=== PATIENT | female | born 1955 | race Caucasian/White ===

== ENCOUNTER 2018-01-09 12:44 | Day surgery (SDC) | payer BC ==
[2018-01-09] MEDS ORDERED: ALPRAZolam 0.5 MG TAB PO STA (13:19)
[2018-01-09 13:24] VITALS: TEMP 97.8
[2018-01-09 14:13] VITALS: BP 136/76; PULSE 91; RESP 14
--- NOTE | 2018-01-09 14:32 | US ---
ULTRASOUND GUIDED FNA THYROID BIOPSY: CLINICAL HISTORY: Large right thyroid cyst FINDINGS: The procedure was explained to the patient. The risks, complications, benefits and alternatives were discussed and any questions were answered. Informed consent was obtained. Patient was placed supin e on the ultrasound table and prepped and draped in the usual sterile fashion. Utilizing a 25 gauge needle, five passes were made into the requested large right thyroid cyst. Patient was stable throughout the procedure. Pathology is pending. All elements of maximal barrier technique were utilized. IMPRESSION: 1. Successful ultrasound guided FNA thyroid biopsy.
== END 2018-01-09 14:19 | disposition home or self-care (01) ==
LOC: RADPROMAIN 12:44
PROVIDERS: ATTEND Otolaryngology
DX: E04.1 Nontoxic single thyroid nodule (principal)
CPT/HCPCS: 10022; 76942; 88173; 88305

== ENCOUNTER → 2018-06-19 | Outpatient (CLI) | payer BC ==
--- NOTE | 2018-06-19 08:34 | US ---
EXAMINATION TYPE: US thyroid st tissue head/neck DATE OF EXAM: 06/19/2018 COMPARISON: US 2018 CLINICAL HISTORY: E04.1 thyroid nodule. Right thyroid cyst, history of FNA GLAND SIZE: Right Lobe: 6.7 x 4.1 x 5.1 cm Overall Parenchyma: heterogenous Left Lobe: 4.5 x 1.7 x 1.4 cm Overall Parenchyma: heterogeneous Isthmus Thickness: 0.2 cm NODULES RIGHT: # of nodules measured on right: 1 1. 5.4 X 1.9 x 4.6 cm irregular bilobed cystic nodule at the mid pole with well-defined margins. Th is nodule is wider than tall and shows no intranodular vascularity. Prior size: 4.4 x 1.3 x 4.8 cm LEFT: # of nodules measured on left: 0 ISTHMUS: # of nodules measured in the isthmus: 0 Bilateral neck scanned, no evidence of lymphadenopathy. Enlarged right lobe with cyst described above. IMPRESSION: Redemonstration of an enlarged right thyroid lobe with a previously biopsied cystic lesion, slightly enlarged in the interim. No new left nodules or thyroid isthmic nodules.
== END | disposition home or self-care (01) ==
LOC: RADUSWWP 06:59
PROVIDERS: ATTEND Otolaryngology
DX: E04.9 Nontoxic goiter, unspecified (principal)
CPT/HCPCS: 76536

== ENCOUNTER → 2019-04-03 | Outpatient (CLI) | payer BC ==
--- NOTE | 2019-04-03 15:20 | US ---
EXAMINATION TYPE: US thyroid st tissue head/neck DATE OF EXAM: 04/03/2019 COMPARISON: US 2018 CLINICAL HISTORY: E04.1 Thyroid nodule Rt. Follow up thyroid nodule, history of FNA GLAND SIZE: Right Lobe: 6.6 x 3.7 x 5.3 cm Overall Parenchyma: heterogenous Left Lobe: 4.7 x 1.7 x 1.3 cm Overall Parenchyma: heterogeneous Isthmus Thickness: 0.3 cm NODULES RIGHT: # of nodules measured on right: 1 1. 5.9 X 3.0 x 4.5 cm hypoechoic mixed nodule with 5.8 x 2.7 x 5.0cm cystic area seen at the mid po le with poorly defined margins. This nodule is wider than tall and shows intranodular vascularity. Prior size: 5.4 x 1.9 x 4.6 cm LEFT: # of nodules measured on left: 0 ISTHMUS: # of nodules measured in the isthmus: 0 Bilateral neck scanned, no evidence of lymphadenopathy. IMPRESSION: Thyroidomegaly with a nonspecific thyroid nodularity.
== END ==
LOC: RADUSWWP 14:44
PROVIDERS: ATTEND Otolaryngology
DX: E01.0 Iodine-deficiency related diffuse (endemic) goiter (principal); Z88.2 Allergy status to sulfonamides; Z88.1 Allergy status to other antibiotic agents
CPT/HCPCS: 76536

== ENCOUNTER 2020-01-05 18:57 | Inpatient (IN) | payer BC ==
[2020-01-05] MEDS ORDERED: NITROGLYCERIN SL TABS 0.4 MG TAB SUBLINGUAL PRN (19:15)
[2020-01-05] MEDS ORDERED: MORPHINE SULFATE 4 MG/ML SYRINGE IV PRN (19:15)
--- NOTE | 2020-01-05 19:15 | ED ---
SOB HPI - General Chief Complaint: Shortness of Breath Stated Complaint: Pulmonary Embolism Time Seen by Provider: 01/05/20 19:00 Source: patient, EMS, RN notes reviewed, old records reviewed Mode of arrival: EMS Limitations: no limitations - History of Present Illness MD Complaint: shortness of breath, cough -: days(s) Severity: mild Severity scale (1-10): 3 Quality: sharp, crushing Consistency: constant Improves With: oxygen, rest, bronchodilators Worsens With: nothing Known History Of: other (history of PE provoked w Surgery) Context: recent URI, recent illness Associated Symptoms: chest pain, pain with inspiration Treatments Prior to Arrival: none - Related Data Home Medications Medication Instructions Recorded Confirmed Docusate [Colace] 100 mg PO DAILY 01/03/18 01/09/18 Vitamin B Complex 1 each PO DAILY 01/03/18 01/09/18 buPROPion [Wellbutrin] 300 mg PO DAILY 01/03/18 01/09/18 Allergies Allergy/AdvReac Type Severity Reaction Status Date / Time Latex, Natural Rubber Allergy Rash/Hives Verified 01/05/20 19:05 Sulfa (Sulfonamide Allergy Dyspnea Verified 01/05/20 19:05 Antibiotics) banana AdvReac Rash/Hives Verified 01/05/20 19:05 ciprofloxacin [From Cipro] AdvReac Rash/Hives Verified 01/05/20 19:06 [place] And Derivatives AdvReac Rash/Hives Verified 01/05/20 19:05 Review of Systems ROS Statement: Those systems with pertinent positive or pertinent negative responses have been documented in the HPI. ROS Other: All systems not noted in ROS Statement are negative. Past Medical History Past Medical History: Thyroid Disorder Additional Past Medical History / Comment(s): hernias, diverticulitis, right lung collapse, pulmonary embolism History of Any Multi-Drug Resistant Organisms: None Reported Past Surgical History: Cholecystectomy, Hernia Repair Additional Past Surgical History / Comment(s): multiple colon surgeries and hernia repairs, bladder suspension, chest tube placed, previous thyroid biopsy, colonoscopies Past Anesthesia/Blood Transfusion Reactions: No Reported Reaction Past Psychological History: No Psychological Hx Reported Smoking Status: Former smoker Past Alcohol Use History: None Reported Past Drug Use History: None Reported - Past Family History Sister(s) Family Medical History: Thyroid Disorder Additional Family Medical History / Comment(s): partial thyroidectomy Daughter(s) Family Medical History: Thyroid Disorder Additional Family Medical History / Comment(s): partial thyroidectomy General Exam Limitations: no limitations General appearance: alert, in no apparent distress Head exam: Present: atraumatic, normocephalic, normal inspection Eye exam: Present: normal appearance, PERRL, EOMI. Absent: scleral icterus, conjunctival injection, periorbital swelling ENT exam: Present: normal exam, mucous membranes moist Neck exam: Present: normal inspection. Absent: tenderness, meningismus, lymphadenopathy Respiratory exam: Present: normal lung sounds bilaterally. Absent: respiratory distress, wheezes, rales, rhonchi, stridor Cardiovascular Exam: Present: normal rhythm, tachycardia, normal heart sounds. Absent: systolic murmur, diastolic murmur, rubs, gallop, clicks GI/Abdominal exam: Present: soft, normal bowel sounds. Absent: distended, tenderness, guarding, rebound, rigid Extremities exam: Present: normal inspection, full ROM, normal capillary refill. Absent: tenderness, pedal edema, joint swelling, calf tenderness Back exam: Present: normal inspection Neurological exam: Present: alert, oriented X3, CN II-XII intact Psychiatric exam: Present: normal affect, normal mood Skin exam: Present: warm, dry, intact, normal color. Absent: rash Course Vital Signs 01/05/20 01/05/20 01/05/20 19:02 19:06 19:07 Temperature 97.9 F Pulse Rate 105 H 105 H Respiratory 18 20 18 Rate Blood Pressure 105/83 105/83 O2 Sat by Pulse 95 96 Oximetry - Reevaluation(s) Reevaluation #1: 01/05/20 19:13 Medical records reviewed Reevaluation #2: 01/05/20 19:13 Transfer paperwork is also reviewed - Consultations Consultation #1: spoke w [facility] who agree for admission Medical Decision Making - Medical Decision Making 64 female DF for evaluation patient presents today for evaluation regards to shortness of breath patient is accepted transfer mother facility with positive PE. Patient states currently comfortable no pain no shortness of breath. Lenora ent will be admitted for continued evaluation and treatment, will get echo and Vascular surgery to evaluate pt - Radiology Data Radiology results: report reviewed (CT angio chest showing BL PEs) Disposition Clinical Impression: Bilateral pulmonary embolism Disposition: ADMITTED IP TO THIS HOSP Condition: Serious Is patient prescribed a controlled substance at d/c from ED?: No Referrals: Naomi Eaton NPC [Primary Care Provider] - 1-2 days
[2020-01-05] MEDS ORDERED: HEPARIN SODIUM,PORCINE 5,000 UNIT/ML 1 ML VIAL IV PRN (19:18)
[2020-01-05] MEDS: HEPARIN SOD,PORK IN 0.45% NACL 25,000 UNIT in 0.45% NACL 1 250ML.BAG IV SCH (19:26)
[2020-01-05] MEDS: SODIUM CHLORIDE 0.9% 1,000 ML IV SCH (19:28)
[2020-01-06 05:55] LABS: INR 1.2 (<1.2); Prothrombin Time 11.8 sec (9.0-12.0)
[2020-01-06] MEDS: SODIUM CHLORIDE 0.9% 1,000 ML IV SCH ×2 (06:16→11:38)
[2020-01-06 07:12] LABS: Cholesterol 173 mg/dL (<200); HDL Cholesterol 49 mg/dL (40-60); LDL Cholesterol,Calculated 91 mg/dL (0-99); Triglycerides 167 mg/dL (<150)
[2020-01-06 07:20] LABS: Basophils # (A) 0.1 k/uL (0-0.2); Basophils % (A) 1 %; Eosinophils # (A) 0.1 k/uL (0-0.7); Eosinophils % (A) 1 %; HCT 43.4 % (34.0-46.0); Lymphocytes # (A) 2.3 k/uL (1.0-4.8); Lymphocytes % (A) 31 %; MCH 29.1 pg (25.0-35.0); MCHC 32.3 g/dL (31.0-37.0); MCV 90.2 fL (80.0-100.0); Mean Platelet Volume 8.4; Monocytes # (A) 0.4 k/uL (0-1.0); Monocytes % (A) 5 %; Neutrophils # (A) 4.5 k/uL (1.3-7.7); Neutrophils % (A) 61 %; Platelet Count 206 k/uL (150-450); RBC 4.81 m/uL (3.80-5.40); RDW 13.2 % (11.5-15.5); WBC 7.4 k/uL (3.8-10.6)
[2020-01-06] MEDS ORDERED: ASPIRIN 325 MG TAB PO SCH (09:00)
--- NOTE | 2020-01-06 09:04 | CONS ---
CONSULTATION CHIEF COMPLAINT: Shortness of breath. Colten is a 64-year-old lady with no significant past medical history who presented to hospital with shortness of breath. It started on Saturday mild to moderate intensity at rest and progressively got worse. She went to hospital at [facility] in [place] where she had a CT scan of the chest that revealed bilateral pulmonary emboli and she has subsequently been transferred and admitted to us here at [place]. She did not have any evidence of right ventricular strain. At the time of my evaluation this morning patient appears comfortable at rest and is not in respiratory distress and she is hemodynamically stable. Her heart rate is around 100 beats per minute. Blood pressure is 105/70. She is saturating at 96% on 2 L. The patient has prior history of DVT following cholecystectomy and also has history of pulmonary embolism following hernia surgery. The patient had unprovoked and large pulmonary embolism and she will have to be on lifetime oral anticoagulation. PAST MEDICAL HISTORY: Negative for hypertension, diabetes, dyslipidemia. There is no history of cancer. There is no recent history of prolonged travel or surgery. CURRENT MEDICATIONS: Current medications include Wellbutrin, Colace, and Benadryl. ALLERGIES: She is allergic to LATEX, SULFA and CIPRO. FAMILY HISTORY: Negative for premature coronary artery disease. SOCIAL HISTORY: Negative for current smoking, EtOH abuse, or drug abuse. REVIEW OF SYSTEMS: HEENT is unremarkable. CARDIAC: As described above. RESPIRATORY: Negative. GI: Negative. GENITOURINARY: Negative. ALLERGY/IMMUNOLOGY: Negative. SKIN: Negative. MUSCULOSKELETAL: Negative. ENDOCRINE: Negative. HEMATOLOGICAL: Negative. DERM: Negative. CONSTITUTIONAL: Negative. ONCOLOGICAL: Negative. ELECTRONIC SCALE TESTER: Negative. Rest of the system review is not relevant. PHYSICAL EXAMINATION: On exam, patient is comfortable at rest. Vital signs are stable. There is no jugular venous distention. Carotid upstroke is normal. There is no bruit. Chest exam reveals good air entry bilaterally. Heart exam reveals first and second heart sounds. No gallop. Abdomen is soft, nontender. Exam of extremities did not reveal any edema. Peripheral pulses are felt. ELECTRONIC SCALE TESTER exam did not reveal focal neurological deficits. LABS: Labs show a hemoglobin of 14, platelet count is 206. Troponin is mildly elevated. EKG shows sinus tachycardia with T-wave inversions in the precordial leads. CT scan of the chest was positive for bilateral pulmonary emboli. ASSESSMENT: Acute bilateral pulmonary embolism in a patient without any clear-cut precipitating factors. PLAN: Patient will be treated with IV heparin. I will convert her to Eliquis or Xarelto tomorrow. She is going to be on oral anticoagulation for the rest of her life. I will obtain venous duplex study of her lower extremities and also an echocardiogram. I anticipate discharging her home over the next 48 hours. Thank you for allowing us to participate in the care of this pleasant lady. MMJOSIASL / IJN: [id number] /
[2020-01-06] MEDS: HEPARIN SOD,PORK IN 0.45% NACL 25,000 UNIT in 0.45% NACL 1 250ML.BAG IV SCH ×2 (09:24→21:17)
--- NOTE | 2020-01-06 09:57 | US ---
EXAMINATION TYPE: US venous doppler duplex LE BI DATE OF EXAM: 01/06/2020 9:42 AM COMPARISON: Outside CT dated 01/05/2020 CLINICAL HISTORY: PE. Swollen right leg, new PE's SIDE PERFORMED: Bilateral TECHNIQUE: The lower extremity deep venous system is examined utilizing real time linear array sonog mohini with graded compression, doppler sonography and color-flow sonography. VESSELS IMAGED: External Iliac Vein (EIV) Common Femoral Vein Deep Femoral Vein Greater Saphenous Vein * Femoral Vein Popliteal Vein Small Saphenous Vein * Proximal Calf Veins (* superficial vessels) Right Leg: Appears positive for DVT at the proximal calf veins extending up through popiteal vein, d ilated vein with internal echoes, no blood flow and non compressible Left Leg: Appears negative for DVT IMPRESSION: 1. Positive for deep venous thrombosis of the right proximal calf veins extending through the poplite al vein. This patient has known bilateral pulmonary emboli on the exam of 01/05/2020. 2. No sonographic evidence of deep venous thrombosis within the left lower extremity. A Yellow level critical message alert has been initiated for Alexx Chappell via the [employer] System on 01/06/2020 9:54 AM. This message alert has been sent to Alexx Misti via the preferences provided by the clinician for the receipt of Radiology Critical Findings. Message ID [id number].
[2020-01-06] MEDS: FOLIC ACID-VIT B COMPLEX-VIT C 1 CAP PO SCH (10:15)
[2020-01-06] MEDS: buPROPion XL 300 MG TAB.ER.24H PO SCH (10:15)
--- NOTE | 2020-01-06 12:28 | P.HPIM ---
History of Present Illness This is a pleasant 64 years old female with past medical history of COPD, pulmonary embolism, Raynaud's disease, hepatitis B, irritable bowel syndrome. Patient has history of left DVT 12 years ago after she had gallbladder surgery, in 2016 her hernia repair surgery was complicated by pulmonary embolism at that time she was treated with the Eliquis for 6 months. This time patient about 6 ago she had right ankle pain and swelling with difficulty walking for 2-3, which is subsided but pain in her right foot persist , and over the last 2-3 days patient was complaining of from progressive dyspnea with no coughing or chest pain. She was sent to [facility] when she was found to have pulmonary embolism and refer to this hospital She does not use oxygen at home She's exit smoker, currently she denies smoking, alcohol or illicit drugs Vital signs stable, she was tachycardic. CBC is unremarkable, troponin is elevated at 0.1 and 0.09 . Doppler is positive for right DVT. EKG shows sinus tachycardia at 106 with some T wave inversion, no ST changes. QTC 491. on admission patient was started on heparin drip Review of Systems CONSTITUTIONAL: No fever, no malaise, no fatigue. HEENT: No recent visual problems or hearing problems. Denied any sore throat. CARDIOVASCULAR: No orthopnea, PND, no palpitations, no syncope. PULMONARY: no cough, no hemoptysis. GASTROINTESTINAL: No diarrhea, no nausea, no vomiting, no abdominal pain. Normoactive bowel sounds. NEUROLOGICAL: No headaches, no weakness, no numbness. HEMATOLOGICAL: Denies any bleeding or petechiae. GENITOURINARY: Denies any burning micturition, frequency, or urgency. MUSCULOSKELETAL/RHEUMATOLOGICAL: Denies any joint pain, swelling, or any muscle pain. ENDOCRINE: Denies any polyuria or polydipsia. Past Medical History Past Medical History: COPD, Liver Disease, Pulmonary Embolus (PE), Thyroid Disorder Additional Past Medical History / Comment(s): emphysema, hernias, diverticulitis, right lung collapse, pulmonary embolism, raynauds disease, arthritis, hepatitis B, IBS History of Any Multi-Drug Resistant Organisms: None Reported Past Surgical History: Cholecystectomy, Hernia Repair Additional Past Surgical History / Comment(s): bowel resection, four hernia rep airs, bladder suspension, chest tube placed, previous thyroid biopsy, colonoscopies Past Anesthesia/Blood Transfusion Reactions: Previous Problems w/ Anesthesia Additional Past Anesthesia/Blood Transfusion Reaction / Comment(s): pt. states she has a hard time waking up from surgery Past Psychological History: Depression Additional Psychological History / Comment(s): pt. has a history of depression that she takes Wellbutrin for Smoking Status: Former smoker Past Alcohol Use History: None Reported Additional Past Alcohol Use History / Comment(s): pt. states she quit smoking 10 years ago Past Drug Use History: None Reported - Past Family History Sister(s) Family Medical History: Thyroid Disorder Additional Family Medical History / Comment(s): partial thyroidectomy, pt. has an extensive family history of psychiatric disorders, her sister is schizophrenic Daughter(s) Family Medical History: Chest Pain / Angina, Thyroid Disorder Additional Family Medical History / Comment(s): partial thyroidectomy, history of v-tach and ablations Mother Family Medical History: Cancer Additional Family Medical History / Comment(s): liver cancer, pts mom from a bowel perforation and association sepsis, schizophrenia Father Family Medical History: Unable to Obtain Brother(s) Additional Family Medical History / Comment(s): psychiatric issues Medications and Allergies Home Medications Medication Instructions Recorded Confirmed Type Docusate [Colace] 100 mg PO DAILY 01/03/18 01/05/20 History Vitamin B Complex 1 tab PO DAILY 01/03/18 01/05/20 History buPROPion XL [Wellbutrin Xl] 300 mg PO DAILY 01/05/20 01/05/20 History diphenhydrAMINE HCL [Benadryl] 25 mg PO HS PRN 01/05/20 01/05/20 History Allergies Allergy/AdvReac Type Severity Reaction Status Date / Time Latex, Natural Rubber Allergy Rash/Hives Verified 01/05/20 20:41 Sulfa (Sulfonamide Allergy Dyspnea Verified 01/05/20 20:41 Antibiotics) banana AdvReac Rash/Hives Verified 01/05/20 20:41 ciprofloxacin [From Cipro] AdvReac Rash/Hives Verified 01/05/20 20:41 [place] And Derivatives AdvReac Rash/Hives Verified 01/05/20 20:41 Physical Exam Vitals: Vital Signs Temp Pulse Pulse Resp BP BP Pulse Ox 01/06/20 11:06 100 19 01/06/20 08:00 96.8 F L 100 19 105/70 96 01/06/20 04:00 97.8 F 99 16 128/82 94 L 01/06/20 00:00 94 19 01/05/20 23:25 97.5 F L 94 19 110/80 94 L 01/05/20 22:47 97.9 F 105 H 20 122/86 93 L 01/05/20 19:38 105 H 18 112/79 96 01/05/20 19:07 105 H 18 105/83 96 01/05/20 19:06 20 01/05/20 19:02 97.9 F 105 H 18 105/83 95 Intake and Output 01/05/20 01/06/20 01/06/20 22:59 06:59 14:59 Intake Total 162.979 87.021 Output Total 430 Balance -267.021 87.021 Intake: Intake, IV Titration 162.979 87.021 Amount Heparin Sod,Pork in 0.45% 162.979 87.021 NaCl 25,000 unit In 0.45 % NaCl 1 250ml.bag @ 18 UNITS/KG/HR 20.33 mls/hr IV .[id number] PENDING SALE TO [facility] Rx#: [id number] Output: Urine 430 Other: Voiding Method Bedside Commode # Voids 1 # Bowel Movements 1 Weight 112.945 kg 114.5 kg GENERAL: The patient is alert and oriented x3, not in any acute distress. Well developed, well nourished. HEENT: Pupils are round and equally reacting to light. EOMI. No scleral icterus. No conjunctival pallor. Normocephalic, atraumatic. No pharyngeal erythema. No thyromegaly. CARDIOVASCULAR: S1 and S2 present. No murmurs, rubs, or gallops. PULMONARY: Chest is clear to auscultation, no wheezing or crackles. ABDOMEN: Soft, nontender, nondistended, normoactive bowel sounds. No palpable organomegaly. MUSCULOSKELETAL: No joint swelling or deformity. -EXTREMITIES: No cyanosis, clubbing, or pedal edema. Right leg and foot are slightly swollen and mild blue in color NEUROLOGICAL: Gross neurological examination did not reveal any focal deficits. SKIN: No rashes. No petechiae Results CBC & Chem 7: 01/06/20 05:58 Labs: Abnormal Lab Results - Last 24 Hours (Table) 01/06/20 01/06/20 01/06/20 Range/Units 02:00 02:01 05:51 INR 1.2 H (<1.2) APTT 168.1 H* (22.0-30.0) sec Troponin I 0.112 H* (0.000-0.034) ng/mL Triglycerides (<150) mg/dL 01/06/20 01/06/20 01/06/20 Range/Units 05:51 10:40 10:40 INR (<1.2) APTT 69.6 H (22.0-30.0) sec Troponin I 0.096 H* (0.000-0.034) ng/mL Triglycerides 167 H (<150) mg/dL Thrombosis Risk Factor Assmnt - Choose All That Apply Any of the Below Risk Factors Present?: Yes Each Factor Represents 1 point: Abnormal pulmonary function (COPD), Obesity (BMI >25) Other Risk Factors: Yes Each Risk Factor Represents 2 Points: Age 61-74 years Each Risk Factor Represents 3 Points: History of DVT/PE Other congenital or acquired thrombophilia - If yes, enter type in comment: No Thrombosis Risk Factor Assessment Total Risk Factor Score: 7 Thrombosis Risk Factor Assessment Level: High Risk Assessment and Plan Assessment: Bilateral pulmonary embolism, acute Elevated troponin Acute Right leg DVT COPD, not acute exacerbation History of Raynaud's disease Hepatitis B Irritable bowel syndrome Plan: This is a pleasant 64 years old female who presents with recurrent pulmonary embolism. Cardiology evaluation is appreciated and recommended to continue with IV heparin and switched to oral anticoagulant Labs and medication were reviewed.. Continue same treatment. Continue with symptomatic treatment. Resume home medication. Monitor lytes and vitals. DVT and GI prophylaxis. Further recommendations of the clinical course of the patient DVT prophylaxis: Subcutaneous heparin GI Prophylaxis: Pepcid PT/OT: Pending Prognosis is guarded
--- NOTE | 2020-01-06 12:35 | ECHOF ---
Referral Reason:PE MEASUREMENTS -------- HEIGHT: 170.2 cm WEIGHT: 114.3 kg BP: RVIDd: 4.3 cm (< 3.3) IVSd: 1.1 cm (0.6 - 1.1) LVIDd: 3.4 cm (3.9 - 5.3) LVPWd: 1.3 cm (0.6 - 1.1) IVSs: 1.7 cm LVIDs: 2.3 cm LVPWs: 1.4 cm LAESV Index (A-L): 14.40 ml/m Ao Diam: 2.9 cm (2.0 - 3.7) AV Cusp: 2.1 cm (1.5 - 2.6) LA Diam: 3.0 cm (2.7 - 3.8) MV EXCURSION: 17.354 mm (> 18.000) MV EF SLOPE: 63 mm/s (70 - 150) EPSS: 0.4 cm MV E Simone: 0.56 m/s MV DecT: 142 ms MV A Simone: 0.76 m/s MV E/A Ratio: 0.74 RAP: 5.00 mmHg RVSP: 38.37 mmHg FINDINGS -------- Sinus rhythm. This was a technically difficult study with suboptimal views. The left ventricular size is normal. There is mild concentric left ventricular hypertrophy. Overa ll left ventricular systolic function is normal with, an EF between 55 - 60 %. The right ventricle is severely enlarged. The left atrial size is normal. Normal LA size by volume 22+/-6 ml/m2. RA appears enlarged. The aortic valve is trileaflet and appears structurally normal. The mitral valve is normal. The mitral valve leaflets are mildly thickened. There is trace mitral regurgitation. The tricuspid valve appears structurally normal. Mild tricuspid regurgitation present. There is m ild pulmonary hypertension. The right ventricular systolic pressure, as measured by Doppler, is 38. 37mmHg. There is no pulmonic regurgitation present. The aortic root size is normal. Normal inferior vena cava with normal inspiratory collapse consistent with estimated right atrial pre ssure of 5 mmHg. There is no pericardial effusion. CONCLUSIONS -------- 1. Sinus rhythm. 2. This was a technically difficult study with suboptimal views. 3. The left ventricular size is normal. 4. There is mild concentric left ventricular hypertrophy. 5. Overall left ventricular systolic function is normal with, an EF between 55 - 60 %. 6. The right ventricle is severely enlarged. 7. The left atrial size is normal. 8. Normal LA size by volume 22+/-6 ml/m2. 9. RA appears enlarged. 10. The aortic valve is trileaflet and appears structurally normal. 11. The mitral valve is normal. 12. The mitral valve leaflets are mildly thickened. 13. There is trace mitral regurgitation. 14. The tricuspid valve appears structurally normal. 15. Mild tricuspid regurgitation present. 16. There is mild pulmonary hypertension. 17. The right ventricular systolic pressure, as measured by Doppler, is 38.37mmHg. 18. There is no pulmonic regurgitation present. 19. The aortic root size is normal. 20. Normal inferior vena cava with normal inspiratory collapse consistent with estimated right atrial pressure of 5 mmHg. 21. There is no pericardial effusion. PLASTIC MOLDER: Naya Arrington RDCS
[2020-01-06] MEDS ORDERED: CALCIUM CARBONATE 500 MG CHEWABLE PO PRN (17:03)
[2020-01-06] MEDS: PANTOPRAZOLE 40 MG TABLET PO SCH (21:17)
[2020-01-07] MEDS: SODIUM CHLORIDE 0.9% 1,000 ML IV SCH (04:33)
[2020-01-07] MEDS: PANTOPRAZOLE 40 MG TABLET PO SCH ×2 (07:10→17:05)
[2020-01-07] MEDS: FOLIC ACID-VIT B COMPLEX-VIT C 1 CAP PO SCH (09:44)
[2020-01-07] MEDS: buPROPion XL 300 MG TAB.ER.24H PO SCH (09:44)
[2020-01-07] MEDS: APIXABAN 5 MG TAB PO SCH ×2 (10:02→20:01)
[2020-01-07] MEDS: HEPARIN SOD,PORK IN 0.45% NACL 25,000 UNIT in 0.45% NACL 1 250ML.BAG IV SCH (11:01)
[2020-01-07 11:13] LABS: Basophils # (A) 0.1 k/uL (0-0.2); Basophils % (A) 1 %; Eosinophils # (A) 0.3 k/uL (0-0.7); Eosinophils % (A) 5 %; HCT 47.3 % (34.0-46.0); HGB 15.2 gm/dL (11.4-16.0); Hypochromasia Slight; Lymphocytes % (A) 29 %; MCH 29.4 pg (25.0-35.0); MCHC 32.2 g/dL (31.0-37.0); MCV 91.1 fL (80.0-100.0); Mean Platelet Volume 8.2; Monocytes # (A) 0.3 k/uL (0-1.0); Monocytes % (A) 5 %; Neutrophils % (A) 59 %; Platelet Count 242 k/uL (150-450); RBC 5.19 m/uL (3.80-5.40); WBC 6.8 k/uL (3.8-10.6)
--- NOTE | 2020-01-07 11:16 | P.PN ---
Subjective Progress Note Date: 01/07/20 This is a 64-year-old female with no significant past medical history presented to the hospital with symptoms of shortness of breath, she went to [facility] and [place] where she had a CT of the chest performed which revealed bilateral pulmonary embolism and subsequently the patient was tr ansferred here for further treatment. Patient had a venous duplex study done which was positive for DVT in the proximal calf veins extending up through the popliteal vein. Patient is currently on high-intensity heparin. Blood pressure today 94/60 with a heart rate in the 90s, 96% on 2 L of oxygen. Echocardiogram with Doppler study was performed which revealed an ejection fraction of 55-60%, RVSP 38.37. Objective - Vital Signs Vital signs: Vital Signs Temp 97.9 F 01/07/20 08:00 Pulse 102 H 01/07/20 08:00 Resp 20 01/07/20 08:00 BP 93/66 01/07/20 08:00 Pulse Ox 96 01/07/20 08:00 Intake & Output 01/06/20 01/07/20 01/07/20 18:59 06:59 18:59 Intake Total 557.899 3071.292 120 Balance 278.491 8394.292 120 Weight 114.4 kg Intake: Intake, IV Titration 87.021 1002.292 Amount Heparin Sod,Pork in 0.45% 87.021 102.292 NaCl 25,000 unit In 0.45 % NaCl 1 250ml.bag @ 18 UNITS/KG/HR 20.33 mls/hr IV .[id number] [facility] Rx#: [id number] Sodium Chloride 0.9% 1, 900 000 ml @ 100 mls/hr IV . Q10H [facility] Rx#:[id number] Oral 240 480 120 Other: Voiding Method Bedside Commode Bedside Commode Toilet Bedside Commode # Voids 4 # Bowel Movements 1 - Exam PHYSICAL EXAMINATION: GENERAL: 64-year-old female in no acute distress at the time of my examination HEENT: Head is atraumatic, normocephalic. Pupils equal, round. Sclera anicteric. Conjunctiva are clear. Mucous membranes of the mouth are moist. Neck is supple. There is no elevated jugular venous pressure. No carotid bruit is heard. HEART EXAMINATION: Heart S1, S2 normal. No murmur or gallop heard. CHEST EXAMINATION: Lungs are clear to auscultation and precussion. No chest wall tenderness is noted on palpation or with deep breathing. ABDOMEN: Soft, nontender. Bowel sounds are heard. No organomegaly noted. EXTREMITIES: 2+ peripheral pulses with no evidence of peripheral edema and no calf tenderness noted. NEUROLOGIC patient is awake, alert and oriented 3 . . - Labs CBC & Chem 7: 01/06/20 05:58 Labs: Abnormal Lab Results - Last 24 Hours (Table) 01/06/20 01/06/20 01/06/20 Range/Units 02:01 10:40 10:40 APTT 168.1 H* 69.6 H (22.0-30.0) sec Troponin I 0.096 H* (0.000-0.034) ng/mL 01/06/20 01/07/20 Range/Units 17:40 00:29 APTT 89.7 H 92.8 H (22.0-30.0) sec Troponin I (0.000-0.034) ng/mL Assessment and Plan Plan: Assessment and plan #1 acute bilateral pulmonary embolism, on high-dose intensity heparin #2 left sided DVT at the proximal calf veins extending up through the popliteal vein Plan We will discontinue the heparin today and initiate oral anticoagulation for PE. Plan for possible discharge home in the next 24 hours. DNP note has been reviewed, I agree with a documented findings and plan of care. Patient was seen and examined.
[2020-01-07 11:53] LABS: Prothrombin Time 10.4 sec (9.0-12.0)
[2020-01-07 12:05] LABS: Albumin 4.5 g/dL (3.5-5.0); Calcium 9.4 mg/dL (8.4-10.2); Magnesium 1.9 mg/dL (1.6-2.3); Potassium 4.5 mmol/L (3.5-5.1); Total Bilirubin 0.7 mg/dL (0.2-1.3); Total Protein 7.8 g/dL (6.3-8.2)
--- NOTE | 2020-01-07 12:23 | P.PN ---
Subjective This is a pleasant 64 years old female with past medical history of COPD, pulmonary embolism, Raynaud's disease, hepatitis B, irritable bowel syndrome. Patient has history of left DVT 12 years ago after she had gallbladder surgery, in 2016 her hernia repair surgery was complicated by pulmonary embolism at that time she was treated with the Eliquis for 6 months. This time patient about 6 days ago she had right ankle pain and swelling with difficulty walking for 2-3, which is subsided but pain in her right foot persist , and over the last 2-3 days patient was complaining of from progressive dyspnea with no coughing or chest pain. She was sent to [facility] when she was found to have pulmonary embolism and refer to this hospital She does not use oxygen at home . On admission she had elevated troponin is elevated at 0.1 and 0.09 . Patient has been evaluated by credit risk management director who check echocardiogram showing no straining on the heart from her pulmonary embolism, ejection fraction 55-60%. Right ventricle is severely dilated but pressure is 38.37. Patient was treated with heparin drip and switched later on Eliquis with co-pay O $45 to which patient agrees. Patient's symptoms of chest pain and leg pain improved, her breathing is quiet, no coughing. No other complaints. Patient feels she can go home today. Patient will need to be on Eliquis 10 mg twice daily for 7 days, followed by 5 mg twice daily thereafter for the rest of her life, patient understands these instructions and agrees to them and she sent him back to me Objective - Vital Signs Vital signs: Vital Signs Temp 97.9 F 01/07/20 08:00 Pulse 90 01/07/20 12:00 Resp 18 01/07/20 12:00 BP 122/80 01/07/20 12:00 Pulse Ox 92 L 01/07/20 12:00 Intake & Output 01/06/20 01/07/20 01/07/20 18:59 06:59 18:59 Intake Total 353.466 4199.292 120 Balance 275.590 8631.292 120 Weight 114.4 kg Intake: Intake, IV Titration 87.021 1002.292 Amount Heparin Sod,Pork in 0.45% 87.021 102.292 NaCl 25,000 unit In 0.45 % NaCl 1 250ml.bag @ 18 UNITS/KG/HR 20.33 mls/hr IV .[id number] [facility] Rx#: [id number] Sodium Chloride 0.9% 1, 900 000 ml @ 100 mls/hr IV . Q10H [facility] Rx#:[id number] Oral 240 480 120 Other: Voiding Method Bedside Commode Bedside Commode Toilet Bedside Commode # Voids 4 # Bowel Movements 1 - Exam GENERAL: The patient is alert and oriented x3, not in any acute distress. Well developed, well nourished. HEENT: Pupils are round and equally reacting to light. EOMI. No scleral icterus. No conjunctival pallor. Normocephalic, atraumatic. No pharyngeal erythema. No thyromegaly. CARDIOVASCULAR: S1 and S2 present. No murmurs, rubs, or gallops. PULMONARY: Chest is clear to auscultation, no wheezing or crackles. ABDOMEN: Soft, nontender, nondistended, normoactive bowel sounds. No palpable organomegaly. MUSCULOSKELETAL: No joint swelling or deformity. EXTREMITIES: No cyanosis, clubbing, or pedal edema. NEUROLOGICAL: Gross neurological examination did not reveal any focal deficits. SKIN: No rashes. no petechiae. - Labs CBC & Chem 7: 01/07/20 10:49 01/07/20 10:49 Labs: Abnormal Lab Results - Last 24 Hours (Table) 01/06/20 01/06/20 01/07/20 Range/Units 02:01 17:40 00:29 Hct (34.0-46.0) % APTT 168.1 H* 89.7 H 92.8 H (22.0-30.0) sec Chloride (98-107) mmol/L Carbon Dioxide (22-30) mmol/L 01/07/20 01/07/20 Range/Units 10:49 10:49 Hct 47.3 H (34.0-46.0) % APTT (22.0-30.0) sec Chloride 109 H (98-107) mmol/L Carbon Dioxide 20 L (22-30) mmol/L Assessment and Plan Assessment: Bilateral pulmonary embolism, acute Elevated troponin Acute Right leg DVT COPD, not acute exacerbation History of Raynaud's disease Hepatitis B Irritable bowel syndrome Plan: This is a pleasant 64 years old female who presents with recurrent pulmonary embolism. Cardiology evaluation is appreciated and recommended to continue with anticoagulant. Discontinue heparin drip. Patient will need to be on Eliquis 10 mg twice daily for 7 days, followed by 5 mg twice daily thereafter Labs and medication were reviewed.. Continue same treatment. Continue with symptomatic treatment. Resume home medication. Monitor lytes and vitals. DVT and GI prophylaxis. Further recommendations of the clinical course of the patient DVT prophylaxis: Eliquis GI Prophylaxis: Pepcid PT/OT: Pending Prognosis is guarded
[2020-01-07 19:50] VITALS: RESP 18
[2020-01-08] MEDS: PANTOPRAZOLE 40 MG TABLET PO SCH (06:11)
[2020-01-08 07:23] LABS: Basophils # (A) 0.1 k/uL (0-0.2); Basophils % (A) 1 %; Eosinophils # (A) 0.4 k/uL (0-0.7); Eosinophils % (A) 7 %; HCT 41.4 % (34.0-46.0); HGB 13.4 gm/dL (11.4-16.0); Lymphocytes # (A) 1.7 k/uL (1.0-4.8); Lymphocytes % (A) 28 %; MCH 28.8 pg (25.0-35.0); MCHC 32.4 g/dL (31.0-37.0); Mean Platelet Volume 8.4; Monocytes # (A) 0.4 k/uL (0-1.0); Monocytes % (A) 7 %; Neutrophils # (A) 3.2 k/uL (1.3-7.7); Neutrophils % (A) 54 %; Platelet Count 208 k/uL (150-450); RBC 4.65 m/uL (3.80-5.40); RDW 13.2 % (11.5-15.5); WBC 5.9 k/uL (3.8-10.6)
[2020-01-08 07:33] LABS: INR 1.1 (<1.2); Prothrombin Time 10.8 sec (9.0-12.0)
[2020-01-08 07:35] LABS: Albumin 3.7 g/dL (3.5-5.0); Magnesium 1.8 mg/dL (1.6-2.3); Potassium 4.1 mmol/L (3.5-5.1); Total Bilirubin 0.7 mg/dL (0.2-1.3); Total Protein 6.8 g/dL (6.3-8.2)
[2020-01-08] MEDS: FOLIC ACID-VIT B COMPLEX-VIT C 1 CAP PO SCH (08:11)
[2020-01-08] MEDS: buPROPion XL 300 MG TAB.ER.24H PO SCH (08:11)
[2020-01-08] MEDS: APIXABAN 5 MG TAB PO SCH (08:11)
[2020-01-08 12:04] VITALS: BP 112/68; PULSE 93; TEMP 98.2
--- NOTE | 2020-01-08 13:05 | P.PN ---
Subjective Progress Note Date: 01/08/20 This is a 64-year-old female with no significant past medical history presented to the hospital with symptoms of shortness of breath, she went to [facility] and [place] where she had a CT of the chest performed which revealed bilateral pulmonary embolism and subsequently the patient was tr ansferred here for further treatment. Patient had a venous duplex study done which was positive for DVT in the proximal calf veins extending up through the popliteal vein. Patient is currently on high-intensity heparin. Blood pressure today 94/60 with a heart rate in the 90s, 96% on 2 L of oxygen. Echocardiogram with Doppler study was performed which revealed an ejection fraction of 55-60%, RVSP 38.37. 01/08/2020 Patient seen and examined this morning, overall doing well. Hemodynamically stable. Her breathing is almost back to her normal according to her. She is anticipating discharge home today. Objective - Vital Signs Vital signs: Vital Signs Temp 98.2 F 01/08/20 12:00 Pulse 93 01/08/20 12:00 Resp 18 01/08/20 12:00 BP 112/68 01/08/20 12:00 Pulse Ox 94 L 01/08/20 08:00 Intake & Output 01/07/20 01/08/20 01/08/20 18:59 06:59 18:59 Intake Total 480 Balance 480 Weight 114.9 kg Intake: Oral 480 Other: Voiding Method Toilet Toilet Bedside Commode Bedside Commode # Voids 1 - Exam PHYSICAL EXAMINATION: GENERAL: 64-year-old female in no acute distress at the time of my examination HEENT: Head is atraumatic, normocephalic. Pupils equal, round. Sclera anicteric. Conjunctiva are clear. Mucous membranes of the mouth are moist. Neck is supple. There is no elevated jugular venous pressure. No carotid bruit is heard. HEART EXAMINATION: Heart S1, S2 normal. No murmur or gallop heard. CHEST EXAMINATION: Lungs are clear to auscultation and precussion. No chest wall tenderness is noted on palpation or with deep breathing. ABDOMEN: Soft, nontender. Bowel sounds are heard. No organomegaly noted. EXTREMITIES: 2+ peripheral pulses with no evidence of peripheral edema and no calf tenderness noted. NEUROLOGIC patient is awake, alert and oriented 3 . . - Labs CBC & Chem 7: 01/08/20 06:26 01/08/20 06:26 Labs: Abnormal Lab Results - Last 24 Hours (Table) 01/08/20 Range/Units 06:26 Chloride 108 H (98-107) mmol/L Carbon Dioxide 20 L (22-30) mmol/L Glucose 103 H (74-99) mg/dL Assessment and Plan Plan: Assessment and plan #1 acute bilateral pulmonary embolism, on high-dose intensity heparin #2 left sided DVT at the proximal calf veins extending up through the popliteal vein Plan Cardiology's perspective, patient may be able to be discharged home today. We'll make a follow-up appointment in the office post discharge. DNP note has been reviewed, I agree with a documented findings and plan of care. Patient was seen and examined.
== END 2020-01-08 15:15 | disposition home or self-care (01) | DRG 176 ==
LOC: EC 18:57 → 3SCARD 19:18
PROVIDERS: ADMIT Hospitalist; ATTEND Hospitalist
DX: I26.99 Other pulmonary embolism without acute cor pulmonale (principal); I82.4Z1 Acute embolism and thrombosis of unspecified deep veins of right distal lower extremity; I82.431 Acute embolism and thrombosis of right popliteal vein; F32.9 Major depressive disorder, single episode, unspecified; I73.00 Raynaud's syndrome without gangrene; J43.9 Emphysema, unspecified; K58.9 Irritable bowel syndrome, unspecified; M79.671 Pain in right foot; K57.90 Diverticulosis of intestine, part unspecified, without perforation or abscess without bleeding; M19.90 Unspecified osteoarthritis, unspecified site; R79.89 Other specified abnormal findings of blood chemistry; Z79.899 Other long term (current) drug therapy; Z88.1 Allergy status to other antibiotic agents; Z91.040 Latex allergy status; Z88.2 Allergy status to sulfonamides; Z91.018 Allergy to other foods; Z87.891 Personal history of nicotine dependence; Z86.718 Personal history of other venous thrombosis and embolism; Z86.711 Personal history of pulmonary embolism; Z90.49 Acquired absence of other specified parts of digestive tract; Z80.0 Family history of malignant neoplasm of digestive organs; Z81.8 Family history of other mental and behavioral disorders; Z83.49 Family history of other endocrine, nutritional and metabolic diseases
CPT/HCPCS: 80053; 80061; 83735; 84484; 85025; 85610; 85730; 93005; 93306; 93970; 96365; 96366; 99285

== ENCOUNTER → 2020-04-27 | Outpatient (CLI) | payer BC ==
--- NOTE | 2020-04-27 09:26 | US ---
EXAMINATION TYPE: US thyroid st tissue head/neck DATE OF EXAM: 04/27/2020 COMPARISON: US 04/03/2019 CLINICAL HISTORY: E04.1 Thyroid Nodule. GLAND SIZE: Right Lobe: 7.7 x 3.9 x 5.7 cm Overall Parenchyma: heterogenous Left Lobe: 4.6 x 1.4 x 1.2 cm Overall Parenchyma: heterogeneous Isthmus Thickness: 0.4 cm NODULES RIGHT: # of nodules measured on right: 1 1. 5.7 X 2.3 x 4.2 cm hypoechoic cystic nodule at the mid pole with well-defined margins; . This n odule is wider than tall and shows no intranodular vascularity. Prior size: 5.9 x 3.0 x 4.5 cm LEFT: # of nodules measured on left: 0 ISTHMUS: # of nodules measured in the isthmus: 0 Bilateral neck scanned, no evidence of lymphadenopathy. IMPRESSION: Stable complex right thyroid nodule which was sampled in 2018. Correlate clinically. No n ew greater than 1 cm solid or cystic nodules noted.
== END | disposition home or self-care (01) ==
LOC: RADUSWWP 08:16
PROVIDERS: ATTEND Otolaryngology
DX: E04.1 Nontoxic single thyroid nodule (principal)
CPT/HCPCS: 76536

== ENCOUNTER 2020-12-20 23:17 | Inpatient (IN) | payer BC ==
--- NOTE | 2020-12-20 23:34 | ED ---
Recheck HPI - General Chief Complaint: Abdominal Pain Stated Complaint: Abd Pain Time Seen by Provider: 12/20/20 23:28 Source: patient, RN notes reviewed, old records reviewed Mode of arrival: ambulatory Limitations: no limitations - History of Present Illness Initial Comments: This is a 64-year-old female who is accepted as a transfer. Patient accepted as a transfer with known incarcerated hernia history of multiple hernias and multiple abdominal surgeries. Patient currently has no complaints pain is controlled. History obtained from patient's chart MD Complaint: wound re-check (surgical issue) -: hour(s) Returns Today for: persistent/worsening pain related to initial visit Symptoms Since Prior Visit: worsening pain Context: other (patient has incarcerated hernia, accepted in transfer) Associated Symptoms: none Treatments Prior to Arrival: Given Pain Meds on - Related Data Home Medications Medication Instructions Recorded Confirmed Docusate [Colace] 100 mg PO DAILY 01/03/18 12/21/20 buPROPion XL [Wellbutrin XL] 300 mg PO DAILY 01/05/20 12/21/20 Apixaban [Eliquis] 5 mg PO BID@0900,2100 12/21/20 12/21/20 Cholecalciferol [Vitamin D3 (25 50 mcg PO DAILY 12/21/20 12/21/20 Mcg = 1000 Iu)] Multivit-Min/Iron/Folic/Lutein 1 tab PO DAILY 12/21/20 12/21/20 [Centrum Silver Women Tablet] Phenylephrine HCl [Sudafed PE] 10 mg PO DAILY PRN 12/21/20 12/21/20 Allergies Allergy/AdvReac Type Severity Reaction Status Date / Time Latex, Natural Rubber Allergy Rash/Hives Verified 12/21/20 09:02 Sulfa (Sulfonamide Allergy Dyspnea Verified 12/21/20 09:02 Antibiotics) banana AdvReac Rash/Hives Verified 12/21/20 09:02 ciprofloxacin [From Cipro] AdvReac Rash/Hives Verified 12/21/20 09:02 [place] And Derivatives AdvReac Rash/Hives Verified 12/21/20 09:02 Review of Systems ROS Statement: Those systems with pertinent positive or pertinent negative responses have been documented in the HPI. ROS Other: All systems not noted in ROS Statement are negative. Past Medical History Past Medical History: COPD, Liver Disease, Pulmonary Embolus (PE), Thyroid Disorder Additional Past Medical History / Comment(s): emphysema, hernias, divertic ulitis, right lung collapse, pulmonary embolism, raynauds disease, arthritis, hepatitis B, IBS, umbilical hernia. History of Any Multi-Drug Resistant Organisms: None Reported Past Surgical History: Cholecystectomy, Hernia Repair Additional Past Surgical History / Comment(s): bowel resection, four hernia repairs, bladder suspension, chest tube placed, previous thyroid biopsy, colonoscopies Past Anesthesia/Blood Transfusion Reactions: Previous Problems w/ Anesthesia Additional Past Anesthesia/Blood Transfusion Reaction / Comment(s): pt. states she has a hard time waking up from surgery Past Psychological History: Depression Smoking Status: Never smoker Past Alcohol Use History: Occasional Past Drug Use History: Marijuana - Past Family History Sister(s) Family Medical History: Thyroid Disorder Additional Family Medical History / Comment(s): partial thyroidectomy, pt. has an extensive family history of psychiatric disorders, her sister is schizophrenic Daughter(s) Family Medical History: Chest Pain / Angina, Thyroid Disorder Additional Family Medical History / Comment(s): partial thyroidectomy, history of v-tach and ablations Mother Family Medical History: Cancer Additional Family Medical History / Comment(s): liver cancer, pts mom from a bowel perforation and association sepsis, schizophrenia Father Family Medical History: Unable to Obtain Brother(s) Additional Family Medical History / Comment(s): psychiatric issues General Exam Limitations: no limitations General appearance: alert, in no apparent distress Head exam: Present: atraumatic, normocephalic, normal inspection Eye exam: Present: normal appearance, PERRL, EOMI. Absent: scleral icterus, conjunctival injection, periorbital swelling ENT exam: Present: normal exam, mucous membranes moist Neck exam: Present: normal inspection. Absent: tenderness, meningismus, lymphadenopathy Respiratory exam: Present: normal lung sounds bilaterally. Absent: respiratory distress, wheezes, rales, rhonchi, stridor Cardiovascular Exam: Present: regular rate, normal rhythm, normal heart sounds. Absent: systolic murmur, diastolic murmur, rubs, gallop, clicks GI/Abdominal exam: Present: soft, normal bowel sounds. Absent: distended, tenderness, guarding, rebound, rigid Extremities exam: Present: normal inspection, full ROM, normal capillary refill. Absent: tenderness, pedal edema, joint swelling, calf tenderness Back exam: Present: normal inspection Neurological exam: Present: alert, oriented X3, CN II-XII intact Psychiatric exam: Present: normal affect, normal mood Skin exam: Present: warm, dry, intact, normal color. Absent: rash Course Vital Signs 12/20/20 12/21/20 12/21/20 23:23 01:32 02:00 Temperature 97.8 F 98.5 F 98.5 F Pulse Rate 91 Pulse Rate [ 90 90 Right Radial] Respiratory 20 18 18 Rate Blood Pressure 153/95 Blood Pressure 158/99 158/99 [Left Arm] O2 Sat by Pulse 96 95 95 Oximetry - Reevaluation(s) Reevaluation #1: Medical record is reviewed Transfer paperwork is thoroughly reviewed Patient symptoms are resolved, patient has no significant complaints Patient informed of results and questions answered Spoke with patient's transferring physician and accepted transfer - Consultations Consultation #1: Spoke with Dr. Brannon who agrees to admit the patient Medical Decision Making - Medical Decision Making 65 female to the ER for evaluation. Patient will be admitted for surgical evaluation and treatment for incarcerated hernia Disposition Clinical Impression: Abdominal pain, Incarcerated hernia Disposition: ADMITTED IP TO THIS HOSP Condition: Good Is patient prescribed a controlled substance at d/c from ED?: No
[2020-12-21] MEDS ORDERED: MORPHINE SULFATE 4 MG/ML SYRINGE IV PRN (01:01)
[2020-12-21] MEDS ORDERED: NALOXONE 0.4 MG/ML 1 ML VIAL IV PRN ×2 (01:01→13:36)
[2020-12-21] MEDS: ONDANSETRON 4 MG/2 ML VIAL IVP PRN ×2 (05:57→11:41)
[2020-12-21] MEDS: PANTOPRAZOLE 40 MG/10 ML VIAL IV SCH (08:58)
--- NOTE | 2020-12-21 10:56 | P.GSHP ---
History of Present Illness H&P Date: 12/21/20 CHIEF COMPLAINT: Abdominal pain HISTORY OF PRESENT ILLNESS: This is a 65-year-old female with a known history of 4 previous abdominal hernias requiring surgical repair. Her last surgery was in 2016 at [place]. Patient presented to [facility] with complaints of abdominal pain along her incision that started yesterday. She was transferred to [facility] for surgical evaluation. Patient has been having nausea and vomiting. She denies any fever chills or sweats. She had a computed tomography scan of the abdomen and pelvis completed at [facility] that showed an incarcerated umbilical hernia with mild dilated small bowel up to 3 cm representing a partial mechanical small bowel obstruction. Overall size of incarcerated hernia 5 cm. Patient has been admitted to the hospital for incarcerated hernia. Patient's other past medical history includes pulmonary embolism and DVT on Eliquis for anticoagulation. Also history of COPD, liver disease, hypothyroidism, diverticulitis, cholecystectomy and bowel resection that was done during one of her hernia surgery appears. PAST MEDICAL HISTORY: See list. PAST SURGICAL HISTORY: See list. MEDICATIONS: See list. ALLERGIES: See list. SOCIAL HISTORY: No illicit drug use. REVIEW OF SYSTEMS: CONSTITUTIONAL: Denies fever or chills. HEENT: Denies blurred vision, vision changes, or eye pain. Denies hemoptysis CARDIOVASCULAR: Denies chest pain or pressure. RESPIRATORY: No shortness of breath. GASTROINTESTINAL: See HPI for pertinent findings HEMATOLOGIC: Denies bleeding disorders. GENITOURINARY: Denies any blood in urine or increased urinary frequency. SKIN: Denies pruitis. Denies rash. PHYSICAL EXAM: VITAL SIGNS: Reviewed GENERAL: Well-developed in no acute distress. HEENT: No sclera icterus. Extraocular movements grossly intact. Moist buccal mucosa. Head is atraumatic, normocephalic. No nasal drainage. ABDOMEN: Soft. Obese. Patient has a healed mid abdominal scar. Hernia is palpable along the top of the incision. NEUROLOGIC: Alert and oriented. Cranial nerves II through XII grossly intact. LABORATORY DATA: WBC 9.95 IMAGING: computed tomography scan of the abdomen and pelvis completed at [facility] that showed an incarcerated umbilical hernia with mild dilated small bowel up to 3 cm representing a partial mechanical small bowel obstruction. Overall size of incarcerated hernia 5 cm. ASSESSMENT: 1. Incarcerated incisional hernia 2. History of 4 abdominal hernia repairs 3. History of PE and DVT diagnosed 1 year ago on Eliquis for anticoagulation. Last dose of Eliquis was yesterday morning PLAN: -Patient is scheduled for repair of incarcerated incisional hernia with Dr. Brannon today -Keep patient nothing by mouth -Hold Eliquis -Continue pain medication as needed -GI prophylaxis Protonix Physician Animal Care Worker note has been reviewed by physician. Signing provider agrees with the documented findings, assessment, and plan of care. Past Medical History Past Medical History: COPD, Liver Disease, Pulmonary Embolus (PE), Thyroid Disorder Additional Past Medical History / Comment(s): emphysema, hernias, diverticulitis, right lung collapse, pulmonary embolism, raynauds disease, arthritis, hepatitis B, IBS, umbilical hernia. History of Any Multi-Drug Resistant Organisms: None Reported Past Surgical History: Cholecystectomy, Hernia Repair Additional Past Surgical History / Comment(s): bowel resection, four hernia repairs, bladder suspension, chest tube placed, previous thyroid biopsy, colonoscopies Past Anesthesia/Blood Transfusion Reactions: Previous Problems w/ Anesthesia Additional Past Anesthesia/Blood Transfusion Reaction / Comment(s): pt. states she has a hard time waking up from surgery & can become combative. Past Psychological History: Depression Additional Psychological History / Comment(s): pt. has a history of depression that she takes Wellbutrin for Smoking Status: Former smoker Past Alcohol Use History: Occasional Additional Past Alcohol Use History / Comment(s): pt. states she quit smoking 10 years ago Past Drug Use History: Marijuana - Past Family History Sister(s) Family Medical History: Thyroid Disorder Additional Family Medical History / Comment(s): partial thyroidectomy, pt. has an extensive family history of psychiatric disorders, her sister is schizophrenic Daughter(s) Family Medical History: Chest Pain / Angina, Thyroid Disorder Additional Family Medical History / Comment(s): partial thyroidectomy, history of v-tach and ablations Mother Family Medical History: Cancer Additional Family Medical History / Comment(s): liver cancer, pts mom from a bowel perforation and association sepsis, schizophrenia Father Family Medical History: Unable to Obtain Brother(s) Additional Family Medical History / Comment(s): psychiatric issues Medications and Allergies Home Medications Medication Instructions Recorded Confirmed Type Docusate [Colace] 100 mg PO DAILY 01/03/18 12/21/20 History buPROPion XL [Wellbutrin XL] 300 mg PO DAILY 01/05/20 12/21/20 History Apixaban [Eliquis] 5 mg PO BID@0900,2100 12/21/20 12/21/20 History Cholecalciferol [Vitamin D3 (25 50 mcg PO DAILY 12/21/20 12/21/20 History Mcg = 1000 Iu)] Multivit-Min/Iron/Folic/Lutein 1 tab PO DAILY 12/21/20 12/21/20 History [Centrum Silver Women Tablet] Phenylephrine HCl [Sudafed PE] 10 mg PO DAILY PRN 12/21/20 12/21/20 History Allergies Allergy/AdvReac Type Severity Reaction Status Date / Time Latex, Natural Rubber Allergy Rash/Hives Verified 12/21/20 09:02 Sulfa (Sulfonamide Allergy Dyspnea Verified 12/21/20 09:02 Antibiotics) banana AdvReac Rash/Hives Verified 12/21/20 09:02 ciprofloxacin [From Cipro] AdvReac Rash/Hives Verified 12/21/20 09:02 [place] And Derivatives AdvReac Rash/Hives Verified 12/21/20 09:02 Surgical - Exam Vital Signs Temp Pulse Resp BP Pulse Ox 97.8 F 91 20 153/95 96 12/20/20 23:23 12/20/20 23:23 12/20/20 23:23 12/20/20 23:23 12/20/20 23:23
[2020-12-21] MEDS ORDERED: IV FLUID CONTINUATION 1,000 ML IV ONE (11:38)
[2020-12-21] MEDS ORDERED: LIDOCAINE 1% INJ 10MG/ML (20 ML MDV) ONE (12:07)
[2020-12-21] MEDS ORDERED: GLYCOPYRROLATE 0.2 MG/ML 2 ML VIAL ONE (12:07)
[2020-12-21] MEDS ORDERED: diphenhydrAMINE 50 MG/ML 1 ML VIAL ONE (12:07)
[2020-12-21] MEDS ORDERED: HYDROmorphone (PF) 1 MG/ML ONE (12:07)
[2020-12-21] MEDS ORDERED: fentaNYL (PF) 50 MCG/ML 2 ML AMP ONE (12:07)
[2020-12-21] MEDS ORDERED: DEXAMETHASONE SOD PHOSPHATE 4 MG/ML 1 ML VIAL ONE (12:07)
[2020-12-21] MEDS ORDERED: SUCCINYLCHOLINE CHLORIDE 100 MG/5 ML SYR IV ONE (12:07)
[2020-12-21] MEDS ORDERED: MIDAZOLAM 2 MG/2 ML VIAL ONE (12:07)
[2020-12-21] MEDS ORDERED: PROPOFOL 10 MG/ML 20 ML VIAL IV ONE (12:07)
[2020-12-21] MEDS ORDERED: ROCURONIUM 10 MG/ML (10 ML VIAL) IV ONE (12:07)
[2020-12-21] MEDS ORDERED: NEOSTIGMINE 1 MG/ML 10 ML VIAL ONE (12:07)
[2020-12-21] MEDS ORDERED: SODIUM CHLORIDE 0.9% 50 ML with ceFAZolin 2,000 MG IV ONE ×2 (12:20)
[2020-12-21] MEDS ORDERED: LACTATED RINGERS 1,000 ML IV ONE (13:01)
[2020-12-21] MEDS ORDERED: ACETAMINOPHEN TAB 325 MG TAB PO PRN (13:36)
[2020-12-21] MEDS ORDERED: ONDANSETRON 4 MG/2 ML VIAL IVP PRN (13:36)
[2020-12-21] MEDS ORDERED: HYDROmorphone 0.5 MG/0.5 ML SYRINGE IVP PRN (13:36)
[2020-12-21] MEDS ORDERED: HYDROmorphone 0.5 MG/0.5 ML SYRINGE IVP ONE (14:06)
[2020-12-21] MEDS: LACTATED RINGERS 1,000 ML IV SCH ×2 (15:05→18:12)
[2020-12-21] MEDS ORDERED: ENALAPRILAT 1.25 MG/ML 1 ML VIAL IVP STA (15:39)
--- NOTE | 2020-12-21 15:42 | P.OP ---
Date of Procedure: 12/21/20 Preoperative Diagnosis: Incarcerated incisional hernia Postoperative Diagnosis: Incarcerated incisional hernia Procedure(s) Performed: Open repair of incarcerated incisional hernia Lysis of extensive of adhesions Partial Omentectomy Anesthesia: KATRIN Surgeon: Teo Brannon Pathology: other (Omentum/hernia sac) Condition: stable Disposition: PACU Description of Procedure: The patient's placed on the operative table in supine position. She received general anesthesia. Her abdomen was prepped and draped usual sterile fashion. The skin was incised in midline. Using left cautery and sharp dissection the subcutaneous tissues were divided with cautery. The hernia sac was opened. There were extensive adhesions within the hernia sac. He's were lysed with sharp dissection. Approximately 25 minutes operative time used to lyse adhesions. The hernia sac was then divided and sent to pathology along with the port omentum. The fascia was then closed with [id number] 0 Ethibond suture. #1 Suture was then used to close the fascia as well. A piece of Prolene mesh placed over top apparent secured to secure strap tacker. A MARY drain was placed, mesh and brought through separate stab incision. Gloria's fascia close [place]. Skin was closed francia. Patient top she will was sent to recovery room in stable condition.
[2020-12-21] MEDS: DOCUSATE 100 MG CAP PO SCH (21:16)
--- NOTE | 2020-12-21 23:14 | P.CONS ---
History of Present Illness - Reason for Consult Consult date: 12/21/20 Medical management - Chief Complaint Incarcerated umbilical hernia repair - History of Present Illness Patient is a 65-year-old female with a known history of COPD, hypothyroidism, history of pulmonary embolism currently on Eliquis, Raynaud's disease, osteoarthritis, hepatitis B, history of bowel resection and four hernia repairs and other multiple medical problems including depression. History of smoking and marijuana use was admitted to the hospital for repair of incarcerated incisional hernia. Patient initially presented to [facility] with complaints of abdominal pain along her incision started since yesterday. Patient was transferred to [facility] for surgical evaluation. Otherwise patient denied any nausea vomiting or diarrhea. No hematemesis or melena. No fever no chills. CT of the abdomen pelvis done at [facility] showed incarcerated umbilical hernia with mild dilated small bowel up to 3 cm representing a partial mechanical small bowel obstruction. Patient had surgery today. Postoperatively patient was hypotensive with blood pressure went up to 186/80 9 mmHg. Currently patient is still drowsy and lethargic. Denied any complaints of chest pain or shortness breath. No headache or dizziness or lightheadedness. No cough or sputum production. Patient has been afebrile.No history of hypertension. Patient is not on any antihypertensive m edications. Review of Systems Constitutional: Patient denies any fever or chills . No generalized weakness or weight loss. Abdomen: Patient denied nausea vomiting and diarrhea and abdominal pain. Cardiovascular: Patient denies any chest pain or short of breath no palpitations. Respiratory: patient denied any cough or sputum production. No shortness of breath Complete review of systems could not be obtained from the patient at this time. Past Medical History Past Medical History: COPD, Liver Disease, Pulmonary Embolus (PE), Thyroid Disorder Additional Past Medical History / Comment(s): emphysema, hernias, diverticulitis, right lung collapse, pulmonary embolism, raynauds disease, arthritis, hepatitis B, IBS, umbilical hernia. History of Any Multi-Drug Resistant Organisms: None Reported Past Surgical History: Cholecystectomy, Hernia Repair Additional Past Surgical History / Comment(s): bowel resection, four hernia repairs, bladder suspension, chest tube placed, previous thyroid biopsy, colonoscopies Past Anesthesia/Blood Transfusion Reactions: Previous Problems w/ Anesthesia Additional Past Anesthesia/Blood Transfusion Reaction / Comm: pt. states she has a hard time waking up from surgery & can become combative. Past Psychological History: Depression Additional Psychological History / Comment(s): pt. has a history of depression that she takes Wellbutrin for Smoking Status: Former smoker Past Alcohol Use History: Occasional Additional Past Alcohol Use History / Comment(s): pt. states she quit smoking 10 years ago Past Drug Use History: Marijuana - Past Family History Sister(s) Family Medical History: Thyroid Disorder Additional Family Medical History / Comment(s): partial thyroidectomy, pt. has an extensive family history of psychiatric disorders, her sister is schizophrenic Daughter(s) Family Medical History: Chest Pain / Angina, Thyroid Disorder Additional Family Medical History / Comment(s): partial thyroidectomy, history of v-tach and ablations Mother Family Medical History: Cancer Additional Family Medical History / Comment(s): liver cancer, pts mom from a bowel perforation and association sepsis, schizophrenia Father Family Medical History: Unable to Obtain Brother(s) Additional Family Medical History / Comment(s): psychiatric issues Medications and Allergies Home Medications Medication Instructions Recorded Confirmed Type Docusate [Colace] 100 mg PO DAILY 01/03/18 12/21/20 History buPROPion XL [Wellbutrin XL] 300 mg PO DAILY 01/05/20 12/21/20 History Apixaban [Eliquis] 5 mg PO BID@0900,2100 12/21/20 12/21/20 History Cholecalciferol [Vitamin D3 (25 50 mcg PO DAILY 12/21/20 12/21/20 History Mcg = 1000 Iu)] Multivit-Min/Iron/Folic/Lutein 1 tab PO DAILY 12/21/20 12/21/20 History [Centrum Silver Women Tablet] Phenylephrine HCl [Sudafed PE] 10 mg PO DAILY PRN 12/21/20 12/21/20 History Allergies Allergy/AdvReac Type Severity Reaction Status Date / Time Latex, Natural Rubber Allergy Rash/Hives Verified 12/21/20 09:02 Sulfa (Sulfonamide Allergy Dyspnea Verified 12/21/20 09:02 Antibiotics) banana AdvReac Rash/Hives Verified 12/21/20 09:02 ciprofloxacin [From Cipro] AdvReac Rash/Hives Verified 12/21/20 09:02 Wainwright And Derivatives AdvReac Rash/Hives Verified 12/21/20 09:02 Physical Exam Vitals: Vital Signs Temp Pulse Pulse Pulse Pulse Resp BP 12/21/20 14:15 93 16 12/21/20 14:00 98 14 12/21/20 13:49 73 16 12/21/20 13:34 97 F L 82 16 12/21/20 11:32 98.1 F 94 16 12/21/20 07:14 98.0 F 90 18 12/21/20 03:23 90 18 12/21/20 02:00 98.5 F 90 18 12/21/20 01:32 98.5 F 90 18 12/20/20 23:23 97.8 F 91 20 153/95 BP BP Pulse Ox 12/21/20 14:15 156/82 96 12/21/20 14:00 144/85 92 L 12/21/20 13:49 111/68 99 12/21/20 13:34 94/60 96 12/21/20 11:32 152/88 96 12/21/20 07:14 152/81 91 L 12/21/20 03:23 12/21/20 02:00 158/99 95 12/21/20 01:32 158/99 95 12/20/20 23:23 96 Intake and Output 12/20/20 12/21/20 12/21/20 22:59 06:59 14:59 Intake Total 1350 Output Total 25 Balance 1325 Intake: IV 1350 Output: Estimated Blood Loss 25 Other: Voiding Method Toilet Toilet # Voids 2 Weight 113.398 kg PHYSICAL EXAMINATION: Patient is lying in the bed comfortably, no acute distress, awake alert and oriented.. HEENT: Normocephalic. Neck is supple. Pupils reactive. Nostrils clear. Oral cavity is moist. Ears reveal no drainage. Neck reveals no JVD, carotid bruits, or thyromegaly. CHEST EXAMINATION: Trachea is central. Symmetrical expansion. Bibasilar decreased air entry. No wheezing.. CARDIAC: Normal S1, S2 with no gallops. No murmurs ABDOMEN: Soft.Mild tenderness of the right abdominal surgical site. Bowel sounds diminishedl. No organomegaly. No abdominal bruits. Extremities: reveal no edema. No clubbing or cyanosis Neurologically awake, alert, oriented x3 with well-coordinated movements. No focal deficits noted Skin: No rash or skin lesions. Psychiatric: Coperative. Nonsuicidal Musculoskeletal: No joint swelling or deformity. Normal range of motion. Assessment and Plan Assessment: Incarcerated umbilical hernia status post surgical repair postoperative day 0 Elevated blood pressure. No prior history of hypertension. 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 COPD/emphysema not on any exacerbation. Hypothyroidism History of diverticulitis Raynaud's disease, Hepatitis B infection Depression Prior history of smoking and marijuana use DVT prophylaxis currently on Lovenox. Patient will be continued Eliquis once cleared by surgery. Plan: Patient was given a dose of IV Lasix and will be started on Norvasc 5 mg daily. Hydralazine 10 mg IV every 6 hourly as needed for systolic blood pressure greater than 160 mmHg and follow-up closely. Continue with home medications. Encourage incentive spirometry and ambulation. GI and DVT prophylaxis. Further recommendations based on the clinical course. We will continue to follow with you. Thank you for the consult. Time with Patient: Greater than 30
[2020-12-22] MEDS: LACTATED RINGERS 1,000 ML IV SCH ×2 (02:40→13:27)
[2020-12-22] MEDS: HYDROcodone/APAP 5-325MG 1 EACH TAB PO PRN ×2 (03:35→19:27)
[2020-12-22 06:21] LABS: Basophils % (A) 0 %; Eosinophils % (A) 0 %; HCT 41.7 % (34.0-46.0); HGB 13.7 gm/dL (11.4-16.0); Lymphocytes # (A) 1.3 k/uL (1.0-4.8); Lymphocytes % (A) 12 %; MCH 30.3 pg (25.0-35.0); MCHC 32.9 g/dL (31.0-37.0); MCV 92.1 fL (80.0-100.0); Mean Platelet Volume 7.7; Monocytes # (A) 0.7 k/uL (0-1.0); Monocytes % (A) 7 %; Neutrophils # (A) 8.8 k/uL (1.3-7.7); Neutrophils % (A) 80 %; Platelet Count 226 k/uL (150-450); RBC 4.53 m/uL (3.80-5.40); WBC 10.9 k/uL (3.8-10.6)
[2020-12-22] MEDS: DOCUSATE 100 MG CAP PO SCH ×2 (08:04→19:27)
[2020-12-22] MEDS: amLODIPine 5 MG TAB PO SCH (08:04)
[2020-12-22] MEDS: PANTOPRAZOLE 40 MG/10 ML VIAL IV SCH (08:04)
[2020-12-22] MEDS: buPROPion XL 300 MG TAB.ER.24H PO SCH (08:04)
[2020-12-22 09:44] LABS: African American GFR (CKD) 78.9 (60.0-200.0); Albumin 4.1 g/dL (3.80-4.90); Albumin/Globulin Ratio 1.78 (1.60-3.17); Anion Gap 10.5 mmol/L (4.00-12.00); BUN/Creat Ratio 16.67 Ratio (12.00-20.00); Calcium 9.2 mg/dL (8.7-10.3); Carbon Dioxide 24.5 mmol/L (21.6-31.8); Globulin 2.3 g/dL (1.6-3.3); Magnesium 1.7 mg/dL (1.5-2.4); Phosphorus 3.8 mg/dL (2.4-5.1); Potassium 4.4 mmol/L (3.5-5.5); Total Bilirubin 0.6 mg/dL (0.2-1.2); Total Protein 6.4 g/dL (6.2-8.2)
[2020-12-22] MEDS: ENOXAPARIN 40 MG/0.4 ML SYRINGE SQ SCH (10:39)
--- NOTE | 2020-12-22 14:40 | P.PN ---
Subjective Progress Note Date: 12/22/20 - Reason for Consult Consult date: 12/21/20 Medical management - Chief Complaint Incarcerated umbilical hernia repair - History of Present Illness Patient is a 65-year-old female with a known history of COPD, hypothyroidism, history of pulmonary embolism currently on Eliquis, Raynaud's disease, osteoarthritis, hepatitis B, history of bowel resection and four hernia repairs and other multiple medical problems including depression. History of smoking and marijuana use was admitted to the hospital for repair of incarcerated incisional hernia. Patient initially presented to [facility] with complaints of abdominal pain along her incision started since yesterday. Patient was transferred to [facility] for surgical evaluation. Otherwise patient denied any nausea vomiting or diarrhea. No hematemesis or melena. No fever no chills. CT of the abdomen pelvis done at [facility] showed incarcerated umbilical hernia with mild dilated small bowel up to 3 cm representing a partial mechanical small bowel obstruction. Patient had surgery today. Postoperatively patient was hypotensive with blood pressure went up to 186/80 9 mmHg. Currently patient is still drowsy and lethargic. Denied any complaints of chest pain or shortness breath. No headache or dizziness or lightheadedness. No cough or sputum production. Patient has been afebrile.No history of hypertension. Patient is not on any antihypertensive medications. 12/22/2020 She was seen and evaluated and follow-up currently sitting up in the chair with no acute overnight issues. Patient's lower abdominal incision status post incarcerated hernia site appears dry and intact. Hypoactive bowel sounds noted on exam. Patient denies any gas and has not had a bowel movement. Patient was maintained on IV fluids which will be discontinued as she is tolerating diet and drinking with no reports of nausea or vomiting noted. Home medications have been resumed and amlodipine has been started. Will continue to monitor vital signs closely. Sodium today is 139 with a potassium of 4.4 current creatinine is 0.9. Incentive spirometer ordered and instructed the patient to continue at least 10 times every hour while awake and continue to increase activity as tolerated. Review of systems: Constitutional: No reports of fatigue, fever, or chills Cardiovascular: No reports of chest pain or palpitations Respiratory: No reports of shortness of breath or cough GI: No reports of nausea, vomiting, or diarrhea : No reports of dysuria or retention Neurovascular: No reports of weakness or numbness All medications have been reviewed Objective - Vital Signs Vital signs: Vital Signs Temp 97.8 F 12/22/20 04:35 Pulse 99 12/22/20 04:35 Resp 18 12/22/20 04:35 BP 138/75 12/22/20 04:35 Pulse Ox 93 L 12/22/20 04:35 Intake & Output 12/21/20 12/22/20 12/22/20 18:59 06:59 18:59 Intake Total 2310 1100 Output Total 85 Balance 2225 1100 Intake: IV 1550 Intake, IV Titration 700 900 Amount Lactated Ringers 1,000 ml 700 @ 0 mls/hr IV .[facility] Rx#:[id number] Lactated Ringers 1,000 ml 900 @ 125 mls/hr IV .Q8H MARCELO Rx#:[id number] Oral 60 200 Output: Drainage 60 Left Upper Abdomen 60 Estimated Blood Loss 25 Other: Voiding Method Toilet # Voids 1 2 # Bowel Movements 0 - Exam Patient is sitting up in the chair comfortably, no acute distress, awake alert and oriented.. HEENT: Normocephalic. Neck is supple. Pupils reactive. Nostrils clear. Oral cavity is moist. Ears reveal no drainage. Neck reveals no JVD, carotid bruits, or thyromegaly. CHEST EXAMINATION: Trachea is central. Symmetrical expansion. Bibasilar decreased air entry. No wheezing or rhonchi noted.. CARDIAC: Normal S1, S2 with no gallops. No murmurs ABDOMEN: Soft. Obese. nontender. Hypoactive bowel sounds noted. No organomegaly. No abdominal bruits. Extremities: reveal no edema. No clubbing or cyanosis Neurologically awake, alert, oriented x3 with well-coordinated movements. No focal deficits noted Skin: No rash or skin lesions. Psychiatric: Cooperative. Non-suicidal Musculoskeletal: No joint swelling or deformity. Normal range of motion. - Labs CBC & Chem 7: 12/22/20 05:49 12/22/20 05:49 Labs: Abnormal Lab Results - Last 24 Hours (Table) 12/22/20 Range/Units 05:49 WBC 10.9 H (3.8-10.6) k/uL Neutrophils # 8.8 H (1.3-7.7) k/uL Assessment and Plan Assessment: Incarcerated umbilical hernia status post surgical repair postoperative day 1 Elevated blood pressure. No prior history of hypertension. 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 COPD/emphysema not on any exacerbation. Hypothyroidism History of diverticulitis Raynaud's disease, Hepatitis B infection Depression Prior history of smoking and marijuana use DVT prophylaxis currently on Lovenox. Patient will be continued Eliquis once cleared by surgery. Plan: Continue with Norvasc 5 mg daily. IV fluids have been discontinued. Patient is maintained on clear liquids and tolerating. Incentive spirometer ordered and instructed to use 10 times every hour while awake and continue to increase activity as tolerated. Patient has been up in the chair multiple times throughout the day. Will continue to follow along closely with surgery. Further recommendations to follow based on the clinical course of the patient. Thank you for this consultation.
--- NOTE | 2020-12-22 14:48 | P.PN ---
Subjective Progress Note Date: 12/22/20 CHIEF COMPLAINT: Abdominal pain HISTORY OF PRESENT ILLNESS: Patient is status post open repair of incarcerated incisional hernia, lysis of extensive adhesions, partial omentectomy for incarcerated incisional hernia. She reports that her pain is controlled. She denies any nausea or vomiting. She denies any gas or bowel movement. She is currently on a clear liquid diet. Afebrile. WBC is 10.9 PHYSICAL EXAM: VITAL SIGNS: Reviewed. GENERAL: Well-developed in no acute distress. HEENT: No sclera icterus. Extraocular movements grossly intact. Moist buccal mucosa. Head is atraumatic, normocephalic. ABDOMEN: Soft. Nondistended. Dressing at incision site clean dry and intact. MARY drain with sanguinous fluid NEUROLOGIC: Alert and oriented. Cranial nerves II through XII grossly intact. ASSESSMENT: 1. Incarcerated incisional hernia status post open repair of incarcerated incisional hernia, lysis of extensive adhesions, partial omentectomy . Postop day #1 2. History of 4 abdominal hernia repairs 3. History of PE and DVT diagnosed 1 year ago on Eliquis for anticoagulation. PLAN: -Continue clear liquid diet -Encouraged patient to increase activity -Encouraged patient to use incentive spirometer -Continue pain control -Continue Lovenox for DVT prophylaxis Physician Cafeteria Manager note has been reviewed by physician. Signing provider agrees with the documented findings, assessment, and plan of care. Objective - Vital Signs Vital signs: Vital Signs Temp 98.3 F 12/22/20 13:00 Pulse 105 H 12/22/20 13:00 Resp 16 12/22/20 13:00 BP 111/74 12/22/20 13:00 Pulse Ox 94 L 12/22/20 13:00 Intake & Output 12/21/20 12/22/20 12/22/20 18:59 06:59 18:59 Intake Total 2310 1100 Output Total 85 60 Balance 2225 1100 -60 Intake: IV 1550 Intake, IV Titration 700 900 Amount Lactated Ringers 1,000 ml 700 @ 0 mls/hr IV .[facility] Rx#:[id number] Lactated Ringers 1,000 ml 900 @ 125 mls/hr IV .Q8H [facility] Rx#:[id number] Oral 60 200 Output: Drainage 60 60 Left Upper Abdomen 60 60 Estimated Blood Loss 25 Other: Voiding Method Toilet Toilet # Voids 1 2 # Bowel Movements 0 - Labs CBC & Chem 7: 12/22/20 05:49 12/22/20 05:49 Labs: Abnormal Lab Results - Last 24 Hours (Table) 12/22/20 Range/Units 05:49 WBC 10.9 H (3.8-10.6) k/uL Neutrophils # 8.8 H (1.3-7.7) k/uL
[2020-12-23] MEDS: amLODIPine 5 MG TAB PO SCH (07:49)
[2020-12-23] MEDS: DOCUSATE 100 MG CAP PO SCH (07:49)
[2020-12-23] MEDS: ENOXAPARIN 40 MG/0.4 ML SYRINGE SQ SCH (07:50)
[2020-12-23] MEDS: PANTOPRAZOLE 40 MG/10 ML VIAL IV SCH (07:50)
[2020-12-23] MEDS: buPROPion XL 300 MG TAB.ER.24H PO SCH (07:50)
[2020-12-23 08:55] LABS: Basophils % (A) 0 %; Eosinophils # (A) 0.1 k/uL (0-0.7); Eosinophils % (A) 2 %; HCT 42.7 % (34.0-46.0); Lymphocytes # (A) 1.5 k/uL (1.0-4.8); Lymphocytes % (A) 18 %; MCH 30.6 pg (25.0-35.0); MCHC 32.9 g/dL (31.0-37.0); MCV 93.2 fL (80.0-100.0); Mean Platelet Volume 7.6; Monocytes # (A) 0.6 k/uL (0-1.0); Monocytes % (A) 7 %; Neutrophils # (A) 6.3 k/uL (1.3-7.7); Neutrophils % (A) 72 %; Platelet Count 212 k/uL (150-450); RBC 4.58 m/uL (3.80-5.40); RDW 12.9 % (11.5-15.5); WBC 8.7 k/uL (3.8-10.6)
[2020-12-23 11:30] VITALS: BP 135/80; PULSE 94; RESP 17; TEMP 98.4
--- NOTE | 2020-12-23 13:01 | P.DS ---
Providers Date of admission: 12/21/20 01:01 Expected date of discharge: 12/23/20 Attending physician: Teo Brannon Consults: 12/21/20 13:41 Consult Physician Routine Consulting Provider: Graham Claudio Consult Reason/Comments: Medical management Do you want consulting provider notified?: Yes Primary care physician: [facility] Course: Discharge diagnosis 1. Incarcerated incisional hernia status post open repair of incarcerated incisional hernia, lysis of extensive adhesions, partial omentectomy 2. History of 4 abdominal hernia repairs 3. History of PE and DVT diagnosed 1 year ago on Eliquis for anticoagulation. Hospital course This is a 65-year-old female with a known history of 4 previous abdominal hernias requiring surgical repair. Her last surgery was in 2016 at [place]. Patient presented to [facility] with complaints of abdominal pain along her incision. She was transferred to [facility] for surgical evaluation. Patient has been having nausea and vomiting. She denies any fever chills or sweats. She had a computed tomography scan of the abdomen and pelvis completed at [facility] that showed an incarcerated umbilical hernia with mild dilated small bowel up to 3 cm representing a partial mechanical small bowel obstruction. Overall size of incarcerated hernia 5 cm. patient is status post open repair of incarcerated incisional hernia, lysis of extensive adhesions and partial omentectomy. Patient tolerated surgery well. Her pain is controlled. She is tolerating diet. She's afebrile. She is ambulating. She is having bowel movements and passing gas. She is stable for discharge. Please refer to chart for any further details. Physician Automation And Controls Instructor note has been reviewed by physician. Signing provider agrees with the documented findings, assessment, and plan of care. Patient Condition at Discharge: Stable Plan - Discharge Summary New Discharge Prescriptions: New HYDROcodone/APAP 5-325MG [[place] 5-325] 1 tab PO Q6HR PRN 3 Days #12 tab PRN Reason: Pain Continue Docusate [Colace] 100 mg PO DAILY buPROPion XL [Wellbutrin XL] 300 mg PO DAILY Apixaban [Eliquis] 5 mg PO BID@0900,2100 Multivit-Min/Iron/Folic/Lutein [Centrum Silver Women Tablet] 1 tab PO DAILY Cholecalciferol [Vitamin D3 (25 Mcg = 1000 Iu)] 50 mcg PO DAILY Phenylephrine HCl [Sudafed PE] 10 mg PO DAILY PRN PRN Reason: Allergy Symptoms Discharge Medication List Docusate [Colace] 100 mg PO DAILY 01/03/18 [History] buPROPion XL [Wellbutrin XL] 300 mg PO DAILY 01/05/20 [History] Apixaban [Eliquis] 5 mg PO BID@0900,2100 12/21/20 [History] Cholecalciferol [Vitamin D3 (25 Mcg = 1000 Iu)] 50 mcg PO DAILY 12/21/20 [History] Multivit-Min/Iron/Folic/Lutein [Centrum Silver Women Tablet] 1 tab PO DAILY 12/21/20 [History] Phenylephrine HCl [Sudafed PE] 10 mg PO DAILY PRN 12/21/20 [History] HYDROcodone/APAP 5-325MG [[place] 5-325] 1 tab PO Q6HR PRN 3 Days #12 tab 12/23/20 [Rx] Follow up Appointment(s)/Referral(s): Jhon Alvarez MD [Primary Care Provider] - 1-2 days Teo Brannon MD [STAFF PHYSICIAN] - 1 Week Activity/Diet/Wound Care/Special Instructions: No driving while taking [place] No lifting over 10 pounds You may shower. No soaking or tub baths for 2 weeks Very light activity until you are reevaluated at your follow up appointment with your surgeon Keep a log of MARY drain output and bring with you to your follow-up appointment Milk/strip drains 2-3 times a day Discharge Disposition: HOME SELF-CARE
--- NOTE | 2020-12-23 14:19 | P.PN ---
Subjective Progress Note Date: 12/23/20 - Reason for Consult Consult date: 12/21/20 Medical management - Chief Complaint Incarcerated umbilical hernia repair - History of Present Illness Patient is a 65-year-old female with a known history of COPD, hypothyroidism, history of pulmonary embolism currently on Eliquis, Raynaud's disease, osteoarthritis, hepatitis B, history of bowel resection and four hernia repairs and other multiple medical problems including depression. History of smoking and marijuana use was admitted to the hospital for repair of incarcerated incisional hernia. Patient initially presented to [facility] with complaints of abdominal pain along her incision started since yesterday. Patient was transferred to [facility], [place] for surgical evaluation. Otherwise patient denied any nausea vomiting or diarrhea. No hematemesis or melena. No fever no chills. CT of the abdomen pelvis done at [facility] showed incarcerated umbilical hernia with mild dilated small bowel up to 3 cm representing a partial mechanical small bowel obstruction. Patient had surgery today. Postoperatively patient was hypotensive with blood pressure went up to 186/80 9 mmHg. Currently patient is still drowsy and lethargic. Denied any complaints of chest pain or shortness breath. No headache or dizziness or lightheadedness. No cough or sputum production. Patient has been afebrile.No history of hypertension. Patient is not on any antihypertensive medications. 12/22/2020 She was seen and evaluated and follow-up currently sitting up in the chair with no acute overnight issues. Patient's lower abdominal incision status post incarcerated hernia site appears dry and intact. Hypoactive bowel sounds noted on exam. Patient denies any gas and has not had a bowel movement. Patient was maintained on IV fluids which will be discontinued as she is tolerating diet and drinking with no reports of nausea or vomiting noted. Home medications have been resumed and amlodipine has been started. Will continue to monitor vital signs closely. Sodium today is 139 with a potassium of 4.4 current creatinine is 0.9. Incentive spirometer ordered and instructed the patient to continue at least 10 times every hour while awake and continue to increase activity as tolerated. 12/23/2020 Patient is seen and evaluated in follow-up and feels much better. Patient states she had a bowel movement this morning and is passing gas. Patient's blood pressure has normalized and discussed with her in detail about obtaining a cuff and monitoring blood pressure and keeping a diary for primary care follow- up. Was on low-dose amlodipine during hospitalization although will discontinue upon discharge as blood pressure is 115/74 and patient does not have a history of hypertension. Patient currently denies any chest pain, shortness of breath, or palpitations. Patient states her abdominal discomfort has improved and has been up and walking and sitting up in the chair. Patient is tolerating diet with no reports of nausea or vomiting noted. Review of systems: Constitutional: No reports of fatigue, fever, or chills Cardiovascular: No reports of chest pain or palpitations Respiratory: No reports of shortness of breath or cough GI: No reports of nausea, vomiting, or diarrhea : No reports of dysuria or retention Neurovascular: No reports of weakness or numbness All medications have been reviewed Objective - Vital Signs Vital signs: Vital Signs Temp 98.4 F 12/23/20 11:29 Pulse 94 12/23/20 11:29 Resp 17 12/23/20 11:29 BP 135/80 12/23/20 11:29 Pulse Ox 93 L 12/23/20 11:29 Intake & Output 12/22/20 12/23/20 12/23/20 18:59 06:59 18:59 Intake Total 600 Output Total 60 90 90 Balance -60 510 -90 Intake: Oral 600 Output: Drainage 60 90 90 Left Upper Abdomen 60 90 90 Other: Voiding Method Toilet Toilet Toilet # Voids 5 3 - Exam Patient is sitting up in the chair comfortably, no acute distress, awake alert and oriented.. HEENT: Normocephalic. Neck is supple. Pupils reactive. Nostrils clear. Oral cavity is moist. Ears reveal no drainage. Neck reveals no JVD, carotid bruits, or thyromegaly. CHEST EXAMINATION: Trachea is central. Symmetrical expansion. Bibasilar decreased air entry. No wheezing or rhonchi noted.. CARDIAC: Normal S1, S2 with no gallops. No murmurs ABDOMEN: Soft. Obese. nontender. Positive bowel sounds noted. No organomegaly. No abdominal bruits. Extremities: reveal no edema. No clubbing or cyanosis Neurologically awake, alert, oriented x3 with well-coordinated movements. No focal deficits noted Skin: No rash or skin lesions. Psychiatric: Cooperative. Non-suicidal Musculoskeletal: No joint swelling or deformity. Normal range of motion. - Labs CBC & Chem 7: 12/23/20 08:14 12/22/20 05:49 Assessment and Plan Assessment: Incarcerated umbilical hernia status post surgical repair postoperative day 1 Elevated blood pressure. No prior history of hypertension. 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 COPD/emphysema not on any exacerbation. Hypothyroidism History of diverticulitis Raynaud's disease, Hepatitis B infection Depression Prior history of smoking and marijuana use DVT prophylaxis currently on Lovenox. Patient will be continued Eliquis once cleared by surgery. Plan: Home medications have been resumed. Diet is being tolerated and advanced. Patient states she had a bowel movement this morning and is passing gas. Incentive spirometer ordered and instructed to use 10 times every hour while awake and continue to increase activity as tolerated. Patient also instructed to continue using incentive spirometer while at home along with coughing and deep breathing. Patient was on low-dose amlodipine although blood pressure has normalized and has no history of hypertension and will discontinue amlodipine. Discussed with patient at length about obtaining a blood pressure cuff and monitoring blood pressure daily and keeping a diary for primary care follow-up. She verbalized understanding. Patient has been up in the chair multiple times throughout the day. Will continue to follow along closely with surgery. Further recommendations to follow based on the clinical course of the patient. She states she is being discharged today. Thank you for this consultation.
== END 2020-12-23 15:40 | disposition home or self-care (01) | DRG 336 ==
LOC: EC 23:17 → 5NMEDONC 12-21 01:01
PROVIDERS: ADMIT Surgery; ATTEND Surgery
PROC: 0DNW0ZZ Release Peritoneum, Open Approach (ICD-10-PCS; principal; 2020-12-21 08:30)
PROC: 0DBU0ZZ Excision of Omentum, Open Approach (ICD-10-PCS; principal; 2020-12-21 08:30)
PROC: 0WUF0JZ Supplement Abdominal Wall with Synthetic Substitute, Open Approach (ICD-10-PCS; principal; 2020-12-21 08:30)
DX: K43.0 Incisional hernia with obstruction, without gangrene (principal); K56.690 Other partial intestinal obstruction; B19.10 Unspecified viral hepatitis B without hepatic coma; K56.50 Intestinal adhesions [bands], unspecified as to partial versus complete obstruction; K42.0 Umbilical hernia with obstruction, without gangrene; M19.90 Unspecified osteoarthritis, unspecified site; J43.9 Emphysema, unspecified; I73.00 Raynaud's syndrome without gangrene; F32.9 Major depressive disorder, single episode, unspecified; E03.9 Hypothyroidism, unspecified; Z80.0 Family history of malignant neoplasm of digestive organs; Z81.8 Family history of other mental and behavioral disorders; R03.0 Elevated blood-pressure reading, without diagnosis of hypertension; Z86.711 Personal history of pulmonary embolism; Z86.718 Personal history of other venous thrombosis and embolism; Z87.891 Personal history of nicotine dependence; Z79.01 Long term (current) use of anticoagulants; Z79.899 Other long term (current) drug therapy; Z88.2 Allergy status to sulfonamides; Z88.1 Allergy status to other antibiotic agents; Z91.040 Latex allergy status
CPT/HCPCS: 80053; 83735; 84100; 85025; 88302; 99285

== ENCOUNTER 2021-01-17 16:28 | Emergency (ER) | payer BC ==
--- NOTE | 2021-01-17 17:01 | ED ---
General Adult HPI - General Chief complaint: Back Pain/Injury Stated complaint: back pain Time Seen by Provider: 01/17/21 16:38 Source: patient, RN notes reviewed Mode of arrival: ambulatory Limitations: no limitations - History of Present Illness Initial comments: 65-year-old female presents emergency Department chief complaint of right shoulder, back pain. Patient states that she's been having some on-and-off symptoms. Patient states she's had 3 episodes today. Patient states it's very intense pain and she does admit that pain has resolved at this time. Patient states that her daughter has cardiac issues and this worries her. Patient states that she does have a history of tachycardia in which she's been diagnosed with. Patient esDoes stateshe recently had incarcerated hernia surgery by Dr. Brannon. Patient does have a history ofDVT with pulmonary embolism. Patient states she is on Eliquis though had to stop before her surgery. Patient denies any fevers or chills she states that her surgery incisions are healing well. Patient states when the pain is there there is nothing makes it feel better or worse she states that it's deep under her shoulder blade. - Related Data Home Medications Medication Instructions Recorded Confirmed Docusate [Colace] 100 mg PO DAILY 01/03/18 12/21/20 buPROPion XL [Wellbutrin XL] 300 mg PO DAILY 01/05/20 12/21/20 Apixaban [Eliquis] 5 mg PO BID@0900,2100 12/21/20 12/21/20 Cholecalciferol [Vitamin D3 (25 50 mcg PO DAILY 12/21/20 12/21/20 Mcg = 1000 Iu)] Multivit-Min/Iron/Folic/Lutein 1 tab PO DAILY 12/21/20 12/21/20 [Centrum Silver Women Tablet] Phenylephrine HCl [Sudafed PE] 10 mg PO DAILY PRN 12/21/20 12/21/20 Previous Rx's Medication Instructions Recorded HYDROcodone/APAP 5-325MG [[place] 1 tab PO Q6HR PRN 3 Days #12 tab 12/23/20 5-325] methocarbamoL [Robaxin] 500 mg PO TID PRN #15 tab 01/17/21 Allergies Allergy/AdvReac Type Severity Reaction Status Date / Time Latex, Natural Rubber Allergy Rash/Hives Verified 01/17/21 16:45 Sulfa (Sulfonamide Allergy Dyspnea Verified 01/17/21 16:45 Antibiotics) banana AdvReac Rash/Hives Verified 01/17/21 16:45 ciprofloxacin [From Cipro] AdvReac Rash/Hives Verified 01/17/21 16:45 [place] And Derivatives AdvReac Rash/Hives Verified 01/17/21 16:45 Review of Systems ROS Statement: Those systems with pertinent positive or pertinent negative responses have been documented in the HPI. ROS Other: All systems not noted in ROS Statement are negative. Past Medical History Past Medical History: COPD, Liver Disease, Pulmonary Embolus (PE), Thyroid Disorder Additional Past Medical History / Comment(s): emphysema, hernias, diverticulitis, right lung collapse, pulmonary embolism, raynauds disease, arthritis, hepatitis B, IBS, umbilical hernia. History of Any Multi-Drug Resistant Organisms: None Reported Past Surgical History: Cholecystectomy, Hernia Repair Additional Past Surgical History / Comment(s): bowel resection, four hernia repairs, bladder suspension, chest tube placed, previous thyroid biopsy, colonoscopies Past Anesthesia/Blood Transfusion Reactions: Previous Problems w/ Anesthesia Additional Past Anesthesia/Blood Transfusion Reaction / Comment(s): pt. states she has a hard time waking up from surgery Past Psychological History: Depression Smoking Status: Never smoker Past Alcohol Use History: Occasional Past Drug Use History: None Reported - Past Family History Sister(s) Family Medical History: Thyroid Disorder Additional Family Medical History / Comment(s): partial thyroidectomy, pt. has an extensive family history of psychiatric disorders, her sister is schizophrenic Daughter(s) Family Medical History: Chest Pain / Angina, Thyroid Disorder Additional Family Medical History / Comment(s): partial thyroidectomy, history of v-tach and ablations Mother Family Medical History: Cancer Additional Family Medical History / Comment(s): liver cancer, pts mom from a bowel perforation and association sepsis, schizophrenia Father Family Medical History: Unable to Obtain Brother(s) Additional Family Medical History / Comment(s): psychiatric issues General Exam Limitations: no limitations General appearance: alert, in no apparent distress Head exam: Present: atraumatic, normocephalic, normal inspection Eye exam: Present: normal appearance, PERRL, EOMI. Absent: scleral icterus, conjunctival injection, periorbital swelling ENT exam: Present: normal oropharynx, mucous membranes moist Neck exam: Present: normal inspection, full ROM. Absent: tenderness, meningismus, lymphadenopathy Respiratory exam: Present: normal lung sounds bilaterally, decreased breath s ounds. Absent: respiratory distress, wheezes, rales, rhonchi, stridor Cardiovascular Exam: Present: regular rate, normal rhythm, normal heart sounds. Absent: systolic murmur, diastolic murmur, rubs, gallop, clicks GI/Abdominal exam: Present: soft, tenderness (Over her lower abdomen and over surgical site), normal bowel sounds. Absent: distended, guarding, rebound, rigid Extremities exam: Present: normal inspection, full ROM, normal capillary refill. Absent: tenderness, pedal edema, joint swelling, calf tenderness Back exam: Present: full ROM. Absent: tenderness, muscle spasm, paraspinal t enderness, vertebral tenderness Neurological exam: Present: alert, oriented X3, CN II-XII intact, reflexes normal. Absent: motor sensory deficit Course Vital Signs 01/17/21 16:38 Temperature 99.1 F Pulse Rate 89 Respiratory 16 Rate Blood Pressure 146/91 O2 Sat by Pulse 97 Oximetry EKG Findings - EKG Comments: EKG Findings:: EKG performed at 17:46 sinus tachycardia rate of 122 MA interval 124 QRS 72 QTC is QTC 3-98/424 Medical Decision Making - Medical Decision Making Patient's workup does not reveal any significant family at this time. Patient's pain has not returned. Patient's pain may related to muscle skeletal pain as it is underneath her shoulder blade and has started since she had surgery. Negative for PE or acute changes in the chest. - Lab Data Result diagrams: 01/17/21 17:53 01/17/21 17:53 Lab Results 01/17/21 01/17/21 01/17/21 Range/Units 17:53 17:53 17:53 WBC 14.3 H (3.8-10.6) k/uL RBC 4.27 (3.80-5.40) m/uL Hgb 12.2 (11.4-16.0) gm/dL Hct 38.0 (34.0-46.0) % MCV 89.1 (80.0-100.0) fL MCH 28.7 (25.0-35.0) pg MCHC 32.2 (31.0-37.0) g/dL RDW 12.8 (11.5-15.5) % Plt Count 485 H D (150-450) k/uL MPV 7.9 Neutrophils % 80 % Lymphocytes % 12 % Monocytes % 5 % Eosinophils % 2 % Basophils % 0 % Neutrophils # 11.5 H (1.3-7.7) k/uL Lymphocytes # 1.7 (1.0-4.8) k/uL Monocytes # 0.7 (0-1.0) k/uL Eosinophils # 0.3 (0-0.7) k/uL Basophils # 0.0 (0-0.2) k/uL PT 10.9 (9.0-12.0) sec INR 1.0 (<1.2) APTT 22.1 (22.0-30.0) sec D-Dimer 3.39 H (<0.60) mg/L FEU Sodium 130 L (137-145) mmol/L Potassium 4.7 (3.5-5.1) mmol/L Chloride 97 L (98-107) mmol/L Carbon Dioxide 23 (22-30) mmol/L Anion Gap 10 mmol/L BUN 10 (7-17) mg/dL Creatinine 0.61 (0.52-1.04) mg/dL Est GFR (CKD-EPI)AfAm >90 (>60 ml/min/1.73 sqM) Est GFR (CKD-EPI)NonAf >90 (>60 ml/min/1.73 sqM) Glucose 111 H (74-99) mg/dL Calcium 8.8 (8.4-10.2) mg/dL Magnesium 2.0 (1.6-2.3) mg/dL Total Bilirubin 0.8 (0.2-1.3) mg/dL AST 51 H (14-36) U/L ALT 44 H (4-34) U/L Alkaline Phosphatase 170 H (38-126) U/L Creatine Kinase 38 (30-135) U/L Troponin I (0.000-0.034) ng/mL NT-Pro-B Natriuret Pep pg/mL Total Protein 7.1 (6.3-8.2) g/dL Albumin 3.2 L (3.5-5.0) g/dL Lipase 70 (23-300) U/L 01/17/21 01/17/21 Range/Units 17:53 17:53 WBC (3.8-10.6) k/uL RBC (3.80-5.40) m/uL Hgb (11.4-16.0) gm/dL Hct (34.0-46.0) % MCV (80.0-100.0) fL MCH (25.0-35.0) pg MCHC (31.0-37.0) g/dL RDW (11.5-15.5) % Plt Count (150-450) k/uL MPV Neutrophils % % Lymphocytes % % Monocytes % % Eosinophils % % Basophils % % Neutrophils # (1.3-7.7) k/uL Lymphocytes # (1.0-4.8) k/uL Monocytes # (0-1.0) k/uL Eosinophils # (0-0.7) k/uL Basophils # (0-0.2) k/uL PT (9.0-12.0) sec INR (<1.2) APTT (22.0-30.0) sec D-Dimer (<0.60) mg/L FEU Sodium (137-145) mmol/L Potassium (3.5-5.1) mmol/L Chloride (98-107) mmol/L Carbon Dioxide (22-30) mmol/L Anion Gap mmol/L BUN (7-17) mg/dL Creatinine (0.52-1.04) mg/dL Est GFR (CKD-EPI)AfAm (>60 ml/min/1.73 sqM) Est GFR (CKD-EPI)NonAf (>60 ml/min/1.73 sqM) Glucose (74-99) mg/dL Calcium (8.4-10.2) mg/dL Magnesium (1.6-2.3) mg/dL Total Bilirubin (0.2-1.3) mg/dL AST (14-36) U/L ALT (4-34) U/L Alkaline Phosphatase (38-126) U/L Creatine Kinase (30-135) U/L Troponin I <0.012 (0.000-0.034) ng/mL NT-Pro-B Natriuret Pep 109 pg/mL Total Protein (6.3-8.2) g/dL Albumin (3.5-5.0) g/dL Lipase (23-300) U/L Disposition Clinical Impression: Pain of right scapula Disposition: HOME SELF-CARE Condition: Stable Instructions (If sedation given, give patient instructions): Back Pain (ED) Additional Instructions: Please return to the Emergency Department if symptoms worsen or any other concerns. Prescriptions: methocarbamoL [Robaxin] 500 mg PO TID PRN #15 tab PRN Reason: muscle spasms Is patient prescribed a controlled substance at d/c from ED?: No Referrals: Jhon Alvarez MD [Primary Care Provider] - 1-2 days Time of Disposition: 19:04
[2021-01-17 18:16] LABS: Basophils % (A) 0 %; Eosinophils # (A) 0.3 k/uL (0-0.7); Eosinophils % (A) 2 %; HGB 12.2 gm/dL (11.4-16.0); Lymphocytes # (A) 1.7 k/uL (1.0-4.8); Lymphocytes % (A) 12 %; MCH 28.7 pg (25.0-35.0); MCHC 32.2 g/dL (31.0-37.0); MCV 89.1 fL (80.0-100.0); Mean Platelet Volume 7.9; Monocytes # (A) 0.7 k/uL (0-1.0); Monocytes % (A) 5 %; Neutrophils # (A) 11.5 k/uL (1.3-7.7); Neutrophils % (A) 80 %; RBC 4.27 m/uL (3.80-5.40); RDW 12.8 % (11.5-15.5); WBC 14.3 k/uL (3.8-10.6)
--- NOTE | 2021-01-17 18:23 | CT ---
EXAMINATION TYPE: CT chest angio for PE DATE OF EXAM: 01/17/2021 COMPARISON: HISTORY: Right sided chest pain with shorntess of breath. Post OP hernia repair [address] DLP: 512.1 mGycm Automated exposure control for dose reduction was used. CONTRAST: Performed with IV Contrast, patient injected with 100 mL of Isovue 370. There are 3-D post processed images. There is irregular 4.2 cm low-density mass involving right thyroid lobe. Unchanged compared to older CT scan of 07/16/2017 and therefore benign.. Trachea is deviated slightly to the left side. There is no mediastinal adenopathy. There are no hilar masses. Heart size is normal. There is no kelsi cardial effusion. There is normal contrast opacification of the pulmonary arteries. There are no fill ing defects. Thoracic aorta is intact. There is no aneurysm or dissection. There is no pleural effusi on. Upper abdominal soft tissues are intact. Thoracic vertebra have normal alignment. Sternum is intact. There is no paraspinal mass. I see no bon y destructive process. There is no compression fracture. There is minimal pleural thickening at the right lung apex. There is no evidence of a pulmonary mass. Lungs are clear of infiltrate. IMPRESSION: Negative exam. No evidence of pulmonary embolism. No adverse change compared to old exam.
[2021-01-17 18:29] LABS: ALT 44 U/L (4-34); AST 51 U/L (14-36); African American GFR (CKD) >90 (>60 ml/min/1.73 sqM); Albumin 3.2 g/dL (3.5-5.0); Alkaline Phosphatase 170 U/L (38-126); Anion Gap 10 mmol/L; Blood Urea Nitrogen 10 mg/dL (7-17); Calcium 8.8 mg/dL (8.4-10.2); Carbon Dioxide 23 mmol/L (22-30); Chloride 97 mmol/L (98-107); Creatine Kinase 38 U/L (30-135); Glucose 111 mg/dL (74-99); Lipase 70 U/L (23-300); Non-African American GFR(CKD) >90 (>60 ml/min/1.73 sqM); Potassium 4.7 mmol/L (3.5-5.1); Sodium 130 mmol/L (137-145); Total Bilirubin 0.8 mg/dL (0.2-1.3); Total Protein 7.1 g/dL (6.3-8.2)
[2021-01-17 18:31] LABS: Platelet Count 485 k/uL (150-450)
[2021-01-17 18:39] LABS: Partial Thromboplastin Time 22.1 sec (22.0-30.0); Prothrombin Time 10.9 sec (9.0-12.0)
[2021-01-17 18:54] LABS: D-Dimer 3.39 mg/L FEU (<0.60)
[2021-01-17 19:58] VITALS: BP 148/87; PULSE 86; RESP 18; TEMP 98.9
== END 2021-01-17 19:40 | disposition home or self-care (01) ==
LOC: EC 16:28
DX: M25.511 Pain in right shoulder (principal); M54.9 Dorsalgia, unspecified; F32.9 Major depressive disorder, single episode, unspecified; Z90.49 Acquired absence of other specified parts of digestive tract; Z79.899 Other long term (current) drug therapy; Z79.01 Long term (current) use of anticoagulants; Z86.718 Personal history of other venous thrombosis and embolism; Z86.711 Personal history of pulmonary embolism; Z88.1 Allergy status to other antibiotic agents; Z88.2 Allergy status to sulfonamides; Z91.018 Allergy to other foods; Z91.040 Latex allergy status
CPT/HCPCS: 36415; 93005; 85379; 83880; 80053; 82550; 83690; 83735; 84484; 85025; 85610; 85730; 71275; 99284; Q9967

== ENCOUNTER 2021-01-25 14:08 | Observation (INO) | payer BC ==
[~2021-01-25 14:08] MED LIST: ACETAMINOPHEN TAB 500 MG TAB PO PRN; HEPARIN SODIUM,PORCINE 5,000 UNIT/ML 1 ML VIAL SQ PRN; Pre Op ABX Message 1 EACH MISC MISCELLANE ONE
--- NOTE | 2021-01-25 15:56 | P.GSHP ---
History of Present Illness H&P Date: 01/25/21 Chief Complaint: Wound infection This is a 66-year-old female who underwent open repair of incisional hernia with mesh several weeks ago. Patient developed drainage at her midline scar. She is found have a staph infection. Patient presents today for debridement of abdomin al wall wound with possible removal of infected mesh. Past Medical History Past Medical History: COPD, Liver Disease, Pulmonary Embolus (PE), Thyroid Disorder Additional Past Medical History / Comment(s): emphysema, hernias, diverticulitis, right lung collapse, pulmonary embolism, raynauds disease, arthritis, hepatitis B, IBS, umbilical hernia. History of Any Multi-Drug Resistant Organisms: None Reported Past Surgical History: Cholecystectomy, Hernia Repair Additional Past Surgical History / Comment(s): bowel resection, four hernia repairs, bladder suspension, chest tube placed, previous thyroid biopsy, colonoscopies Past Anesthesia/Blood Transfusion Reactions: Previous Problems w/ Anesthesia Additional Past Anesthesia/Blood Transfusion Reaction / Comment(s): pt. states she has a hard time waking up from surgery Past Psychological History: Depression Smoking Status: Never smoker Past Alcohol Use History: Occasional Past Drug Use History: None Reported - Past Family History Sister(s) Family Medical History: Thyroid Disorder Additional Family Medical History / Comment(s): partial thyroidectomy, pt. has an extensive family history of psychiatric disorders, her sister is schizophrenic Daughter(s) Family Medical History: Chest Pain / Angina, Thyroid Disorder Additional Family Medical History / Comment(s): partial thyroidectomy, history of v-tach and ablations Mother Family Medical History: Cancer Additional Family Medical History / Comment(s): liver cancer, pts mom from a bowel perforation and association sepsis, schizophrenia Father Family Medical History: Unable to Obtain Brother(s) Additional Family Medical History / Comment(s): psychiatric issues Medications and Allergies Home Medications Medication Instructions Recorded Confirmed Type Docusate [Colace] 100 mg PO DAILY 01/03/18 01/25/21 History buPROPion XL [Wellbutrin XL] 300 mg PO DAILY 01/05/20 01/25/21 History Apixaban [Eliquis] 5 mg PO BID@0900,2100 12/21/20 01/25/21 History Cholecalciferol [Vitamin D3 (25 50 mcg PO DAILY 12/21/20 01/25/21 History Mcg = 1000 Iu)] Multivit-Min/Iron/Folic/Lutein 1 tab PO DAILY 12/21/20 01/25/21 History [Centrum Silver Women Tablet] Phenylephrine HCl [Sudafed PE] 10 mg PO DAILY PRN 12/21/20 01/25/21 History HYDROcodone/APAP 5-325MG [[place] 1 tab PO Q6HR PRN 3 Days #12 tab 12/23/20 01/25/21 Rx 5-325] methocarbamoL [Robaxin] 500 mg PO TID PRN #15 tab 01/17/21 01/25/21 Rx Allergies Allergy/AdvReac Type Severity Reaction Status Date / Time Latex, Natural Rubber Allergy Rash/Hives Verified 01/17/21 16:45 Sulfa (Sulfonamide Allergy Dyspnea Verified 01/17/21 16:45 Antibiotics) banana AdvReac Rash/Hives Verified 01/17/21 16:45 ciprofloxacin [From Cipro] AdvReac Rash/Hives Verified 01/17/21 16:45 [place] And Derivatives AdvReac Rash/Hives Verified 01/17/21 16:45 Surgical - Exam Vital Signs Temp Pulse Resp BP Pulse Ox 97.7 F 122 H 20 136/88 97 01/25/21 15:20 01/25/21 15:20 01/25/21 15:20 01/25/21 15:20 01/25/21 15:20 - General well developed, well nourished, no distress - Eyes PERRL - ENT normal pinna - Neck no masses - Respiratory normal expansion - Cardiovascular Rhythm: regular - Abdomen There is significant swelling abdominal wall. The previously evidence of infected seroma. There is drainage through the midline scar. Abdomen: soft Assessment and Plan Assessment: Possible mesh infection with infected thrown. Patient undergo incision and dr maldonado and removal of infected mesh
[2021-01-25] MEDS ORDERED: SCOPOLAMINE 1.5MG/72HR PATCH TRANSDERM ONE (16:00)
[2021-01-25] MEDS ORDERED: IV FLUID CONTINUATION 1,000 ML IV ONE (16:00)
[2021-01-25] MEDS ORDERED: ONDANSETRON 4 MG/2 ML VIAL ONE (16:14)
[2021-01-25 16:16] LABS: Basophils # (A) 0.1 k/uL (0-0.2); Basophils % (A) 1 %; Eosinophils # (A) 0.5 k/uL (0-0.7); Eosinophils % (A) 5 %; HCT 36.7 % (34.0-46.0); HGB 12.2 gm/dL (11.4-16.0); Lymphocytes # (A) 1.7 k/uL (1.0-4.8); Lymphocytes % (A) 18 %; MCH 29.1 pg (25.0-35.0); MCHC 33.3 g/dL (31.0-37.0); MCV 87.2 fL (80.0-100.0); Mean Platelet Volume 7.2; Monocytes # (A) 0.4 k/uL (0-1.0); Monocytes % (A) 4 %; Neutrophils # (A) 6.5 k/uL (1.3-7.7); Neutrophils % (A) 71 %; Platelet Count 530 k/uL (150-450); RBC 4.22 m/uL (3.80-5.40); RDW 13.5 % (11.5-15.5); WBC 9.2 k/uL (3.8-10.6)
[2021-01-25 16:30] LABS: ALT 30 U/L (4-34); AST 45 U/L (14-36); African American GFR (CKD) >90 (>60 ml/min/1.73 sqM); Albumin 3.5 g/dL (3.5-5.0); Alkaline Phosphatase 137 U/L (38-126); Anion Gap 10 mmol/L; Blood Urea Nitrogen 14 mg/dL (7-17); Calcium 9.1 mg/dL (8.4-10.2); Carbon Dioxide 24 mmol/L (22-30); Chloride 102 mmol/L (98-107); Glucose 96 mg/dL (74-99); Non-African American GFR(CKD) >90 (>60 ml/min/1.73 sqM); Potassium 4.5 mmol/L (3.5-5.1); Sodium 136 mmol/L (137-145); Total Bilirubin 0.7 mg/dL (0.2-1.3); Total Protein 7.3 g/dL (6.3-8.2)
[2021-01-25] MEDS ORDERED: GLYCOPYRROLATE 0.2 MG/ML 2 ML VIAL ONE (17:16)
[2021-01-25] MEDS ORDERED: LIDOCAINE 1% INJ 10MG/ML (20 ML MDV) ONE (17:16)
[2021-01-25] MEDS ORDERED: ceFAZolin 1,000 MG VIAL ONE (17:16)
[2021-01-25] MEDS ORDERED: SUCCINYLCHOLINE CHLORIDE 100 MG/5 ML SYR IV ONE (17:16)
[2021-01-25] MEDS ORDERED: NEOSTIGMINE 1 MG/ML 10 ML VIAL ONE (17:16)
[2021-01-25] MEDS ORDERED: PROPOFOL 10 MG/ML 20 ML VIAL IV ONE (17:16)
[2021-01-25] MEDS ORDERED: ROCURONIUM 10 MG/ML (5 ML VIAL) IV ONE (17:16)
[2021-01-25] MEDS ORDERED: diphenhydrAMINE 50 MG/ML 1 ML VIAL ONE (17:16)
[2021-01-25] MEDS ORDERED: fentaNYL (PF) 50 MCG/ML 2 ML AMP ONE (17:16)
[2021-01-25] MEDS ORDERED: SODIUM CHLORIDE 0.9% 50 ML with ceFAZolin 2,000 MG IV ONE ×2 (17:39)
[2021-01-25] MEDS ORDERED: oxyCODONE-APAP 5-325MG 1 EACH TAB PO PRN (17:54)
[2021-01-25] MEDS ORDERED: NALOXONE 0.4 MG/ML 1 ML VIAL IV PRN (17:54)
[2021-01-25] MEDS ORDERED: LACTATED RINGERS 1,000 ML IV ONE ×3 (17:54→18:40)
[2021-01-25] MEDS ORDERED: HYDROcodone/APAP 5-325MG 1 EACH TAB PO PRN (17:54)
[2021-01-25] MEDS ORDERED: HYDROmorphone 0.5 MG/0.5 ML SYRINGE IVP PRN (17:54)
[2021-01-25] MEDS ORDERED: ONDANSETRON 4 MG/2 ML VIAL IVP PRN (17:54)
--- NOTE | 2021-01-25 17:54 | P.OP ---
Date of Procedure: 01/25/21 Preoperative Diagnosis: Infected mesh Postoperative Diagnosis: Infected mesh, infected abdominal wall seroma Procedure(s) Performed: Incision and drainage of abdominal abscess Removal of infected mesh Anesthesia: KATRIN Surgeon: Teo Brannon Estimated Blood Loss (ml): 25 Pathology: other (Culture, mesh) Condition: stable Disposition: PACU Description of Procedure: The patient's placed on the operating table in the supine position. She received general anesthesia. Her abdomen was prepped and draped usual fashion. The abdomen was incised through her previous scar. There was a seroma cavity entered. This was cultured. There is approximately 5 mL of infected seroma flu id. The mesh was examined. The free-floating. The mesh was then removed with gentle traction. The wound was inspected for hemostasis. The Bovie was used for hemostasis. hemostasis. The wound was then packed with dry Kerlix. Patient top she will was sent to recovery in stable condition.
[2021-01-25] MEDS ORDERED: VANCOMYCIN IV PER PHARMACY 1 EACH MISC MISCELLANE PRN (21:25)
[2021-01-25] MEDS: buPROPion XL 300 MG TAB.ER.24H PO SCH (21:56)
[2021-01-25] MEDS ORDERED: VANCOMYCIN 1,750 MG in SODIUM CHLORIDE 0.9% 500 ML 500 ML IVPB ONE (22:00)
[2021-01-26] MEDS ORDERED: VANCOMYCIN 1,750 MG in SODIUM CHLORIDE 0.9% 500 ML 500 ML IVPB SCH (08:00)
[2021-01-26] MEDS: ENOXAPARIN 40 MG/0.4 ML SYRINGE SQ SCH (09:52)
[2021-01-26] MEDS: DOCUSATE 100 MG CAP PO SCH (09:52)
[2021-01-26] MEDS: buPROPion XL 300 MG TAB.ER.24H PO SCH (09:52)
[2021-01-26] MEDS: CHOLECALCIFEROL 25 MCG (1000 IU) TABLET PO SCH (09:52)
--- NOTE | 2021-01-26 11:40 | P.PN ---
Subjective Progress Note Date: 01/26/21 CHIEF COMPLAINT: Infected mesh, infected abdominal wall seroma HISTORY OF PRESENT ILLNESS: Patient is postop day #1 status post incision and drainage of abdominal abscess and removal of infected mesh. Patient has had a lot of drainage from her abdominal wound. The drainage is bloody and brownish in color. She does complain of some minimal abdominal pain. She is afebrile. She is followed by infectious disease and is on vancomycin. Labs pending PHYSICAL EXAM: VITAL SIGNS: Reviewed. GENERAL: Well-developed in no acute distress. HEENT: No sclera icterus. Extraocular movements grossly intact. Moist buccal mucosa. Head is atraumatic, normocephalic. ABDOMEN: Soft. Nondistended. Abdominal wound dressing is saturated with blood and some of it is also brownish in color. Skin around the wound has no erythema NEUROLOGIC: Alert and oriented. Cranial nerves II through XII grossly intact. ASSESSMENT: 1. Infected mesh with infected abdominal wall seroma status post incision and drainage of abdominal abscess and removal of infected mesh PLAN: -Continue regular diet -Continue antibiotics per ID recommendations -Follow up on culture results -Continue local wound care with wet-to-dry dressing Physician Storage Battery Charger note has been reviewed by physician. Signing provider agrees with the documented findings, assessment, and plan of care. Objective - Vital Signs Vital signs: Vital Signs Temp 99.2 F 01/26/21 07:30 Pulse 99 01/26/21 07:30 Resp 16 01/26/21 07:30 BP 106/67 01/26/21 07:30 Pulse Ox 95 01/26/21 07:30 Intake & Output 01/25/21 01/26/21 01/26/21 18:59 06:59 18:59 Intake Total 1450 250 Balance 1450 250 Weight 107.95 kg 107.95 kg Intake: IV 1450 Oral 250 Other: # Voids 3 - Labs CBC & Chem 7: 01/25/21 16:08 01/25/21 16:08 Labs: Abnormal Lab Results - Last 24 Hours (Table) 01/25/21 01/25/21 Range/Units 16:08 16:08 Plt Count 530 H (150-450) k/uL Sodium 136 L (137-145) mmol/L AST 45 H (14-36) U/L Alkaline Phosphatase 137 H (38-126) U/L Microbiology - Last 24 Hours (Table) 01/25/21 17:50 Gram Stain - Preliminary Abdomen Wound Culture - Preliminary 01/25/21 17:50 Anaerobic Culture - Preliminary Abdomen
--- NOTE | 2021-01-26 12:24 | P.CONS ---
History of Present Illness - Reason for Consult Medical management of multiple medical problems including recent DVT - History of Present Illness This is a pleasant 66-year-old female came in for infected mesh in the anterior abdomen patient is status post incision and drainage of abdominal wall abscess the mesh was removed surgical wound was left open. She denied any abdominal pain at this time denied any fever chills nausea vomiting. Review of Systems REVIEW OF SYSTEMS: CONSTITUTIONAL: No fever, no malaise, no fatigue. HEENT: No recent visual problems or hearing problems. Denied any sore throat. CARDIOVASCULAR: No chest pain, orthopnea, PND, no palpitations, no syncope. PULMONARY: No shortness of breath, no cough, no hemoptysis. GASTROINTESTINAL: No diarrhea, no nausea, no vomiting, no abdominal pain. NEUROLOGICAL: No headaches, no weakness, no numbness. HEMATOLOGICAL: Denies any bleeding or petechiae. GENITOURINARY: Denies any burning micturition, frequency, or urgency. MUSCULOSKELETAL/RHEUMATOLOGICAL: Denies any joint pain, swelling, or any muscle pain. ENDOCRINE: Denies any polyuria or polydipsia. The rest of the 14-point review of systems is negative. Past Medical History Past Medical History: COPD, Liver Disease, Pulmonary Embolus (PE), Thyroid Disorder Additional Past Medical History / Comment(s): emphysema, hernias, diverticulitis, right lung collapse, pulmonary embolism, raynauds disease, arthritis, hepatitis B, IBS, umbilical hernia. History of Any Multi-Drug Resistant Organisms: None Reported Past Surgical History: Cholecystectomy, Hernia Repair Additional Past Surgical History / Comment(s): bowel resection, four hernia repairs, bladder suspension, chest tube placed, previous thyroid biopsy, colonoscopies Past Anesthesia/Blood Transfusion Reactions: Previous Problems w/ Anesthesia, Postoperative Nausea & Vomiting (PONV) Additional Past Anesthesia/Blood Transfusion Reaction / Comm: pt. states she has a hard time waking up from surgery Past Psychological History: Depression Additional Psychological History / Comment(s): pt. has a history of depression that she takes Wellbutrin for Smoking Status: Never smoker Past Alcohol Use History: Occasional Additional Past Alcohol Use History / Comment(s): pt. states she quit smoking 10 years ago Past Drug Use History: Marijuana Additional Drug Use History / Comment(s): once in a while - Past Family History Sister(s) Family Medical History: Thyroid Disorder Additional Family Medical History / Comment(s): partial thyroidectomy, pt. has an extensive family history of psychiatric disorders, her sister is schizophrenic Daughter(s) Family Medical History: Chest Pain / Angina, Thyroid Disorder Additional Family Medical History / Comment(s): partial thyroidectomy, history of v-tach and ablations Mother Family Medical History: Cancer Additional Family Medical History / Comment(s): liver cancer, pts mom from a bowel perforation and association sepsis, schizophrenia Father Family Medical History: Unable to Obtain Brother(s) Additional Family Medical History / Comment(s): psychiatric issues, schitzophrenic runs in family Medications and Allergies Home Medications Medication Instructions Recorded Confirmed Type Docusate [Colace] 100 mg PO DAILY 01/03/18 01/25/21 History buPROPion XL [Wellbutrin XL] 300 mg PO DAILY 01/05/20 01/25/21 History Apixaban [Eliquis] 5 mg PO BID@0900,2100 12/21/20 01/25/21 History Cholecalciferol [Vitamin D3 (25 50 mcg PO DAILY 12/21/20 01/25/21 History Mcg = 1000 Iu)] Multivit-Min/Iron/Folic/Lutein 1 tab PO DAILY 12/21/20 01/25/21 History [Centrum Silver Women Tablet] Phenylephrine HCl [Sudafed PE] 10 mg PO DAILY PRN 12/21/20 01/25/21 History HYDROcodone/APAP 5-325MG [[place] 1 tab PO Q6HR PRN 3 Days #12 tab 12/23/20 01/25/21 Rx 5-325] methocarbamoL [Robaxin] 500 mg PO TID PRN #15 tab 01/17/21 01/25/21 Rx Allergies Allergy/AdvReac Type Severity Reaction Status Date / Time Latex, Natural Rubber Allergy Rash/Hives Verified 01/17/21 16:45 Sulfa (Sulfonamide Allergy Dyspnea Verified 01/17/21 16:45 Antibiotics) banana AdvReac Rash/Hives Verified 01/17/21 16:45 ciprofloxacin [From Cipro] AdvReac Rash/Hives Verified 01/17/21 16:45 [place] And Derivatives AdvReac Rash/Hives Verified 01/17/21 16:45 Physical Exam Vitals: Vital Signs Temp Pulse Pulse Pulse Resp BP Pulse Ox 01/26/21 07:30 99.2 F 99 16 106/67 95 01/26/21 02:45 97.9 F 99 17 100/63 94 L 01/25/21 21:50 101 H 106/74 96 01/25/21 21:35 99 112/78 94 L 01/25/21 21:20 99 108/75 87 L 01/25/21 21:05 101 H 119/81 92 L 01/25/21 20:50 101 H 108/67 94 L 01/25/21 20:35 93 126/77 93 L 01/25/21 20:20 94 113/79 95 01/25/21 20:05 88 129/81 96 01/25/21 19:50 98.4 F 85 121/77 95 01/25/21 18:45 93 18 124/71 92 L 01/25/21 18:30 96 18 129/77 94 L 01/25/21 18:15 94 16 128/71 98 01/25/21 18:03 97.1 F L 108 H 16 138/68 94 L 01/25/21 15:20 97.7 F 122 H 20 136/88 97 Intake and Output 01/25/21 01/26/21 01/26/21 22:59 06:59 14:59 Intake Total 1700 Balance 1700 Intake: IV 1450 Oral 250 Other: # Voids 2 3 Weight 107.95 kg PHYSICAL EXAMINATION: GENERAL: The patient is alert and oriented x3, not in any acute distress. Well developed, well nourished. HEENT: Pupils are round and equally reacting to light. EOMI. No scleral icterus. No conjunctival pallor. Normocephalic, atraumatic. No pharyngeal erythema. No thyromegaly. CARDIOVASCULAR: S1 and S2 present. No murmurs, rubs, or gallops. PULMONARY: Chest is clear to auscultation, no wheezing or crackles. ABDOMEN: Abdominal wound is open covered with Post-surgical packing MUSCULOSKELETAL: No joint swelling or deformity. EXTREMITIES: No cyanosis, clubbing, or pedal edema. NEUROLOGICAL: Gross neurological examination did not reveal any focal deficits. SKIN: No rashes. Results CBC & Chem 7: 01/25/21 16:08 01/25/21 16:08 Labs: Abnormal Lab Results - Last 24 Hours (Table) 01/25/21 01/25/21 Range/Units 16:08 16:08 Plt Count 530 H (150-450) k/uL Sodium 136 L (137-145) mmol/L AST 45 H (14-36) U/L Alkaline Phosphatase 137 H (38-126) U/L Microbiology - Last 24 Hours (Table) 01/25/21 17:50 Gram Stain - Preliminary Abdomen Wound Culture - Preliminary 01/25/21 17:50 Anaerobic Culture - Preliminary Abdomen Assessment and Plan Plan: -Status post incision and radiates postoperative day one infected mesh and then anterior abdomen which was removed. Patient is on vancomycin at this time which will be continued. Patient is clinically doing well without any pain -History of recent DVT patient was on Eliquis which is being held at this time patient is on Lovenox for DVT prophylaxis -Previous hernia repairs -History of diverticulitis -History of venostasis disease -Depression For above-mentioned chronic medical problems patient will be resumed on appropriate home medications.
--- NOTE | 2021-01-26 12:26 | P.CONS ---
History of Present Illness - Reason for Consult Consult date: 01/26/21 - History of Present Illness HISTORY OF PRESENT ILLNESS This is a 6-year-old female with significant past history of incarcerated incisional hernia status post open repair and lysis of adhesions, partial omentectomy on December [address] Brannon. Patient states she has had follow- up in the office and there was concern at that time that the wound did not look well. She states that culture was obtained from aspiration of the wound site which has been reviewed and is positive for MSSA. Yesterday, she changed her close and noticed that she had bright red drainage in her lower abdominal clothing. Patient denies having any fever or chills. She is had mild abdominal pain 2-3/10 that is a slicing type pain that only lasts for a few seconds at a time. She denies having any nausea, vomiting, diarrhea. No chest pain, cough or shortness of breath. Presented to [facility] emergency center was found to be afebrile, heart rate 108, blood pressure 138/68, pulse ox 94% on room air. WBC normal at 9.2, hemoglobin 12.2, platelet count 530. Electrolytes and renal function normal except for sodium of 136. AST 45, alkaline phosphatase 137. Abdominal wound and anaerobic culture in progress. REVIEW OF SYSTEMS Constitutional: No fever, no chills, no night sweats. No weight change. No weakness, fatigue or lethargy. EENT: No headache. No nasal drainage or congestion. No epistaxis. No sore throat. Lungs: No shortness of breath, cough, no sputum production. No wheezing. Cardiovascular: No chest pain, no lower extremity edema. No lightheadedness or dizziness. No syncopal episodes. Abdominal: No abdominal pain. No nausea, vomiting. No diarrhea. No constipation. No loss of appetite. Genitourinary: No dysuria, increased frequency, urgency. No urinary retention. Musculoskeletal: No myalgias. No muscle weakness. Integumentary: No wounds, no lesions. No rash or pruritus. Neurologic: No aphasia. No facial droop. No change in mentation. Endocrine: No abnormal blood sugars. PHYSICAL EXAMINATION Gen: This is an obese 66-year-old female patient. She is resting in bed and appears to be comfortable. No acute distress noted. VS: Afebrile, heart rate 99, blood pressure 106/67, pulse ox 95% on room air. HEENT: Head is atraumatic, normocephalic. Pupils equal, round. Sclerae is anicteric. NECK: Supple. No JVD. LUNGS: Clear to auscultation. No wheezes or rhonchi. No intercostal retractions. HEART: Regular rate and rhythm. ABDOMEN: Soft. Nondistended. Large open abdominal wound with gauze packing. No erythema surrounding wound. No tenderness. EXTREMITIES: No pedal edema. No calf tenderness. NEUROLOGICAL: Patient is awake, alert and oriented x3. ASSESSMENT Infected mesh and abdominal wall seroma status post I&D and removal of infected mesh Wound culture obtained in the office positive for MSSA PLAN Discontinue vancomycin Start patient on Kefzol 2 g IV piggyback every 8 hours Continue supportive care Further medications as patient progresses Thank you kindly for this consultation. The above dictated assessment and findings were discussed with Dr. Wray. The impression and plan of care have been directed as dictated. Ludivina Blakely nurse practitioner acting as scribe for Dr. Wray. Past Medical History Past Medical History: COPD, Liver Disease, Pulmonary Embolus (PE), Thyroid Disorder Additional Past Medical History / Comment(s): emphysema, hernias, diverticulitis, right lung collapse, pulmonary embolism, raynauds disease, arthritis, hepatitis B, IBS, umbilical hernia. History of Any Multi-Drug Resistant Organisms: None Reported Past Surgical History: Cholecystectomy, Hernia Repair Additional Past Surgical History / Comment(s): bowel resection, four hernia repairs, bladder suspension, chest tube placed, previous thyroid biopsy, colonoscopies Past Anesthesia/Blood Transfusion Reactions: Previous Problems w/ Anesthesia, Postoperative Nausea & Vomiting (PONV) Additional Past Anesthesia/Blood Transfusion Reaction / Comm: pt. states she has a hard time waking up from surgery Past Psychological History: Depression Additional Psychological History / Comment(s): pt. has a history of depression that she takes Wellbutrin for Smoking Status: Never smoker Past Alcohol Use History: Occasional Additional Past Alcohol Use History / Comment(s): pt. states she quit smoking 10 years ago Past Drug Use History: Marijuana Additional Drug Use History / Comment(s): once in a while - Past Family History Sister(s) Family Medical History: Thyroid Disorder Additional Family Medical History / Comment(s): partial thyroidectomy, pt. has an extensive family history of psychiatric disorders, her sister is schizophrenic Daughter(s) Family Medical History: Chest Pain / Angina, Thyroid Disorder Additional Family Medical History / Comment(s): partial thyroidectomy, history of v-tach and ablations Mother Family Medical History: Cancer Additional Family Medical History / Comment(s): liver cancer, pts mom from a bowel perforation and association sepsis, schizophrenia Father Family Medical History: Unable to Obtain Brother(s) Additional Family Medical History / Comment(s): psychiatric issues, schitzophrenic runs in family Medications and Allergies Home Medications Medication Instructions Recorded Confirmed Type Docusate [Colace] 100 mg PO DAILY 01/03/18 01/25/21 History buPROPion XL [Wellbutrin XL] 300 mg PO DAILY 01/05/20 01/25/21 History Apixaban [Eliquis] 5 mg PO BID@0900,2100 12/21/20 01/25/21 History Cholecalciferol [Vitamin D3 (25 50 mcg PO DAILY 12/21/20 01/25/21 History Mcg = 1000 Iu)] Multivit-Min/Iron/Folic/Lutein 1 tab PO DAILY 12/21/20 01/25/21 History [Centrum Silver Women Tablet] Phenylephrine HCl [Sudafed PE] 10 mg PO DAILY PRN 12/21/20 01/25/21 History HYDROcodone/APAP 5-325MG [[place] 1 tab PO Q6HR PRN 3 Days #12 tab 12/23/20 01/25/21 Rx 5-325] methocarbamoL [Robaxin] 500 mg PO TID PRN #15 tab 01/17/21 01/25/21 Rx Allergies Allergy/AdvReac Type Severity Reaction Status Date / Time Latex, Natural Rubber Allergy Rash/Hives Verified 01/17/21 16:45 Sulfa (Sulfonamide Allergy Dyspnea Verified 01/17/21 16:45 Antibiotics) banana AdvReac Rash/Hives Verified 01/17/21 16:45 ciprofloxacin [From Cipro] AdvReac Rash/Hives Verified 01/17/21 16:45 [place] And Derivatives AdvReac Rash/Hives Verified 01/17/21 16:45 Physical Exam Vitals: Vital Signs Temp Pulse Pulse Pulse Resp BP Pulse Ox 01/26/21 07:30 99.2 F 99 16 106/67 95 01/26/21 02:45 97.9 F 99 17 100/63 94 L 01/25/21 21:50 101 H 106/74 96 01/25/21 21:35 99 112/78 94 L 01/25/21 21:20 99 108/75 87 L 01/25/21 21:05 101 H 119/81 92 L 01/25/21 20:50 101 H 108/67 94 L 01/25/21 20:35 93 126/77 93 L 01/25/21 20:20 94 113/79 95 01/25/21 20:05 88 129/81 96 01/25/21 19:50 98.4 F 85 121/77 95 01/25/21 18:45 93 18 124/71 92 L 01/25/21 18:30 96 18 129/77 94 L 01/25/21 18:15 94 16 128/71 98 01/25/21 18:03 97.1 F L 108 H 16 138/68 94 L 01/25/21 15:20 97.7 F 122 H 20 136/88 97 Intake and Output 01/25/21 01/26/21 01/26/21 22:59 06:59 14:59 Intake Total 1700 Balance 1700 Intake: IV 1450 Oral 250 Other: # Voids 2 3 Weight 107.95 kg Results CBC & Chem 7: 01/25/21 16:08 01/25/21 16:08 Labs: Abnormal Lab Results - Last 24 Hours (Table) 01/25/21 01/25/21 Range/Units 16:08 16:08 Plt Count 530 H (150-450) k/uL Sodium 136 L (137-145) mmol/L AST 45 H (14-36) U/L Alkaline Phosphatase 137 H (38-126) U/L Microbiology - Last 24 Hours (Table) 01/25/21 17:50 Gram Stain - Preliminary Abdomen Wound Culture - Preliminary 01/25/21 17:50 Anaerobic Culture - Preliminary Abdomen
[2021-01-27] MEDS: buPROPion XL 300 MG TAB.ER.24H PO SCH (08:41)
[2021-01-27] MEDS: DOCUSATE 100 MG CAP PO SCH (08:41)
[2021-01-27] MEDS: CHOLECALCIFEROL 25 MCG (1000 IU) TABLET PO SCH (08:41)
[2021-01-27] MEDS: ENOXAPARIN 40 MG/0.4 ML SYRINGE SQ SCH (08:41)
[2021-01-27 09:41] LABS: African American GFR (CKD) 90.3 (60.0-200.0); Non-African American GFR(CKD) 77.9 (60.0-200.0)
--- NOTE | 2021-01-27 13:07 | P.PN ---
Subjective Progress Note Date: 01/27/21 HISTORY OF PRESENT ILLNESS This is a 6-year-old female with significant past history of incarcerated incis ional hernia status post open repair and lysis of adhesions, partial omentectomy on December [address] Brannon. Patient states she has had follow-up in the office and there was concern at that time that the wound did not look well. She states that culture was obtained from aspiration of the wound site which has been reviewed and is positive for MSSA. Yesterday, she changed her close and noticed that she had bright red drainage in her lower abdominal clothing. Patient denies having any fever or chills. She is had mild abdominal pain 2- 3/10 that is a slicing type pain that only lasts for a few seconds at a time. She denies having any nausea, vomiting, diarrhea. No chest pain, cough or shortness of breath. Presented to [facility] emergency center was found to be afebrile, heart rate 108, blood pressure 138/68, pulse ox 94% on room air. WBC normal at 9.2, hemoglobin 12.2, platelet count 530. Electrolytes and renal function normal except for sodium of 136. AST 45, alkaline phosphatase 137. Abdominal wound and anaerobic culture in progress. 01/27: Patient is seen today in follow-up. Wound VAC will be necessary in order to obtain healing of this abdominal wound. or nurse manager is making arrangements. is seen in follow-up today. Patient denies any nausea, vomiting, diarrhea. No significant pain with abdominal wound. She denies any chest pain, shortness of breath or cough. PHYSICAL EXAMINATION Gen: This is an obese 66-year-old female patient. She is resting in bed and appears to be comfortable. No acute distress noted. VS: Afebrile, heart rate 99, blood pressure 106/67, pulse ox 95% on room air. HEENT: Head is atraumatic, normocephalic. Pupils equal, round. Sclerae is anicteric. NECK: Supple. No JVD. LUNGS: Clear to auscultation. No wheezes or rhonchi. No intercostal retractions. HEART: Regular rate and rhythm. ABDOMEN: Soft. Nondistended. Large open abdominal wound dressing in place. No tenderness. EXTREMITIES: No pedal edema. No calf tenderness. NEUROLOGICAL: Patient is awake, alert and oriented x3. ASSESSMENT Infected mesh and abdominal wall seroma status post I&D and removal of infected mesh Wound culture obtained in the office positive for MSSA PLAN Continue Kefzol 2 g IV piggyback every 8 hours Keflex 500 mg oral every 6 hours for 10 days recommended at discharge, prescription sent to her pharmacy. Patient is cleared for discharge from infectious disease with plan for follow-up in the outpatient setting. The above dictated assessment and findings were discussed with Dr. Wray. The impression and plan of care have been directed as dictated. Ludivina Blakely nurse practitioner acting as scribe for Dr. Wray. Objective - Vital Signs Vital signs: Vital Signs Temp 98.8 F 01/27/21 07:52 Pulse 88 01/27/21 07:52 Resp 18 01/27/21 07:52 BP 131/81 01/27/21 07:52 Pulse Ox 95 01/27/21 07:52 Intake & Output 01/26/21 01/27/21 01/27/21 18:59 06:59 18:59 Intake Total 240 200 Balance 240 200 Intake: Oral 240 200 Other: Voiding Method Toilet Toilet # Voids 4 3 - Labs CBC & Chem 7: 01/25/21 16:08 01/27/21 05:32 Labs: Microbiology - Last 24 Hours (Table) 01/25/21 22:00 Blood Culture - Preliminary Blood No Growth after 24 hours 01/25/21 17:50 Gram Stain - Preliminary Abdomen Wound Culture - Preliminary
--- NOTE | 2021-01-27 13:43 | P.DS ---
Providers Date of admission: 01/26/21 13:50 Expected date of discharge: 01/27/21 Attending physician: Teo Brannon Consults: 01/25/21 17:54 Consult Physician Routine Consulting Provider: Scotty Wray Consult Reason/Comments: Infected mesh Do you want consulting provider notified?: Yes Consult Physician Routine Consulting Provider: Mavis Andres Consult Reason/Comments: Medical management Do you want consulting provider notified?: Yes Primary care physician: Naomi Eaton Hospital Course: Discharge diagnosis 1. Infected mesh with infected abdominal wall seroma status post incision and drainage of abdominal abscess and removal of infected mesh 2. Wound culture obtained in office positive for MSSA Hospital course This is a 66-year-old female who underwent open repair of incisional hernia with mesh several weeks ago. Patient developed drainage at her midline scar. She is found have a staph infection. Patient is status post incision and drainage of abdominal abscess and removal of infected mesh. Patient tolerated procedure well. She's been seen by infectious disease and medicine service. She was treated with IV antibiotics. Infectious diseases recommending Keflex for 10 days at time of discharge. Also, wound VAC is being arranged for patient with home care. Patient has minimal pain and is not requiring any pain medication. She is tolerating diet. She is having bowel movements. She is ambulating without difficulty. She is afebrile. She is stable for discharge. Please refer to chart for any further details. Physician Ironer note has been reviewed by physician. Signing provider agrees with the documented findings, assessment, and plan of care. Patient Condition at Discharge: Stable Plan - Discharge Summary Discharge Rx Participant: Yes New Discharge Prescriptions: New Cephalexin [Keflex] 500 mg PO Q6HR 10 Days #20 cap Continue Docusate [Colace] 100 mg PO DAILY buPROPion XL [Wellbutrin XL] 300 mg PO DAILY Apixaban [Eliquis] 5 mg PO BID@0900,2100 Multivit-Min/Iron/Folic/Lutein [Centrum Silver Women Tablet] 1 tab PO DAILY Cholecalciferol [Vitamin D3 (25 Mcg = 1000 Iu)] 50 mcg PO DAILY Phenylephrine HCl [Sudafed PE] 10 mg PO DAILY PRN PRN Reason: Allergy Symptoms HYDROcodone/APAP 5-325MG [[place] 5-325] 1 tab PO Q6HR PRN 3 Days #12 tab PRN Reason: Pain methocarbamoL [Robaxin] 500 mg PO TID PRN #15 tab PRN Reason: muscle spasms Discharge Medication List Docusate [Colace] 100 mg PO DAILY 01/03/18 [History] buPROPion XL [Wellbutrin XL] 300 mg PO DAILY 01/05/20 [History] Apixaban [Eliquis] 5 mg PO BID@0900,2100 12/21/20 [History] Cholecalciferol [Vitamin D3 (25 Mcg = 1000 Iu)] 50 mcg PO DAILY 12/21/20 [History] Multivit-Min/Iron/Folic/Lutein [Centrum Silver Women Tablet] 1 tab PO DAILY 12/21/20 [History] Phenylephrine HCl [Sudafed PE] 10 mg PO DAILY PRN 12/21/20 [History] HYDROcodone/APAP 5-325MG [[place] 5-325] 1 tab PO Q6HR PRN 3 Days #12 tab 12/23/20 [Rx] methocarbamoL [Robaxin] 500 mg PO TID PRN #15 tab 01/17/21 [Rx] Cephalexin [Keflex] 500 mg PO Q6HR 10 Days #20 cap 01/27/21 [Rx] Follow up Appointment(s)/Referral(s): [facility], [NON-STAFF] - Scotty Wray MD [STAFF PHYSICIAN] - 1 Week Teo Brannon MD [STAFF PHYSICIAN] - 01/31/21 4:00 pm Activity/Diet/Wound Care/Special Instructions: Wound Vac through [facility]: [phone] (pending approval) Do not discharge patient until wound VAC is arranged No lifting over 10 pounds You may shower. No soaking or tub baths for 2 weeks Very light activity until you are reevaluated at your follow up appointment with your surgeon Discharge Disposition: HOME WITH HOME HEALTH SERVICES
[2021-01-27 14:05] VITALS: BP 117/77; PULSE 101; RESP 17; TEMP 98.3
--- NOTE | 2021-01-27 16:11 | P.PN ---
Subjective Progress Note Date: 01/27/21 - Reason for Consult Medical management of multiple medical problems including recent DVT - History of Present Illness This is a pleasant 66-year-old female came in for infected mesh in the anterior abdomen patient is status post incision and drainage of abdominal wall abscess the mesh was removed surgical wound was left open. She denied any abdominal pain at this time denied any fever chills nausea vomiting. 01/27/2021 She is seen and evaluated and follow-up with no acute overnight issues. She has been up and walking and denies any abdominal discomfort, shortness of breath, or chest pains. Patient dressing was recently changed and is currently dry and intact. She is following with surgery and will continue to follow in the outpatient setting as discussed and scheduled. Review of systems: Constitutional: No reports of fatigue, fever, or chills Cardiovascular: No reports of chest pain or palpitations Respiratory: No reports of shortness of breath or cough GI: No reports of nausea, vomiting, or diarrhea : No reports of dysuria or retention Neurovascular: No reports of weakness or numbness All medications have been reviewed Objective - Vital Signs Vital signs: Vital Signs Temp 98.3 F 01/27/21 14:03 Pulse 101 H 01/27/21 14:03 Resp 17 01/27/21 14:03 BP 117/77 01/27/21 14:03 Pulse Ox 96 01/27/21 14:03 Intake & Output 01/26/21 01/27/21 01/27/21 18:59 06:59 18:59 Intake Total 240 200 Balance 240 200 Intake: Oral 240 200 Other: Voiding Method Toilet Toilet # Voids 4 3 - Exam GENERAL: The patient is alert and oriented x3, not in any acute distress. Well developed, well nourished. HEENT: Pupils are round and equally reacting to light. EOMI. No scleral icterus. No conjunctival pallor. Normocephalic, atraumatic. No pharyngeal erythema. No thyromegaly. CARDIOVASCULAR: S1 and S2 present. No murmurs, rubs, or gallops. PULMONARY: Chest is clear to auscultation, no wheezing or crackles. ABDOMEN: Abdominal wound is currently dressed and dressing was changed this morning and is dry and intact MUSCULOSKELETAL: No joint swelling or deformity. EXTREMITIES: No cyanosis, clubbing, or pedal edema. NEUROLOGICAL: Gross neurological examination did not reveal any focal deficits. SKIN: No rashes. - Labs CBC & Chem 7: 01/25/21 16:08 01/27/21 05:32 Labs: Microbiology - Last 24 Hours (Table) 01/25/21 22:00 Blood Culture - Preliminary Blood No Growth after 24 hours Assessment and Plan Assessment: -Status post incision and drainage postoperative day 2 infected mesh and then anterior abdomen which was removed. Patient is on vancomycin at this time which will be continued. Patient to continue with oral antibiotics upon discharge. Patient is clinically doing well without any pain -History of recent DVT patient was on Eliquis which is being held at this time patient is on Lovenox for DVT prophylaxis, resume anticoagulant upon discharge -Previous hernia repairs -History of diverticulitis -History of venostasis disease -Depression For above-mentioned chronic medical problems patient will be resumed on appropriate home medications. Will continue to follow along with surgery during hospitalization. Patient is tolerating diet with no reports of abdominal pain, nausea or vomiting noted. Patient is up and walking and stating she is hoping to go home today. Dressing is currently dry and intact is dressing was changed today. Patient will continue with home care in the outpatient setting. Patient will have wound VAC upon discharge.
== END 2021-01-27 15:50 | disposition home health service (06) ==
LOC: OR 14:08 → 4SSUR 17:56 → OR 01-26 13:50 → 4SSUR 01-26 13:50
PROVIDERS: ADMIT Surgery; ATTEND Surgery
DX: T85.79XA Infection and inflammatory reaction due to other internal prosthetic devices, implants and grafts, initial encounter (principal); A49.01 Methicillin susceptible Staphylococcus aureus infection, unspecified site; L02.211 Cutaneous abscess of abdominal wall; J43.9 Emphysema, unspecified; F32.9 Major depressive disorder, single episode, unspecified; I73.00 Raynaud's syndrome without gangrene; K58.9 Irritable bowel syndrome, unspecified; E89.0 Postprocedural hypothyroidism; Z90.49 Acquired absence of other specified parts of digestive tract; Z86.711 Personal history of pulmonary embolism; Z87.19 Personal history of other diseases of the digestive system; Z86.19 Personal history of other infectious and parasitic diseases; Z87.891 Personal history of nicotine dependence; Z86.718 Personal history of other venous thrombosis and embolism; Z79.899 Other long term (current) drug therapy; Z79.01 Long term (current) use of anticoagulants; Z79.891 Long term (current) use of opiate analgesic; Z88.1 Allergy status to other antibiotic agents; Z91.040 Latex allergy status; Z88.2 Allergy status to sulfonamides; Z91.018 Allergy to other foods; Y83.2 Surgical operation with anastomosis, bypass or graft as the cause of abnormal reaction of the patient, or of later complication, without mention of misadventure at the time of the procedure; Z81.8 Family history of other mental and behavioral disorders; Z80.0 Family history of malignant neoplasm of digestive organs; Z82.49 Family history of ischemic heart disease and other diseases of the circulatory system; Z83.49 Family history of other endocrine, nutritional and metabolic diseases; J30.2 Other seasonal allergic rhinitis; E66.9 Obesity, unspecified; Z68.37 Body mass index [BMI] 37.0-37.9, adult
CPT/HCPCS: 80053; 82565; 85025; 87040; 87070; 87075; 87077; 87186; 87205; 88300

== ENCOUNTER → 2021-11-06 | Outpatient (CLI) | payer BC ==
--- NOTE | 2021-11-06 10:56 | US ---
EXAMINATION TYPE: US thyroid st tissue head/neck DATE OF EXAM: 11/06/2021 COMPARISON: NONE CLINICAL HISTORY: E04.1 thyroid nodule. GLAND SIZE: Right Lobe: 8.1 x 4.3 x 5.4 cm Overall Parenchyma: heterogenous Left Lobe: 4.2 x 1.5 x 1.3 cm Overall Parenchyma: heterogeneous Isthmus Thickness: 0.2 cm NODULES RIGHT: # of nodules measured on right: 1 1. 6.1 X 2.0 x 5.0 cm, mid , cystic or almost completely cystic, anechoic nodule, which is wider t nayak tall, with lobulated or irregular margins, without echogenic foci. Prior size: 5.7 X 2.3 x 4.2cm LEFT: # of nodules measured on left: 0 ISTHMUS: # of nodules measured in the isthmus: 0 Bilateral neck scanned, no evidence of lymphadenopathy. IMPRESSION: Enlargement right thyroid lobe. Thyroid glandular heterogeneity. Slightly larger right thyroid lobe c ystic nodule.
== END | disposition home or self-care (01) ==
LOC: RADUSWWP 10:13
PROVIDERS: ATTEND Otolaryngology
DX: E04.1 Nontoxic single thyroid nodule (principal)
CPT/HCPCS: 76536

== ENCOUNTER 2021-11-24 14:04 | Emergency (ER) | payer BC ==
[2021-11-24 14:37] VITALS: TEMP 98.7
--- NOTE | 2021-11-24 15:24 | ED ---
Abdominal Pain HPI - General Chief Complaint: Abdominal Pain Stated Complaint: Abd Pain Time Seen by Provider: 11/24/21 14:42 Source: patient, family, RN notes reviewed Mode of arrival: ambulatory Limitations: no limitations - History of Present Illness Initial Comments: 66-year-old female presents emergency Department with chief complaint of abdominal pain. She's been having increasing abdominal pain over the last 7-10 days. Patient states she has primary left lower quadrant does radiate into her upper abdomen. She's had multiple surgeries including most recent hernia repair in which it Occasions with wound VAC. Patient denies recent fever but has had some chills. Mild nausea no subcu change in bowel habits no dysuria no hematuria. - Related Data Home Medications Medication Instructions Recorded Confirmed Docusate [Colace] 100 mg PO DAILY 01/03/18 11/24/21 buPROPion XL [Wellbutrin XL] 300 mg PO DAILY 01/05/20 11/24/21 Apixaban [Eliquis] 5 mg PO BID@0900,2100 12/21/20 11/24/21 Cholecalciferol [Vitamin D3 (25 50 mcg PO DAILY 12/21/20 11/24/21 Mcg = 1000 Iu)] Previous Rx's Medication Instructions Recorded Cephalexin [Keflex] 500 mg PO Q8HR #15 cap 11/24/21 Allergies Allergy/AdvReac Type Severity Reaction Status Date / Time Latex, Natural Rubber Allergy Rash/Hives Verified 11/24/21 14:38 Sulfa (Sulfonamide Allergy Dyspnea Verified 11/24/21 14:38 Antibiotics) banana AdvReac Rash/Hives Verified 11/24/21 14:38 ciprofloxacin [From Cipro] AdvReac Rash/Hives Verified 11/24/21 14:38 Croswell And Derivatives AdvReac Rash/Hives Verified 11/24/21 14:38 Review of Systems ROS Statement: Those systems with pertinent positive or pertinent negative responses have been documented in the HPI. ROS Other: All systems not noted in ROS Statement are negative. Past Medical History Past Medical History: COPD, Liver Disease, Pulmonary Embolus (PE), Thyroid Disorder Additional Past Medical History / Comment(s): emphysema, hernias, diverticulitis, right lung collapse, pulmonary embolism, raynauds disease, arthritis, hepatitis B, IBS, umbilical hernia. History of Any Multi-Drug Resistant Organisms: None Reported Past Surgical History: Cholecystectomy, Hernia Repair Additional Past Surgical History / Comment(s): bowel resection, four hernia repairs, bladder suspension, chest tube placed, previous thyroid biopsy, colonoscopies Past Anesthesia/Blood Transfusion Reactions: Previous Problems w/ Anesthesia, Postoperative Nausea & Vomiting (PONV) Additional Past Anesthesia/Blood Transfusion Reaction / Comment(s): pt. states she has a hard time waking up from surgery Past Psychological History: Depression Smoking Status: Never smoker Past Alcohol Use History: Occasional Past Drug Use History: Marijuana - Past Family History Sister(s) Family Medical History: Thyroid Disorder Additional Family Medical History / Comment(s): partial thyroidectomy, pt. has an extensive family history of psychiatric disorders, her sister is schizophrenic Daughter(s) Family Medical History: Chest Pain / Angina, Thyroid Disorder Additional Family Medical History / Comment(s): partial thyroidectomy, history of v-tach and ablations Mother Family Medical History: Cancer Additional Family Medical History / Comment(s): liver cancer, pts mom from a bowel perforation and association sepsis, schizophrenia Father Family Medical History: Unable to Obtain Brother(s) Additional Family Medical History / Comment(s): psychiatric issues, schitzophrenic runs in family General Exam Limitations: no limitations General appearance: alert, in no apparent distress Head exam: Present: atraumatic, normocephalic, normal inspection Eye exam: Present: normal appearance, PERRL, EOMI. Absent: scleral icterus, conjunctival injection, periorbital swelling ENT exam: Present: normal exam, mucous membranes moist Neck exam: Present: normal inspection, full ROM. Absent: tenderness, meningismus, lymphadenopathy Respiratory exam: Present: normal lung sounds bilaterally. Absent: respiratory distress, wheezes, rales, rhonchi, stridor Cardiovascular Exam: Present: regular rate, normal rhythm, normal heart sounds. Absent: systolic murmur, diastolic murmur, rubs, gallop, clicks GI/Abdominal exam: Present: soft, tenderness, normal bowel sounds. Absent: distended, guarding, rebound, rigid Back exam: Absent: CVA tenderness (R), CVA tenderness (L) Neurological exam: Present: alert Skin exam: Present: warm, dry, intact, normal color. Absent: rash Course Vital Signs 11/24/21 14:33 Temperature 98.7 F Pulse Rate 87 Respiratory 19 Rate Blood Pressure 189/120 O2 Sat by Pulse 98 Oximetry Medical Decision Making - Medical Decision Making HEENT CT shows some scar tissue formation versus hematoma less likely hematoma as she noted, no change in hemoglobin and patient has no ecchymosis. Patient discharged on oral it's brakes for UTI return parameters were discussed. - Lab Data Result diagrams: 11/24/21 14:58 11/24/21 14:58 Lab Results 11/24/21 11/24/21 11/24/21 Range/Units 14:58 14:58 14:58 WBC 6.7 (3.8-10.6) k/uL RBC 4.76 (3.80-5.40) m/uL Hgb 14.5 (11.4-16.0) gm/dL Hct 43.4 (34.0-46.0) % MCV 91.2 (80.0-100.0) fL MCH 30.5 (25.0-35.0) pg MCHC 33.5 (31.0-37.0) g/dL RDW 12.3 (11.5-15.5) % Plt Count 273 (150-450) k/uL MPV 7.8 Neutrophils % 54 % Lymphocytes % 37 % Monocytes % 5 % Eosinophils % 2 % Basophils % 1 % Neutrophils # 3.7 (1.3-7.7) k/uL Lymphocytes # 2.5 (1.0-4.8) k/uL Monocytes # 0.3 (0-1.0) k/uL Eosinophils # 0.1 (0-0.7) k/uL Basophils # 0.0 (0-0.2) k/uL Sodium 137 (137-145) mmol/L Potassium 4.4 (3.5-5.1) mmol/L Chloride 106 (98-107) mmol/L Carbon Dioxide 20 L (22-30) mmol/L Anion Gap 11 mmol/L BUN 13 (7-17) mg/dL Creatinine 0.79 (0.52-1.04) mg/dL Est GFR (CKD-EPI)AfAm >90 (>60 ml/min/1.73 sqM) Est GFR (CKD-EPI)NonAf 80 (>60 ml/min/1.73 sqM) Glucose 97 (74-99) mg/dL Plasma Lactic Acid Craig (0.7-2.0) mmol/L Calcium 9.5 (8.4-10.2) mg/dL Total Bilirubin 0.5 (0.2-1.3) mg/dL AST 27 (14-36) U/L ALT 20 (4-34) U/L Alkaline Phosphatase 76 (38-126) U/L Total Protein 7.6 (6.3-8.2) g/dL Albumin 4.2 (3.5-5.0) g/dL Amylase 66 (30-110) U/L Lipase 142 (23-300) U/L Urine Color Yellow Urine Appearance Cloudy H (Clear) Urine pH 7.0 (5.0-8.0) Ur Specific Rumsey 1.015 (1.001-1.035) Urine Protein Negative (Negative) Urine Glucose (UA) Negative (Negative) Urine Ketones Negative (Negative) Urine Blood Negative (Negative) Urine Nitrite Positive H (Negative) Urine Bilirubin Negative (Negative) Urine Urobilinogen <2.0 (<2.0) mg/dL Ur Leukocyte Esterase Small H (Negative) Urine RBC 1 (0-5) /hpf Urine WBC 20 H (0-5) /hpf Ur Squamous Epith Cells 1 (0-4) /hpf Urine Bacteria Many H (None) /hpf Urine Mucus Rare H (None) /hpf 11/24/21 Range/Units 14:58 WBC (3.8-10.6) k/uL RBC (3.80-5.40) m/uL Hgb (11.4-16.0) gm/dL Hct (34.0-46.0) % MCV (80.0-100.0) fL MCH (25.0-35.0) pg MCHC (31.0-37.0) g/dL RDW (11.5-15.5) % Plt Count (150-450) k/uL MPV Neutrophils % % Lymphocytes % % Monocytes % % Eosinophils % % Basophils % % Neutrophils # (1.3-7.7) k/uL Lymphocytes # (1.0-4.8) k/uL Monocytes # (0-1.0) k/uL Eosinophils # (0-0.7) k/uL Basophils # (0-0.2) k/uL Sodium (137-145) mmol/L Potassium (3.5-5.1) mmol/L Chloride (98-107) mmol/L Carbon Dioxide (22-30) mmol/L Anion Gap mmol/L BUN (7-17) mg/dL Creatinine (0.52-1.04) mg/dL Est GFR (CKD-EPI)AfAm (>60 ml/min/1.73 sqM) Est GFR (CKD-EPI)NonAf (>60 ml/min/1.73 sqM) Glucose (74-99) mg/dL Plasma Lactic Acid Craig 1.2 (0.7-2.0) mmol/L Calcium (8.4-10.2) mg/dL Total Bilirubin (0.2-1.3) mg/dL AST (14-36) U/L ALT (4-34) U/L Alkaline Phosphatase (38-126) U/L Total Protein (6.3-8.2) g/dL Albumin (3.5-5.0) g/dL Amylase (30-110) U/L Lipase (23-300) U/L Urine Color Urine Appearance (Clear) Urine pH (5.0-8.0) Ur Specific Rumsey (1.001-1.035) Urine Protein (Negative) Urine Glucose (UA) (Negative) Urine Ketones (Negative) Urine Blood (Negative) Urine Nitrite (Negative) Urine Bilirubin (Negative) Urine Urobilinogen (<2.0) mg/dL Ur Leukocyte Esterase (Negative) Urine RBC (0-5) /hpf Urine WBC (0-5) /hpf Ur Squamous Epith Cells (0-4) /hpf Urine Bacteria (None) /hpf Urine Mucus (None) /hpf Disposition Clinical Impression: Abdominal pain, UTI (urinary tract infection) Disposition: HOME SELF-CARE Condition: Stable Instructions (If sedation given, give patient instructions): Abdominal Pain (ED) Additional Instructions: Please return to the Emergency Department if symptoms worsen or any other conc erns. Prescriptions: Cephalexin [Keflex] 500 mg PO Q8HR #15 cap Is patient prescribed a controlled substance at d/c from ED?: No Referrals: Nonstaff,Physician [Primary Care Provider] - 1-2 days Time of Disposition: 16:34
[2021-11-24] MEDS: SODIUM CHLORIDE 0.9% 1,000 ML IV STA (15:31)
[2021-11-24 15:34] LABS: Appearance,Urine Cloudy (Clear); Bacteria,Urine Many /hpf; Bilirubin,Urine Negative (Negative); Blood,Urine Negative (Negative); Color,Urine Yellow; Glucose,Urine (UA) Negative (Negative); Ketones,Urine Negative (Negative); Leukocyte Esterase,Urine Small (Negative); Mucus,Urine Rare /hpf; Nitrite,Urine Positive (Negative); Protein,Urine Negative (Negative); RBC,Urine 1 /hpf (0-5); Specific Gravity,Urine 1.015 (1.001-1.035); Squamous Epithelial Cell,Urine 1 /hpf (0-4); Urobilinogen,Urine <2.0 mg/dL (<2.0); WBC,Urine 20 /hpf (0-5)
[2021-11-24 15:41] LABS: Basophils % (A) 1 %; Eosinophils # (A) 0.1 k/uL (0-0.7); Eosinophils % (A) 2 %; HCT 43.4 % (34.0-46.0); HGB 14.5 gm/dL (11.4-16.0); Lymphocytes # (A) 2.5 k/uL (1.0-4.8); Lymphocytes % (A) 37 %; MCH 30.5 pg (25.0-35.0); MCHC 33.5 g/dL (31.0-37.0); MCV 91.2 fL (80.0-100.0); Mean Platelet Volume 7.8; Monocytes # (A) 0.3 k/uL (0-1.0); Monocytes % (A) 5 %; Neutrophils # (A) 3.7 k/uL (1.3-7.7); Neutrophils % (A) 54 %; Platelet Count 273 k/uL (150-450); RBC 4.76 m/uL (3.80-5.40); RDW 12.3 % (11.5-15.5); WBC 6.7 k/uL (3.8-10.6)
[2021-11-24 15:54] LABS: ALT 20 U/L (4-34); AST 27 U/L (14-36); African American GFR (CKD) >90 (>60 ml/min/1.73 sqM); Albumin 4.2 g/dL (3.5-5.0); Alkaline Phosphatase 76 U/L (38-126); Amylase 66 U/L (30-110); Anion Gap 11 mmol/L; Blood Urea Nitrogen 13 mg/dL (7-17); Calcium 9.5 mg/dL (8.4-10.2); Carbon Dioxide 20 mmol/L (22-30); Chloride 106 mmol/L (98-107); Glucose 97 mg/dL (74-99); Lipase 142 U/L (23-300); Non-African American GFR(CKD) 80 (>60 ml/min/1.73 sqM); Potassium 4.4 mmol/L (3.5-5.1); Sodium 137 mmol/L (137-145); Total Bilirubin 0.5 mg/dL (0.2-1.3); Total Protein 7.6 g/dL (6.3-8.2)
--- NOTE | 2021-11-24 16:10 | CT ---
EXAMINATION TYPE: CT abdomen pelvis w con DATE OF EXAM: 11/24/2021 COMPARISON: None HISTORY: abdominal pain and cramping CT DLP: 1952.8 mGycm Automated exposure control for dose reduction was used. CONTRAST: Performed with IV Contrast, patient injected with 100 mL of Isovue 300. Images obtained from the diaphragm to the floor the pelvis with IV contrast. Lung bases are clear. There is no pleural effusion. Heart size is normal. There is no pericardial eff usion. Liver spleen stomach pancreas appear intact. Bile ducts are not dilated. There are clips from cholecy stectomy. There is no adrenal mass. Kidneys show satisfactory contrast opacification. There is no hyd ronephrosis. There is no evidence of a renal mass. Delayed images show normal renal excretion. There is no retroperitoneal adenopathy. There is fat stranding and increased density in the subcutaneous fa t over the anterior abdomen consistent with postsurgical changes. Bladder distends smoothly. There is no inguinal hernia. There is no free fluid in the pelvis. There is previous surgery at the sigmoid colon. There are sigmoid diverticula. There is no sign of di verticulitis. There is previous surgery at the distal ileum. Appendix appears normal. Lumbar vertebra have normal alignment. Posterior elements are intact. There is no compression fractur e. There is multilevel disc space narrowing and spur formation. There is intact bony pelvis. Hip join ts are intact. There is no mesenteric edema. There is no ascites or free air. There is no evidence of a bowel obstru ction. IMPRESSION: There is anterior abdominal wall hernia surgery compared to old exam. There is postsurgical changes w ith thickening of the anterior abdominal wall up to 1.7 cm. This could be scar tissue or hematoma. No evidence of recurrent hernia. There is mild colonic diverticulosis without diverticulitis.
[2021-11-24] MEDS: cefTRIAXone IN SWFI 1,000 MG/10 ML SYRINGE IVP STA (16:52)
[2021-11-24] MEDS: CEPHALEXIN 500MG STARTER PACK 4 CAP BTL PO STA (17:01)
[2021-11-24] MEDS: AMOXIC-POT CLAV 875MG STARTER PACK 2 TAB BTL PO STA (17:01)
[2021-11-24 17:07] VITALS: BP 160/96; PULSE 83; RESP 18
== END 2021-11-24 17:05 | disposition home or self-care (01) ==
LOC: EC 14:04
DX: N39.0 Urinary tract infection, site not specified (principal); J43.9 Emphysema, unspecified; F32.A Depression, unspecified; F12.90 Cannabis use, unspecified, uncomplicated; Z79.01 Long term (current) use of anticoagulants; Z79.899 Other long term (current) drug therapy
CPT/HCPCS: 36415; 80053; 82150; 83605; 83690; 85025; 81001; 87086; 74177; 99284; 96374; 96361; J0696; Q9967

== ENCOUNTER 2023-11-08 14:24 | Emergency (ER) | payer MEDICARE ==
[2023-11-08 15:27] VITALS: RESP 18
--- NOTE | 2023-11-08 15:59 | XR ---
EXAMINATION TYPE: XR chest 2V DATE OF EXAM: 11/08/2023 COMPARISON: None HISTORY: 68-year-old female complaining of chest pain TECHNIQUE: PA and lateral views FINDINGS: Heart normal size. Aorta and pulmonary vasculature within normal limits. Hyperinflation with mild int erstitial prominence. No consolidation or pleural effusion. Moderate degenerative disc disease mid th oracic spine. IMPRESSION: COPD. No acute process seen.
--- NOTE | 2023-11-08 16:11 | ED ---
URI HPI - General Source: patient, family, RN notes reviewed Mode of arrival: ambulatory Limitations: no limitations <Mili Bernard - Last Filed: 11/08/23 16:12> <Osvaldo Chicas - Last Filed: 11/08/23 21:17> - General Chief Complaint: Upper Respiratory Infection Stated Complaint: under right breast pain sob Time Seen by Provider: 11/08/23 14:46 - History of Present Illness Initial Comments: Patient is 68 showed female presented ER chief complaint of URI. Patient states her symptoms started yesterday. Patient endorses congestion, cough, mild shortness of breath, chills. Patient states that she recently had a chest tube about a year ago due to a pneumothorax. Patient states she's been having right- sided rib pain which started this morning and is a constant pain. Patient denies any fevers. (Mili Bernard) - Related Data Home Medications Medication Instructions Recorded Confirmed Docusate [Colace] 100 mg PO DAILY 01/03/18 11/24/21 buPROPion XL [Wellbutrin XL] 300 mg PO DAILY 01/05/20 11/24/21 Apixaban [Eliquis] 5 mg PO BID@0900,2100 12/21/20 11/24/21 Cholecalciferol [Vitamin D3 (25 50 mcg PO DAILY 12/21/20 11/24/21 Mcg = 1000 Iu)] Previous Rx's Medication Instructions Recorded Cephalexin [Keflex] 500 mg PO Q8HR #15 cap 11/24/21 Nirmatrelvir/Ritonavir [Paxlovid See Rx Instructions .ROUTE 11/08/23 2X150 mg-100 mg (Eua)] .COMPLEX #30 tab Allergies Allergy/AdvReac Type Severity Reaction Status Date / Time Latex, Natural Rubber Allergy Rash/Hives Verified 11/24/21 14:38 Sulfa (Sulfonamide Allergy Dyspnea Verified 11/24/21 14:38 Antibiotics) banana AdvReac Rash/Hives Verified 11/24/21 14:38 ciprofloxacin [From Cipro] AdvReac Rash/Hives Verified 11/24/21 14:38 [place] And Derivatives AdvReac Rash/Hives Verified 11/24/21 14:38 Review of Systems ROS Other: All systems not noted in ROS Statement are negative. <Mili Bernard - Last Filed: 11/08/23 16:12> ROS Other: All systems not noted in ROS Statement are negative. <Osvaldo Chicas - Last Filed: 11/08/23 21:17> ROS Statement: Those systems with pertinent positive or pertinent negative responses have been documented in the HPI. Past Medical History Past Medical History: COPD, Liver Disease, Pulmonary Embolus (PE), Thyroid Disorder Additional Past Medical History / Comment(s): emphysema, hernias, diverticulitis, right lung collapse, pulmonary embolism, raynauds disease, arthritis, hepatitis B, IBS, umbilical hernia. History of Any Multi-Drug Resistant Organisms: None Reported Past Surgical History: Cholecystectomy, Hernia Repair Additional Past Surgical History / Comment(s): bowel resection, four hernia repairs, bladder suspension, chest tube placed, previous thyroid biopsy, colonoscopies Past Anesthesia/Blood Transfusion Reactions: Previous Problems w/ Anesthesia, Postoperative Nausea & Vomiting (PONV) Additional Past Anesthesia/Blood Transfusion Reaction / Comment(s): pt. states she has a hard time waking up from surgery Past Psychological History: Depression Smoking Status: Never smoker Past Alcohol Use History: Occasional Past Drug Use History: Marijuana - Past Family History Sister(s) Family Medical History: Thyroid Disorder Additional Family Medical History / Comment(s): partial thyroidectomy, pt. has an extensive family history of psychiatric disorders, her sister is schizophrenic Daughter(s) Family Medical History: Chest Pain / Angina, Thyroid Disorder Additional Family Medical History / Comment(s): partial thyroidectomy, history of v-tach and ablations Mother Family Medical History: Cancer Additional Family Medical History / Comment(s): liver cancer, pts mom from a bowel perforation and association sepsis, schizophrenia Father Family Medical History: Unable to Obtain Brother(s) Additional Family Medical History / Comment(s): psychiatric issues, schitzophrenic runs in family <Mili Bernard - Last Filed: 11/08/23 16:12> General Exam Limitations: no limitations General appearance: alert, in no apparent distress ENT exam: Present: normal exam, mucous membranes moist Neck exam: Present: normal inspection. Absent: tenderness, meningismus, lymphadenopathy Respiratory exam: Present: normal lung sounds bilaterally. Absent: respiratory distress, wheezes, rales, rhonchi, stridor Cardiovascular Exam: Present: regular rate, normal rhythm, normal heart sounds. Absent: systolic murmur, diastolic murmur, rubs, gallop, clicks Neurological exam: Present: alert, oriented X3, CN II-XII intact Psychiatric exam: Present: normal affect, normal mood Skin exam: Present: warm, dry, intact, normal color. Absent: rash <Mili Bernard - Last Filed: 11/08/23 16:12> Course Vital Signs 11/08/23 11/08/23 11/08/23 14:34 15:01 16:15 Temperature 98.3 F 98.1 F Pulse Rate 119 H 101 H Respiratory 20 18 18 Rate Blood Pressure 194/104 168/76 O2 Sat by Pulse 92 L 96 Oximetry Medical Decision Making - Radiology Data Radiology results: report reviewed, image reviewed <JoaquinMili ray - Last Filed: 11/08/23 16:12> - Medical Decision Making Was pt. sent in by a medical professional or institution (, PA, BUCKSHOT SWAGE OPERATOR, urgent care, hospital, or fdc...) When possible be specific @ -No Did you speak to anyone other than the patient for history (EMS, parent, family, police, friend...)? What history was obtained from this source @ -No Did you review nursing and triage notes (agree or disagree)? Why? @ -I reviewed and agree with nursing and triage notes Were old charts reviewed (outside hosp., previous admission, EMS record, old EKG, old radiological studies, urgent care reports/EKG's, fdc records)? Report findings @ -No old charts were reviewed Differential Diagnosis (chest pain, altered mental status, abdominal pain women, abdominal pain men, vaginal bleeding, weakness, fever, dyspnea, syncope, headache, dizziness, GI bleed, back pain, seizure, CVA, palpatations, mental health, musculoskeletal)? @ -COVID-19, RSV, influenza, viral sinusitis EKG interpreted by me (3pts min.). @ -None X-rays interpreted by me (1pt min.). @ -Chest x-ray shows no acute cardiopulmonary processes. CT interpreted by me (1pt min.). @ -None done U/S interpreted by me (1pt. min.). @ -None done What testing was considered but not performed or refused? (CT, X-rays, U/S, labs)? Why? @ -None What meds were considered but not given or refused? Why? @ -None Did you discuss the management of the patient with other professionals (professionals i.e. , PA, BUCKSHOT SWAGE OPERATOR, lab, RT, psych nurse, social scientist, production assistant, teacher, staff air tactical officer, foster care case manager)? Give summary @ -No Was smoking cessation discussed for >3mins.? @ -No Was critical care preformed (if so, how long)? @ -No Were there social determinants of health that impacted care today? How? (Homelessness, low income, unemployed, alcoholism, drug addiction, transportation, low edu. Level, literacy, decrease access to med. care, longterm, rehab)? @ -No Was there de-escalation of care discussed even if they declined (Discuss DNR or withdrawal of care, Hospice)? DNR status @ -No What co-morbidities impacted this encounter? (DM, HTN, Smoking, COPD, CAD, Cancer, CVA, ARF, Chemo, Hep., AIDS, mental health diagnosis, sleep apnea, morbid obesity)? @ -None Was patient admitted / discharged? Hospital course, mention meds given and route, prescriptions, significant lab abnormalities, going to OR and other pertinent info. @ -Discharged Patient is a 68-year-old female presented ER with chief complaint of congestion and cough. On examination patient was afebrile. Lungs were clear to auscultation bilaterally. Viral swabs obtained in the ER were positive for COVID-19. Chest x-ray showed no acute cardiopulmonry processes. Patient will be discharged with a prescription for Paxlovid. I discussed with patient [id number] Tylenol or Motrin and to maintain good hydration. Patient be discharged in stable condition with follow-up to PCP. Return parameters were discussed. Patient expressed understanding and agreement with care plan. Undiagnosed new problem with uncertain prognosis? @ -No Drug Therapy requiring intensive monitoring for toxicity (Heparin, Nitro, Insulin, Cardizem)? @ -No Were any procedures done? @ -No Diagnosis/symptom? @ -COVID-19 Acute, or Chronic, or Acute on Chronic? @ -Acute Uncomplicated (without systemic symptoms) or Complicated (systemic symptoms)? @ -Uncomplicated Side effects of treatment? @ -No Exacerbation, Progression, or Severe Exacerbation? @ -No Poses a threat to life or bodily function? How? (Chest pain, [place], [place], pneumonia, PE, COPD, DKA, ARF, appy, cholecystitis, CVA, Diverticulitis, Homicidal, Suicidal, threat to staff... and all critical care pts) @ -No (Mili Bernard) - Lab Data Lab Results 11/08/23 Range/Units 14:58 Influenza Type A (PCR) Not Detected (Not Detectd) Influenza Type B (PCR) Not Detected (Not Detectd) RSV (PCR) Not Detected (Not Detectd) SARS-CoV-2 (PCR) Detected A (Not Detectd) Disposition Is patient prescribed a controlled substance at d/c from ED?: No Time of Disposition: 16:11 <Mili Bernard - Last Filed: 11/08/23 16:12> <Osvaldo Chicas - Last Filed: 11/08/23 21:17> Clinical Impression: COVID-19, Viral sinusitis Disposition: HOME SELF-CARE Condition: Stable Additional Instructions: Please return to the Emergency Department if symptoms worsen or any other concerns. Prescriptions: Nirmatrelvir/Ritonavir [Paxlovid 2X150 mg-100 mg (Eua)] See Rx Instructions .ROUTE .COMPLEX #30 tab Referrals: Naomi Eaton, WALTER [Primary Care Provider] - 1-2 days
[2023-11-08 16:35] VITALS: BP 168/76; PULSE 101; TEMP 98.1
== END 2023-11-08 16:32 | disposition home or self-care (01) ==
LOC: EC 14:24
DX: U07.1 COVID-19 (principal); J32.9 Chronic sinusitis, unspecified; J43.9 Emphysema, unspecified; F32.A Depression, unspecified; Z79.899 Other long term (current) drug therapy; Z91.040 Latex allergy status; Z91.018 Allergy to other foods; Z88.2 Allergy status to sulfonamides; Z88.1 Allergy status to other antibiotic agents; Z88.8 Allergy status to other drugs, medicaments and biological substances
CPT/HCPCS: 71046; 87636; 99285

== ENCOUNTER 2023-12-30 13:27 | Observation (INO) | payer MEDICARE ==
--- NOTE | 2023-12-30 14:18 | ED ---
General Adult HPI - General Source: patient, RN notes reviewed Mode of arrival: ambulatory Limitations: no limitations <Suraj Rossi - Last Filed: 12/30/23 14:17> <Herminia Falcon - Last Filed: 12/30/23 21:12> - General Stated complaint: palpitations/back pain Time Seen by Provider: 12/30/23 14:17 - History of Present Illness Initial comments: 68-year-old female presents emergency department complaint of palpitations. Patient states she has been having symptoms but seem to worsen today. She states she was outside picking up some sticks and states that she had increasing pain, palpitation with exertion. Patient states she does have a history of blood clots. Patient states she is on blood thinners. (Suraj Rossi) - Related Data Home Medications Medication Instructions Recorded Confirmed Docusate [Colace] 100 mg PO DAILY 01/03/18 12/30/23 buPROPion XL [Wellbutrin XL] 300 mg PO DAILY 01/05/20 12/30/23 Apixaban [Eliquis] 5 mg PO BID 12/21/20 12/30/23 Cholecalciferol [Vitamin D3 (25 50 mcg PO DAILY 12/21/20 12/30/23 Mcg = 1000 Iu)] Allergies Allergy/AdvReac Type Severity Reaction Status Date / Time Latex, Natural Rubber Allergy Rash/Hives Verified 12/30/23 20:38 Sulfa (Sulfonamide Allergy Dyspnea Verified 12/30/23 20:38 Antibiotics) banana AdvReac Rash/Hives Verified 12/30/23 20:38 ciprofloxacin [From Cipro] AdvReac Rash/Hives Verified 12/30/23 20:38 [place] And Derivatives AdvReac Rash/Hives Verified 12/30/23 20:38 Review of Systems ROS Other: All systems not noted in ROS Statement are negative. <Suraj Rossi - Last Filed: 12/30/23 14:17> ROS Other: All systems not noted in ROS Statement are negative. <Herminia Falcon - Last Filed: 12/30/23 21:12> ROS Statement: Those systems with pertinent positive or pertinent negative responses have been documented in the HPI. Past Medical History Past Medical History: COPD, Liver Disease, Pulmonary Embolus (PE), Thyroid Disorder Additional Past Medical History / Comment(s): emphysema, hernias, diverticulitis, right lung collapse, pulmonary embolism, raynauds disease, arthritis, hepatitis B, IBS, umbilical hernia. History of Any Multi-Drug Resistant Organisms: None Reported Past Surgical History: Cholecystectomy, Hernia Repair Additional Past Surgical History / Comment(s): bowel resection, four hernia repairs, bladder suspension, chest tube placed, previous thyroid biopsy, colon oscopies Past Anesthesia/Blood Transfusion Reactions: Previous Problems w/ Anesthesia, Postoperative Nausea & Vomiting (PONV) Additional Past Anesthesia/Blood Transfusion Reaction / Comment(s): pt. states she has a hard time waking up from surgery Past Psychological History: Depression Smoking Status: Never smoker Past Alcohol Use History: Occasional Past Drug Use History: Marijuana - Past Family History Sister(s) Family Medical History: Thyroid Disorder Additional Family Medical History / Comment(s): partial thyroidectomy, pt. has an extensive family history of psychiatric disorders, her sister is schizophrenic Daughter(s) Family Medical History: Chest Pain / Angina, Thyroid Disorder Additional Family Medical History / Comment(s): partial thyroidectomy, history of v-tach and ablations Mother Family Medical History: Cancer Additional Family Medical History / Comment(s): liver cancer, pts mom from a bowel perforation and association sepsis, schizophrenia Father Family Medical History: Unable to Obtain Brother(s) Additional Family Medical History / Comment(s): psychiatric issues, schitzophrenic runs in family <Suraj Rossi - Last Filed: 12/30/23 14:17> General Exam Limitations: no limitations General appearance: alert, in no apparent distress Head exam: Present: atraumatic, normocephalic, normal inspection Neck exam: Present: normal inspection, full ROM. Absent: tenderness, meningismus, lymphadenopathy Respiratory exam: Present: normal lung sounds bilaterally. Absent: respiratory distress, wheezes, rales, rhonchi, stridor <Suraj Rossi - Last Filed: 12/30/23 14:17> - General Exam Comments Initial Comments: Visual Physical Exam Vital signs reviewed General: Well-appearing, nontoxic, no acute distress. Head: Normocephalic, atraumatic Eyes: PERRLA, EOMI ENT: Airway patent Chest: Nonlabored breathing Skin: No visual rash, normal skin tone Neuro: Alert and oriented 3 Musculoskeletal: No gross abnormalities (Suraj Rossi) Course Vital Signs 12/30/23 12/30/23 14:21 18:39 Temperature 98.3 F Pulse Rate 97 103 H Respiratory 22 18 Rate Blood Pressure 167/107 129/85 O2 Sat by Pulse 98 96 Oximetry Medical Decision Making <EnidSuraj Marion - Last Filed: 12/30/23 14:17> - Lab Data Result diagrams: 12/30/23 14:23 12/30/23 18:43 <EzekielHerminia Kelly - Last Filed: 12/30/23 21:12> - Medical Decision Making I completed the quick note portion of this chart signed Suraj Rossi PA-C (Suraj Rossi) Was pt. sent in by a medical professional or institution (MERNA Ansari, MOBILE HOME PARK MANAGER, urgent ca re, hospital, or penitentiary...) When possible be specific @ -[No] Did you speak to anyone other than the patient for history (EMS, parent, family, police, friend...)? What history was obtained from this source @ -[No] Did you review nursing and triage notes (agree or disagree)? Why? @ -[I reviewed and agree with nursing and triage notes] Were old charts reviewed (outside hosp., previous admission, EMS record, old EKG, old radiological studies, urgent care reports/EKG's, penitentiary records)? Report findings @ -[No old charts were reviewed] Differential Diagnosis (chest pain, altered mental status, abdominal pain women, abdominal pain men, vaginal bleeding, weakness, fever, dyspnea, syncope, headache, dizziness, GI bleed, back pain, seizure, CVA, palpatations, mental health, musculoskeletal)? @ -[not applicable] EKG interpreted by me (3pts min.). @ -Yes and demonstrates sinus rhythm with rate of 92. IA interval 141. QRS 95. QTc of 383. No acute ST segment elevations or depressions X-rays interpreted by me (1pt min.). @ -[None done] CT interpreted by me (1pt min.). @ -[None done] U/S interpreted by me (1pt. min.). @ -[None done] What testing was considered but not performed or refused? (CT, X-rays, U/S, labs)? Why? @ -[None] What meds were considered but not given or refused? Why? @ -[None] Did you discuss the management of the patient with other professionals (professionals i.e. , PA, MOBILE HOME PARK MANAGER, lab, RT, psych nurse, social sciences instructor, finished goods planner, teacher, corporate ethics officer, case managers)? Give summary @ -[No] Was smoking cessation discussed for >3mins.? @ -[No] Was critical care preformed (if so, how long)? @ -[No] Were there social determinants of health that impacted care today? How? (Homelessness, low income, unemployed, alcoholism, drug addiction, transpo rtation, low edu. Level, literacy, decrease access to med. care, retirement, rehab)? @ -[No] Was there de-escalation of care discussed even if they declined (Discuss DNR or withdrawal of care, Hospice)? DNR status @ -[No] What co-morbidities impacted this encounter? (DM, HTN, Smoking, COPD, CAD, Cancer, CVA, ARF, Chemo, Hep., AIDS, mental health diagnosis, sleep apnea, morbid obesity)? @ -[None] Was patient admitted / discharged? Hospital course, mention meds given and route, prescriptions, significant lab abnormalities, going to OR and other pertinent info. @ -[hospital course] Undiagnosed new problem with uncertain prognosis? @ -[No] Drug Therapy requiring intensive monitoring for toxicity (Heparin, Nitro, Insulin, Cardizem)? @ -[No] Were any procedures done? @ -[No] Diagnosis/symptom? @ -[default] Acute, or Chronic, or Acute on Chronic? @ -[default] Uncomplicated (without systemic symptoms) or Complicated (systemic symptoms)? @ -[default] Side effects of treatment? @ -[No] Exacerbation, Progression, or Severe Exacerbation? @ -[No] Poses a threat to life or bodily function? How? (Chest pain, [place], [place], pneumonia, PE, COPD, DKA, ARF, appy, cholecystitis, CVA, Diverticulitis, Homicidal, Suicidal, threat to staff... and all critical care pts) @ -[No] (Herminia Falcon) - Lab Data Lab Results 12/30/23 12/30/23 12/30/23 Range/Units 14:23 14:23 14:23 WBC 6.1 (3.8-10.6) k/uL RBC 4.75 (3.80-5.40) m/uL Hgb 14.8 (11.4-16.0) gm/dL Hct 43.3 (34.0-46.0) % MCV 91.2 (80.0-100.0) fL MCH 31.2 (25.0-35.0) pg MCHC 34.2 (31.0-37.0) g/dL RDW 13.2 (11.5-15.5) % Plt Count 244 (150-450) k/uL MPV 8.3 Neutrophils % 62 % Lymphocytes % 30 % Monocytes % 5 % Eosinophils % 1 % Basophils % 0 % Neutrophils # 3.8 (1.3-7.7) k/uL Lymphocytes # 1.8 (1.0-4.8) k/uL Monocytes # 0.3 (0-1.0) k/uL Eosinophils # 0.1 (0-0.7) k/uL Basophils # 0.0 (0-0.2) k/uL PT 10.4 (10.0-12.5) sec INR 0.9 (<1.2) APTT 24.4 (22.0-30.0) sec Sodium (137-145) mmol/L Potassium (3.5-5.1) mmol/L Chloride (98-107) mmol/L Carbon Dioxide (22-30) mmol/L Anion Gap mmol/L BUN (7-17) mg/dL Creatinine (0.52-1.04) mg/dL Est GFR (CKD-EPI)AfAm (>60 ml/min/1.73 sqM) Est GFR (CKD-EPI)NonAf (>60 ml/min/1.73 sqM) Glucose (74-99) mg/dL Calcium (8.4-10.2) mg/dL Magnesium (1.6-2.3) mg/dL Total Bilirubin (0.2-1.3) mg/dL AST (14-36) U/L ALT (4-34) U/L Alkaline Phosphatase (38-126) U/L Troponin I <0.012 (0.000-0.034) ng/mL Total Protein (6.3-8.2) g/dL Albumin (3.5-5.0) g/dL 01/29/24 Range/Units 18:43 WBC (3.8-10.6) k/uL RBC (3.80-5.40) m/uL Hgb (11.4-16.0) gm/dL Hct (34.0-46.0) % MCV (80.0-100.0) fL MCH (25.0-35.0) pg MCHC (31.0-37.0) g/dL RDW (11.5-15.5) % Plt Count (150-450) k/uL MPV Neutrophils % % Lymphocytes % % Monocytes % % Eosinophils % % Basophils % % Neutrophils # (1.3-7.7) k/uL Lymphocytes # (1.0-4.8) k/uL Monocytes # (0-1.0) k/uL Eosinophils # (0-0.7) k/uL Basophils # (0-0.2) k/uL PT (10.0-12.5) sec INR (<1.2) APTT (22.0-30.0) sec Sodium 140 (137-145) mmol/L Potassium 4.2 (3.5-5.1) mmol/L Chloride 108 H (98-107) mmol/L Carbon Dioxide 23 (22-30) mmol/L Anion Gap 9 mmol/L BUN 11 (7-17) mg/dL Creatinine 0.67 (0.52-1.04) mg/dL Est GFR (CKD-EPI)AfAm >90 (>60 ml/min/1.73 sqM) Est GFR (CKD-EPI)NonAf >90 (>60 ml/min/1.73 sqM) Glucose 111 H (74-99) mg/dL Calcium 9.1 (8.4-10.2) mg/dL Magnesium 2.0 (1.6-2.3) mg/dL Total Bilirubin 0.6 (0.2-1.3) mg/dL AST 29 (14-36) U/L ALT 22 (4-34) U/L Alkaline Phosphatase 61 (38-126) U/L Troponin I (0.000-0.034) ng/mL Total Protein 7.3 (6.3-8.2) g/dL Albumin 4.0 (3.5-5.0) g/dL Disposition <Dedoe,Suraj M - Last Filed: 12/30/23 14:17> Is patient prescribed a controlled substance at d/c from ED?: No Time of Disposition: 20:49 Decision to Admit Reason: Admit from EC Decision Date: 12/30/23 Decision Time: 20:49 <Herminia Falcon - Last Filed: 12/30/23 21:12> Clinical Impression: Right arm numbness, Chest pain Disposition: ADMITTED IP TO THIS HOSP Condition: Stable
--- NOTE | 2023-12-30 14:58 | XR ---
EXAMINATION TYPE: XR chest 2V DATE OF EXAM: 12/30/2023 COMPARISON: 11/08/2023 HISTORY: Shortness of breath TECHNIQUE: Frontal and lateral views of the chest are obtained. FINDINGS: Scattered senescent parenchymal changes noted. Hyperinflation compatible with COPD. No evidence for infiltrate. No evidence for atelectasis. Heart size is stable. Mediastinal structures are stable and grossly unremarkable. No evidence for hilar prominence. Degenerative changes dorsal spine. IMPRESSION: 1. No evidence for acute pulmonary disease.
[2023-12-30 15:47] LABS: Basophils % (A) 0 %; Eosinophils # (A) 0.1 k/uL (0-0.7); Eosinophils % (A) 1 %; HCT 43.3 % (34.0-46.0); HGB 14.8 gm/dL (11.4-16.0); Lymphocytes # (A) 1.8 k/uL (1.0-4.8); Lymphocytes % (A) 30 %; MCH 31.2 pg (25.0-35.0); MCHC 34.2 g/dL (31.0-37.0); MCV 91.2 fL (80.0-100.0); Mean Platelet Volume 8.3; Monocytes # (A) 0.3 k/uL (0-1.0); Monocytes % (A) 5 %; Neutrophils # (A) 3.8 k/uL (1.3-7.7); Neutrophils % (A) 62 %; Platelet Count 244 k/uL (150-450); RBC 4.75 m/uL (3.80-5.40); RDW 13.2 % (11.5-15.5); WBC 6.1 k/uL (3.8-10.6)
[2023-12-30 16:39] LABS: INR 0.9 (<1.2); Partial Thromboplastin Time 24.4 sec (22.0-30.0); Prothrombin Time 10.4 sec (10.0-12.5)
--- NOTE | 2023-12-30 19:06 | CT ---
EXAMINATION TYPE: CT brain wo con DATE OF EXAM: 12/30/2023 COMPARISON: None HISTORY: right facial droop, right arm numbness CT DLP: 1126.[address] of the brain was performed. The ventricles, basal cisterns and sulci overlying the cerebral convexities demonstrate mild enlargem ent. There is no evidence for intracranial hemorrhage or sulcal effacement. There is decreased attenuation about the periventricular white matter and deep white matter of both c erebral hemispheres, compatible with chronic small vessel ischemia. Differential diagnosis does inclu de demyelination. No mass effects are seen.No midline shift. Osseous calvarium is intact. If symptoms persist consider MRI. IMPRESSION: 1. Age related atrophic and chronic small vessel ischemic change without acute intracranial process s een at this time.
[2023-12-30 19:08] LABS: ALT 22 U/L (4-34); AST 29 U/L (14-36); African American GFR (CKD) >90 (>60 ml/min/1.73 sqM); Alkaline Phosphatase 61 U/L (38-126); Anion Gap 9 mmol/L; Blood Urea Nitrogen 11 mg/dL (7-17); Calcium 9.1 mg/dL (8.4-10.2); Carbon Dioxide 23 mmol/L (22-30); Chloride 108 mmol/L (98-107); Glucose 111 mg/dL (74-99); Non-African American GFR(CKD) >90 (>60 ml/min/1.73 sqM); Potassium 4.2 mmol/L (3.5-5.1); Sodium 140 mmol/L (137-145); Total Bilirubin 0.6 mg/dL (0.2-1.3); Total Protein 7.3 g/dL (6.3-8.2)
[2023-12-30] MEDS ORDERED: NALOXONE 0.4 MG/ML 1 ML VIAL IV PRN (20:50)
[2023-12-30] MEDS ORDERED: ASPIRIN 81 MG PO STA (20:53)
[2023-12-30] MEDS: APIXABAN 5 MG TAB PO SCH (21:26)
[2023-12-30 23:04] VITALS: RESP 16
--- NOTE | 2023-12-31 00:11 | CT ---
EXAMINATION TYPE: CT angio chest CT DLP: 586.2 mGycm, Automated exposure control for dose reduction was used. DATE OF EXAM: 12/30/2023 9:02 PM COMPARISON: Multiple prior studies including thyroid ultrasounds and CT chest studies back to 07/16/20 17 CLINICAL INDICATION:Female, 68 years old with history of chest pain, right arm numbness; chest pain, hx of PE TECHNIQUE/CONTRAST: CTA scan of the thorax is performed with IV Contrast, patient injected with 80 mL of Isovue 370, MIP images are created and reviewed these are created on a separate workstation.. FINDINGS: There is adequate contrast bolus and timing. PULMONARY ARTERIES: There is no evidence for a filling defect within the pulmonary vasculature to sug gest acute pulmonary embolism. Pulmonary trunk is normal in size. Trunk measures 2.3 CM. HEART: Normal heart size. Moderate coronary artery calcification and/or stents. No appreciable peric ardial effusion. Prominent pericardial fat noted AORTA: Mild to moderate atherosclerotic calcifications of the aorta and branches. Ascending aorta is 2.8 CM, descending is 2.7 CM. Aorta is within normal limits for size. No dissection flap is seen. LOWER NECK: Right thyroid lobe is again enlarged, containing an irregular predominantly cystic mass l eddi lesion. Centrally this is lower in attenuation/cystic, with peripheral rind of irregular tissue w hich could reflect normal thyroid tissue versus a portion of the mass. In total the greatest dimensio ns are 5.4 x 5.3 cm axially; the total craniocaudal extent is not included but is at least 3.5 cm, pr obably much more. This again causes mass effect with bowing of the trachea towards the left which is similar to prior studies to slightly increased.. MEDIASTINUM: No gross evidence of mediastinal or hilar adenopathy. SOFT TISSUES/LYMPH NODES: Unremarkable chest wall soft tissues. No axillary adenopathy. LUNGS/ PLEURA: Mild biapical pleural parenchymal scarring. No acute consolidation, pleural effusion, or pneumothorax. AIRWAY: Central airways are patent. There is bowing of the trachea towards the left at the level of t he thyroid lesion, as above. MUSCULOSKELETAL: No acute osseous abnormality. [id number]-[id number] disc degeneration changes are present throughout the included thoracolumbar spine. UPPER ABDOMEN: Cholecystectomy clips. Mild thickening of the adrenals without evidence of mass. Small sliding hiatal hernia. Mild calcification of the upper abdominal aorta. IMPRESSION: 1. No evidence of pulmonary embolism. 2. No other acute chest process demonstrated. 3. Large irregular predominantly cystic masslike lesion of the right thyroid lobe partially redemonst rated, appears essentially stable in size compared to prior studies, however is incompletely seen or evaluated by this exam. If not already done, ultrasound FNA biopsy may be considered for tissue diagn osis.
[2023-12-31] MEDS ORDERED: DOBUTamine DRIP for NUC MED 500 MG in DEXTROSE/WATER 1 250ML.BAG IV PRN (08:28)
[2023-12-31] MEDS: APIXABAN 5 MG TAB PO SCH (08:30)
[2023-12-31 08:59] LABS: Basophils # (A) 0.05 X 10*3/uL (0.00-0.10); Eosinophils # (A) 0.06 X 10*3/uL (0.04-0.35); Eosinophils % (A) 1.2 %; HCT 39.7 % (37.2-46.3); HGB 12.9 g/dL (12.0-15.0); Lymphocytes # (A) 1.78 X 10*3/uL (0.90-5.00); Lymphocytes % (A) 34.6 %; MCH 29.5 pg (27.0-32.0); MCHC 32.5 g/dL (32.0-37.0); MCV 90.6 FL (80.0-97.0); Mean Platelet Volume 10.4 FL (9.5-12.2); Monocytes # (A) 0.31 X 10*3/uL (0.20-1.00); NRBC Per 100 WBC 0 X 10*3/uL (0.00-0.01); Neutrophils # (A) 2.94 X 10*3/uL (1.80-7.70); Platelet Count 244 X 10*3/uL (140-440); RBC 4.38 X 10*6/uL (4.10-5.20); RDW 13.2 % (11.5-14.5); WBC 5.15 X 10*3/uL (4.50-10.00)
[2023-12-31] MEDS ORDERED: CHOLECALCIFEROL 25 MCG (1000 IU) TABLET PO SCH (09:00)
[2023-12-31] MEDS ORDERED: DOCUSATE 100 MG CAP PO SCH (09:00)
[2023-12-31] MEDS ORDERED: buPROPion XL 300 MG TAB.ER.24H PO SCH (09:00)
[2023-12-31] MEDS ORDERED: DOBUTamine DRIP for NUC MED 500 MG/250 ML BAG IV ONE (09:00)
[2023-12-31 09:31] LABS: BUN/Creat Ratio 17.71 Ratio (12.00-20.00); Blood Urea Nitrogen 12.4 mg/dL (9.0-27.0); Carbon Dioxide 21.9 mmol/L (21.6-31.8); Chloride 106 mmol/L (96-109); Glucose 105 mg/dL (70-110); Potassium 4.4 mmol/L (3.5-5.5); Sodium 139 mmol/L (135-145)
--- NOTE | 2023-12-31 10:09 | P.CRDCN ---
History of Present Illness History of present illness: HISTORY OF PRESENT ILLNESS: This is a 68-year-old female with a past medical history significant for DVT/pulmonary embolism maintained on Eliquis, depression, and former nicotine dependence. Patient follows in the office with Dr. Chappell. We have been asked to see the patient in consultation for chest pain. Patient examined at the bedside. Patient reports she has been having palpitations over the past few days. She also reports a few days ago she was awoken from her sleep with pain in between her shoulder blades. She reports on Saturday night she had another episode of this discomfort. At the time of examination, she denies chest pain or pressure. She is a former cigarette smoker. She reports marijuana use approximately twice a month. DIAGNOSTICS: - EKG reveals sinus mechanism with no signs of acute ischemia - Chest xray no evidence for acute pulmonary process - Chest CTA: Negative for pulmonary embolism. Moderate coronary artery calcification. - Laboratory data: WBC 5.15. Hemoglobin 12.9. Platelet count 244. Sodium 139. Potassium 4.4. BUN 12.4. Creatinine 0.7. Troponin negative x 3 - Current home cardiac medications include Eliquis 5 mg twice a day - Most recent echocardiogram obtained in January 2020 revealing ejection fraction 55 to 60%, trace MR, mild TR, mild pulmonary hypertension REVIEW OF SYSTEMS: At the time of my exam: CONSTITUTIONAL: Denies fever or chills. HEENT: Denies blurred vision, vision changes, or eye pain. Denies hemoptysis CARDIOVASCULAR: Denies chest pain. Denies orthopnea. Denies PND. Denies palpitations RESPIRATORY: Denies shortness of breath. GASTROINTESTINAL: Denies abdominal pain. Denies nausea or vomiting. HEMATOLOGIC: Denies bleeding disorders. GENITOURINARY: Denies any blood in urine. SKIN: Denies pruitis. Denies rash. PHYSICAL EXAM: VITAL SIGNS: Reviewed. GENERAL: Well-developed in no acute distress. HEENT: Head is normocephalic. Pupils are equal, round. Sclerae anicteric. Mucous membranes of the mouth are moist. Neck supple. No JVD or thyromegaly LUNGS: Respirations even and unlabored. Lungs essentially clear to auscultation bilaterally. HEART: Regular rate and rhythm. S1 and S2 heard. ABDOMEN: Soft. Nondistended. Nontender. EXTREMITIES: Normal range of motion. No clubbing or cyanosis. Peripheral pulses intact. No lower extremity edema NEUROLOGIC: Awake and alert. Oriented x 3. ASSESSMENT: Palpitations Atypical chest pain, troponin negative x 3 Moderate coronary artery calcifications, per CT scan History of DVT/PE, maintained on Eliquis History of depression Former nicotine dependence Occasional marijuana use PLAN: An acute coronary event has been ruled out Obtain 2D echo to assess cardiac structure and function Resume home cardiac medications Patient to undergo dobutamine stress test today If negative, she may be discharged home today from a cardiac standpoint Patient to receive a 14-day event monitor postdischarge from the cardiology office She has to follow-up with Dr. Chappell in 3 weeks Nurse practitioner note has been reviewed by physician. Signing provider agrees with the documented findings, assessment, and plan of care documented by CUSTOMER EXPERIENCE INTERN as a scribe. Past Medical History Past Medical History: COPD, Liver Disease, Pulmonary Embolus (PE), Thyroid Disorder Additional Past Medical History / Comment(s): emphysema, hernias, diverticulitis, right lung collapse, pulmonary embolism, raynauds disease, arthritis, hepatitis B, IBS, umbilical hernia, thyroid cyst History of Any Multi-Drug Resistant Organisms: None Reported Past Surgical History: Cholecystectomy, Hernia Repair Additional Past Surgical History / Comment(s): bowel resection, four hernia repairs, bladder suspension, chest tube placed and removed, previous thyroid biopsy, colonoscopies Past Anesthesia/Blood Transfusion Reactions: Previous Problems w/ Anesthesia, Postoperative Nausea & Vomiting (PONV) Additional Past Anesthesia/Blood Transfusion Reaction / Comment(s): pt. states she has a hard time waking up from surgery Past Psychological History: Depression Additional Psychological History / Comment(s): pt. has a history of depression that she takes Wellbutrin for Smoking Status: Never smoker Past Alcohol Use History: Occasional Additional Past Alcohol Use History / Comment(s): pt. states she quit smoking 10 years ago Past Drug Use History: Marijuana Additional Drug Use History / Comment(s): once in a while - Past Family History Sister(s) Family Medical History: Thyroid Disorder Additional Family Medical History / Comment(s): partial thyroidectomy, pt. has an extensive family history of psychiatric disorders, her sister is schizophrenic Daughter(s) Family Medical History: Chest Pain / Angina, Thyroid Disorder Additional Family Medical History / Comment(s): partial thyroidectomy, history of v-tach and ablations Mother Family Medical History: Cancer Additional Family Medical History / Comment(s): liver cancer, pts mom from a bowel perforation and association sepsis, schizophrenia Father Family Medical History: Unable to Obtain Brother(s) Additional Family Medical History / Comment(s): psychiatric issues, schitzophrenic runs in family Medications and Allergies Home Medications Medication Instructions Recorded Confirmed Type Docusate [Colace] 100 mg PO DAILY 01/03/18 12/30/23 History buPROPion XL [Wellbutrin XL] 300 mg PO DAILY 01/05/20 12/30/23 History Apixaban [Eliquis] 5 mg PO BID 12/21/20 12/30/23 History Cholecalciferol [Vitamin D3 (25 50 mcg PO DAILY 12/21/20 12/30/23 History Mcg = 1000 Iu)] Allergies Allergy/AdvReac Type Severity Reaction Status Date / Time Latex, Natural Rubber Allergy Rash/Hives Verified 12/30/23 20:38 Sulfa (Sulfonamide Allergy Dyspnea Verified 12/30/23 20:38 Antibiotics) banana AdvReac Rash/Hives Verified 12/30/23 20:38 ciprofloxacin [From Cipro] AdvReac Rash/Hives Verified 12/30/23 20:38 [place] And Derivatives AdvReac Rash/Hives Verified 12/30/23 20:38 Physical Exam Vitals: Vital Signs Temp Pulse Pulse Resp BP BP Pulse Ox 12/31/23 09:37 96 12/31/23 07:00 97.5 F L 91 16 132/70 96 12/31/23 02:00 97.7 F 86 16 131/83 95 12/30/23 22:53 97.2 F L 92 16 111/74 97 12/30/23 21:28 91 18 136/97 97 12/30/23 18:39 103 H 18 129/85 96 12/30/23 14:21 98.3 F 97 22 167/107 98 Intake and Output 12/30/23 12/31/23 12/31/23 22:59 06:59 14:59 Other: # Voids 1 # Bowel Movements 0 Weight 111.13 kg Results 12/31/23 05:43 12/31/23 05:43 Cardiac Enzymes 12/30/23 12/30/23 12/30/23 Range/Units 14:23 18:43 21:05 AST 29 (14-36) U/L Troponin I <0.012 <0.012 (0.000-0.034) ng/mL 12/31/23 Range/Units 00:07 AST (14-36) U/L Troponin I <0.012 (0.000-0.034) ng/mL Coagulation 12/30/23 Range/Units 14:23 PT 10.4 (10.0-12.5) sec APTT 24.4 (22.0-30.0) sec CBC 12/30/23 12/31/23 Range/Units 14:23 05:43 WBC 6.1 5.15 (3.8-10.6) k/uL RBC 4.75 4.38 (3.80-5.40) m/uL Hgb 14.8 12.9 (11.4-16.0) gm/dL Hct 43.3 39.7 (34.0-46.0) % Plt Count 244 244 (150-450) k/uL Comprehensive Metabolic Panel 12/30/23 12/31/23 Range/Units 18:43 05:43 Sodium 140 139 (137-145) mmol/L Potassium 4.2 4.4 (3.5-5.1) mmol/L Chloride 108 H 106 (98-107) mmol/L Carbon Dioxide 23 21.9 (22-30) mmol/L BUN 11 12.4 (7-17) mg/dL Creatinine 0.67 0.7 (0.52-1.04) mg/dL Glucose 111 H 105 (74-99) mg/dL Calcium 9.1 9.0 (8.4-10.2) mg/dL AST 29 (14-36) U/L ALT 22 (4-34) U/L Alkaline Phosphatase 61 (38-126) U/L Total Protein 7.3 (6.3-8.2) g/dL Albumin 4.0 (3.5-5.0) g/dL Current Medications Generic Name Dose Route Start Last Admin Trade Name Freq PRN Reason Stop Dose Admin Apixaban 5 mg 12/30/23 21:30 12/31/23 08:30 Apixaban 5 Mg Tab PO 5 mg BID MARCELO Administration Protocol Bupropion HCl 300 mg 12/31/23 09:00 12/31/23 08:11 Bupropion Xl 300 Mg Tab.Er.24h PO 300 mg DAILY MARCELO Administration Cholecalciferol 50 mcg 12/31/23 09:00 12/31/23 08:11 Cholecalciferol 25 Mcg (1000 Iu) Tablet PO 50 mcg DAILY MARCELO Administration Docusate Sodium 100 mg 12/31/23 09:00 12/31/23 08:11 Docusate 100 Mg Cap PO 100 mg DAILY MARCELO Administration Dobutamine HCl/Dextrose 500 mg 250 mls @ 33.339 mls/hr 12/31/23 08:28 / IV Solution IV 12/31/23 12:28 .Q7H30M PRN Per Protocol Protocol 10 MCG/KG/MIN Naloxone HCl 0.2 mg 12/30/23 20:50 Naloxone 0.4 Mg/Ml 1 Ml Vial IV Q2M PRN Opioid Reversal Intake and Output 12/30/23 12/31/23 12/31/23 22:59 06:59 14:59 Other: # Voids 1 # Bowel Movements 0 Weight 111.13 kg 12/31/23 05:43 12/31/23 05:43
--- NOTE | 2023-12-31 13:46 | CA ---
Dobutamine Stress Echocardiogram Report Colten Banda Age: 68 Gender: F : 1955 Exam Date: 12/31/2023 11:31 Exam Location: [facility] Ordering Physician: Antonella Love Referring Physician: Alexx Chappell MD ([id number]) Installment Dealer: Kai Blackburn Technologist: Ht (in): 66 Wt (lb): 245 Procedure CPT: Indication: CP ICD-9 Codes: Rhythm: Patient History: CP, , PALP, FAMILY HX, TOB, COPD, EMPH Cardiac Medications: SEE CHART Medications in past 24 hours: Contrast: Total Dose (mL): Stress Results Protocol: Dobutamine Peak Dose (???g/kg/min): Duration (min:sec): Atropine:(mg) Target HR: 131 Double Product: [id number] Resting HR: 93 Resting BP: 162 / 80 Peak HR: 143 Peak BP: 147 / 72 Max Predicted HR: 154 93 % Max Predicted HR Stress Summary: BP Response: Reason for Termination: END OF DOSAGE Cardiac Symptoms: ECG Analysis Resting EKG: Normal sinus rhythm, heart rate 81 bpm, normal axis Stress EKG: No stress-induced ST or T wave changes that are diagnostic for ischemia Arrhythmia: None Echo Analysis Base Echo Analysis: No obvious resting regional wall motion abnormality. Normal global and segmental systolic function Low Echo Anaylsis: No stress-induced regional wall motion abnormality at low-dose dobutamine infusion. Normal augmentation of global and segmental systolic function Peak Echo Analysis: No stress-induced regional wall motion abnormality at peak dobutamine infusion. Normal augmentation of global and segmental systolic function Recovery Echo: No regional wall motion abnormality during recovery. MEASUREMENTS (Male/Female) Normal Values CONCLUSIONS Nonischemic ECG and echocardiographic response to dobutamine infusion Normal hemodynamic and clinical response to dobutamine infusion Overall normal dobutamine stress Dr Dagoberto Kaplan (Electronically Signed) Final Date: 31 December 2023 13:45
[2023-12-31 14:05] VITALS: BP 117/78; PULSE 103; TEMP 98.1
[2023-12-31] MEDS ORDERED: METOPROLOL TARTRATE 12.5 MG TAB PO STA (18:00)
--- NOTE | 2023-12-31 18:13 | P.HPIM ---
History of Present Illness H&P Date: 12/31/23 Chief Complaint: Heart palpitation This is a pleasant 68-year-old patient, follows with [facility]/Dr. Alvarez. Chronic stable medical conditions include COPD, prior PE on Eliquis, thyroid disorder, Raynaud's disease, arthritis, hepatitis B, IBS, umbilical hernia, previous right-sided chest tube, Wellbutrin. For about 2 weeks patient's been noticing left-sided chest palpitation. She can sometimes feel it into the ears. No shortness of breath no dizziness no lig htheadedness. Not really related to her activity. Yesterday she felt a bit funny on the right side of the face. Had 2 episodes in the back where she felt between the shoulder blades some chest pain. Short-lived. Decided to come into the ER. Review of systems: GEN.: None EYES: None HEENT: None NECK: None RESPIRATORY: None CARDIOVASCULAR: As above GASTROINTESTINAL: None GENITOURINARY: None MUSCULOSKELETAL: [Some joint pains LYMPHATICS: None HEMATOLOGICAL: None PSYCHIATRY: None NEUROLOGICAL: None Social history: Patient smoked a pack a day for close to 35 years. Stopped about 12 years ago. . Alcohol occasionally. Physical examination: VITAL SIGNS: 98.3, 97, 22, 129 x 85, 96% room air GENERAL: BMI 39.5, sitting at the edge of the bed, awake comfortable. EYES: Pupils equal. Conjunctiva mare l. HEENT: External appearance of nose and ears normal, oral cavity grossly normal. NECK: JVD not raised; masses not palpable. HEART: First and second heart sounds are normal; no edema. LUNGS: Respiratory rate normal; clear to auscultation. ABDOMEN: Soft, nontender, liver spleen not palpable, no masses palpable. PSYCH: Alert and oriented x3; mood and affect mare l. MUSCULOSKELETAL:No Clubbing/cyanosis;muscles-grossly intact. Some OA NEUROLOGICAL: Cranial nerves grossly intact; no facial asymmetry, power and sensation grossly intact. LYMPHATICS: No lymph nodes palpable in the axilla and neck INVESTIGATIONS, reviewed in the clinical context: December 31: White count 5.1 hemoglobin 12.9 platelets 244 sodium 139 potassium 4.4 creatinine 0.7 Troponin I less than 0.012 x 3 Chest x-ray film personally reviewed by me-some hyperinflation CT scan of the brain: Chronic changes EKG tracing personally reviewed by me-normal sinus rhythm CT angio chest: Right thyroid lobe is enlarged containing an irregularly predominant cystic masslike lesion. This again causes some mass effect with bowing of the trachea towards the left thyroid mass Assessment plan: -Episodes of palpitation. Rule out underlying cardiac ischemia. Consider arrhythmia. Telemetry. Cardiology consulted. They have ordered a stress echocardiogram. -Right thyroid mass with a predominantly cystic appearance. Causing some mass effect with bowing of the trachea towards the left thyroid mass. Check TSH. Patient to follow-up Dr. Duong outpatient-endocrinology -Obesity BMI 39.5 Weight loss measures -Chronic PE Eliquis -COPD in a prior smoker Albuterol as needed -Depression Wellbutrin XL Care was discussed with the patient and the at the bedside. Past Medical History Past Medical History: COPD, Liver Disease, Pulmonary Embolus (PE), Thyroid Disorder Additional Past Medical History / Comment(s): emphysema, hernias, diverticulitis, right lung collapse, pulmonary embolism, raynauds disease, arthritis, hepatitis B, IBS, umbilical hernia, thyroid cyst History of Any Multi-Drug Resistant Organisms: None Reported Past Surgical History: Cholecystectomy, Hernia Repair Additional Past Surgical History / Comment(s): bowel resection, four hernia repairs, bladder suspension, chest tube placed and removed, previous thyroid biopsy, colonoscopies Past Anesthesia/Blood Transfusion Reactions: Previous Problems w/ Anesthesia, Postoperative Nausea & Vomiting (PONV) Additional Past Anesthesia/Blood Transfusion Reaction / Comment(s): pt. states she has a hard time waking up from surgery Past Psychological History: Depression Additional Psychological History / Comment(s): pt. has a history of depression that she takes Wellbutrin for Smoking Status: Never smoker Past Alcohol Use History: Occasional Additional Past Alcohol Use History / Comment(s): pt. states she quit smoking 10 years ago Past Drug Use History: Marijuana Additional Drug Use History / Comment(s): once in a while - Past Family History Sister(s) Family Medical History: Thyroid Disorder Additional Family Medical History / Comment(s): partial thyroidectomy, pt. has an extensive family history of psychiatric disorders, her sister is schizophrenic Daughter(s) Family Medical History: Chest Pain / Angina, Thyroid Disorder Additional Family Medical History / Comment(s): partial thyroidectomy, history of v-tach and ablations Mother Family Medical History: Cancer Additional Family Medical History / Comment(s): liver cancer, pts mom from a bowel perforation and association sepsis, schizophrenia Father Family Medical History: Unable to Obtain Brother(s) Additional Family Medical History / Comment(s): psychiatric issues, schitzophrenic runs in family Medications and Allergies Home Medications Medication Instructions Recorded Confirmed Type Docusate [Colace] 100 mg PO DAILY 01/03/18 12/30/23 History buPROPion XL [Wellbutrin XL] 300 mg PO DAILY 01/05/20 12/30/23 History Apixaban [Eliquis] 5 mg PO BID 12/21/20 12/30/23 History Cholecalciferol [Vitamin D3 (25 50 mcg PO DAILY 12/21/20 12/30/23 History Mcg = 1000 Iu)] Metoprolol Tartrate [Lopressor] 12.5 mg PO HS #30 tab 12/31/23 Rx Allergies Allergy/AdvReac Type Severity Reaction Status Date / Time Latex, Natural Rubber Allergy Rash/Hives Verified 12/30/23 20:38 Sulfa (Sulfonamide Allergy Dyspnea Verified 12/30/23 20:38 Antibiotics) banana AdvReac Rash/Hives Verified 12/30/23 20:38 ciprofloxacin [From Cipro] AdvReac Rash/Hives Verified 12/30/23 20:38 [place] And Derivatives AdvReac Rash/Hives Verified 12/30/23 20:38 Physical Exam Vitals: Vital Signs Temp Pulse Pulse Resp BP BP Pulse Ox 12/31/23 07:00 97.5 F L 91 16 132/70 96 12/31/23 02:00 97.7 F 86 16 131/83 95 12/30/23 22:53 97.2 F L 92 16 111/74 97 12/30/23 21:28 91 18 136/97 97 12/30/23 18:39 103 H 18 129/85 96 12/30/23 14:21 98.3 F 97 22 167/107 98 Intake and Output 12/30/23 12/31/23 12/31/23 22:59 06:59 14:59 Other: # Voids 1 # Bowel Movements 0 Weight 111.13 kg Results CBC & Chem 7: 12/31/23 05:43 12/31/23 05:43 Labs: Abnormal Lab Results - Last 24 Hours (Table) 12/30/23 Range/Units 18:43 Chloride 108 H (98-107) mmol/L Glucose 111 H (74-99) mg/dL Thrombosis Risk Factor Assmnt - Choose All That Apply Any of the Below Risk Factors Present?: Yes Each Factor Represents 1 point: Obesity (BMI >25) Other Risk Factors: Yes Each Risk Factor Represents 2 Points: Age 61-74 years Other congenital or acquired thrombophilia - If yes, enter type in comment: No Thrombosis Risk Factor Assessment Total Risk Factor Score: 3 Thrombosis Risk Factor Assessment Level: Moderate Risk
--- NOTE | 2023-12-31 20:01 | P.DS ---
Providers Date of admission: 12/30/23 20:53 Expected date of discharge: 12/31/23 Attending physician: Julio Cesar Huddleston Primary care physician: J[facility] Course: Chief Complaint: Heart palpitation This is a pleasant 68-year-old patient, follows with GUEST LAUNDRY ATTENDANT Cindy Fong/Dr. Alvarez. Chronic stable medical conditions include COPD, prior PE on Eliquis, thyroid disorder, Raynaud's disease, arthritis, hepatitis B, IBS, umbilical hernia, previous right-sided chest tube, Wellbutrin. For about 2 weeks patient's been noticing left-sided chest palpitation. She can sometimes feel it into the ears. No shortness of breath no dizziness no lightheadedness. Not really related to her activity. Yesterday she felt a bit funny on the right side of the face. Had 2 episodes in the back where she felt between the shoulder blades some chest pain. Short-lived. Decided to come into the ER. Patient underwent a dobutamine stress echocardiogram. Was cleared by cardiology. Patient telemetry did show some PVCs. Lopressor 12.5 mg nightly being ordered. Patient be picking up event monitor from [facility] Associates. CT scan of the chest also showed a right sided thyroid mass. Patient to follow- up with endocrinology Dr. Duong. Patient's TSH came back normal. Patient has been informed about following up with endocrinology Social history: Patient smoked a pack a day for close to 35 years. Stopped about 12 years ago. . Alcohol occasionally. Physical examination: VITAL SIGNS: 98.3, 97, 22, 129 x 85, 96% room air GENERAL: BMI 39.5, sitting at the edge of the bed, awake comfortable. EYES: Pupils equal. Conjunctiva mare l. HEENT: External appearance of nose and ears normal, oral cavity grossly normal. NECK: JVD not raised; masses not palpable. HEART: First and second heart sounds are normal; no edema. LUNGS: Respiratory rate normal; clear to auscultation. ABDOMEN: Soft, nontender, liver spleen not palpable, no masses palpable. PSYCH: Alert and oriented x3; mood and affect mare l. MUSCULOSKELETAL:No Clubbing/cyanosis;muscles-grossly intact. Some OA NEUROLOGICAL: Cranial nerves grossly intact; no facial asymmetry, power and sensation grossly intact. LYMPHATICS: No lymph nodes palpable in the axilla and neck INVESTIGATIONS, reviewed in the clinical context: Dobutamine stress echocardiogram: Normal December 31: White count 5.1 hemoglobin 12.9 platelets 244 sodium 139 potassium 4.4 creatinine 0.7 Troponin I less than 0.012 x 3 Chest x-ray film personally reviewed by me-some hyperinflation CT scan of the brain: Chronic changes EKG tracing personally reviewed by me-normal sinus rhythm CT angio chest: Right thyroid lobe is enlarged containing an irregularly predominant cystic masslike lesion. This again causes some mass effect with bowing of the trachea towards the left thyroid mass Assessment plan: -Episodes of palpitation. Rule out underlying cardiac ischemia. Consider arrhythmia. Dobutamine stress echocardiogram negative. Follow-up outpatient with cardiology. -PVCs Lopressor 12.5 mg p.o. nightly -Right thyroid mass with a predominantly cystic appearance. Causing some mass effect with bowing of the trachea towards the left thyroid mass. Normal TSH. Patient to follow-up Dr. Duong outpatient-endocrinology. Patient has been informed -Obesity BMI 39.5 Weight loss measures -Chronic PE Eliquis -COPD in a prior smoker Albuterol as needed -Depression Wellbutrin XL Disposition: Home Past Medical History Past Medical History: COPD, Liver Disease, Pulmonary Embolus (PE), Thyroid Disorder Additional Past Medical History / Comment(s): emphysema, hernias, diverticulitis, right lung collapse, pulmonary embolism, raynauds disease, arthritis, hepatitis B, IBS, umbilical hernia, thyroid cyst History of Any Multi-Drug Resistant Organisms: None Reported Past Surgical History: Cholecystectomy, Hernia Repair Additional Past Surgical History / Comment(s): bowel resection, four hernia repairs, bladder suspension, chest tube placed and removed, previous thyroid biopsy, colonoscopies Past Anesthesia/Blood Transfusion Reactions: Previous Problems w/ Anesthesia, Postoperative Nausea & Vomiting (PONV) Additional Past Anesthesia/Blood Transfusion Reaction / Comment(s): pt. states she has a hard time waking up from surgery Past Psychological History: Depression Additional Psychological History / Comment(s): pt. has a history of depression that she takes Wellbutrin for Smoking Status: Never smoker Past Alcohol Use History: Occasional Additional Past Alcohol Use History / Comment(s): pt. states she quit smoking 10 years ago Past Drug Use History: Marijuana Additional Drug Use History / Comment(s): once in a while Plan - Discharge Summary Discharge Rx Participant: No New Discharge Prescriptions: New Metoprolol Tartrate [Lopressor] 12.5 mg PO HS #30 tab Continue Docusate [Colace] 100 mg PO DAILY buPROPion XL [Wellbutrin XL] 300 mg PO DAILY Apixaban [Eliquis] 5 mg PO BID Cholecalciferol [Vitamin D3 (25 Mcg = 1000 Iu)] 50 mcg PO DAILY Discharge Medication List Docusate [Colace] 100 mg PO DAILY 01/03/18 [History] buPROPion XL [Wellbutrin XL] 300 mg PO DAILY 01/05/20 [History] Apixaban [Eliquis] 5 mg PO BID 12/21/20 [History] Cholecalciferol [Vitamin D3 (25 Mcg = 1000 Iu)] 50 mcg PO DAILY 12/21/20 [History] Metoprolol Tartrate [Lopressor] 12.5 mg PO HS #30 tab 12/31/23 [Rx] Follow up Appointment(s)/Referral(s): Chuck Duong MD [REFERRING] - 1 Week (Thyroid mass) Jhon Alvarez MD [Primary Care Provider] - 1-2 days Alexx Chappell MD [STAFF PHYSICIAN] - 01/24/24 2:45 pm (Appointment the [place] Office) Patient Instructions/Handouts: Chest Pain (DC) Activity/Diet/Wound Care/Special Instructions: PATIENT TO RADIO INTERFERENCE INVESTIGATOR 14 DAY EVENT MONITOR FROM CARDIOLOGY OFFICE on 01/01/2024 am. Antonella Love NP phoned office to let them know. FOLLOW UP DIRECTED, SOONER IF WORSENING SYMPTOMS, PROBLEMS OR CONCERNS. Discharge Disposition: HOME SELF-CARE
--- NOTE | 2024-01-01 10:53 | CA ---
Transthoracic Echo Report Name: Colten Banda Age: 68 Gender: F : 1955 Exam Date: 12/31/2023 12:18 Exam Location: [place] [facility] Ht (in): 66 Wt (lb): 245 Ordering Physician: Antonella Love Attending/Referring Phys: Alexx Chappell MD ([id number]) Cell Tuber Machine Amelia Boyle [facility] Procedure CPT: Indications: LV function, CP Cardiac Hx: Technical Quality: Technically difficult study Contrast 1: Definity Total Dose (mL): 2 Contrast 2: Total Dose (mL): MEASUREMENTS (Male / Female) Normal Values 2D ECHO LV Diastolic Diameter PLAX 4.8 cm 4.2 - 5.9 / 3.9 - 5.3 cm LV Systolic Diameter PLAX 3.4 cm IVS Diastolic Thickness 0.7 cm 0.6 - 1.0 / 0.6 - 0.9 cm LVPW Diastolic Thickness 0.7 cm 0.6 - 1.0 / 0.6 - 0.9 cm LV Relative Wall Thickness 0.3 LVOT Diameter 2.0 cm Ascending Aorta Diameter 2.8 cm M-MODE Aortic Root Diameter MM 3.2 cm LA Systolic Diameter MM 3.7 cm LA Ao Ratio MM 1.2 AV Cusp Separation MM 2.2 cm DOPPLER AV Peak Velocity 138.7 cm/s AV Peak Gradient 7.7 mmHg AV Mean Velocity 98.0 cm/s AV Mean Gradient 4.3 mmHg AV Velocity Time Integral 31.7 cm LVOT Peak Velocity 119.3 cm/s LVOT Peak Gradient 5.7 mmHg LVOT Velocity Time Integral 24.9 cm LVOT Stroke Volume 79.7 cm??? LVOT Stroke Volume Index 36.6 ml/m??? LVOT Cardiac Index 3151.3 cm???/min???m??? AV Area Cont Eq vti 2.5 cm??? AV Area Cont Eq pk 2.8 cm??? Mitral E Point Velocity 58.4 cm/s Mitral A Point Velocity 84.5 cm/s Mitral E to A Ratio 0.7 MV Deceleration Time 226.9 ms LV E' Lateral Velocity 10.2 cm/s Mitral E to LV E' Lateral Ratio 5.7 LV E' Septal Velocity 7.5 cm/s Mitral E to LV E' Septal Ratio 7.8 TR Peak Velocity 230.2 cm/s TR Peak Gradient 21.2 mmHg Right Atrial Pressure 8.0 mmHg Pulmonary Artery Systolic Pressu 29.2 mmHg Right Ventricular Systolic Press 29.2 mmHg FINDINGS Left Ventricle Left ventricular wall thickness normal. Left ventricular cavity size normal. Low normal left ventricular systolic function with no obvious regional wall motion abnormalities. Left ventricular ejection fraction is estimated at 50- 55%. Right Ventricle Right ventricle at upper limits of normal. Right Atrium Mild right atrial dilatation. Left Atrium Moderate left atrial dilatation. Mitral Valve Structurally normal mitral valve. Mild mitral regurgitation. Aortic Valve Trileaflet aortic valve. No aortic regurgitation. Tricuspid Valve Structurally normal tricuspid valve. Trace tricuspid regurgitation. Pulmonic Valve Pulmonic valve not well visualized. Pericardium Minimal pericardial effusion (normal variant). Aorta Normal size aortic root and proximal ascending aorta. CONCLUSIONS Left ventricular ejection fraction is estimated at 50-55%. No obvious regional wall motion abnormalities. Moderate left atrial dilatation. Mild right atrial dilatation. Mild mitral regurgitation. Previewed by: Dr Dagoberto Kaplan (Electronically Signed) Final Date: 01 January 2024 10:53
== END 2023-12-31 18:55 | disposition home or self-care (01) ==
LOC: EC 13:27 → 6NMEDSUR 20:53
PROVIDERS: ADMIT Hospitalist; ATTEND Hospitalist
DX: R00.2 Palpitations (principal); M54.50 Low back pain, unspecified; J44.9 Chronic obstructive pulmonary disease, unspecified; E07.9 Disorder of thyroid, unspecified; E66.9 Obesity, unspecified; Z68.39 Body mass index [BMI] 39.0-39.9, adult; Z87.891 Personal history of nicotine dependence; Z79.899 Other long term (current) drug therapy; Z86.711 Personal history of pulmonary embolism; Z79.01 Long term (current) use of anticoagulants; Z88.2 Allergy status to sulfonamides; Z88.1 Allergy status to other antibiotic agents
CPT/HCPCS: 99285; 36415; 94760; 93005; 93351; 80053; 80048; 84443; 83735; 84484 ×2; 85025 ×2; 85610; 85730; 71046; 70450; 71275; G0378 ×2; C8929; J1250; Q9957; Q9967; 93306

== ENCOUNTER → 2024-01-08 | Outpatient (CLI) | payer MEDICARE ==
--- NOTE | 2024-01-08 10:02 | US ---
EXAMINATION TYPE: US thyroid st tissue head/neck DATE OF EXAM: 01/08/2024 COMPARISON: NONE CLINICAL INDICATION: Female, 68 years old with history of E04.1 NONTOXIC SINGLE THYROID NODULE; thyro id nodule GLAND SIZE: Right Lobe: 7.5 x 4.1 x 6.5 cm Overall Parenchyma: homogeneous Left Lobe: 5.1 x 1.9 x 1.2 cm Overall Parenchyma: homogeneous Isthmus Thickness: .4 cm NODULES RIGHT: # of nodules measured on right: 1 1. 6.3 X 3.5 x 5.5 cm, mid mid, Prior size: 5.7 x 3.4 x 5.5 cm TIRADS Score: 0 TIRADS Category 1: Composition: Cystic or almost completely cystic (0 points). Recommendation: No FNA LEFT: # of nodules measured on left: 0 ISTHMUS: # of nodules measured in the isthmus: 0 Bilateral neck scanned, no evidence of lymphadenopathy. IMPRESSION: Stable right thyroid gland cystic nodule.
== END | disposition home or self-care (01) ==
LOC: RADUSWWP 09:17
PROVIDERS: ATTEND Otolaryngology
DX: E04.1 Nontoxic single thyroid nodule (principal)
CPT/HCPCS: 76536

== ENCOUNTER 2024-05-12 20:02 | Inpatient (IN) | payer MEDICARE ==
--- NOTE | 2024-05-12 20:39 | ED ---
Abdominal Pain HPI - General Source: patient, RN notes reviewed Mode of arrival: ambulatory Limitations: no limitations <Ronald Fuller - Last Filed: 05/12/24 20:39> <Ashu Combs - Last Filed: 05/12/24 23:44> - General Chief Complaint: Abdominal Pain Stated Complaint: Abd Pain Time Seen by Provider: 05/12/24 20:33 - History of Present Illness Initial Comments: Quicknote 69-year-old female presenting with complaints of abdominal pain. Patient reports for the past 3 to 4 days has had pain across her entire abdomen. Pain does not radiate. Denies changes in bowel or bladder habits. (Ronald Fuller) Dictation was produced using [employer] dictation software. please excuse any grammatical, word or spelling errors. Chief Complaint: 69-year-old female with multiple abdominal surgeries presents to the ER for nausea vomiting abdominal pain History of Present Illness: Patient 69-year-old female states that for the last 4 days she has been having nausea vomiting abdominal pain. She states that her emesis is bilious in nature. No diarrhea. Denies any fever, chills or night sweats. Patient has extensive history of abdominal surgeries to treat hernias and hernia complications. Her surgeon is local to our hospital. States that she has some cramping to her lower abdomen. The ROS documented in this emergency department record has been reviewed and confirmed by me. Those systems with pertinent positive or negative responses have been documented in the HPI. All other systems are other negative and/or noncontributory. (Ashu Combs) - Related Data Home Medications Medication Instructions Recorded Confirmed Docusate [Colace] 100 mg PO DAILY 01/03/18 12/30/23 buPROPion XL [Wellbutrin XL] 300 mg PO DAILY 01/05/20 12/30/23 Apixaban [Eliquis] 5 mg PO BID 12/21/20 12/30/23 Cholecalciferol [Vitamin D3 (25 50 mcg PO DAILY 12/21/20 12/30/23 Mcg = 1000 Iu)] Previous Rx's Medication Instructions Recorded Metoprolol Tartrate [Lopressor] 12.5 mg PO HS #30 tab 12/31/23 Allergies Allergy/AdvReac Type Severity Reaction Status Date / Time Latex, Natural Rubber Allergy Rash/Hives Verified 05/12/24 20:36 Sulfa (Sulfonamide Allergy Dyspnea Verified 05/12/24 20:36 Antibiotics) banana AdvReac Rash/Hives Verified 05/12/24 20:36 ciprofloxacin [From Cipro] AdvReac Rash/Hives Verified 05/12/24 20:36 [place] And Derivatives AdvReac Rash/Hives Verified 05/12/24 20:36 Review of Systems ROS Other: All systems not noted in ROS Statement are negative. <Ronald Fuller - Last Filed: 05/12/24 20:39> ROS Other: All systems not noted in ROS Statement are negative. <Ashu Combs - Last Filed: 05/12/24 23:44> ROS Statement: Those systems with pertinent positive or pertinent negative responses have been documented in the HPI. Past Medical History Past Medical History: COPD, Liver Disease, Pulmonary Embolus (PE), Thyroid Disorder Additional Past Medical History / Comment(s): emphysema, hernias, diverticulitis, right lung collapse, pulmonary embolism, raynauds disease, arthritis, hepatitis B, IBS, umbilical hernia, thyroid cyst History of Any Multi-Drug Resistant Organisms: None Reported Past Surgical History: Cholecystectomy, Hernia Repair Additional Past Surgical History / Comment(s): bowel resection, four hernia repairs, bladder suspension, chest tube placed and removed, previous thyroid biopsy, colonoscopies Past Anesthesia/Blood Transfusion Reactions: Previous Problems w/ Anesthesia, Postoperative Nausea & Vomiting (PONV) Additional Past Anesthesia/Blood Transfusion Reaction / Comment(s): pt. states she has a hard time waking up from surgery Past Psychological History: Depression Smoking Status: Never smoker Past Alcohol Use History: Occasional Past Drug Use History: Marijuana - Past Family History Sister(s) Family Medical History: Thyroid Disorder Additional Family Medical History / Comment(s): partial thyroidectomy, pt. has an extensive family history of psychiatric disorders, her sister is schizop hrenic Daughter(s) Family Medical History: Chest Pain / Angina, Thyroid Disorder Additional Family Medical History / Comment(s): partial thyroidectomy, history of v-tach and ablations Mother Family Medical History: Cancer Additional Family Medical History / Comment(s): liver cancer, pts mom from a bowel perforation and association sepsis, schizophrenia Father Family Medical History: Unable to Obtain Brother(s) Additional Family Medical History / Comment(s): psychiatric issues, schitzophrenic runs in family <Ronald Fuller - Last Filed: 05/12/24 20:39> General Exam Limitations: no limitations <Ronald Fuller - Last Filed: 05/12/24 20:39> - General Exam Comments Initial Comments: Visual Physical Exam Vital signs reviewed General: Well-appearing, nontoxic, no acute distress. Head: Normocephalic, atraumatic Eyes: PERRLA, EOMI ENT: Airway patent Chest: Nonlabored breathing Skin: No visual rash, normal skin tone Neuro: Alert and oriented 3 Musculoskeletal: No gross abnormalities (Ronald Fuller) Course Vital Signs 05/12/24 05/12/24 20:33 22:50 Temperature 98.4 F Pulse Rate 75 85 Respiratory 18 18 Rate Blood Pressure 160/91 150/87 O2 Sat by Pulse 95 98 Oximetry Medical Decision Making <Ronald Fuller - Last Filed: 05/12/24 20:39> - Lab Data Result diagrams: 05/12/24 20:57 05/12/24 20:57 <Ashu Combs - Last Filed: 05/12/24 23:44> - Medical Decision Making Quicknote portion performed. Signed Ronald Fuller PA-C (Ronald Fuller) Was pt. sent in by a medical professional or institution (MERNA Ansari, COMPUTER FORENSIC EXAMINER, urgent care, hospital, or fpc...) When possible be specific @ -No Did you speak to anyone other than the patient for history (EMS, parent, family, police, friend...)? What history was obtained from this source @ -No Did you review nursing and triage notes (agree or disagree)? Why? @ -I reviewed and agree with nursing and triage notes Were old charts reviewed (outside hosp., previous admission, EMS record, old EKG, old radiological studies, urgent care reports/EKG's, fpc records)? Report findings @ -No old charts were reviewed Differential Diagnosis (chest pain, altered mental status, abdominal pain women, abdominal pain men, vaginal bleeding, musculoskeletal, weakness, fever, dyspnea, syncope, headache, dizziness, GI bleed, back pain, seizure, CVA, palpatations, mental health)? @ -Differential Abdominal Pain Women: Appendicitis, Cholecystitis, diverticulosis, ischemic bowel, pancreatitis, hepatitis, UTI, gastroenteritis, AAA, incarcerated hernia, bowel obstruction, constipation, inflammatory bowel, hepatitis, peptic ulcer disease, splenic infarction, perforated viscus, vulvitis, ovarian torsion, PID, kidney stone, placenta abruption, this is not meant to be an all-inclusive list EKG interpreted by me (3pts min.). @ -None done X-rays interpreted by me (1pt min.). @ -None done CT interpreted by me (1pt min.). @ -CT shows bowel obstruction U/S interpreted by me (1pt. min.). @ -None done What testing was considered but not performed or refused? (CT, X-rays, U/S, labs)? Why? @ -None What meds were considered but not given or refused? Why? @ -None Did you discuss the management of the patient with other professionals (professionals i.e. , PA, COMPUTER FORENSIC EXAMINER, lab, RT, psych nurse, social service technician, microbiology laboratory manager, teacher, medical information officer, case making machine operator)? Give summary @ -Case discussed with general surgeon for admission Was smoking cessation discussed for >3mins.? @ -No Was critical care preformed (if so, how long)? @ -No Were there social determinants of health that impacted care today? How? (Homelessness, low income, unemployed, alcoholism, drug addiction, transport ation, low edu. Level, literacy, decrease access to med. care, halfway, rehab)? @ -No Was there de-escalation of care discussed even if they declined (Discuss DNR or withdrawal of care, Hospice)? DNR status @ -No What co-morbidities impacted this encounter? (DM, HTN, Smoking, COPD, CAD, Cancer, CVA, ARF, Chemo, Hep., AIDS, mental health diagnosis, sleep apnea, morbid obesity)? @ -None Was patient admitted / discharged? Hospital course, mention meds given and route, prescriptions, significant lab abnormalities, going to OR and other pertinent info. @ -69-year-old female with extensive history of abdominal surgery presents to the ER for abdominal pain, bilious vomiting. Vital signs are stable. Patient no acute distress at the bedside she is complaining of some persistent nausea and abdominal pain despite symptomatic treatment. Laboratory evaluation unremarkable. Imaging studies show bowel obstruction. Patient be admitted for further care. Undiagnosed new problem with uncertain prognosis? @ -No Drug Therapy requiring intensive monitoring for toxicity (Heparin, Nitro, Insulin, Cardizem)? @ -No Were any procedures done? @ -No Diagnosis/symptom? Acute, or Chronic, or Acute on Chronic? Uncomplicated (without systemic symptoms) or Complicated (systemic symptoms)? @ -Bowel obstruction Side effects of treatment? @ -No Exacerbation, Progression, or Severe Exacerbation? @ -No Poses a threat to life or bodily function? How? (Chest pain, USA, CT, pneumonia, PE, COPD, DKA, ARF, appy, cholecystitis, CVA, Diverticulitis, Homicidal, Suicidal, threat to staff... and all critical care pts) @ -yes (Ashu Combs) - Lab Data Lab Results 05/12/24 05/12/24 05/12/24 Range/Units 20:36 20:57 20:57 WBC 10.2 (3.8-10.6) k/uL RBC 4.84 (3.80-5.40) m/uL Hgb 15.0 (11.4-16.0) gm/dL Hct 43.4 (34.0-46.0) % MCV 89.6 (80.0-100.0) fL MCH 31.0 (25.0-35.0) pg MCHC 34.6 (31.0-37.0) g/dL RDW 13.6 (11.5-15.5) % Plt Count 241 (150-450) k/uL MPV 8.2 Neutrophils % 73 % Lymphocytes % 19 % Monocytes % 4 % Eosinophils % 2 % Basophils % 0 % Neutrophils # 7.5 (1.3-7.7) k/uL Lymphocytes # 1.9 (1.0-4.8) k/uL Monocytes # 0.4 (0-1.0) k/uL Eosinophils # 0.2 (0-0.7) k/uL Basophils # 0.0 (0-0.2) k/uL Sodium 138 (137-145) mmol/L Potassium 4.2 (3.5-5.1) mmol/L Chloride 106 (98-107) mmol/L Carbon Dioxide 27 (22-30) mmol/L Anion Gap 5 mmol/L BUN 13 (7-17) mg/dL Creatinine 0.79 (0.52-1.04) mg/dL Est GFR (CKD-EPI)AfAm >90 (>60 ml/min/1.73 sqM) Est GFR (CKD-EPI)NonAf 78 (>60 ml/min/1.73 sqM) Glucose 114 H (74-99) mg/dL Calcium 9.6 (8.4-10.2) mg/dL Total Bilirubin 0.7 (0.2-1.3) mg/dL AST 27 (14-36) U/L ALT 20 (4-34) U/L Alkaline Phosphatase 84 (38-126) U/L Total Protein 7.9 (6.3-8.2) g/dL Albumin 4.5 (3.5-5.0) g/dL Amylase 62 (30-110) U/L Lipase 143 (23-300) U/L Urine Color Yellow Urine Appearance Cloudy H (Clear) Urine pH 7.0 (5.0-8.0) Ur Specific [place] 1.023 (1.001-1.035) Urine Protein Trace H (Negative) Urine Glucose (UA) Negative (Negative) Urine Ketones Negative (Negative) Urine Blood Negative (Negative) Urine Nitrite Negative (Negative) Urine Bilirubin Negative (Negative) Urine Urobilinogen <2.0 (<2.0) mg/dL Ur Leukocyte Esterase Negative (Negative) Urine RBC 2 (0-5) /hpf Urine WBC 3 (0-5) /hpf Ur Squamous Epith Cells 5 H (0-4) /hpf Urine Bacteria Rare H (None) /hpf Urine Mucus Many H (None) /hpf Disposition <Ronald Fuller - Last Filed: 05/12/24 20:39> Decision Time: 23:11 <Ashu Combs - Last Filed: 05/12/24 23:44> Clinical Impression: Bowel obstruction Disposition: ADMITTED IP TO THIS HOSP Condition: Fair Referrals: Jhon Alvarez MD [Primary Care Provider] - 1-2 days
[2024-05-12 21:04] LABS: Appearance,Urine Cloudy (Clear); Bacteria,Urine Rare /hpf; Bilirubin,Urine Negative (Negative); Blood,Urine Negative (Negative); Color,Urine Yellow; Glucose,Urine (UA) Negative (Negative); Ketones,Urine Negative (Negative); Leukocyte Esterase,Urine Negative (Negative); Mucus,Urine Many /hpf; Nitrite,Urine Negative (Negative); Protein,Urine Trace (Negative); RBC,Urine 2 /hpf (0-5); Specific Gravity,Urine 1.023 (1.001-1.035); Squamous Epithelial Cell,Urine 5 /hpf (0-4); Urobilinogen,Urine <2.0 mg/dL (<2.0); WBC,Urine 3 /hpf (0-5)
[2024-05-12 21:06] LABS: Basophils % (A) 0 %; Eosinophils # (A) 0.2 k/uL (0-0.7); Eosinophils % (A) 2 %; HCT 43.4 % (34.0-46.0); Lymphocytes # (A) 1.9 k/uL (1.0-4.8); Lymphocytes % (A) 19 %; MCHC 34.6 g/dL (31.0-37.0); MCV 89.6 fL (80.0-100.0); Mean Platelet Volume 8.2; Monocytes # (A) 0.4 k/uL (0-1.0); Monocytes % (A) 4 %; Neutrophils # (A) 7.5 k/uL (1.3-7.7); Neutrophils % (A) 73 %; Platelet Count 241 k/uL (150-450); RBC 4.84 m/uL (3.80-5.40); RDW 13.6 % (11.5-15.5); WBC 10.2 k/uL (3.8-10.6)
[2024-05-12 21:16] LABS: Potassium 4.2 mmol/L (3.5-5.1)
[2024-05-12 21:17] LABS: ALT 20 U/L (4-34); AST 27 U/L (14-36); African American GFR (CKD) >90 (>60 ml/min/1.73 sqM); Albumin 4.5 g/dL (3.5-5.0); Alkaline Phosphatase 84 U/L (38-126); Amylase 62 U/L (30-110); Anion Gap 5 mmol/L; Blood Urea Nitrogen 13 mg/dL (7-17); Calcium 9.6 mg/dL (8.4-10.2); Carbon Dioxide 27 mmol/L (22-30); Chloride 106 mmol/L (98-107); Glucose 114 mg/dL (74-99); Lipase 143 U/L (23-300); Non-African American GFR(CKD) 78 (>60 ml/min/1.73 sqM); Sodium 138 mmol/L (137-145); Total Bilirubin 0.7 mg/dL (0.2-1.3); Total Protein 7.9 g/dL (6.3-8.2)
--- NOTE | 2024-05-12 22:39 | CT ---
EXAMINATION TYPE: CT abdomen pelvis w con DATE OF EXAM: 05/12/2024 HISTORY: abdominal pain, n/v x [address] DLP: 2307.3mGycm Automated Exposure Control for Dose Reduction was Utilized. CONTRAST: CT scan of the abdomen and pelvis is performed with IV Contrast, patient injected with 100 cc mL of I sovue 300. COMPARISON: CT abdomen and pelvis November 24, 2021 FINDINGS: LUNG BASES: No significant abnormality is appreciated. LIVER/GB: Cholecystectomy clips are redemonstrated. Liver is diffusely low dense suggesting fatty inf iltrative hepatocellular disease PANCREAS: No significant abnormality is seen. SPLEEN: No significant abnormality is seen. ADRENALS: No significant abnormality is seen. KIDNEYS: No definitive foci of air in the bladder are present. BOWEL: Recurrent ventral wall hernia containing wide neck in the upper pelvis containing mesenteric f at and small bowel loops. Slightly prominent fluid and fecal filled small bowel loops are seen. Fecal filled bowel loop in the hernia measures up to 3.0 cm in diameter axial image 64. Fluid-filled small bowel loop measures up to 3.3 cm coronal image 60. Nondistended colon overlying the periphery. Diver ticula in the left and sigmoid colon. No CT evidence for acute diverticulitis. Surgical sutures sigmo id colon in the pelvis-the 76 are redemonstrated. UTERUS/ADNEXA: Uterus is redemonstrated surgically absent. LYMPH NODES: No greater than 1cm abdominal or pelvic lymph nodes are appreciated. OSSEOUS STRUCTURES: Moderate multilevel disc space narrowing and spurring in the lumbar spine.. OTHER: [id number] calcified plaque of the aorta extends into branch vessels. IMPRESSION: Overall nonspecific bowel gas pattern. A partial mid small bowel obstruction is suspected with small bowel loops slightly dilated up to 3.3 cm. No free or mesenteric air.
[2024-05-12] MEDS: ONDANSETRON 4 MG/2 ML VIAL IVP STA (23:13)
[2024-05-12] MEDS: SODIUM CHLORIDE 0.9% 1,000 ML IV STA (23:17)
[2024-05-12] MEDS ORDERED: NALOXONE 0.4 MG/ML 1 ML VIAL IV PRN (23:42)
[2024-05-13] MEDS: SODIUM CHLORIDE 0.9% 1,000 ML IV SCH (00:05)
--- NOTE | 2024-05-13 11:41 | P.GSHP ---
History of Present Illness H&P Date: 05/13/24 CHIEF COMPLAINT: Abdominal pain with nausea and vomiting HISTORY OF PRESENT ILLNESS: This is a 69-year-old female who presented to the hospital with complaints of abdominal pain and nausea and vomiting x 4 days. Patient reports the pain is across the bellybutton and mid abdomen. She reports the pains are sharp and severe lasting a minute and then resolve. Patient reports having hard small stool yesterday and flatus. And then since then she has had no further bowel movements or flatus. She is burping and nauseous but no further vomiting. Patient reports history of 5 abdominal surgeries. She has had multiple hernia repairs. And one of the abdominal hernias she had developed an abdominal abscess and had an incision and drainage and removal of infected mesh in January 2021. Patient also history with cholecystectomy and bladder suspension. Patient is on Eliquis for history of PE. Last dose was yesterday. Patient had CAT scan completed of the abdomen showing a partial mid small bowel obstruction. Patient is currently NPO. She has been admitted to the surgical service. PAST MEDICAL HISTORY: COPD, Liver Disease, Pulmonary Embolus (PE), Thyroid Disorder, emphysema, hernias, diverticulitis, right lung collapse, pulmonary embolism, raynauds disease, arthritis, hepatitis B, IBS, umbilical hernia, thyroid cyst, PAST SURGICAL HISTORY: Cholecystectomy and hernia repair, four hernia repairs, bladder suspension, chest tube placed and removed, previous thyroid biopsy, colonoscopies MEDICATIONS: See below ALLERGIES: See below SOCIAL HISTORY: No illicit drug use. REVIEW OF SYSTEMS: CONSTITUTIONAL: Denies fever or chills. HEENT: Denies blurred vision, vision changes, or eye pain. Denies hemoptysis CARDIOVASCULAR: Denies chest pain or pressure. RESPIRATORY: No shortness of breath. GASTROINTESTINAL: See HPI for pertinent findings HEMATOLOGIC: Denies bleeding disorders. GENITOURINARY: Denies any blood in urine or increased urinary frequency. SKIN: Denies pruitis. Denies rash. PHYSICAL EXAM: VITAL SIGNS: Reviewed GENERAL: Well-developed in no acute distress. HEENT: No sclera icterus. Extraocular movements grossly intact. Moist buccal mucosa. Head is atraumatic, normocephalic. No nasal drainage. ABDOMEN: Soft. Nondistended. Mild tenderness right mid and left mid abdomen NEUROLOGIC: Alert and oriented. Cranial nerves II through XII grossly intact. LABORATORY DATA: WBC 10.2 Hgb 15 platelets 241 Sodium is 138 potassium is 4.2 creatinine 0.79 LFTs and lipase within normal range IMAGING: CT scan abdomen pelvis overall nonspecific bowel gas pattern. A partial mid small bowel obstruction is suspected with small bowel loops slightly dilated up to 3.3 cm. No free or mesenteric air ASSESSMENT: 1. Possible ileus 2. Recurrent wide neck ventral wall hernia containing mesenteric fat and small bowel loops noted on CT 2. Prior history of abdominal surgeries 3. History of PE on Eliquis at home PLAN: -Keep patient n.p.o. -Continue IV fluids -Continue antiemetics -Continue pain management -Consult medicine service for medical management -Continue to hold Eliquis -Encourage patient to ambulate -Continue to observe Physician Stone Engraver note has been reviewed by physician. Signing provider agrees with the documented findings, assessment, and plan of care. Past Medical History Past Medical History: COPD, Liver Disease, Pulmonary Embolus (PE), Thyroid Disorder Additional Past Medical History / Comment(s): emphysema, hernias, diverticulitis, right lung collapse, pulmonary embolism, raynauds disease, arthritis, hepatitis B, IBS, umbilical hernia, thyroid cyst History of Any Multi-Drug Resistant Organisms: None Reported Past Surgical History: Cholecystectomy, Hernia Repair Additional Past Surgical History / Comment(s): bowel resection, four hernia repairs, bladder suspension, chest tube placed and removed, previous thyroid biopsy, colonoscopies Past Anesthesia/Blood Transfusion Reactions: Previous Problems w/ Anesthesia, Postoperative Nausea & Vomiting (PONV) Additional Past Anesthesia/Blood Transfusion Reaction / Comment(s): pt. states she has a hard time waking up from surgery Past Psychological History: Depression Smoking Status: Never smoker Past Alcohol Use History: Occasional Past Drug Use History: Marijuana - Past Family History Sister(s) Family Medical History: Thyroid Disorder Additional Family Medical History / Comment(s): partial thyroidectomy, pt. has an extensive family history of psychiatric disorders, her sister is schizophren ic Daughter(s) Family Medical History: Chest Pain / Angina, Thyroid Disorder Additional Family Medical History / Comment(s): partial thyroidectomy, history of v-tach and ablations Mother Family Medical History: Cancer Additional Family Medical History / Comment(s): liver cancer, pts mom from a bowel perforation and association sepsis, schizophrenia Father Family Medical History: Unable to Obtain Brother(s) Additional Family Medical History / Comment(s): psychiatric issues, schitzophrenic runs in family Medications and Allergies Home Medications Medication Instructions Recorded Confirmed Type Docusate [Colace] 100 mg PO DAILY 01/03/18 05/13/24 History buPROPion XL [Wellbutrin XL] 300 mg PO DAILY 01/05/20 05/13/24 History Apixaban [Eliquis] 5 mg PO BID 12/21/20 05/13/24 History Cholecalciferol [Vitamin D3 (25 25 mcg PO DAILY 12/21/20 05/13/24 History Mcg = 1000 Iu)] Calcium Carbonate [Calcium] 600 mg PO DAILY 05/13/24 05/13/24 History Metoprolol Tartrate [Lopressor] 25 mg PO BID 05/13/24 05/13/24 History Multivitamins, Thera [Multivitamin 1 tab PO DAILY 05/13/24 05/13/24 History (formulary)] Allergies Allergy/AdvReac Type Severity Reaction Status Date / Time Latex, Natural Rubber Allergy Rash/Hives Verified 05/13/24 08:22 Sulfa (Sulfonamide Allergy Dyspnea Verified 05/13/24 08:22 Antibiotics) banana AdvReac Rash/Hives Verified 05/13/24 08:22 ciprofloxacin [From Cipro] AdvReac Rash/Hives Verified 05/13/24 08:22 [place]man And Derivatives AdvReac Rash/Hives Verified 05/13/24 08:22 Surgical - Exam Vital Signs Temp Pulse Resp BP Pulse Ox 98.4 F 75 18 160/91 95 05/12/24 20:33 05/12/24 20:33 05/12/24 20:33 05/12/24 20:33 05/12/24 20:33 Results - Labs 05/12/24 20:57 05/12/24 20:57 Abnormal Lab Results - Last 24 Hours (Table) 05/12/24 05/12/24 Range/Units 20:36 20:57 Glucose 114 H (74-99) mg/dL Urine Appearance Cloudy H (Clear) Urine Protein Trace H (Negative) Ur Squamous Epith Cells 5 H (0-4) /hpf Urine Bacteria Rare H (None) /hpf Urine Mucus Many H (None) /hpf Diabetes panel 05/12/24 Range/Units 20:57 Sodium 138 (137-145) mmol/L Potassium 4.2 (3.5-5.1) mmol/L Chloride 106 (98-107) mmol/L Carbon Dioxide 27 (22-30) mmol/L BUN 13 (7-17) mg/dL Creatinine 0.79 (0.52-1.04) mg/dL Glucose 114 H (74-99) mg/dL Calcium 9.6 (8.4-10.2) mg/dL AST 27 (14-36) U/L ALT 20 (4-34) U/L Alkaline Phosphatase 84 (38-126) U/L Total Protein 7.9 (6.3-8.2) g/dL Albumin 4.5 (3.5-5.0) g/dL Calcium panel 05/12/24 Range/Units 20:57 Calcium 9.6 (8.4-10.2) mg/dL Albumin 4.5 (3.5-5.0) g/dL Pituitary panel 05/12/24 Range/Units 20:57 Sodium 138 (137-145) mmol/L Potassium 4.2 (3.5-5.1) mmol/L Chloride 106 (98-107) mmol/L Carbon Dioxide 27 (22-30) mmol/L BUN 13 (7-17) mg/dL Creatinine 0.79 (0.52-1.04) mg/dL Glucose 114 H (74-99) mg/dL Calcium 9.6 (8.4-10.2) mg/dL Adrenal panel 05/12/24 Range/Units 20:57 Sodium 138 (137-145) mmol/L Potassium 4.2 (3.5-5.1) mmol/L Chloride 106 (98-107) mmol/L Carbon Dioxide 27 (22-30) mmol/L BUN 13 (7-17) mg/dL Creatinine 0.79 (0.52-1.04) mg/dL Glucose 114 H (74-99) mg/dL Calcium 9.6 (8.4-10.2) mg/dL Total Bilirubin 0.7 (0.2-1.3) mg/dL AST 27 (14-36) U/L ALT 20 (4-34) U/L Alkaline Phosphatase 84 (38-126) U/L Total Protein 7.9 (6.3-8.2) g/dL Albumin 4.5 (3.5-5.0) g/dL
[2024-05-13] MEDS: MORPHINE SULFATE 4 MG/ML SYRINGE IV PRN (12:57)
[2024-05-13] MEDS: ONDANSETRON 4 MG/2 ML VIAL IVP PRN (13:12)
[2024-05-13] MEDS ORDERED: TRIMETHOBENZAMIDE 100 MG/ML 2 ML VIAL IM PRN (17:21)
[2024-05-13] MEDS: PROCHLORPERAZINE INJ 10 MG/2 ML VIAL IVP PRN (18:37)
--- NOTE | 2024-05-13 20:34 | P.CONS ---
History of Present Illness - Reason for Consult Consult date: 05/13/24 Medical management Requesting physician: Teo Brannon - Chief Complaint Abdominal pain - History of Present Illness This is a pleasant 68-year-old patient, follows with DOOR TRIMMER Cindy Fong/Dr. Alvarez. Chronic stable medical conditions include COPD, prior PE on Eliquis, thyroid disorder, Raynaud's disease, arthritis, hepatitis B, IBS, umbilical hernia, previous right-sided chest tube, Wellbutrin. Patient 4 days ago started having mid abdominal increasing cramping. Nausea. Did vomited yesterday evening. No fever no chills. Had a very small BM like a rabbit terd, 2 days ago. Patient is accompanied by in the ER. Review of systems: GEN.: Tired EYES: None HEENT: None NECK: None RESPIRATORY: None CARDIOVASCULAR: As above GASTROINTESTINAL: As above GENITOURINARY: None MUSCULOSKELETAL: [Some joint pains LYMPHATICS: None HEMATOLOGICAL: None PSYCHIATRY: None NEUROLOGICAL: None Social history: Patient smoked a pack a day for close to 35 years. Stopped about 12 years ago. . Alcohol occasionally. Physical examination: VITAL SIGNS: 98.2, 58, 18, 140 x 69, 94% room air GENERAL: Reclining in bed slightly uncomfortable EYES: Pupils equal. Conjunctiva mare l. HEENT: External appearance of nose and ears normal, oral cavity grossly normal. NECK: JVD not raised; masses not palpable. HEART: First and second heart sounds are normal; no edema. LUNGS: Respiratory rate normal; clear to auscultation. ABDOMEN: Soft, mild mid abdominal tenderness, no guarding rigidity r, liver spleen not palpable, no masses palpable. PSYCH: Alert and oriented x3; mood and affect mare l. MUSCULOSKELETAL:No Clubbing/cyanosis;muscles-grossly intact. Some OA NEUROLOGICAL: Cranial nerves grossly intact; no facial asymmetry, power and sensation grossly intact. LYMPHATICS: No lymph nodes palpable in the axilla and neck INVESTIGATIONS, reviewed in the clinical context: May 12: White count 10.2 hemoglobin 15 platelets 241 sodium 138 potassium 4.2 creatinine 0.[address] abdomen pelvis: Nonspecific bowel gas pattern. Partial mid small bowel obstruction with suspected with small bowel loops slightly dilated 3.3 cm. EKG tracing personally reviewed by me-normal sinus rhythm January 2024 Dobutamine stress echocardiogram: Normal CT scan of the brain: Chronic changes CT angio chest: Right thyroid lobe is enlarged containing an irregularly predominant cystic masslike lesion. This again causes some mass effect with bowing of the trachea towards the left thyroid mass Assessment plan: -Acute small bowel obstruction. Patient had been having nausea for 4 days. Very small BM 2 days ago. Vomiting started last night. -History of PVCs Lopressor 25 twice daily -Right thyroid mass with a predominantly cystic appearance. Causing some mass effect with bowing of the trachea towards the left thyroid mass. Patient did follow-up with Dr. Ariel Charles from ENT. Normal TSH. -Raynaud's disease -IBS -Primary osteoarthritis Tylenol as needed -Chronic PE Eliquis-switch to subcu Lovenox for now -COPD in a prior smoker Albuterol as needed -Depression Wellbutrin XL Discussed with Dr Brannon. Will put the patient on subcu Lovenox 100 every 12. Delayed decision made for surgery otherwise. Discussed with patient . Thank Dr Brannon Past Medical History Past Medical History: COPD, Liver Disease, Pulmonary Embolus (PE), Thyroid Disorder Additional Past Medical History / Comment(s): emphysema, hernias, diverticulitis, right lung collapse, pulmonary embolism, raynauds disease, arthritis, hepatitis B, IBS, umbilical hernia, thyroid cyst History of Any Multi-Drug Resistant Organisms: None Reported Past Surgical History: Cholecystectomy, Hernia Repair Additional Past Surgical History / Comment(s): bowel resection, four hernia repairs, bladder suspension, chest tube placed and removed, previous thyroid biopsy, colonoscopies Past Anesthesia/Blood Transfusion Reactions: Previous Problems w/ Anesthesia, Postoperative Nausea & Vomiting (PONV) Additional Past Anesthesia/Blood Transfusion Reaction / Comm: pt. states she has a hard time waking up from surgery Past Psychological History: Depression Smoking Status: Never smoker Past Alcohol Use History: Occasional Past Drug Use History: Marijuana - Past Family History Sister(s) Family Medical History: Thyroid Disorder Additional Family Medical History / Comment(s): partial thyroidectomy, pt. has an extensive family history of psychiatric disorders, her sister is schizophrenic Daughter(s) Family Medical History: Chest Pain / Angina, Thyroid Disorder Additional Family Medical History / Comment(s): partial thyroidectomy, history of v-tach and ablations Mother Family Medical History: Cancer Additional Family Medical History / Comment(s): liver cancer, pts mom from a bowel perforation and association sepsis, schizophrenia Father Family Medical History: Unable to Obtain Brother(s) Additional Family Medical History / Comment(s): psychiatric issues, schitzophrenic runs in family Medications and Allergies Home Medications Medication Instructions Recorded Confirmed Type Docusate [Colace] 100 mg PO DAILY 01/03/18 05/13/24 History buPROPion XL [Wellbutrin XL] 300 mg PO DAILY 01/05/20 05/13/24 History Apixaban [Eliquis] 5 mg PO BID 12/21/20 05/13/24 History Cholecalciferol [Vitamin D3 (25 25 mcg PO DAILY 12/21/20 05/13/24 History Mcg = 1000 Iu)] Calcium Carbonate [Calcium] 600 mg PO DAILY 05/13/24 05/13/24 History Metoprolol Tartrate [Lopressor] 25 mg PO BID 05/13/24 05/13/24 History Multivitamins, Thera [Multivitamin 1 tab PO DAILY 05/13/24 05/13/24 History (formulary)] Allergies Allergy/AdvReac Type Severity Reaction Status Date / Time Latex, Natural Rubber Allergy Rash/Hives Verified 05/13/24 08:22 Sulfa (Sulfonamide Allergy Dyspnea Verified 05/13/24 08:22 Antibiotics) banana AdvReac Rash/Hives Verified 05/13/24 08:22 ciprofloxacin [From Cipro] AdvReac Rash/Hives Verified 05/13/24 08:22 Porter And Derivatives AdvReac Rash/Hives Verified 05/13/24 08:22 Physical Exam Vitals: Vital Signs Temp Pulse Resp BP Pulse Ox 05/13/24 18:24 98.4 F 83 15 124/68 92 L 05/13/24 16:34 98.2 F 58 L 18 206/86 91 L 05/13/24 16:19 81 20 140/69 85 L 05/13/24 11:54 98.3 F 78 17 136/66 94 L 05/13/24 08:06 98.3 F 88 20 136/66 94 L 05/13/24 06:15 95 18 146/80 96 05/13/24 03:00 87 16 137/99 95 05/12/24 22:50 85 18 150/87 98 05/12/24 20:33 98.4 F 75 18 160/91 95 Results CBC & Chem 7: 05/12/24 20:57 05/12/24 20:57 Labs: Abnormal Lab Results - Last 24 Hours (Table) 05/12/24 05/12/24 Range/Units 20:36 20:57 Glucose 114 H (74-99) mg/dL Urine Appearance Cloudy H (Clear) Urine Protein Trace H (Negative) Ur Squamous Epith Cells 5 H (0-4) /hpf Urine Bacteria Rare H (None) /hpf Urine Mucus Many H (None) /hpf
[2024-05-13] MEDS: METOPROLOL TARTRATE 25 MG TAB PO SCH (21:41)
[2024-05-13] MEDS: ENOXAPARIN 100 MG/ML SYRINGE SQ SCH (21:42)
[2024-05-14] MEDS: buPROPion XL 300 MG TAB.ER.24H PO SCH (07:40)
--- NOTE | 2024-05-14 12:51 | P.DS ---
Providers Date of admission: 05/12/24 23:42 Expected date of discharge: 05/14/24 Attending physician: Teo Brannon Consults: 05/13/24 09:58 Consult Physician Routine Consulting Provider: Julio Cesar Huddleston Consult Reason/Comments: medical management Do you want consulting provider notified?: Yes Primary care physician: [facility] Course: Discharge diagnosis 1. Partial small bowel obstruction with reduced ventral hernia. resolved. Recommend outpatient repair of ventral hernia. 2. Recurrent wide necked ventral hernia containing mesenteric fat and small bowel loops noted on CT. Hernia reduced. 3. Prior history of abdominal surgeries 4. History of PE on Eliquis at home Hospital course This is a 69-year-old female who presented to the hospital with complaints of abdominal pain and nausea and vomiting x 4 days. Patient had CAT scan completed of the abdomen showing a partial mid small bowel obstruction is suspected. Patient is having bowel movements. Denies any further nausea or vomiting. Abdominal pain has resolved. She is tolerating diet. Afebrile. She has been up and ambulating. She is stable for discharge. Recommend repair of ventral hernia outpatient. Physician Booth Supervisor note has been reviewed by physician. Signing provider agrees with the documented findings, assessment, and plan of care. Patient Condition at Discharge: Stable Plan - Discharge Summary New Discharge Prescriptions: Continue Docusate [Colace] 100 mg PO DAILY buPROPion XL [Wellbutrin XL] 300 mg PO DAILY Apixaban [Eliquis] 5 mg PO BID Cholecalciferol [Vitamin D3 (25 Mcg = 1000 Iu)] 25 mcg PO DAILY Metoprolol Tartrate [Lopressor] 25 mg PO BID Multivitamins, Thera [Multivitamin (formulary)] 1 tab PO DAILY Calcium Carbonate [Calcium] 600 mg PO DAILY Discharge Medication List Docusate [Colace] 100 mg PO DAILY 01/03/18 [History] buPROPion XL [Wellbutrin XL] 300 mg PO DAILY 01/05/20 [History] Apixaban [Eliquis] 5 mg PO BID 12/21/20 [History] Cholecalciferol [Vitamin D3 (25 Mcg = 1000 Iu)] 25 mcg PO DAILY 12/21/20 [History] Calcium Carbonate [Calcium] 600 mg PO DAILY 05/13/24 [History] Metoprolol Tartrate [Lopressor] 25 mg PO BID 05/13/24 [History] Multivitamins, Thera [Multivitamin (formulary)] 1 tab PO DAILY 05/13/24 [History] Follow up Appointment(s)/Referral(s): Jhon Alvarez MD [Primary Care Provider] - 1-2 days Teo Brannon MD [STAFF PHYSICIAN] - 1 Week Activity/Diet/Wound Care/Special Instructions: Continue full liquid diet for today and then advance diet to Regular tomorrow Discharge Disposition: HOME SELF-CARE
--- NOTE | 2024-05-14 19:24 | P.PN ---
Progress Note - Text Progress Note Date: 05/14/24 - Chief Complaint Abdominal pain - History of Present Illness This is a pleasant 68-year-old patient, follows with GENERAL OPHTHALMOLOGIST Cindy Fong/Dr. Alvarez. Chronic stable medical conditions include COPD, prior PE on Eliquis, thyroid disorder, Raynaud's disease, arthritis, hepatitis B, IBS, umbilical hernia, previous right-sided chest tube, Wellbutrin. Patient 4 days ago started having mid abdominal increasing cramping. Nausea. Did vomited yesterday evening. No fever no chills. Had a very small BM like a rabbit terd, 2 days ago. Patient is accompanied by in the ER. May 14: Saw the patient this morning. Up in a chair. She did have a small bowel movement. Abdominal discomfort still present. Told the patient to ambulate. Patient has been advanced to full liquid for lunch. By surgery. No nausea vomiting Active Medications Bupropion HCl (Bupropion Xl 300 Mg Tab.Er.24h) 300 mg PO DAILY [facility] Last Admin: 05/14/24 07:40 Dose: 300 mg Enoxaparin Sodium (Enoxaparin 100 Mg/Ml Syringe) 100 mg SQ Q12HR [facility] Last Admin: 05/14/24 07:40 Dose: 100 mg Sodium Chloride (Saline 0.9%) 1,000 mls @ 130 mls/hr IV .[id number] [facility] Last Admin: 05/14/24 17:45 Dose: 130 mls/hr Metoprolol Tartrate (Metoprolol Tartrate 25 Mg Tab) 25 mg PO BID [facility] Last Admin: 05/14/24 07:40 Dose: 25 mg Morphine Sulfate (Morphine Sulfate 4 Mg/Ml Syringe) 4 mg IV Q4HR PRN PRN Reason: Severe Pain (Scale 7 to 10) Last Admin: 05/13/24 22:52 Dose: 4 mg Naloxone HCl (Naloxone 0.4 Mg/Ml 1 Ml Vial) 0.2 mg IV Q2M PRN PRN Reason: Opioid Reversal Ondansetron HCl (Ondansetron 4 Mg/2 Ml Vial) 4 mg IVP Q8HR PRN PRN Reason: Nausea And Vomiting Last Admin: 05/14/24 06:22 Dose: 4 mg Prochlorperazine Edisylate (Prochlorperazine Inj 10 Mg/2 Ml Vial) 10 mg IVP Q6HR PRN PRN Reason: Nausea And Vomiting Last Admin: 05/13/24 18:37 Dose: 10 mg Trimethobenzamide HCl (Trimethobenzamide 100 Mg/Ml 2 Ml Vial) 200 mg IM Q6HR PRN PRN Reason: Nausea Social history: Patient smoked a pack a day for close to 35 years. Stopped about 12 years ago. . Alcohol occasionally. Physical examination: VITAL SIGNS: 97.6, 71, 16, 130/80, 96% room air GENERAL: Sitting up in a chair EYES: Pupils equal. Conjunctiva mare l. HEENT: External appearance of nose and ears normal, oral cavity grossly normal. NECK: JVD not raised; masses not palpable. HEART: First and second heart sounds are normal; no edema. LUNGS: Respiratory rate normal; clear to auscultation. ABDOMEN: Soft, mild mid abdominal tenderness, no guarding rigidity r, liver spleen not palpable, no masses palpable. No distention PSYCH: Alert and oriented x3; mood and affect mare l. MUSCULOSKELETAL:No Clubbing/cyanosis;muscles-grossly intact. Some OA INVESTIGATIONS, reviewed in the clinical context: May 12: White count 10.2 hemoglobin 15 platelets 241 sodium 138 potassium 4.2 creatinine 0.[address] abdomen pelvis: Nonspecific bowel gas pattern. Partial mid small bowel obstruction with suspected with small bowel loops slightly dilated 3.3 cm. EKG tracing personally reviewed by me-normal sinus rhythm January 2024 Dobutamine stress echocardiogram: Normal CT scan of the brain: Chronic changes CT angio chest: Right thyroid lobe is enlarged containing an irregularly predominant cystic masslike lesion. This again causes some mass effect with bowing of the trachea towards the left thyroid mass Assessment plan: -Acute small bowel obstruction.: Slow improvement Had very small bowel movement. Increase activity. Advance to full liquid per surgery -History of PVCs Lopressor 25 twice daily -Right thyroid mass with a predominantly cystic appearance. Causing some mass effect with bowing of the trachea towards the left thyroid mass. Patient did follow-up with Dr. Ariel Charles from ENT. Normal TSH. -Raynaud's disease -IBS -Primary osteoarthritis Tylenol as needed -Chronic PE Eliquis-switch to subcu Lovenox for now -COPD in a prior smoker Albuterol as needed -Depression Wellbutrin XL Increase activity. Advance to full liquid per surgery. Thank Dr Brannon Past Medical History Past Medical History: COPD, Liver Disease, Pulmonary Embolus (PE), Thyroid Disorder Additional Past Medical History / Comment(s): emphysema, hernias, diverticulitis, right lung collapse, pulmonary embolism, raynauds disease, arthritis, hepatitis B, IBS, umbilical hernia, thyroid cyst History of Any Multi-Drug Resistant Organisms: None Reported Past Surgical History: Cholecystectomy, Hernia Repair Additional Past Surgical History / Comment(s): bowel resection, four hernia repairs, bladder suspension, chest tube placed and removed, previous thyroid biopsy, colonoscopies Past Anesthesia/Blood Transfusion Reactions: Previous Problems w/ Anesthesia, Postoperative Nausea & Vomiting (PONV) Additional Past Anesthesia/Blood Transfusion Reaction / Comm: pt. states she has a hard time waking up from surgery Past Psychological History: Depression Smoking Status: Never smoker Past Alcohol Use History: Occasional Past Drug Use History: Marijuana
[2024-05-15 07:38] VITALS: BP 130/80; PULSE 69; RESP 16; TEMP 98.1
--- NOTE | 2024-05-15 15:56 | P.PN ---
Progress Note - Text Progress Note Date: 05/15/24 - Chief Complaint Abdominal pain - History of Present Illness This is a pleasant 68-year-old patient, follows with [facility] Cindy Fong/Dr. Alvarez. Chronic stable medical conditions include COPD, prior PE on Eliquis, thyroid disorder, Raynaud's disease, arthritis, hepatitis B, IBS, umbilical hernia, previous right-sided chest tube, Wellbutrin. Patient 4 days ago started having mid abdominal increasing cramping. Nausea. Did vomited yesterday evening. No fever no chills. Had a very small BM like a rabbit terd, 2 days ago. Patient is accompanied by in the ER. May 14: Saw the patient this morning. Up in a chair. She did have a small bowel movement. Abdominal discomfort still present. Told the patient to ambulate. Patient has been advanced to full liquid for lunch. By surgery. No nausea vomiting May 15: Patient had a few good bowel movements. Abdominal pain has greatly improved. Doing well. Social history: Patient smoked a pack a day for close to 35 years. Stopped about 12 years ago. . Alcohol occasionally. Physical examination: VITAL SIGNS: 98.1, 69, 16, 130/80, 95% room air GENERAL: Sitting up in a chair EYES: Pupils equal. Conjunctiva mare l. HEENT: External appearance of nose and ears normal, oral cavity grossly normal. NECK: JVD not raised; masses not palpable. HEART: First and second heart sounds are normal; no edema. LUNGS: Respiratory rate normal; clear to auscultation. ABDOMEN: Soft, no tenderness, no guarding rigidity r, liver spleen not palpable, no masses palpable. No distention PSYCH: Alert and oriented x3; mood and affect mare l. MUSCULOSKELETAL:No Clubbing/cyanosis;muscles-grossly intact. Some OA INVESTIGATIONS, reviewed in the clinical context: May 12: White count 10.2 hemoglobin 15 platelets 241 sodium 138 potassium 4.2 creatinine 0.[address] abdomen pelvis: Nonspecific bowel gas pattern. Partial mid small bowel obstruction with suspected with small bowel loops slightly dilated 3.3 cm. EKG tracing personally reviewed by me-normal sinus rhythm January 2024 Dobutamine stress echocardiogram: Normal CT scan of the brain: Chronic changes CT angio chest: Right thyroid lobe is enlarged containing an irregularly predominant cystic masslike lesion. This again causes some mass effect with bowing of the trachea towards the left thyroid mass Assessment plan: -Acute small bowel obstruction.: Resolved -History of PVCs Lopressor 25 twice daily -Right thyroid mass with a predominantly cystic appearance. Causing some mass effect with bowing of the trachea towards the left thyroid mass. Patient did follow-up with Dr. Ariel Charles from ENT. Normal TSH. -Raynaud's disease -IBS -Primary osteoarthritis Tylenol as needed -Chronic PE Eliquis-switch to subcu Lovenox for now -COPD in a prior smoker Albuterol as needed -Depression Wellbutrin XL Discussed Thank Dr Brannon Past Medical History Past Medical History: COPD, Liver Disease, Pulmonary Embolus (PE), Thyroid Disorder Additional Past Medical History / Comment(s): emphysema, hernias, diverticulitis, right lung collapse, pulmonary embolism, raynauds disease, arthritis, hepatitis B, IBS, umbilical hernia, thyroid cyst History of Any Multi-Drug Resistant Organisms: None Reported Past Surgical History: Cholecystectomy, Hernia Repair Additional Past Surgical History / Comment(s): bowel resection, four hernia repairs, bladder suspension, chest tube placed and removed, previous thyroid biopsy, colonoscopies Past Anesthesia/Blood Transfusion Reactions: Previous Problems w/ Anesthesia, Postoperative Nausea & Vomiting (PONV) Additional Past Anesthesia/Blood Transfusion Reaction / Comm: pt. states she has a hard time waking up from surgery Past Psychological History: Depression Smoking Status: Never smoker Past Alcohol Use History: Occasional Past Drug Use History: Marijuana
== END 2024-05-15 10:50 | disposition home or self-care (01) | DRG 394 ==
LOC: EC 20:02 → 5NMEDONC 23:42
PROVIDERS: ADMIT Surgery; ATTEND Surgery
DX: K43.0 Incisional hernia with obstruction, without gangrene (principal); I27.82 Chronic pulmonary embolism; J43.9 Emphysema, unspecified; F32.A Depression, unspecified; E07.89 Other specified disorders of thyroid; I49.3 Ventricular premature depolarization; I73.00 Raynaud's syndrome without gangrene; K58.9 Irritable bowel syndrome, unspecified; M19.91 Primary osteoarthritis, unspecified site; Z79.01 Long term (current) use of anticoagulants; Z87.891 Personal history of nicotine dependence; Z79.899 Other long term (current) drug therapy; Z88.2 Allergy status to sulfonamides; Z91.040 Latex allergy status; Z91.018 Allergy to other foods; Z88.1 Allergy status to other antibiotic agents; Z98.890 Other specified postprocedural states; Z83.79 Family history of other diseases of the digestive system
CPT/HCPCS: 36415; 74177; 80053; 81001; 82150; 83690; 85025; 96361; 96374; 96375; 96376; 99285

== ENCOUNTER 2024-06-08 07:34 | Inpatient (IN) | payer MEDICARE ==
[2024-06-08] MEDS ORDERED: HYDROmorphone 0.5 MG/0.5 ML SYRINGE IVP PRN (07:56)
[2024-06-08] MEDS ORDERED: LIDOCAINE 1% (10MG/ML) FOR IV START INTRADERMA PRN (07:56)
[2024-06-08] MEDS ORDERED: SUCCINYLCHOLINE CHLORIDE 200 MG/10 ML VIAL IV ONE ×2 (08:00→11:29)
[2024-06-08] MEDS: IV FLUID CONTINUATION 1,000 ML IV ONE (08:10)
[2024-06-08] MEDS: ACETAMINOPHEN TAB 500 MG TAB PO PRN (08:38)
[2024-06-08] MEDS: LACTATED RINGERS 1,000 ML IV SCH ×2 (08:39→15:13)
[2024-06-08] MEDS: DEXAMETHASONE SOD PHOSPHATE 4 MG/ML 1 ML VIAL IV ONE (08:39)
[2024-06-08] MEDS: ONDANSETRON 4 MG/2 ML VIAL IVP ONE (08:39)
[2024-06-08] MEDS: SCOPOLAMINE 1 MG/72 HR PATCH TRANSDERM STA (09:08)
[2024-06-08] MEDS: MIDAZOLAM 2 MG/2 ML VIAL IVP ONE ×2 (09:28→14:32)
--- NOTE | 2024-06-08 09:43 | P.ANPRN ---
Procedure Note - Anesthesia - Nerve Block Performed Bilateral Erector Spinae Single Time Out Performed: Yes Date of Procedure: 06/08/24 Procedure Start Time: : Procedure Stop Time: :32 Location of Patient: PreOp Indication: Acute Post-Operative Pain, Analgesia, Requested by Surgeon Sedation Type: Sedate with meaningful contact maintained Preparation: Sterile Prep Position: Prone Catheter: None Needle Types: Pajunk Needle Gauge: 21 Ultrasound used to visualize needle placement: Yes Ultrasound used to observe medication spread: Yes Injectate: 0.5% Ropivacaine (see comment for volume) (Ropiv 20ml+decadron 4mg----Each side) Blood Aspirated: No Pain Paresthesia on Injection Noted: No Resistance on Injection: Normal Image Stored and Saved: Yes Events: Uneventful and Well Tolerated
[2024-06-08] MEDS: HEPARIN SODIUM,PORCINE 5,000 UNIT/ML 1 ML VIAL SQ PRN (10:56)
[2024-06-08] MEDS ORDERED: METOPROLOL TARTRATE 5 MG/5 ML VIAL IVP ONE (11:29)
[2024-06-08] MEDS ORDERED: LIDOCAINE 1% INJ 10MG/ML (20 ML MDV) ONE (11:29)
[2024-06-08] MEDS ORDERED: NALOXONE 0.4 MG/ML 1 ML VIAL ONE (11:29)
[2024-06-08] MEDS ORDERED: PROPOFOL 10 MG/ML 20 ML VIAL IV ONE (11:29)
[2024-06-08] MEDS ORDERED: diphenhydrAMINE 50 MG/ML 1 ML VIAL ONE (11:29)
[2024-06-08] MEDS ORDERED: FUROSEMIDE 10 MG/ML 2 ML VIAL ONE (11:29)
[2024-06-08] MEDS ORDERED: HYDROmorphone (PF) 1 MG/ML ONE (11:29)
[2024-06-08] MEDS ORDERED: GLYCOPYRROLATE 0.2 MG/ML 2 ML VIAL ONE (11:29)
[2024-06-08] MEDS ORDERED: SUGAMMADEX SODIUM 200 MG/2 ML SDV IV ONE (11:29)
[2024-06-08] MEDS ORDERED: DEXAMETHASONE SOD PHOSPHATE 4 MG/ML 1 ML VIAL ONE (11:29)
[2024-06-08] MEDS ORDERED: ROCURONIUM 10 MG/ML (5 ML VIAL) IV ONE (11:29)
[2024-06-08] MEDS ORDERED: fentaNYL (PF) 50 MCG/ML 2 ML AMP ONE (11:29)
[2024-06-08] MEDS ORDERED: NEOSTIGMINE 1 MG/ML 10 ML VIAL ONE (11:29)
[2024-06-08] MEDS ORDERED: ROPIVACAINE 5 MG/ML 30 ML VIAL ONE (11:29)
[2024-06-08] MEDS: LIDOCAINE 1%-EPI 1:100,000 20 ML VIAL SQ ONE (11:58)
[2024-06-08] MEDS: LACTATED RINGERS 1,000 ML IV ONE ×2 (12:10→13:51)
[2024-06-08] MEDS ORDERED: ACETAMINOPHEN TAB 325 MG TAB PO PRN (12:47)
[2024-06-08] MEDS ORDERED: NALOXONE 0.4 MG/ML 1 ML VIAL IV PRN (12:47)
[2024-06-08] MEDS ORDERED: HYDROcodone/APAP 5-325MG 1 EACH TAB PO PRN (12:47)
[2024-06-08] MEDS ORDERED: ONDANSETRON 4 MG/2 ML VIAL IVP PRN (12:47)
--- NOTE | 2024-06-08 12:47 | P.OP ---
Date of Procedure: 06/08/24 Preoperative Diagnosis: recurrent incisional hernia Postoperative Diagnosis: recurrent incisional hernia Procedure(s) Performed: open repair of recurrent incisional hernia Anesthesia: KATRIN Surgeon: Teo Brannon Estimated Blood Loss (ml): 25 Pathology: none sent Condition: stable Disposition: PACU Description of Procedure: patient's placed on the operative table in the supine position. She received general endotracheal incision. Her abdomen was prepped and draped usual [facility] hion. Patient had a large scar in lower abdomen. This was incised with a 15 blade. using left cautery the subcutaneous tissue and scar was excised. The subcutaneous tissue were divided away from the fascia external oblique. The hernia sac was seen on the left lower abdomen. Once the fascia was exposed. The hernia sac was invaginated and then using #1 Ethibond sutures in [id number] fashion the fascial defect was closed. This repair was incised by chest was Lemuel fix suture. After the hernia was closed. A piece of Prolene mesh was cut to appropriate size and secured with secure strap tacker. A MARY drain was placed over top of the mesh and brought out through separate stab incision. The wound was retrieved cyst. There is no bleeding seen. Gloria's fascia closewith 0 Vicryl.. Skin was closed francia. The prevena wound system was placed over top of the stapled skin.patient tolerated procedure well. She was sent to recovery room in stable condition.
[2024-06-08] MEDS: IPRATROPIUM 0.5 MG/2.5 ML NEBU INHALATION ONE (13:00)
[2024-06-08] MEDS: METOPROLOL TARTRATE 5 MG/5 ML VIAL IVP ONE (13:07)
[2024-06-08] MEDS: FUROSEMIDE 10 MG/ML 4 ML VIAL IV ONE ×2 (13:14)
--- NOTE | 2024-06-08 13:36 | XR ---
EXAMINATION TYPE: XR chest 1V portable DATE OF EXAM: 06/08/2024 COMPARISON: 12/30/2023 INDICATION: Difficulty breathing TECHNIQUE: Frontal views of the chest are obtained. Lungs are excluded from the [id number]. Patien t is combative. FINDINGS: The heart size is large. The pulmonary vasculature is prominent. Diffuse lung opacities are present bilaterally suspicious for pulmonary edema. Correlate for congesti ve heart failure. IMPRESSION: 1. Clinical correlation recommended for congestive heart failure. Follow-up commended.
[2024-06-08] MEDS: FUROSEMIDE 10 MG/ML 2 ML VIAL IV ONE ×2 (13:39→13:46)
[2024-06-08 14:00] LABS: Allen Test Performed? Yes
[2024-06-08 14:03] LABS: ABG Base Excess -8.8 mmol/L; ABG HCO3 20 mmol/L (21-25); ABG Oxygen Saturation 96.6 % (94-97); ABG PCO2 57 mmHg (35-45); ABG PO2 104 mmHg (83-108); ABG TCO2 22 mmol/L (19-24)
--- NOTE | 2024-06-08 14:10 | XR ---
EXAMINATION TYPE: XR chest 1V portable DATE OF EXAM: 06/08/2024 COMPARISON: 06/08/2024 earlier exam INDICATION: Intubation TECHNIQUE: Single frontal view of the chest is obtained. FINDINGS: The heart size is prominent. The pulmonary vasculature is prominent. Diffuse lung opacities are present bilaterally. Findings can be compatible with pulmonary edema and congestive heart failure. There is placement of an endotracheal tube with the tip 0.6 cm from the vivian. This should be back a pproximately 2 cm. IMPRESSION: 1. Endotracheal tube tip 0.6 cm above the vivian directed towards the right mainstem bronchus. This s hould be back 2 cm. 2. Findings compatible with congestive heart failure.
[2024-06-08 14:13] LABS: ABG PH 7.17 (7.35-7.45)
[2024-06-08 14:47] LABS: Glucose,Whole Blood 244 mg/dL (70-110)
[2024-06-08 14:52] LABS: African American GFR (CKD) >90 (>60 ml/min/1.73 sqM); Anion Gap 8 mmol/L; Blood Urea Nitrogen 15 mg/dL (7-17); Calcium 8.4 mg/dL (8.4-10.2); Carbon Dioxide 20 mmol/L (22-30); Chloride 108 mmol/L (98-107); Glucose 286 mg/dL (74-99); Non-African American GFR(CKD) 80 (>60 ml/min/1.73 sqM); Potassium 4.3 mmol/L (3.5-5.1); Sodium 136 mmol/L (137-145)
[2024-06-08] MEDS: propofoL 100 ML IV ONE (15:03)
[2024-06-08] MEDS: SODIUM CHLORIDE 0.9% 1,000 ML IV ONE (15:12)
[2024-06-08] MEDS ORDERED: DEXTROSE 50% SYRINGE 50 ML IVP PRN ×2 (15:49)
[2024-06-08] MEDS: NOREPINEPHRINE 4 MG in SODIUM CHLORIDE 0.9% 250 ML IV SCH (16:00)
[2024-06-08 16:49] LABS: HCT 39.2 % (34.0-46.0); HGB 12.5 gm/dL (11.4-16.0); MCH 29.9 pg (25.0-35.0); MCHC 31.9 g/dL (31.0-37.0); MCV 93.6 fL (80.0-100.0); Mean Platelet Volume 8.2; Platelet Count 227 k/uL (150-450); RBC 4.19 m/uL (3.80-5.40); RDW 13.3 % (11.5-15.5)
[2024-06-08 17:09] LABS: ABG Base Excess -3.1 mmol/L; ABG HCO3 22 mmol/L (21-25); ABG Oxygen Saturation 96.6 % (94-97); ABG PCO2 40 mmHg (35-45); ABG PH 7.35 (7.35-7.45); ABG PO2 82 mmHg (83-108); ABG TCO2 24 mmol/L (19-24); Allen Test Performed? Yes
[2024-06-08 17:30] LABS: Glucose,Whole Blood 144 mg/dL (70-110)
[2024-06-08] MEDS ORDERED: INSULIN ASPART (NovoLOG) 100 UNIT/ML VIAL SQ SCH (17:30)
[2024-06-08] MEDS: INSULIN ASPART (NovoLOG) 100 UNIT/ML VIAL SQ SCH (17:32)
--- NOTE | 2024-06-08 17:43 | P.CNPUL ---
History of Present Illness Consult date: 06/08/24 Requesting physician: Teo Brannon Reason for consult: other (Postoperative hypoxic respiratory and hypercapnic failure) Chief complaint: Umbilical hernia History of present illness: This is a 69-year-old female with history of multiple medical problems, patient underwent today open repair of recurrent incisional hernia. This was done under general endotracheal anesthesia, postoperatively, patient was sent to recovery room, extubated, however after extubation the patient developed significant shortness of breath, tachycardia, hypotension, and chest x-ray showed evidence of interstitial pulmonary edema. Patient had to be reintubated, admitted to the ICU, and this consult was initiated. In retrospect, I believe the patient may have developed negative pressure pulmonary edema requiring reintubation and mechanical ventilation. Patient did receive a 40 mg of Lasix postintubation, w ith some improvement. Her ABG before transfer to the ICU showed a pO2 of 104 pCO2 57 pH of 7.17 however after stabilizing the patient in the ICU and repeat ABG on 80% FiO2 while mechanically ventilated showed a pO2 of 82 pCO2 40 and pH of 7.35.WBC count 11 hemoglobin 12.5. Troponin came back at 0.231 and BNP level of 539 Review of Systems ROS unobtainable: due to endotracheal tube Past Medical History Past Medical History: Cancer, COPD, Deep Vein Thrombosis (DVT), Hypertension, Liver Disease, Pulmonary Embolus (PE), Thyroid Disorder Additional Past Medical History / Comment(s): emphysema, hernias, diverticulitis, right lung collapse, currently has "cluster" of pulmonary emboli per pt. takes Eliquis to treat, raynauds disease, arthritis, hepatitis B, IBS, umbilical hernia, thyroid cyst, lung collapse, some type of cancer at age 21, doesn't remember type went through cryo treatments History of Any Multi-Drug Resistant Organisms: None Reported Past Surgical History: Bladder Surgery, Bowel Resection, Cholecystectomy, Hernia Repair Additional Past Surgical History / Comment(s): bowel resection, four hernia repairs, bladder suspension, chest tube placed and removed, previous thyroid biopsy, colonoscopies Past Anesthesia/Blood Transfusion Reactions: Previous Problems w/ Anesthesia, Postoperative Nausea & Vomiting (PONV) Additional Past Anesthesia/Blood Transfusion Reaction / Comment(s): pt. states she has a hard time waking up from surgery Smoking Status: Former smoker - Past Family History Sister(s) Family Medical History: Thyroid Disorder Additional Family Medical History / Comment(s): partial thyroidectomy, pt. has an extensive family history of psychiatric disorders, her sister is schizophrenic Daughter(s) Family Medical History: Chest Pain / Angina, Thyroid Disorder Additional Family Medical History / Comment(s): partial thyroidectomy, history of v-tach and ablations Mother Family Medical History: Cancer Additional Family Medical History / Comment(s): liver cancer, pts mom from a bowel perforation and association sepsis, schizophrenia Father Family Medical History: Unable to Obtain Brother(s) Additional Family Medical History / Comment(s): psychiatric issues, schitzophrenic runs in family Medications and Allergies Home Medications Medication Instructions Recorded Confirmed Type buPROPion XL [Wellbutrin XL] 300 mg PO DAILY 01/05/20 06/08/24 History Apixaban [Eliquis] 5 mg PO BID 12/21/20 06/08/24 History Cholecalciferol [Vitamin D3 (25 25 mcg PO DAILY 12/21/20 06/08/24 History Mcg = 1000 Iu)] Calcium Carbonate [Calcium] 600 mg PO DAILY 05/13/24 06/08/24 History Metoprolol Tartrate [Lopressor] 50 mg PO BID 05/13/24 06/08/24 History Multivitamins, Thera [Multivitamin 1 tab PO DAILY 05/13/24 06/08/24 History (formulary)] Psyllium Husk (with Sugar) 0 gm PO DAILY #575 gm 05/15/24 06/08/24 Rx [Metamucil Powder] Allergies Allergy/AdvReac Type Severity Reaction Status Date / Time Latex, Natural Rubber Allergy Rash/Hives Verified 06/08/24 08:16 Sulfa (Sulfonamide Allergy Dyspnea Verified 06/08/24 08:16 Antibiotics) banana AdvReac Rash/Hives Verified 06/08/24 08:16 ciprofloxacin [From Cipro] AdvReac Rash/Hives Verified 06/08/24 08:16 [place] And Derivatives AdvReac Rash/Hives Verified 06/08/24 08:16 Physical Exam Vitals: Vital Signs Temp Pulse Pulse Pulse Resp BP BP 06/08/24 16:50 66 18 06/08/24 16:40 70 18 06/08/24 16:30 63 18 06/08/24 16:20 65 18 06/08/24 16:10 66 19 06/08/24 16:00 97.5 F L 68 18 89/53 06/08/24 15:50 69 18 06/08/24 15:40 71 18 85/58 06/08/24 15:30 67 18 81/45 06/08/24 15:23 06/08/24 15:20 72 18 81/45 06/08/24 15:10 75 18 74/41 06/08/24 15:00 77 18 72/44 06/08/24 14:50 84 18 81/46 06/08/24 14:15 84 14 129/67 06/08/24 14:00 85 14 126/66 06/08/24 13:45 90 13 118/57 06/08/24 13:41 06/08/24 13:39 06/08/24 13:30 102 H 18 102/98 06/08/24 13:28 107 H 16 136/60 06/08/24 13:22 109 H 16 205/93 06/08/24 13:18 189/78 06/08/24 13:16 125 H 18 183/115 06/08/24 12:59 140 H 31 H 189/78 06/08/24 09:50 78 16 149/72 06/08/24 08:20 97.6 F 76 16 144/81 Pulse Ox FiO2 06/08/24 16:50 95 06/08/24 16:40 96 06/08/24 16:30 98 06/08/24 16:20 95 06/08/24 16:10 95 06/08/24 16:00 95 100 06/08/24 15:50 95 06/08/24 15:40 95 06/08/24 15:30 95 06/08/24 15:23 100 06/08/24 15:20 94 L 06/08/24 15:10 95 06/08/24 15:00 94 L 06/08/24 14:50 94 L 100 06/08/24 14:15 95 100 06/08/24 14:00 94 L 100 06/08/24 13:45 95 06/08/24 13:41 100 06/08/24 13:39 100 06/08/24 13:30 98 100 06/08/24 13:28 95 100 06/08/24 13:22 66 L 06/08/24 13:18 06/08/24 13:16 84 L 06/08/24 12:59 85 L 06/08/24 09:50 96 06/08/24 08:20 97 Intake and Output 06/08/24 06/08/24 06/08/24 06:59 14:59 22:59 Intake Total 5132.507 4632.935 Output Total 325 575 Balance 1342.361 723.935 Intake: IV 1650 1270 LR KVO 20 Lactated Ringers 1,000 ml 250 @ 125 mls/hr IV .Q8H MARCELO Rx#:[id number] Sodium Chloride 0.9% 1, 1000 000 ml @ 999 mls/hr IV . Q1H1M ONE Rx#:[id number] Intake, IV Titration 17. 28.935 Amount propofoL 1,000 mg In 17.361 28.935 Empty Bag 1 bag @ 10 MCG/ KG/MIN 7.086 mls/hr IV . Q14H7M MARCELO Rx#:[id number] Output: Urine 300 575 Estimated Blood Loss 25 Other: Weight 118.1 kg ABP, PAP, CO, CI - Last 8 Hours Arterial Blood Pressure 95/69 Arterial Blood Pressure 123/73 Arterial Blood Pressure 107/63 Arterial Blood Pressure 98/58 Arterial Blood Pressure 87/52 Arterial Blood Pressure 88/53 Arterial Blood Pressure 90/54 Arterial Blood Pressure 104/61 Arterial Blood Pressure 95/58 Arterial Blood Pressure 87/54 Arterial Blood Pressure 76/49 Arterial Blood Pressure 74/48 Arterial Blood Pressure 70/42 General: Reveals 69-year-old female obese intubated mechanically ventilated Head: Atraumatic, normocephalic Skin: Skin is warm and dry and no rashes or lesions are noted. Eye: Pupils are pinpoint, extra-ocular movements are intact; there is normal conjunctiva bilaterally. Ears, nose, mouth and throat: There are moist mucous membranes and no oral lesions. Neck: The neck is supple, there is no tenderness or JVD. Cardiovascular: Distant S1-S2, no S3 gallop, no murmur. Respiratory: Very minimal crackles at the bases no rhonchi no wheezes Gastrointestinal: Postsurgical abdomen soft, non-distended, non-tender abdomen and wound VAC is noted. Musculoskeletal: No deformities noted. Neurological: Could not assess, patient is intubated sedated and mechanically ventilated Psychiatric: Could not assess Results - Laboratory Findings CBC and BMP: 06/08/24 16:35 06/08/24 14:09 ABG ABG pH 7.35 (7.35-7.45) 06/08/24 17:07 ABG pCO2 40 mmHg (35-45) 06/08/24 17:07 ABG pO2 82 mmHg (83-108) L 06/08/24 17:07 ABG O2 Saturation 96.6 % (94-97) 06/08/24 17:07 Abnormal lab findings: Abnormal Labs 06/08/24 06/08/24 06/08/24 13:46 14:09 14:46 WBC ABG pH 7.17 L* ABG pCO2 57 H ABG pO2 ABG HCO3 20 L Sodium 136 L Chloride 108 H Carbon Dioxide 20 L Glucose 286 H POC Glucose (mg/dL) 244 H Troponin I 06/08/24 06/08/24 06/08/24 16:35 16:35 17:07 WBC 11.0 H ABG pH ABG pCO2 ABG pO2 82 L ABG HCO3 Sodium Chloride Carbon Dioxide Glucose POC Glucose (mg/dL) Troponin I 0.231 H* - Diagnostic Findings Chest x-ray: image reviewed (Chest x-ray is clearly suggestive of acute congest yeny heart failure/pulmonary edema) Assessment and Plan Assessment: Impression: Acute hypoxic and hypercapnic respiratory failure post incisional hernia repair Strongly suspect negative pressure pulmonary edema, rule out acute non-ST elevation myocardial infarction Moderate coronary artery calcification based on previous CT scan History of DVT and pulmonary embolism, 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 History of depression Recommendation: Continue ventilatory support Diurese patient gently Use norepinephrine for low blood pressure for now if needed Place on Lovenox 80 mg SQ twice daily Cardiology to see on consultation Consider echocardiogram in a.m. Resume home meds including bronchodilators Repeat chest x-ray in a.m. and consider extubation in a.m. Will continue to follow. Time with Patient: Greater than 30
--- NOTE | 2024-06-08 17:51 | P.ANPRN ---
Procedure Note - Anesthesia - Invasive Line Left Arterial Line Time Out Performed: Yes Date of Procedure: 06/08/24 Location of Patient: PreOp Preparation: Sterile Prep, Sterile Dressing Arterial Line Location: Radial Ultrasound Used: No Purpose - Visualization and Identification of Vasculature: No Image Stored and Saved: No Narrative: Invasive line placement per sterile protocol utilized.
[2024-06-08] MEDS: FUROSEMIDE 10 MG/ML 4 ML VIAL IV STA (18:11)
[2024-06-08] MEDS: HYDROmorphone 1 MG/ML 1 ML SYRINGE IVP PRN (20:01)
[2024-06-08] MEDS: METOPROLOL TARTRATE 50 MG TAB PO SCH (20:01)
[2024-06-08] MEDS: ENOXAPARIN 40 MG/0.4 ML SYRINGE SQ SCH (20:01)
[2024-06-08] MEDS ORDERED: ENOXAPARIN 80 MG/0.8 ML SYRINGE SQ SCH (21:00)
[2024-06-08] MEDS: CHLORHEXIDINE GLUCONATE 15 ML CUP MUCOUS MEM SCH (22:01)
--- NOTE | 2024-06-08 22:38 | P.CONS ---
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 Patient is status post open repair of recurrent incisional hernia. Patient had general anesthesia during surgery and was sent to recovery room. After extubation patient started having severe shortness of breath and was also hypotensive and tachycardic. Chest x-ray showed clinical correlation recommended for CHF. Patient was intubated again and was transferred to MICU. Patient was also requiring pressor support. Patient was given a dose of 40 mg IV Lasix postintubation. ABG showed 7.17, pCO2 57 pO2 104 and bicarb is 20 Other laboratory data showed sodium 136 potassium 4.3 chloride 108 bicarb is 20 BUN 15 creatinine 0.77 Blood sugar 286 and calcium 8.4. proBNP 539 and troponin 0.231 Patient is chronically hypotensive as per her at bedside. Review of Systems ROS unobtainable: due to endotracheal tube, due to mental status Past Medical History Past Medical History: Cancer, COPD, Deep Vein Thrombosis (DVT), Hypertension, Liver Disease, Pulmonary Embolus (PE), Thyroid Disorder Additional Past Medical History / Comment(s): emphysema, hernias, diverticulitis, right lung collapse, currently has "cluster" of pulmonary emboli per pt. takes Eliquis to treat, raynauds disease, arthritis, hepatitis B, IBS, umbilical hernia, thyroid cyst, lung collapse, some type of cancer at age 21, doesn't remember type went through cryo treatments History of Any Multi-Drug Resistant Organisms: None Reported Past Surgical History: Bladder Surgery, Bowel Resection, Cholecystectomy, Hernia Repair Additional Past Surgical History / Comment(s): bowel resection, four hernia repairs, bladder suspension, chest tube placed and removed, previous thyroid biopsy, colonoscopies Past Anesthesia/Blood Transfusion Reactions: Previous Problems w/ Anesthesia, Postoperative Nausea & Vomiting (PONV) Additional Past Anesthesia/Blood Transfusion Reaction / Comm: pt. states she has a hard time waking up from surgery Smoking Status: Former smoker - Past Family History Sister(s) Family Medical History: Thyroid Disorder Additional Family Medical History / Comment(s): partial thyroidectomy, pt. has an extensive family history of psychiatric disorders, her sister is schizophrenic Daughter(s) Family Medical History: Chest Pain / Angina, Thyroid Disorder Additional Family Medical History / Comment(s): partial thyroidectomy, history of v-tach and ablations Mother Family Medical History: Cancer Additional Family Medical History / Comment(s): liver cancer, pts mom from a bowel perforation and association sepsis, schizophrenia Father Family Medical History: Unable to Obtain Brother(s) Additional Family Medical History / Comment(s): psychiatric issues, schitzophrenic runs in family Medications and Allergies Home Medications Medication Instructions Recorded Confirmed Type buPROPion XL [Wellbutrin XL] 300 mg PO DAILY 01/05/20 06/08/24 History Apixaban [Eliquis] 5 mg PO BID 12/21/20 06/08/24 History Cholecalciferol [Vitamin D3 (25 25 mcg PO DAILY 12/21/20 06/08/24 History Mcg = 1000 Iu)] Calcium Carbonate [Calcium] 600 mg PO DAILY 05/13/24 06/08/24 History Metoprolol Tartrate [Lopressor] 50 mg PO BID 05/13/24 06/08/24 History Multivitamins, Thera [Multivitamin 1 tab PO DAILY 05/13/24 06/08/24 History (formulary)] Psyllium Husk (with Sugar) 0 gm PO DAILY #575 gm 05/15/24 06/08/24 Rx [Metamucil Powder] Allergies Allergy/AdvReac Type Severity Reaction Status Date / Time Latex, Natural Rubber Allergy Rash/Hives Verified 06/08/24 08:16 Sulfa (Sulfonamide Allergy Dyspnea Verified 06/08/24 08:16 Antibiotics) banana AdvReac Rash/Hives Verified 06/08/24 08:16 ciprofloxacin [From Cipro] AdvReac Rash/Hives Verified 06/08/24 08:16 [place] [employer] Derivatives AdvReac Rash/Hives Verified 06/08/24 08:16 Physical Exam Vitals: Vital Signs Temp Pulse Pulse Pulse Resp BP BP 06/08/24 15:30 67 18 81/45 06/08/24 15:23 06/08/24 15:20 72 18 81/45 06/08/24 15:10 75 18 74/41 07/08/24 15:00 77 18 72/44 06/08/24 14:50 84 18 81/46 06/08/24 14:15 84 14 129/67 06/08/24 14:00 85 14 126/66 06/08/24 13:45 90 13 118/57 06/08/24 13:41 06/08/24 13:39 06/08/24 13:30 102 H 18 102/98 06/08/24 13:28 107 H 16 136/60 06/08/24 13:22 109 H 16 205/93 06/08/24 13:18 189/78 06/08/24 13:16 125 H 18 183/115 06/08/24 12:59 140 H 31 H 189/78 06/08/24 09:50 78 16 149/72 06/08/24 08:20 97.6 F 76 16 144/81 Pulse Ox FiO2 06/08/24 15:30 95 06/08/24 15:23 100 06/08/24 15:20 94 L 06/08/24 15:10 95 06/08/24 15:00 94 L 06/08/24 14:50 94 L 100 06/08/24 14:15 95 100 06/08/24 14:00 94 L 100 06/08/24 13:45 95 06/08/24 13:41 100 06/08/24 13:39 100 06/08/24 13:30 98 100 06/08/24 13:28 95 100 06/08/24 13:22 66 L 06/08/24 13:18 06/08/24 13:16 84 L 06/08/24 12:59 85 L 06/08/24 09:50 96 06/08/24 08:20 97 Intake and Output 06/08/24 06/08/24 06/08/24 06:59 14:59 22:59 Intake Total 1667.361 Output Total 325 Balance 1342.361 Intake: IV 1650 Intake, IV Titration 17.361 Amount propofoL 1,000 mg In 17.361 Empty Bag 1 bag @ 10 MCG/ KG/MIN 7.086 mls/hr IV . Q14H7M [facility] Rx#:[id number] Output: Urine 300 Estimated Blood Loss 25 Other: Weight 118.1 kg ABP, PAP, CO, CI - Last 8 Hours Arterial Blood Pressure 95/58 Arterial Blood Pressure 87/54 Arterial Blood Pressure 76/49 Arterial Blood Pressure 74/48 Arterial Blood Pressure 70/42 PHYSICAL EXAMINATION: Patient is currently on mechanical ventilator. Sedated. HEENT: Normocephalic. Neck is supple. Pupils reactive. Nostrils clear. Oral cavity is moist. Neck reveals no JVD, carotid bruits, or thyromegaly. CHEST EXAMINATION: Trachea is central. Symmetrical expansion. Bibasilar diminished sounds. Lung cruz clear to auscultation and percussion. CARDIAC: Normal S1, S2 with no gallops. No murmurs ABDOMEN: Soft. Bowel sounds normal. No organomegaly. No abdominal bruits. Extremities: reveal no edema. No clubbing or cyanosis Neurologically sedated and intubated.. No gross focal deficits noted Skin: No rash or skin lesions. Psychiatric: Could not be assessed at this time Musculoskeletal: No joint swelling or deformity. Results CBC & Chem 7: 06/08/24 16:35 06/08/24 14:09 Labs: Abnormal Lab Results - Last 24 Hours (Table) 06/08/24 06/08/24 06/08/24 Range/Units 13:46 14:09 14:46 ABG pH 7.17 L* (7.35-7.45) ABG pCO2 57 H (35-45) mmHg ABG HCO3 20 L (21-25) mmol/L Sodium 136 L (137-145) mmol/L Chloride 108 H (98-107) mmol/L Carbon Dioxide 20 L (22-30) mmol/L Glucose 286 H (74-99) mg/dL POC Glucose (mg/dL) 244 H (70-110) mg/dL Assessment and Plan Assessment: Acute hypoxic and hypercapnic respiratory failure due to pulmonary edema. Postextubation. Currently reintubated requiring mechanical ventilator. Suspect flash pulm edema due to negative pressure after extubation Status post incisional hernia repair postoperative day 0 History of DVT/PE currently on Eliquis at home. Changed to Lovenox twice daily Anxiety/depression Prior history of smoking Hepatitis B Hypothyroidism Hyperglycemia Morbid obesity with a BMI of 43.2 DVT prophylaxis. On Lovenox subcu now Plan: Patient is currently intubated and on mechanical soft ventilator. Was given a dose of IV Lasix 40 mg x 1. Continue to monitor respiratory status. Levophed drip as needed. With insulin sliding scale and regimen for better blood sugar control. Continue with pain management and follow-up closely. Discussed with her at bedside in detail. Prognosis guarded. Critical care team is on board. Further recommendations based on the clinical course. Thank you kindly for your consult. Time with Patient: Greater than 30
[2024-06-08 23:13] LABS: Glucose,Whole Blood 138 mg/dL (70-110)
[2024-06-09 04:58] LABS: Basophils % (A) 0 %; Eosinophils % (A) 0 %; HCT 39.9 % (34.0-46.0); Lymphocytes # (A) 1.4 k/uL (1.0-4.8); Lymphocytes % (A) 11 %; MCH 29.7 pg (25.0-35.0); MCHC 32.5 g/dL (31.0-37.0); MCV 91.4 fL (80.0-100.0); Mean Platelet Volume 8.5; Monocytes # (A) 0.6 k/uL (0-1.0); Monocytes % (A) 5 %; Neutrophils # (A) 10.6 k/uL (1.3-7.7); Neutrophils % (A) 84 %; Platelet Count 227 k/uL (150-450); RBC 4.36 m/uL (3.80-5.40); RDW 13.4 % (11.5-15.5); WBC 12.6 k/uL (3.8-10.6)
[2024-06-09 05:10] LABS: African American GFR (CKD) >90 (>60 ml/min/1.73 sqM); Anion Gap 5 mmol/L; Blood Urea Nitrogen 15 mg/dL (7-17); Calcium 8.7 mg/dL (8.4-10.2); Carbon Dioxide 22 mmol/L (22-30); Chloride 108 mmol/L (98-107); Glucose 118 mg/dL (74-99); Non-African American GFR(CKD) >90 (>60 ml/min/1.73 sqM); Potassium 3.6 mmol/L (3.5-5.1); Sodium 135 mmol/L (137-145)
[2024-06-09 05:59] LABS: Glucose,Whole Blood 110 mg/dL (70-110)
[2024-06-09] MEDS ORDERED: Potassium Replacement Protocol 1 EACH MISC MISCELLANE PRN (06:07)
[2024-06-09 06:20] LABS: ABG Base Excess 1.1 mmol/L; ABG HCO3 24 mmol/L (21-25); ABG Oxygen Saturation 96.4 % (94-97); ABG PCO2 33 mmHg (35-45); ABG PH 7.48 (7.35-7.45); ABG PO2 73 mmHg (83-108); ABG TCO2 25 mmol/L (19-24); Allen Test Performed? Yes
[2024-06-09] MEDS: POTASSIUM BICARBONATE/CIT AC 20 MEQ TABLET.EFF NG-TUBE SCH (06:49)
--- NOTE | 2024-06-09 07:56 | XR ---
EXAMINATION TYPE: XR chest 1V portable DATE OF EXAM: 06/09/2024 COMPARISON: 06/08/2024 INDICATION: Pulmonary edema TECHNIQUE: Single frontal view of the chest is obtained. FINDINGS: The heart size is upper limits for normal. The pulmonary vasculature is somewhat prominent. Diffuse increased lung markings are present. This may be more focal in the medial right lower lobe. M inimal left pleural effusion may be present. Endotracheal tube tipr there is 2.6 cm above the vivian. Nasogastric tube tip is within the right abd omen. IMPRESSION: 1. Improving pulmonary edema. Continued follow-up is recommended
[2024-06-09] MEDS: buPROPion XL 300 MG TAB.ER.24H PO SCH (08:20)
[2024-06-09] MEDS: PANTOPRAZOLE 40 MG/10 ML VIAL IVP SCH (08:20)
[2024-06-09] MEDS ORDERED: ENOXAPARIN 40 MG/0.4 ML SYRINGE SQ SCH (09:00)
--- NOTE | 2024-06-09 10:17 | US ---
EXAMINATION TYPE: US venous doppler duplex LE BI DATE OF EXAM: 06/09/2024 9:19 AM COMPARISON: NONE CLINICAL INDICATION: Female, 69 years old with history of Hypoxemia, post op; hypoxia SIDE PERFORMED: Bilateral ICU patient on vent and unable to move legs TECHNIQUE: The lower extremity deep venous system is examined utilizing real time linear array sonog mohini with graded compression, doppler sonography and color-flow sonography. VESSELS IMAGED: Common Femoral Vein Deep Femoral Vein Greater Saphenous Vein * Femoral Vein Popliteal Vein Small Saphenous Vein * Proximal Calf Veins (* superficial vessels) Right Leg: No evidence for DVT in vessels seen. Popliteal vein limited, calf veins not seen Left Leg: No evidence for DVT in vessels seen. Popliteal vein limited, calf veins not seen IMPRESSION: Grayscale, color doppler, spectral doppler imaging performed of the deep veins of the lo wer extremities. There is normal flow, compressibility, vascular waveforms.
[2024-06-09] MEDS: FUROSEMIDE 10 MG/ML 4 ML VIAL IV STA (11:37)
[2024-06-09 12:08] LABS: Glucose,Whole Blood 99 mg/dL (70-110)
--- NOTE | 2024-06-09 12:18 | P.PN ---
Subjective Progress Note Date: 06/09/24 Patient remains on the ventilator. Patient has severe negative pressure pulmonary edema. Her chest x-ray actually looks worsened compared to yesterday. She is not on any pressors. They have adjusted her PEEP pressures to maintain her saturation today. On exam vital signs appear stable. Abdomen is soft incisions clean dry intact Status post repair of incisional hernia with immediate postoperative negative pressure pulmonary edema required intubation. Patient will be managed by the poultry helper. She is stable to start tube feeds. Objective - Vital Signs Vital signs: Vital Signs Temp 98.2 F 06/09/24 08:00 Pulse 58 L 06/09/24 12:00 Resp 18 06/09/24 12:00 BP 96/55 06/09/24 12:00 Pulse Ox 97 06/09/24 12:00 FiO2 50 06/09/24 10:32 Intake & Output 06/08/24 06/09/24 06/09/24 18:59 06:59 18:59 Intake Total 2988.546 468.675 250 Output Total 1215 1880 225 Balance 1773.546 -1411.325 25 Weight 121.5 kg 121 kg 121 kg Intake: IV 2940 200 50 LR KVO 40 200 50 Lactated Ringers 1,000 ml 250 @ 125 mls/hr IV .Q8H [facility] Rx#:[id number] Sodium Chloride 0.9% 1, 1000 000 ml @ 999 mls/hr IV . Q1H1M [facility] Rx#:[id number] Intake, IV Titration 48.546 268.675 200 Amount Norepinephrine 4 mg In 2.25 Sodium Chloride 0.9% 250 ml @ 0.03 MCG/KG/MIN 13. 499 mls/hr IV .[id number] [facility] Rx#:[id number] propofoL 1,000 mg In 46.296 268.675 200 Empty Bag 1 bag @ 10 MCG/ KG/MIN 7.086 mls/hr IV . Q14H7M [facility] Rx#:[id number] Output: Drainage 60 50 Left Lower Abdomen 60 50 Urine 1190 1820 175 Estimated Blood Loss 25 ABP, PAP, CO, CI - Last Documented Arterial Blood Pressure 110/55 - Labs CBC & Chem 7: 06/09/24 04:40 06/09/24 04:40 Labs: Abnormal Lab Results - Last 24 Hours (Table) 07/07/2506/08/24 06/08/24 Range/Units 13:46 14:09 14:46 WBC (3.8-10.6) k/uL Neutrophils # (1.3-7.7) k/uL ABG pH 7.17 L* (7.35-7.45) ABG pCO2 57 H (35-45) mmHg ABG pO2 (83-108) mmHg ABG HCO3 20 L (21-25) mmol/L ABG Total CO2 (19-24) mmol/L Sodium 136 L (137-145) mmol/L Chloride 108 H (98-107) mmol/L Carbon Dioxide 20 L (22-30) mmol/L Glucose 286 H (74-99) mg/dL POC Glucose (mg/dL) 244 H (70-110) mg/dL Troponin I (0.000-0.034) ng/mL 06/08/24 06/08/24 06/08/24 Range/Units 16:35 16:35 17:07 WBC 11.0 H (3.8-10.6) k/uL Neutrophils # (1.3-7.7) k/uL ABG pH (7.35-7.45) ABG pCO2 (35-45) mmHg ABG pO2 82 L (83-108) mmHg ABG HCO3 (21-25) mmol/L ABG Total CO2 (19-24) mmol/L Sodium (137-145) mmol/L Chloride (98-107) mmol/L Carbon Dioxide (22-30) mmol/L Glucose (74-99) mg/dL POC Glucose (mg/dL) (70-110) mg/dL Troponin I 0.231 H* (0.000-0.034) ng/mL 06/08/24 06/08/24 06/08/24 Range/Units 17:28 22:15 23:12 WBC (3.8-10.6) k/uL Neutrophils # (1.3-7.7) k/uL ABG pH (7.35-7.45) ABG pCO2 (35-45) mmHg ABG pO2 (83-108) mmHg ABG HCO3 (21-25) mmol/L ABG Total CO2 (19-24) mmol/L Sodium (137-145) mmol/L Chloride (98-107) mmol/L Carbon Dioxide (22-30) mmol/L Glucose (74-99) mg/dL POC Glucose (mg/dL) 144 H 138 H (70-110) mg/dL Troponin I 0.345 H* (0.000-0.034) ng/mL 06/09/24 06/09/24 06/09/24 Range/Units 04:40 04:40 06:17 WBC 12.6 H (3.8-10.6) k/uL Neutrophils # 10.6 H (1.3-7.7) k/uL ABG pH 7.48 H (7.35-7.45) ABG pCO2 33 L (35-45) mmHg ABG pO2 73 L (83-108) mmHg ABG HCO3 (21-25) mmol/L ABG Total CO2 25 H (19-24) mmol/L Sodium 135 L (137-145) mmol/L Chloride 108 H (98-107) mmol/L Carbon Dioxide (22-30) mmol/L Glucose 118 H (74-99) mg/dL POC Glucose (mg/dL) (70-110) mg/dL Troponin I (0.000-0.034) ng/mL
--- NOTE | 2024-06-09 12:38 | P.PN ---
Subjective Progress Note Date: 06/09/24 Principal diagnosis: Acute hypoxic and hypercapnic respiratory failure secondary to negative pressure pulmonary edema This is a 69-year-old female with history of multiple medical problems, patient underwent today open repair of recurrent incisional hernia. This was done under general endotracheal anesthesia, postoperatively, patient was sent to recovery room, extubated, however after extubation the patient developed significant shortness of breath, tachycardia, hypotension, and chest x-ray showed evidence of interstitial pulmonary edema. Patient had to be reintubated, admitted to the ICU, and this consult was initiated. In retrospect, I believe the patient may have developed negative pressure pulmonary edema requiring reintubation and mechanical ventilation. Patient did receive a 40 mg of Lasix postintubation, with some improvement. Her ABG before transfer to the ICU showed a pO2 of 104 pCO2 57 pH of 7.17 however after stabilizing the patient in the ICU and repeat ABG on 80% FiO2 while mechanically ventilated showed a pO2 of 82 pCO2 40 and pH of 7.35.WBC count 11 hemoglobin 12.5. Troponin came back at 0.231 and BNP level of 539 Patient was read today on 06/09/2024, patient remains intubated and mechanically ventilated, patient was admitted to the ICU yesterday after surgery on repair of incisional hernia. Patient is on mechanical ventilation, assist-control rate of 18 tidal volume 500 FiO2 50% and PEEP of 10 ABG is marginal with a pO2 of 73 pCO2 33 pH of 7.48. Patient remains on propofol, not requiring any norepinephrine for hemodynamic support. She did receive Lasix 40 mg IV push earlier, chest x-ray is showing improvement however her blood gases remain marginal and the chest x-ray continues to show evidence of interstitial edema. Troponin level is elevated at 0.345, follow-up troponin is pending, cardiology consultation is pending, echocardiogram was performed, results of pending. Looking back at the Lovenox dose, has been changed by surgery on the case from 80 mg SQ twice daily to 40 mg twice daily, however considering the patient's risk for DVT and pulmonary embolism is rather high, I am recommending now a CT angiogram of the chest to rule out pulmonary embolism. She will also have a venous Doppler. Patient is clearly not quite ready for extubation at this point considering her ABG is marginal, and nurse taking care of the patient noted that the patient desaturated easily upon cutting down the propofol from 45-40 hence was updated on her condition at bedside, and the patient will remain on present supportive care measures, remains on diuretics, and will arrange for CT angiogram of the chest and venous Dopplers today Objective - Vital Signs Vital signs: Vital Signs Temp 98.2 F 06/09/24 08:00 Pulse 58 L 06/09/24 12:00 Resp 18 06/09/24 12:00 BP 96/55 06/09/24 12:00 Pulse Ox 97 06/09/24 12:00 FiO2 80 06/09/24 12:00 Intake & Output 06/08/24 06/09/24 06/09/24 18:59 06:59 18:59 Intake Total 2988.546 468.675 260 Output Total 1215 1880 285 Balance 1773.546 -1411.325 -25 Weight 121.5 kg 121 kg 121 kg Intake: IV 2940 200 60 LR KVO 40 200 60 Lactated Ringers 1,000 ml 250 @ 125 mls/hr IV .Q8H [facility] Rx#:[id number] Sodium Chloride 0.9% 1, 1000 000 ml @ 999 mls/hr IV . Q1H1M [facility] Rx#:[id number] Intake, IV Titration 48.546 268.675 200 Amount Norepinephrine 4 mg In 2.25 Sodium Chloride 0.9% 250 ml @ 0.03 MCG/KG/MIN 13. 499 mls/hr IV .[id number] [facility] Rx#:[id number] propofoL 1,000 mg In 46.296 268.675 200 Empty Bag 1 bag @ 10 MCG/ KG/MIN 7.086 mls/hr IV . Q14H7M [facility] Rx#:[id number] Output: Drainage 60 50 Left Lower Abdomen 60 50 Urine 1190 1820 235 Estimated Blood Loss 25 ABP, PAP, CO, CI - Last Documented Arterial Blood Pressure 110/55 - Exam General: Reveals 69-year-old female obese intubated mechanically ventilated Head: Atraumatic, normocephalic Skin: Skin is warm and dry and no rashes or lesions are noted. Eye: Pupils are pinpoint, extra-ocular movements are intact; there is normal conjunctiva bilaterally. Ears, nose, mouth and throat: There are moist mucous membranes and no oral lesions. Neck: The neck is supple, there is no tenderness or JVD. Cardiovascular: Distant S1-S2, no S3 gallop, no murmur. Respiratory: Very minimal crackles at the bases no rhonchi no wheezes Gastrointestinal: Postsurgical abdomen soft, non-distended, non-tender abdomen and wound VAC is noted. Musculoskeletal: No deformities noted. Neurological: Could not assess, patient is intubated sedated and mechanically ve ntilated Psychiatric: Could not assess - Labs CBC & Chem 7: 06/09/24 04:40 06/09/24 04:40 Labs: Abnormal Lab Results - Last 24 Hours (Table) 06/08/24 06/08/24 06/08/24 Range/Units 13:46 14:09 14:46 WBC (3.8-10.6) k/uL Neutrophils # (1.3-7.7) k/uL ABG pH 7.17 L* (7.35-7.45) ABG pCO2 57 H (35-45) mmHg ABG pO2 (83-108) mmHg ABG HCO3 20 L (21-25) mmol/L ABG Total CO2 (19-24) mmol/L Sodium 136 L (137-145) mmol/L Chloride 108 H (98-107) mmol/L Carbon Dioxide 20 L (22-30) mmol/L Glucose 286 H (74-99) mg/dL POC Glucose (mg/dL) 244 H (70-110) mg/dL Troponin I (0.000-0.034) ng/mL 06/08/24 06/08/24 06/08/24 Range/Units 16:35 16:35 17:07 WBC 11.0 H (3.8-10.6) k/uL Neutrophils # (1.3-7.7) k/uL ABG pH (7.35-7.45) ABG pCO2 (35-45) mmHg ABG pO2 82 L (83-108) mmHg ABG HCO3 (21-25) mmol/L ABG Total CO2 (19-24) mmol/L Sodium (137-145) mmol/L Chloride (98-107) mmol/L Carbon Dioxide (22-30) mmol/L Glucose (74-99) mg/dL POC Glucose (mg/dL) (70-110) mg/dL Troponin I 0.231 H* (0.000-0.034) ng/mL 06/08/24 06/08/2406/08/24 Range/Units 17:28 22:15 23:12 WBC (3.8-10.6) k/uL Neutrophils # (1.3-7.7) k/uL ABG pH (7.35-7.45) ABG pCO2 (35-45) mmHg ABG pO2 (83-108) mmHg ABG HCO3 (21-25) mmol/L ABG Total CO2 (19-24) mmol/L Sodium (137-145) mmol/L Chloride (98-107) mmol/L Carbon Dioxide (22-30) mmol/L Glucose (74-99) mg/dL POC Glucose (mg/dL) 144 H 138 H (70-110) mg/dL Troponin I 0.345 H* (0.000-0.034) ng/mL 06/09/24 06/09/24 06/09/24 Range/Units 04:40 04:40 06:17 WBC 12.6 H (3.8-10.6) k/uL Neutrophils # 10.6 H (1.3-7.7) k/uL ABG pH 7.48 H (7.35-7.45) ABG pCO2 33 L (35-45) mmHg ABG pO2 73 L (83-108) mmHg ABG HCO3 (21-25) mmol/L ABG Total CO2 25 H (19-24) mmol/L Sodium 135 L (137-145) mmol/L Chloride 108 H (98-107) mmol/L Carbon Dioxide (22-30) mmol/L Glucose 118 H (74-99) mg/dL POC Glucose (mg/dL) (70-110) mg/dL Troponin I (0.000-0.034) ng/mL Assessment and Plan Assessment: Impression: Acute hypoxic and hypercapnic respiratory failure post incisional hernia repair Strongly suspect negative pressure pulmonary edema, rule out acute non-ST elevation myocardial infarction troponin is elevated, cardiology consultation is pending, echocardiogram is pending Moderate coronary artery calcification based on previous CT scan History of DVT and pulmonary embolism, 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 History of depression Recommendation: Continue ventilatory support Patient is clearly not ready to be weaned and extubated at this point, Continue diuretics Ideally speaking her Lovenox dose should be 80 mg SQ twice daily, but that seems to be concerning to surgery on the case and changed to 40 mg twice daily considering this I would recommend CT angiogram of the chest now. Continue bronchodilators Daily x-rays of the chest Daily trial of sedation holidays and assessment for weaning Overall prognosis remains guarded Updated her on her condition at bedside. Patient remains critically ill Critical care time is over 30 Will continue to follow. Time with Patient: Greater than 30
--- NOTE | 2024-06-09 13:34 | CONS ---
CONSULTATION CHIEF COMPLAINT: Elevated troponin. HISTORY OF PRESENT ILLNESS: Colten is a 69-year-old lady, who underwent surgery for recurrent incisional hernia and in the postop recovery phase developed progressively worsening shortness of breath and had to be reintubated. The patient was thought to be in acute pulmonary edema. Her initial troponin came back elevated at 0.2 due to which I was consulted. At the time of my evaluation, she still remains intubated on vent and requiring quite a bit of respiratory support. The patient had an echocardiogram in December 2023 that revealed normal LV systolic function with mild mitral regurgitation. The patient had a dobutamine stress echo at that time that was negative for ischemia. She has history of DVT and pulmonary embolism and has coronary artery disease. MEDICATIONS: At home included, 1. Wellbutrin. 2. Metamucil. 3. Lopressor 50 b.i.d. 4. Eliquis 5 b.i.d. ALLERGIES: Latex, sulfa, Cipro, and citrus derivatives. FAMILY HISTORY: I am unable to obtain from the patient who is intubated on vent. SOCIAL HISTORY: I am unable to obtain from the patient who is intubated on vent. REVIEW OF SYSTEMS: I am unable to obtain from the patient who is intubated on vent. PHYSICAL EXAMINATION: GENERAL: Comfortable at rest. VITAL SIGNS: Stable. CHEST: Reveals diminished air entry at the bases. HEART: Reveals first and second heart sounds. No gallop. No murmur. ABDOMEN: Soft. EXTREMITIES: Did not reveal any edema. Peripheral pulses are felt. LABORATORY DATA: Labs show that the troponin is elevated at 0.2 and 0.3. EKG shows sinus rhythm without significant ST-T wave changes. ASSESSMENT: 1. Vent-requiring respiratory failure. 2. Acute pulmonary edema. 3. Acute non ST-segment elevation myocardial infarction. 4. Status post incisional hernia repair. PLAN: I advised the patient to be started on IV heparin yesterday, but the patient could not be started on heparin because of contraindication from surgeon. We will revisit this issue today. I will continue the beta marciano that the patient is on and continue with IV Lasix. I will also obtain a 2D echo to evaluate her LV function. The patient had a venous duplex study. It is negative for DVT. MMODL / IJN: [id number] /
--- NOTE | 2024-06-09 13:42 | CA ---
Transthoracic Echo Report Name: Colten Banda Age: 69 Gender: F : 1955 Exam Date: 06/09/2024 08:48 Exam Location: [facility] Ht (in): 66 Wt (lb): 260 Ordering Physician: Lisa Randle MD Attending/Referring Phys: Metal Hardener Kandice Cedeño RDCS Procedure CPT: Indications: elevated trop Cardiac Hx: Technical Quality: Fair Contrast 1: Definity Total Dose (mL): 2 Contrast 2: Total Dose (mL): MEASUREMENTS (Male / Female) Normal Values 2D ECHO LV Diastolic Diameter PLAX 5.8 cm 4.2 - 5.9 / 3.9 - 5.3 cm LV Systolic Diameter PLAX 4.4 cm IVS Diastolic Thickness 1.1 cm 0.6 - 1.0 / 0.6 - 0.9 cm LVPW Diastolic Thickness 1.1 cm 0.6 - 1.0 / 0.6 - 0.9 cm LV Relative Wall Thickness 0.4 RV Internal Dim ED PLAX 2.3 cm LA Systolic Diameter LX 4.4 cm 3.0 - 4.0 / 2.7 - 3.8 cm LA Volume 44.7 cm??? 18 - 58 / 22 - 52 cm??? LA Volume Index 18.6 cm???/m??? 16 - 28 cm???/m??? M-MODE Aortic Root Diameter MM 2.7 cm LA Systolic Diameter MM 3.4 cm LA Ao Ratio MM 1.3 AV Cusp Separation MM 1.8 cm DOPPLER MV Area PHT 1.8 cm??? Mitral E Point Velocity 55.5 cm/s Mitral A Point Velocity 78.1 cm/s Mitral E to A Ratio 0.7 MV Deceleration Time 415.9 ms TR Peak Velocity 235.7 cm/s TR Peak Gradient 22.2 mmHg FINDINGS Left Ventricle Left ventricular ejection fraction is estimated at 55-60%. Mildly increased septal wall thickness. Mildly increased posterior wall thickness. Mildly increased left ventricular diastolic diameter. No obvious regional wall motion abnormalities. Right Ventricle Normal right ventricular size and function. Right ventricular systolic pressure within normal limits. Right Atrium Normal right atrial size. Left Atrium Moderately increased left atrial diameter. Mitral Valve Structurally normal mitral valve. Trace mitral regurgitation. Aortic Valve Trileaflet aortic valve. No aortic stenosis. No aortic regurgitation. Tricuspid Valve Structurally normal tricuspid valve. Trace to mild tricuspid regurgitation. Pulmonic Valve Structurally normal pulmonic valve. Trace pulmonic regurgitation. No pulmonic stenosis. Pericardium No pericardial or pleural effusion. Aorta Normal size aortic root and proximal ascending aorta. CONCLUSIONS Left ventricular ejection fraction 55-60% Mildly increased left ventricular wall thickness RVSP 22 Trace mitral regurgitation Trace to mild tricuspid regurgitation Previewed by: Dr. Ash Lindsey DO (Electronically Signed) Final Date: 09 June 2024 13:42
--- NOTE | 2024-06-09 14:16 | CT ---
CTA CHEST EXAMINATION TYPE: CT angio chest DATE OF EXAM: 06/09/2024 INDICATION: Hypoxemia, post op CT DLP: 1071.4 mGycm, Automated exposure control for dose reduction was used. CONTRAST: Patient injected with 100ml mL of Isovue 370. COMPARISON: 12/30/2023 TECHNIQUE: CT of the chest is performed on a spiral scan at 2 mm thick sections. Study is performed with intravenous contrast timed for evaluation for pulmonary embolism. This will limit additional po rtions of the evaluation. 3-D MIP images reconstructed by the technologist are reviewed on the compu ter in the coronal and sagittal planes. FINDINGS: There is a 4.4 x 2.6 cm hypoechoic dense lesion within the right lobe thyroid. This is displacing the trachea towards the left. This was present previously. Consider evaluation with ultrasound and this appears slightly smaller than the comparison. No persistent filling defects are evident to suggest an acute pulmonary embolism. No mediastinal or hilar adenopathy enlarged by CT criteria is evident. The ascending aorta diameter at the level of the main pulmonary artery is 2.9 cm. The main pulmonary artery diameter at the bifurcation is 2.3 cm. Bibasilar consolidations are present with air bronchograms. Correlate for pneumonia. Atelectasis coul d be considered. Underlying masses are not excluded. Limited CT sections were through the upper abdomen. Upper abdomen appears unremarkable. IMPRESSION: 1. No acute pulmonary embolism. 2. Bibasilar consolidations. Correlate for atelectasis or pneumonia. This should be followed to clear ing. 3. Persistent mass right lobe thyroid.
--- NOTE | 2024-06-09 15:05 | P.PN ---
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 Patient is status post open repair of recurrent incisional hernia. Patient had general anesthesia during surgery and was sent to recovery room. After extubation patient started having severe shortness of breath and was also hypotensive and tachycardic. Chest x-ray showed clinical correlation recommended for CHF. Patient was intubated again and was transferred to MICU. Patient was also requiring pressor support. Patient was given a dose of 40 mg IV Lasix postintubation. ABG showed 7.17, pCO2 57 pO2 104 and bicarb is 20 Other laboratory data showed sodium 136 potassium 4.3 chloride 108 bicarb is 20 BUN 15 creatinine 0.77 Blood sugar 286 and calcium 8.4. proBNP 539 and troponin 0.231 Patient is chronically hypotensive as per her at bedside. 06/09/2024 patient is seen and evaluated in follow-up status post recurrent open incisional hernia repair with general surgery continues to be on mechanical ventilation, FiO2 is 50% with a PEEP of 10. Venous Doppler along with CTA of the chest is ordered and pending at this time to assess for blood clots. Chest x-ray was done today showing some overload and was given a dose of IV Lasix. Assessing mentation with sedation holidays although not quite ready for extubation at this point. Patient is afebrile and continues on propofol and is currently off pressor support. Sister at the bedside with questions and concerns that were answered. We will continue to follow along with general surgery during hospitalization. Overall prognosis is guarded at this time. Review of systems: Unable to obtain as patient is currently intubated and sedated PHYSICAL EXAMINATION: Patient is currently on mechanical ventilator with an FiO2 of 50% and PEEP is 10. Currently sedated on propofol. HEENT: Normocephalic. Neck is supple. Pupils reactive. Nostrils clear. Oral cavity is moist. Neck reveals no JVD, carotid bruits, or thyromegaly. CHEST EXAMINATION: Trachea is central. Symmetrical expansion. Bibasilar diminished sounds. Lung cruz clear to auscultation and percussion. CARDIAC: Normal S1, S2 with no gallops. No murmurs ABDOMEN: Soft. Morbidly obese, bowel sounds normal. No organomegaly. No abdominal bruits. Extremities: reveal no edema. No clubbing or cyanosis bilateral upper and lower extremity swelling as well as neck region swelling and facial Neurologically sedated and intubated.. No gross focal deficits noted, unable to completely assess due to sedation Skin: No rash or skin lesions. Psychiatric: Could not be assessed at this time Musculoskeletal: No joint swelling or deformity. Assessment: Acute hypoxic and hypercapnic respiratory failure secondary to pulmonary edema. Postextubation. Currently reintubated requiring mechanical ventilator. FiO2 is 50% with a PEEP of 10 Suspect flash pulm edema due to negative pressure after extubation Status post recurrent open incisional hernia repair postoperative day 1 History of DVT/PE currently on Eliquis at home. Changed to Lovenox twice daily Anxiety/depression history Prior history of smoking Hepatitis B history Hypothyroidism Hyperglycemia Morbid obesity with a BMI of 43.2 DVT prophylaxis. On Lovenox subcu now GI prophylaxis Full code Plan: Patient is currently maintained on mechanical ventilation with an FiO2 of 50% and PEEP is 10. Patient was given another dose of IV Lasix for volume overload Continue to monitor respiratory status. Patient is not ready for extubation at this point with pulmonary clinical education academic coordinator following. Continue telemetry monitoring and patient is off pressor support Continue with insulin sliding scale and regimen for tight glycemic control. Continue with pain management and follow-up closely. Discussed with her sister at bedside in detail. Prognosis guarded. Critical care team is on board. Further recommendations based on the clinical course. Thank you kindly for your consult. We will continue to follow with general surgery during hospitalization. The impression and plan of care has been dictated by Nuria Gutierrez, Nurse Practitioner as directed. Dr. Kym MD I have performed a history and examination and MDM of this patient, discussed the same with the dictator, and agree with the dictator's assessment and plan as written ,documented as a scribe. Based on total visit time, I have performed more than 50% of the visit. She did not Objective - Vital Signs Vital signs: Vital Signs Temp 98.2 F 06/09/24 08:00 Pulse 66 06/09/24 09:00 Resp 18 06/09/24 09:00 BP 112/61 06/09/24 09:00 Pulse Ox 95 06/09/24 09:00 FiO2 50 06/09/24 08:13 Intake & Output 06/08/24 06/09/24 06/09/24 18:59 06:59 18:59 Intake Total 2988.546 468.675 130 Output Total 1215 1880 85 Balance 1773.546 -1411.325 45 Weight 121.5 kg 121 kg Intake: IV 2940 200 10 LR KVO 40 200 10 Lactated Ringers 1,000 ml 250 @ 125 mls/hr IV .Q8H [facility] Rx#:[id number] Sodium Chloride 0.9% 1, 1000 000 ml @ 999 mls/hr IV . Q1H1M [facility] Rx#:[id number] Intake, IV Titration 48.546 268.675 120 Amount Lactated Ringers 1,000 ml 20 @ 20 mls/hr IV .Q24H [facility] Rx#:[id number] Norepinephrine 4 mg In 2.25 Sodium Chloride 0.9% 250 ml @ 0.03 MCG/KG/MIN 13. 499 mls/hr IV .[id number] [facility] Rx#:[id number] propofoL 1,000 mg In 46.296 268.675 100 Empty Bag 1 bag @ 10 MCG/ KG/MIN 7.086 mls/hr IV . Q14H7M [facility] Rx#:[id number] Output: Drainage 60 Left Lower Abdomen 60 Urine 1190 1820 85 Estimated Blood Loss 25 ABP, PAP, CO, CI - Last Documented Arterial Blood Pressure 115/57 - Labs CBC & Chem 7: 06/09/24 04:40 06/09/24 04:40 Labs: Abnormal Lab Results - Last 24 Hours (Table) 06/08/24 06/08/24 06/08/24 Range/Units 13:46 14:09 14:46 WBC (3.8-10.6) k/uL Neutrophils # (1.3-7.7) k/uL ABG pH 7.17 L* (7.35-7.45) ABG pCO2 57 H (35-45) mmHg ABG pO2 (83-108) mmHg ABG HCO3 20 L (21-25) mmol/L ABG Total CO2 (19-24) mmol/L Sodium 136 L (137-145) mmol/L Chloride 108 H (98-107) mmol/L Carbon Dioxide 20 L (22-30) mmol/L Glucose 286 H (74-99) mg/dL POC Glucose (mg/dL) 244 H (70-110) mg/dL Troponin I (0.000-0.034) ng/mL 06/08/24 06/08/24 06/08/24 Range/Units 16:35 16:35 17:07 WBC 11.0 H (3.8-10.6) k/uL Neutrophils # (1.3-7.7) k/uL ABG pH (7.35-7.45) ABG pCO2 (35-45) mmHg ABG pO2 82 L (83-108) mmHg ABG HCO3 (21-25) mmol/L ABG Total CO2 (19-24) mmol/L Sodium (137-145) mmol/L Chloride (98-107) mmol/L Carbon Dioxide (22-30) mmol/L Glucose (74-99) mg/dL POC Glucose (mg/dL) (70-110) mg/dL Troponin I 0.231 H* (0.000-0.034) ng/mL 06/08/24 06/08/24 06/08/24 Range/Units 17:28 22:15 23:12 WBC (3.8-10.6) k/uL Neutrophils # (1.3-7.7) k/uL ABG pH (7.35-7.45) ABG pCO2 (35-45) mmHg ABG pO2 (83-108) mmHg ABG HCO3 (21-25) mmol/L ABG Total CO2 (19-24) mmol/L Sodium (137-145) mmol/L Chloride (98-107) mmol/L Carbon Dioxide (22-30) mmol/L Glucose (74-99) mg/dL POC Glucose (mg/dL) 144 H 138 H (70-110) mg/dL Troponin I 0.345 H* (0.000-0.034) ng/mL 06/09/24 06/09/24 06/09/24 Range/Units 04:40 04:40 06:17 WBC 12.6 H (3.8-10.6) k/uL Neutrophils # 10.6 H (1.3-7.7) k/uL ABG pH 7.48 H (7.35-7.45) ABG pCO2 33 L (35-45) mmHg ABG pO2 73 L (83-108) mmHg ABG HCO3 (21-25) mmol/L ABG Total CO2 25 H (19-24) mmol/L Sodium 135 L (137-145) mmol/L Chloride 108 H (98-107) mmol/L Carbon Dioxide (22-30) mmol/L Glucose 118 H (74-99) mg/dL POC Glucose (mg/dL) (70-110) mg/dL Troponin I (0.000-0.034) ng/mL
[2024-06-09 17:20] LABS: Glucose,Whole Blood 83 mg/dL (70-110)
[2024-06-09 19:58] LABS: Glucose,Whole Blood 117 mg/dL (70-110)
[2024-06-09 23:29] LABS: Glucose,Whole Blood 90 mg/dL (70-110)
[2024-06-09 23:41] LABS: Glucose,Whole Blood 103 mg/dL (70-110)
[2024-06-10 05:22] LABS: African American GFR (CKD) 60 (>60 ml/min/1.73 sqM); Anion Gap 5 mmol/L; Blood Urea Nitrogen 22 mg/dL (7-17); Calcium 8.7 mg/dL (8.4-10.2); Carbon Dioxide 26 mmol/L (22-30); Chloride 105 mmol/L (98-107); Glucose 115 mg/dL (74-99); Non-African American GFR(CKD) 52 (>60 ml/min/1.73 sqM); Potassium 3.5 mmol/L (3.5-5.1); Sodium 136 mmol/L (137-145)
[2024-06-10 05:33] LABS: Basophils % (A) 0 %; Eosinophils % (A) 0 %; HCT 39.5 % (34.0-46.0); Lymphocytes # (A) 2.3 k/uL (1.0-4.8); Lymphocytes % (A) 18 %; MCH 30.2 pg (25.0-35.0); MCHC 32.8 g/dL (31.0-37.0); MCV 92.1 fL (80.0-100.0); Mean Platelet Volume 8.7; Monocytes # (A) 0.9 k/uL (0-1.0); Monocytes % (A) 7 %; Neutrophils % (A) 73 %; Platelet Count 212 k/uL (150-450); RBC 4.29 m/uL (3.80-5.40); RDW 13.7 % (11.5-15.5); WBC 12.3 k/uL (3.8-10.6)
[2024-06-10 05:48] LABS: ABG Base Excess 2.3 mmol/L; ABG HCO3 26 mmol/L (21-25); ABG Oxygen Saturation 97.2 % (94-97); ABG PCO2 37 mmHg (35-45); ABG PH 7.46 (7.35-7.45); ABG PO2 84 mmHg (83-108); ABG TCO2 27 mmol/L (19-24); Allen Test Performed? Yes
[2024-06-10 06:01] LABS: Glucose,Whole Blood 123 mg/dL (70-110)
[2024-06-10] MEDS: POTASSIUM BICARBONATE/CIT AC 20 MEQ TABLET.EFF NG-TUBE SCH (06:49)
--- NOTE | 2024-06-10 07:48 | XR ---
EXAMINATION TYPE: XR chest 1V portable DATE OF EXAM: 06/10/2024 COMPARISON: 06/09/2024 INDICATION: Pulmonary edema TECHNIQUE: Single frontal view of the chest is obtained. FINDINGS: The heart size is mildly prominent. The pulmonary vasculature is mildly prominent. Right lower lobe infiltrate is present. Overall, lung filtrated improved. Endotracheal tube and nasogastric tube present. IMPRESSION: 1. Cardiomegaly with prominent pulmonary vascular markings and slight increased lung markings. Correl ate for congestive heart failure. 2. Pulmonary edema appears to be improving from comparison.
[2024-06-10] MEDS: PIPERACILLIN-TAZOBACTAM 3.375 GM in SODIUM CHLORIDE 0.9% 100 ML IVPB SCH (08:12)
[2024-06-10] MEDS: FUROSEMIDE 10 MG/ML 4 ML VIAL IV SCH (08:13)
--- NOTE | 2024-06-10 11:19 | PN ---
PROGRESS NOTE SUBJECTIVE: Colten is a 69-year-old lady who underwent incisional hernia repair and developed acute pulmonary edema and mild [id number] elevation [place]. She had been treated with intermittent doses of IV Lasix. This morning, she is still intubated on the vent, but awake and is answering questions and hopefully can be extubated later today. An echocardiogram on this admission revealed normal LV systolic function without any evidence of focal wall motion abnormalities. RV systolic pressure is normal and she does not have any significant valvular heart disease. The exact etiology for the sudden onset heart failure is unclear. It is possible she has significant underlying CAD. The patient had a stress test within the last 1 year that did not reveal any ischemia and we will wait until the surgical issue is resolved and then consider cardiac catheterization on her. The patient has a history of pulmonary embolism and was on Eliquis prior to coming in, that was stopped for surgery, and a CT scan of the chest yesterday did not reveal any evidence of pulmonary embolism. OBJECTIVE: GENERAL: Comfortable at rest. VITAL SIGNS: Stable. CHEST: Reveals good air entry bilaterally. HEART: Reveals first and second heart sounds. No gallop, no murmur. ABDOMEN: Soft. EXTREMITIES: Did not reveal any edema. Peripheral pulses are felt. LABORATORY DATA: Labs show that the hemoglobin is 13, platelet count is 212. Potassium is 3.5, creatinine is 1.1. Blood gases reveal a pH of 7.4, pCO2 of 37, pO2 of 84. ASSESSMENT AND PLAN: 1. Vent-requiring respiratory failure in the perioperative setting secondary to acute pulmonary edema. 2. History of pulmonary embolism, on Eliquis at home. We need to resume Eliquis, at least start her on heparin as soon as it is feasible from surgical standpoint, not so much for possible underlying CAD, but more because of the history of pulmonary embolism. Once surgical issue is all resolved, she will need an invasive angiography to rule out significant obstructive CAD. MMODL / IJN: [id number] /
[2024-06-10 11:46] LABS: Glucose,Whole Blood 131 mg/dL (70-110)
[2024-06-10] MEDS: HEPARIN SOD,PORK IN 0.45% NACL 25,000 UNIT in 0.45% NACL 1 250ML.BAG IV SCH (11:56)
--- NOTE | 2024-06-10 12:13 | P.PN ---
Subjective Progress Note Date: 06/10/24 CHIEF COMPLAINT: Recurrent incisional hernia HISTORY OF PRESENT ILLNESS: Patient is postop day #2 status post open repair of recurrent incisional hernia. Patient is in the ICU. They are working on extuba ting patient today. Patient did receive a dose of IV Lasix. There is concern for possible aspiration. Patient followed by cardiology for an acute non-STEMI. Afebrile. WBC 12.3 Hgb 13 platelets 212 sodium 136 potassium 3.5 creatinine 1.11 MARY drain with 50 mL output through the night and 16 output this morning. CTA chest reports no acute PE. bibasilar consolidations. Correlate for atelectasis or pneumonia. persistent mass right lobe thyroid PHYSICAL EXAM: VITAL SIGNS: Reviewed. GENERAL: no acute distress. HEENT: No sclera icterus. Extraocular movements grossly intact. Moist buccal mucosa. Head is atraumatic, normocephalic. ABDOMEN: Soft. Nondistended. Prevena wound VAC clean dry and intact. MARY drain with sanguinous output ASSESSMENT: 1. Recurrent incisional hernia 2. Severe negative pressure pulmonary edema 3. Non-ST elevated [place] 4. History of PE PLAN: -They are working on extubating patient today -Okay to resume anticoagulation from surgical standpoint -Patient can have clear liquid diet if she passes her swallow eval -Continue ICU management -Continue supportive care Physician Case Managers note has been reviewed by physician. Signing provider agrees with the documented findings, assessment, and plan of care. I have personally seen and examined the patient, reviewed the SURGICAL FORCEPS FABRICATOR /PAs history, exam and MDM and agree with the assessment and plan as written. Based on total visit time, I have performed more than 50% of the visit. As above: Patient doing better this afternoon. She was extubated. No shortness of breath. Events described to patient. No pain. MARY drain serosanguineous. Continue pulmonary toilet. Advance diet as tolerated. Objective - Vital Signs Vital signs: Vital Signs Temp 99.4 F 06/10/24 08:00 Pulse 86 06/10/24 11:00 Resp 19 06/10/24 11:00 BP 118/64 06/10/24 11:00 Pulse Ox 97 06/10/24 11:00 FiO2 5 06/10/24 11:47 Intake & Output 06/09/24 06/10/24 06/10/24 18:59 06:59 18:59 Intake Total 541.679 815.836 331.278 Output Total 1195 580 810 Balance -653.321 235.836 -478.722 Weight 121 kg 121.8 kg Intake: IV 120 120 130 LR KVO 120 120 30 Piperacillin-Tazobactam 3 100 .375 gm In Sodium Chloride 0.9% 100 ml @ 25 mls/hr IVPB Q8HR [facility] Rx# :[id number] Intake, IV Titration 361.679 425.836 111.278 Amount propofoL 1,000 mg In 361.679 425.836 111.278 Empty Bag 1 bag @ 10 MCG/ KG/MIN 7.086 mls/hr IV . Q14H7M [facility] Rx#:[id number] Tube Feeding 30 210 60 Other 30 60 30 Output: Drainage 80 55 60 Left Lower Abdomen 80 55 60 Urine 1115 525 750 ABP, PAP, CO, CI - Last Documented Arterial Blood Pressure 84/64 - Labs CBC & Chem 7: 06/10/24 04:15 06/10/24 11:44 Labs: Abnormal Lab Results - Last 24 Hours (Table) 06/09/24 06/09/24 06/10/24 Range/Units 14:45 19:57 04:15 WBC 12.3 H (3.8-10.6) k/uL Neutrophils # 9.0 H (1.3-7.7) k/uL ABG pH (7.35-7.45) ABG HCO3 (21-25) mmol/L ABG Total CO2 (19-24) mmol/L ABG O2 Saturation (94-97) % Sodium (137-145) mmol/L BUN (7-17) mg/dL Creatinine (0.52-1.04) mg/dL Glucose (74-99) mg/dL POC Glucose (mg/dL) 117 H (70-110) mg/dL Troponin I 0.186 H* (0.000-0.034) ng/mL 06/10/24 06/10/24 06/10/24 Range/Units 04:15 05:22 06:00 WBC (3.8-10.6) k/uL Neutrophils # (1.3-7.7) k/uL ABG pH 7.46 H (7.35-7.45) ABG HCO3 26 H (21-25) mmol/L ABG Total CO2 27 H (19-24) mmol/L ABG O2 Saturation 97.2 H (94-97) % Sodium 136 L (137-145) mmol/L BUN 22 H (7-17) mg/dL Creatinine 1.11 H (0.52-1.04) mg/dL Glucose 115 H (74-99) mg/dL POC Glucose (mg/dL) 123 H (70-110) mg/dL Troponin I (0.000-0.034) ng/mL 06/10/24 Range/Units 11:45 WBC (3.8-10.6) k/uL Neutrophils # (1.3-7.7) k/uL ABG pH (7.35-7.45) ABG HCO3 (21-25) mmol/L ABG Total CO2 (19-24) mmol/L ABG O2 Saturation (94-97) % Sodium (137-145) mmol/L BUN (7-17) mg/dL Creatinine (0.52-1.04) mg/dL Glucose (74-99) mg/dL POC Glucose (mg/dL) 131 H (70-110) mg/dL Troponin I (0.000-0.034) ng/mL Microbiology - Last 24 Hours (Table) 06/09/24 04:08 Gram Stain - Preliminary Sputum Sputum Culture - Preliminary
[2024-06-10 12:41] LABS: INR 0.9 (<1.2)
[2024-06-10 12:42] LABS: Prothrombin Time 10.2 sec (10.0-12.5)
[2024-06-10 13:14] LABS: Partial Thromboplastin Time 21.4 sec (22.0-30.0)
--- NOTE | 2024-06-10 14:17 | P.PN ---
Subjective Progress Note Date: 06/10/24 Principal diagnosis: Acute hypoxic and hypercapnic respiratory failure secondary to negative pressure pulmonary edema This is a 69-year-old female with history of multiple medical problems, patient underwent today open repair of recurrent incisional hernia. This was done under general endotracheal anesthesia, postoperatively, patient was sent to recovery room, extubated, however after extubation the patient developed significant shortness of breath, tachycardia, hypotension, and chest x-ray showed evidence of interstitial pulmonary edema. Patient had to be reintubated, admitted to the ICU, and this consult was initiated. In retrospect, I believe the patient may have developed negative pressure pulmonary edema requiring reintubation and mechanical ventilation. Patient did receive a 40 mg of Lasix postintubation, with some improvement. Her ABG before transfer to the ICU showed a pO2 of 104 pCO2 57 pH of 7.17 however after stabilizing the patient in the ICU and repeat ABG on 80% FiO2 while mechanically ventilated showed a pO2 of 82 pCO2 40 and pH of 7.35.WBC count 11 hemoglobin 12.5. Troponin came back at 0.231 and BNP level of 539 Patient was read today on 06/09/2024, patient remains intubated and mechanically ventilated, patient was admitted to the ICU yesterday after surgery on repair of incisional hernia. Patient is on mechanical ventilation, assist-control rate of 18 tidal volume 500 FiO2 50% and PEEP of 10 ABG is marginal with a pO2 of 73 pCO2 33 pH of 7.48. Patient remains on propofol, not requiring any norepinephrine for hemodynamic support. She did receive Lasix 40 mg IV push earlier, chest x-ray is showing improvement however her blood gases remain marginal and the chest x-ray continues to show evidence of interstitial edema. Troponin level is elevated at 0.345, follow-up troponin is pending, cardiology consultation is pending, echocardiogram was performed, results of pending. Looking back at the Lovenox dose, has been changed by surgery on the case from 80 mg SQ twice daily to 40 mg twice daily, however considering the patient's risk for DVT and pulmonary embolism is rather high, I am recommending now a CT angiogram of the chest to rule out pulmonary embolism. She will also have a venous Doppler. Patient is clearly not quite ready for extubation at this point considering her ABG is marginal, and nurse taking care of the patient noted that the patient desaturated easily upon cutting down the propofol from 45-40 hence was updated on her condition at bedside, and the patient will remain on present supportive care measures, remains on diuretics, and will arrange for CT angiogram of the chest and venous Dopplers today Patient was evaluated today on 06/10/2024, remains in the ICU intubated and mechanically ventilated. She is on assist-control rate of 18 tidal volume 500 FiO2 50% and PEEP of 10 ABG showed a pO2 of 84 pCO2 [address] angiogram of the chest yesterday was negative for pulmonary embolism but showed mostly atelectasis and possibly consolidation in the lower lobes. Chest x-ray today is showing definite improvement in her interstitial edema, patient remains on Lasix 40 mg IV push daily, she is also on Zosyn empirically for presumptive pneumonia involving lower lobes, patient is on propofol at 45 mcg/kg/min she is also on vital AF . WBC count today is 12.3 hemoglobin 13.0 PTT is 21.4 INR is 0.9 patient will be transitioned to IV heparin, it seems surgery on the case is agreeable to start the patient on heparin specially with her history of DVT and pulmonary embolism. Objective - Vital Signs Vital signs: Vital Signs Temp 99.3 F 06/10/24 12:00 Pulse 79 06/10/24 12:00 Resp 24 06/10/24 12:00 BP 118/64 06/10/24 12:00 Pulse Ox 94 L 06/10/24 12:00 FiO2 5 06/10/24 11:47 Intake & Output 06/09/24 06/10/24 06/10/24 18:59 06:59 18:59 Intake Total 541.679 815.836 331.278 Output Total 5934 967 3217 Balance -653.321 235.836 -728.722 Weight 121 kg 121.8 kg Intake: IV 120 120 130 LR KVO 120 120 30 Piperacillin-Tazobactam 3 100 .375 gm In Sodium Chloride 0.9% 100 ml @ 25 mls/hr IVPB Q8HR [facility] Rx# :[id number] Intake, IV Titration 361.679 425.836 111.278 Amount propofoL 1,000 mg In 361.679 425.836 111.278 Empty Bag 1 bag @ 10 MCG/ KG/MIN 7.086 mls/hr IV . Q14H7M [facility] Rx#:[id number] Tube Feeding 30 210 60 Other 30 60 30 Output: Drainage 80 55 60 Left Lower Abdomen 80 55 60 Urine 6316 419 7321 ABP, PAP, CO, CI - Last Documented Arterial Blood Pressure 84/64 - Exam General: Reveals 69-year-old female obese intubated mechanically ventilated Head: Atraumatic, normocephalic Skin: Skin is warm and dry and no rashes or lesions are noted. Eye: Pupils are pinpoint, extra-ocular movements are intact; there is normal conjunctiva bilaterally. Ears, nose, mouth and throat: There are moist mucous membranes and no oral lesi ons. Neck: The neck is supple, there is no tenderness or JVD. Cardiovascular: Distant S1-S2, no S3 gallop, no murmur. Respiratory: Fair bilaterally no rhonchi no wheezes Gastrointestinal: Postsurgical abdomen soft, non-distended, non-tender abdomen and wound VAC is noted. MARY drain is noted Musculoskeletal: No deformities noted. Neurological: Off sedation, patient was noted to be appropriate, follows simple instructions. Psychiatric: Could not fully assess. - Labs CBC & Chem 7: 06/10/24 04:15 06/10/24 11:44 Labs: Abnormal Lab Results - Last 24 Hours (Table) 06/09/24 06/09/24 06/10/24 Range/Units 14:45 19:57 04:15 WBC 12.3 H (3.8-10.6) k/uL Neutrophils # 9.0 H (1.3-7.7) k/uL APTT (22.0-30.0) sec ABG pH (7.35-7.45) ABG HCO3 (21-25) mmol/L ABG Total CO2 (19-24) mmol/L ABG O2 Saturation (94-97) % Sodium (137-145) mmol/L BUN (7-17) mg/dL Creatinine (0.52-1.04) mg/dL Glucose (74-99) mg/dL POC Glucose (mg/dL) 117 H (70-110) mg/dL Troponin I 0.186 H* (0.000-0.034) ng/mL 06/10/24 06/10/24 06/10/24 Range/Units 04:15 05:22 06:00 WBC (3.8-10.6) k/uL Neutrophils # (1.3-7.7) k/uL APTT (22.0-30.0) sec ABG pH 7.46 H (7.35-7.45) ABG HCO3 26 H (21-25) mmol/L ABG Total CO2 27 H (19-24) mmol/L ABG O2 Saturation 97.2 H (94-97) % Sodium 136 L (137-145) mmol/L BUN 22 H (7-17) mg/dL Creatinine 1.11 H (0.52-1.04) mg/dL Glucose 115 H (74-99) mg/dL POC Glucose (mg/dL) 123 H (70-110) mg/dL Troponin I (0.000-0.034) ng/mL 06/10/24 06/10/24 Range/Units 11:45 11:49 WBC (3.8-10.6) k/uL Neutrophils # (1.3-7.7) k/uL APTT 21.4 L (22.0-30.0) sec ABG pH (7.35-7.45) ABG HCO3 (21-25) mmol/L ABG Total CO2 (19-24) mmol/L ABG O2 Saturation (94-97) % Sodium (137-145) mmol/L BUN (7-17) mg/dL Creatinine (0.52-1.04) mg/dL Glucose (74-99) mg/dL POC Glucose (mg/dL) 131 H (70-110) mg/dL Troponin I (0.000-0.034) ng/mL Microbiology - Last 24 Hours (Table) 06/09/24 04:08 Gram Stain - Preliminary Sputum Sputum Culture - Preliminary Assessment and Plan Assessment: Impression: Acute hypoxic and hypercapnic respiratory failure post incisional hernia repair Strongly suspect negative pressure pulmonary edema, rule out acute non-ST elevation myocardial infarction troponin is elevated, cardiology consultation is pending, echocardiogram is pending Bibasilar atelectasis, possible consolidation, cannot rule out pneumonia Moderate coronary artery calcification based on previous CT scan History of DVT and pulmonary embolism, 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 History of depression Recommendation: Continue ventilatory support however the patient will be given a trial of weaning possibly today and if tolerated may extubate the patient to BiPAP. After a good trial of pressure support and CPAP Continue diuretics Start patient empirically on antibiotics especially after reviewing the chest x- ray finding showing significant consolidation and atelectasis of the lower lobes IV heparin if agreeable with surgery Continue bronchodilators Overall prognosis remains guarded Patient remains critically ill Critical care time is over 30 Will continue to follow. Time with Patient: Greater than 30
[2024-06-10 17:51] LABS: Glucose,Whole Blood 136 mg/dL (70-110)
[2024-06-10] MEDS: HEPARIN SODIUM 1,000 UN/ML (10ML VL) IV PRN (19:29)
[2024-06-11 05:10] LABS: Partial Thromboplastin Time 69.4 sec (22.0-30.0); Prothrombin Time 10.8 sec (10.0-12.5)
[2024-06-11 05:15] LABS: Anion Gap 6 mmol/L; Blood Urea Nitrogen 20 mg/dL (7-17); Carbon Dioxide 25 mmol/L (22-30); Chloride 106 mmol/L (98-107); Glucose 105 mg/dL (74-99); Potassium 3.6 mmol/L (3.5-5.1); Sodium 137 mmol/L (137-145)
[2024-06-11 05:16] LABS: African American GFR (CKD) >90 (>60 ml/min/1.73 sqM); Calcium 8.2 mg/dL (8.4-10.2); Non-African American GFR(CKD) >90 (>60 ml/min/1.73 sqM)
[2024-06-11 05:31] LABS: Basophils % (A) 0 %; Eosinophils # (A) 0.2 k/uL (0-0.7); Eosinophils % (A) 2 %; HCT 35.7 % (34.0-46.0); HGB 11.1 gm/dL (11.4-16.0); Lymphocytes # (A) 1.9 k/uL (1.0-4.8); Lymphocytes % (A) 19 %; MCH 29.1 pg (25.0-35.0); MCHC 31.2 g/dL (31.0-37.0); MCV 93.2 fL (80.0-100.0); Monocytes # (A) 0.7 k/uL (0-1.0); Monocytes % (A) 7 %; Neutrophils # (A) 7.2 k/uL (1.3-7.7); Neutrophils % (A) 71 %; Platelet Count 170 k/uL (150-450); RBC 3.83 m/uL (3.80-5.40); RDW 14.2 % (11.5-15.5); WBC 10.1 k/uL (3.8-10.6)
--- NOTE | 2024-06-11 05:49 | P.PN ---
Subjective Progress Note Date: 06/10/24 - Reason for Consult Consult date: 06/08/24 Medical management - Chief Complaint Respiratory failure - History of Present Illness Patient is a 69-year-old female with a past medical history of hypertension, history of DVT/PE currently on Eliquis, COPD, hypothyroidism, Raynaud's disease, hepatitis B, IBS, history of bowel resection and prior history of smoking presented to the hospital for elective incisional hernia repair. Patient is status post open repair of recurrent incisional hernia. Patient had general anesthesia during surgery and was sent to recovery room. After extubation patient started having severe shortness of breath and was also hypotensive and tachycardic. Chest x-ray showed clinical correlation recommended for CHF. Patient was intubated again and was transferred to MICU. Patient was also requiring pressor support. Patient was given a dose of 40 mg IV Lasix postintubation. ABG showed 7.17, pCO2 57 pO2 104 and bicarb is 20 Other laboratory data showed sodium 136 potassium 4.3 chloride 108 bicarb is 20 BUN 15 creatinine 0.77 Blood sugar 286 and calcium 8.4. proBNP 539 and troponin 0.231 Patient is chronically hypotensive as per her at bedside. 06/09/2024 patient is seen and evaluated in follow-up status post recurrent open incisional hernia repair with general surgery continues to be on mechanical ventilation, FiO2 is 50% with a PEEP of 10. Venous Doppler along with CTA of the chest is ordered and pending at this time to assess for blood clots. Chest x-ray was done today showing some overload and was given a dose of IV Lasix. Assessing mentation with sedation holidays although not quite ready for extubation at this point. Patient is afebrile and continues on propofol and is currently off pressor support. Sister at the bedside with questions and concerns that were answered. We will continue to follow along with general surgery during hospitalization. Overall prognosis is guarded at this time. 06/10/2024 Patient is seen in follow-up today continues to be in the ICU with multiple consultations following. Patient is status post incisional hernia repair currently just extubated 20 minutes prior to exam. Patient is on nasal cannula at 5 L maintaining oxygen saturations above 90%. Patient is awake, alert and oriented and following commands. Patient is whispering currently reporting her throat is tender. Patient being started on antibiotics empirically and will follow-up with lab work and cultures. Diet to be resumed and started per surger y. Patient is being started on IV heparin with cardiology on consult as patient did have elevated troponins. Awaiting evaluation. Review of systems: Unable to fully obtain as patient was just extubated 20 minutes prior to exam PHYSICAL EXAMINATION: Patient is currently extubated this morning on 5 L, awake, alert and oriented x 3, well-developed, morbidly obese HEENT: Normocephalic. Neck is supple. Pupils reactive. Nostrils clear. Oral cavity is moist. Neck reveals no JVD, carotid bruits, or thyromegaly. CHEST EXAMINATION: Trachea is central. Symmetrical expansion. Bibasilar diminis hed sounds. Lung cruz clear to auscultation and percussion. CARDIAC: Normal S1, S2 with no gallops. No murmurs ABDOMEN: Soft. Morbidly obese, bowel sounds normal. No organomegaly. No abdominal bruits. Extremities: reveal no edema. No clubbing or cyanosis bilateral upper and lower extremity swelling as well as neck region swelling and facial Neurologically awake, alert and oriented, cooperative and following commands, just extubated this morning. No gross focal deficits noted, diffusely weak Skin: No rash or skin lesions. Musculoskeletal: No joint swelling or deformity. Assessment: Acute hypoxic and hypercapnic respiratory failure secondary to pulmonary edema. Postextubation. Currently reintubated requiring mechanical ventilator. FiO2 is 50% with a PEEP of 10, status post extubation on 06/10/2024. Currently on 5 L Suspect flash pulm edema due to negative pressure after extubation Status post recurrent open incisional hernia repair postoperative day 2 History of DVT/PE currently on Eliquis at home. Changed to Lovenox twice daily Anxiety/depression history Prior history of smoking Hepatitis B history Hypothyroidism Hyperglycemia Morbid obesity with a BMI of 43.2 DVT prophylaxis. On IV heparin GI prophylaxis Full code Plan: Patient is currently in the ICU and underwent weaning trials and successful extubation just 20 minutes prior to exam. Patient is currently maintained on 5 L via nasal cannula and weaning FiO2 as tolerated. Recommend incentive spirometer and continued use at least 10 times every hour while awake Continue to monitor respiratory status. Continue with insulin sliding scale and regimen for tight glycemic control. Continue with pain management and follow-up closely. Discussed with her sister at bedside in detail. Prognosis guarded. Critical care team is on board. Further recommendations based on the clinical course. Thank you kindly for your consult. We will continue to follow with general surgery during hospitalization. The impression and plan of care has been dictated by Nuria Gutierrez, Nurse Practitioner as directed. Dr. Kym MD I have performed a history and examination and MDM of this patient, discussed the same with the dictator, and agree with the dictator's assessment and plan as written ,documented as a scribe. Based on total visit time, I have performed more than 50% of the visit. She did not Objective - Vital Signs Vital signs: Vital Signs Temp 99.4 F 06/10/24 08:00 Pulse 81 06/10/24 09:00 Resp 20 06/10/24 09:00 BP 111/63 06/10/24 09:00 Pulse Ox 97 06/10/24 08:00 FiO2 50 06/10/24 08:33 Intake & Output 06/09/24 06/10/24 06/10/24 18:59 06:59 18:59 Intake Total 541.679 815.836 315.661 Output Total 1195 580 150 Balance -653.321 235.836 165.661 Weight 121 kg 121.8 kg Intake: IV 120 120 130 LR KVO 120 120 30 Piperacillin-Tazobactam 3 100 .375 gm In Sodium Chloride 0.9% 100 ml @ 25 mls/hr IVPB Q8HR [facility] Rx# :[id number] Intake, IV Titration 361.679 425.836 95.661 Amount propofoL 1,000 mg In 361.679 425.836 95.661 Empty Bag 1 bag @ 10 MCG/ KG/MIN 7.086 mls/hr IV . Q14H7M [facility] Rx#:[id number] Tube Feeding 30 210 60 Other 30 60 30 Output: Drainage 80 55 Left Lower Abdomen 80 55 Urine 1115 525 150 ABP, PAP, CO, CI - Last Documented Arterial Blood Pressure 84/64 - Labs CBC & Chem 7: 06/11/24 04:12 06/11/24 04:12 Labs: Abnormal Lab Results - Last 24 Hours (Table) 06/09/24 06/09/24 06/10/24 Range/Units 14:45 19:57 04:15 WBC 12.3 H (3.8-10.6) k/uL Neutrophils # 9.0 H (1.3-7.7) k/uL ABG pH (7.35-7.45) ABG HCO3 (21-25) mmol/L ABG Total CO2 (19-24) mmol/L ABG O2 Saturation (94-97) % Sodium (137-145) mmol/L BUN (7-17) mg/dL Creatinine (0.52-1.04) mg/dL Glucose (74-99) mg/dL POC Glucose (mg/dL) 117 H (70-110) mg/dL Troponin I 0.186 H* (0.000-0.034) ng/mL 06/10/24 06/10/24 06/10/24 Range/Units 04:15 05:22 06:00 WBC (3.8-10.6) k/uL Neutrophils # (1.3-7.7) k/uL ABG pH 7.46 H (7.35-7.45) ABG HCO3 26 H (21-25) mmol/L ABG Total CO2 27 H (19-24) mmol/L ABG O2 Saturation 97.2 H (94-97) % Sodium 136 L (137-145) mmol/L BUN 22 H (7-17) mg/dL Creatinine 1.11 H (0.52-1.04) mg/dL Glucose 115 H (74-99) mg/dL POC Glucose (mg/dL) 123 H (70-110) mg/dL Troponin I (0.000-0.034) ng/mL Microbiology - Last 24 Hours (Table) 06/09/24 04:08 Gram Stain - Preliminary Sputum
[2024-06-11] MEDS: POTASSIUM CHLORIDE ER 20 MEQ TAB.ER PO SCH ×2 (06:54→11:32)
[2024-06-11] MEDS: ASPIRIN 81 MG PO SCH (08:29)
[2024-06-11] MEDS ORDERED: ALPRAZolam 0.25 MG TAB PO PRN (11:23)
[2024-06-11] MEDS ORDERED: NITROGLYCERIN SL TABS 0.4 MG TAB SUBLINGUAL PRN (11:23)
[2024-06-11] MEDS ORDERED: ALPRAZolam 0.5 MG TAB PO PRN (11:23)
[2024-06-11 11:40] LABS: Glucose,Whole Blood 136 mg/dL (70-110)
--- NOTE | 2024-06-11 12:47 | P.PN ---
Subjective Progress Note Date: 06/11/24 Principal diagnosis: Acute hypoxic and hypercapnic respiratory failure secondary to negative pressure pulmonary edema This is a 69-year-old female with history of multiple medical problems, patient underwent today open repair of recurrent incisional hernia. This was done under general endotracheal anesthesia, postoperatively, patient was sent to recovery room, extubated, however after extubation the patient developed significant shortness of breath, tachycardia, hypotension, and chest x-ray showed evidence of interstitial pulmonary edema. Patient had to be reintubated, admitted to the ICU, and this consult was initiated. In retrospect, I believe the patient may have developed negative pressure pulmonary edema requiring reintubation and mechanical ventilation. Patient did receive a 40 mg of Lasix postintubation, with some improvement. Her ABG before transfer to the ICU showed a pO2 of 104 pCO2 57 pH of 7.17 however after stabilizing the patient in the ICU and repeat ABG on 80% FiO2 while mechanically ventilated showed a pO2 of 82 pCO2 40 and pH of 7.35.WBC count 11 hemoglobin 12.5. Troponin came back at 0.231 and BNP level of 539 Patient was read today on 06/09/2024, patient remains intubated and mechanically ventilated, patient was admitted to the ICU yesterday after surgery on repair of incisional hernia. Patient is on mechanical ventilation, assist-control rate of 18 tidal volume 500 FiO2 50% and PEEP of 10 ABG is marginal with a pO2 of 73 pCO2 33 pH of 7.48. Patient remains on propofol, not requiring any norepinephrine for hemodynamic support. She did receive Lasix 40 mg IV push earlier, chest x-ray is showing improvement however her blood gases remain marginal and the chest x-ray continues to show evidence of interstitial edema. Troponin level is elevated at 0.345, follow-up troponin is pending, cardiology consultation is pending, echocardiogram was performed, results of pending. Looking back at the Lovenox dose, has been changed by surgery on the case from 80 mg SQ twice daily to 40 mg twice daily, however considering the patient's risk for DVT and pulmonary embolism is rather high, I am recommending now a CT angiogram of the chest to rule out pulmonary embolism. She will also have a venous Doppler. Patient is clearly not quite ready for extubation at this point considering her ABG is marginal, and nurse taking care of the patient noted that the patient desaturated easily upon cutting down the propofol from 45-40 hence was updated on her condition at bedside, and the patient will remain on present supportive care measures, remains on diuretics, and will arrange for CT angiogram of the chest and venous Dopplers today Patient was evaluated today on 06/10/2024, remains in the ICU intubated and mechanically ventilated. She is on assist-control rate of 18 tidal volume 500 FiO2 50% and PEEP of 10 ABG showed a pO2 of 84 pCO2 [address] angiogram of the chest yesterday was negative for pulmonary embolism but showed mostly atelectasis and possibly consolidation in the lower lobes. Chest x-ray today is showing definite improvement in her interstitial edema, patient remains on Lasix 40 mg IV push daily, she is also on Zosyn empirically for presumptive pneumonia involving lower lobes, patient is on propofol at 45 mcg/kg/min she is also on vital AF 20. WBC count today is 12.3 hemoglobin 13.0 PTT is 21.4 INR is 0.9 patient will be transitioned to IV heparin, it seems surgery on the case is agreeable to start the patient on heparin specially with her history of DVT and pulmonary embolism. Evaluated today on 06/11/2024, patient remains in the ICU, extubated yesterday, tolerated the extubation well, she is now on 2 L nasal cannula. Patient is not in any distress, remains on heparin, she is relatively asymptomatic, hence I plan to transfer the patient out of the ICU to a cardiac floor. Cardiology is recommending cardiac catheterization on this patient, and this is scheduled to be done tomorrow. WBC count today is 10.1 hemoglobin 11.1 PTT is 69 basic metabolic profile is normal and renal profile is normal Objective - Vital Signs Vital signs: Vital Signs Temp 99.3 F 06/11/24 08:00 Pulse 80 06/11/24 10:00 Resp 20 06/11/24 10:00 BP 124/68 06/11/24 10:00 Pulse Ox 93 L 06/11/24 09:00 FiO2 5 06/10/24 11:47 Intake & Output 06/10/24 06/11/24 06/11/24 18:59 06:59 18:59 Intake Total 381.278 437.457 140 Output Total 9605 120 3671 Balance -908.722 -62.543 -1190 Weight 117.9 kg Intake: IV 180 220 140 LR KVO 80 120 40 Piperacillin-Tazobactam 3 100 100 100 .375 gm In Sodium Chloride 0.9% 100 ml @ 25 mls/hr IVPB Q8HR [facility] Rx# :[id number] Intake, IV Titration 111.278 217.457 Amount Heparin Sod,Pork in 0.45% 217.457 NaCl 25,000 unit In 0.45 % NaCl 1 250ml.bag @ 8.2 UNITS/KG/HR 9.988 mls/hr IV .Q24H [facility] Rx#: [id number] propofoL 1,000 mg In 111.278 Empty Bag 1 bag @ 10 MCG/ KG/MIN 7.086 mls/hr IV . Q14H7M [facility] Rx#:[id number] Tube Feeding 60 Other 30 Output: Drainage 90 90 110 Left Lower Abdomen 90 90 110 Urine 8105 042 7643 Other: Voiding Method Indwelling Catheter ABP, PAP, CO, CI - Last Documented Arterial Blood Pressure 84/64 - Exam General: Reveals 69-year-old female obese on 2 L nasal cannula, not in distress. Head: Atraumatic, normocephalic Skin: Skin is warm and dry and no rashes or lesions are noted. Eye: Pupils are pinpoint, extra-ocular movements are intact; there is normal conjunctiva bilaterally. Ears, nose, mouth and throat: There are moist mucous membranes and no oral lesions. Neck: The neck is supple, there is no tenderness or JVD. Cardiovascular: Distant S1-S2, no S3 gallop, no murmur. Respiratory: Clear bilaterally no rhonchi no wheezes Gastrointestinal: Postsurgical abdomen soft, non-distended, non-tender abdomen and wound VAC is noted. MARY drain is noted Musculoskeletal: No deformities noted. Neurological: Alert and oriented x 3 no gross focal deficit Psychiatric: Normal mood and affect abnormal mental status examination - Labs CBC & Chem 7: 06/11/24 04:12 06/11/24 10:17 Labs: Abnormal Lab Results - Last 24 Hours (Table) 06/10/24 06/10/24 06/10/24 Range/Units 11:49 17:31 17:49 Hgb (11.4-16.0) gm/dL APTT 21.4 L 37.7 H (22.0-30.0) sec BUN (7-17) mg/dL Glucose (74-99) mg/dL POC Glucose (mg/dL) 136 H (70-110) mg/dL Calcium (8.4-10.2) mg/dL 06/11/24 06/11/24 06/11/24 Range/Units 01:27 04:12 04:12 Hgb 11.1 L (11.4-16.0) gm/dL APTT 67.0 H 69.4 H (22.0-30.0) sec BUN (7-17) mg/dL Glucose (74-99) mg/dL POC Glucose (mg/dL) (70-110) mg/dL Calcium (8.4-10.2) mg/dL 06/11/24 06/11/24 Range/Units 04:12 11:38 Hgb (11.4-16.0) gm/dL APTT (22.0-30.0) sec BUN 20 H (7-17) mg/dL Glucose 105 H (74-99) mg/dL POC Glucose (mg/dL) 136 H (70-110) mg/dL Calcium 8.2 L (8.4-10.2) mg/dL Microbiology - Last 24 Hours (Table) 06/09/24 04:08 Gram Stain - Preliminary Sputum Sputum Culture - Preliminary Trish albicans Assessment and Plan Assessment: Impression: Acute hypoxic and hypercapnic respiratory failure post incisional hernia repair, required intubation mechanical ventilation, patient was extubated on 06/10/2024 for Strongly suspect negative pressure pulmonary edema, rule out acute non-ST elevation myocardial infarction troponin is elevated, cardiology consultation is pending, echocardiogram is pending Bibasilar atelectasis, possible consolidation, cannot rule out pneumonia Moderate coronary artery calcification based on previous CT scan History of DVT and pulmonary embolism, 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 History of depression Recommendation: Titrate oxygen accordingly Continue incentive spirometry Continue empiric antibiotics Continue diuretics Continue IV heparin, and eventually transition to her usual anticoagulation t herapy/Eliquis Patient to have cardiac catheterization in a.m. Continue bronchodilators Ambulate Discontinue any unnecessary catheters or lines Will transfer out of ICU to 3 S./cardiac floor Will continue to follow Time with Patient: Less than 30
--- NOTE | 2024-06-11 15:17 | P.PN ---
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 Patient is status post open repair of recurrent incisional hernia. Patient had general anesthesia during surgery and was sent to recovery room. After extubation patient started having severe shortness of breath and was also hypotensive and tachycardic. Chest x-ray showed clinical correlation recommended for CHF. Patient was intubated again and was transferred to MICU. Patient was also requiring pressor support. Patient was given a dose of 40 mg IV Lasix postintubation. ABG showed 7.17, pCO2 57 pO2 104 and bicarb is 20 Other laboratory data showed sodium 136 potassium 4.3 chloride 108 bicarb is 20 BUN 15 creatinine 0.77 Blood sugar 286 and calcium 8.4. proBNP 539 and troponin 0.231 Patient is chronically hypotensive as per her at bedside. 06/09/2024 patient is seen and evaluated in follow-up status post recurrent open incisional hernia repair with general surgery continues to be on mechanical ventilation, FiO2 is 50% with a PEEP of 10. Venous Doppler along with CTA of the chest is ordered and pending at this time to assess for blood clots. Chest x-ray was done today showing some overload and was given a dose of IV Lasix. Assessing mentation with sedation holidays although not quite ready for extubation at this point. Patient is afebrile and continues on propofol and is currently off pressor support. Sister at the bedside with questions and concerns that were answered. We will continue to follow along with general surgery during hospitalization. Overall prognosis is guarded at this time. 06/10/2024 Patient is seen in follow-up today continues to be in the ICU with multiple consultations following. Patient is status post incisional hernia repair currently just extubated 20 minutes prior to exam. Patient is on nasal cannula at 5 L maintaining oxygen saturations above 90%. Patient is awake, alert and oriented and following commands. Patient is whispering currently reporting her throat is tender. Patient being started on antibiotics empirically and will follow-up with lab work and cultures. Diet to be resumed and started per surger y. Patient is being started on IV heparin with cardiology on consult as patient did have elevated troponins. Awaiting evaluation. 06/11/2024 Patient is seen and evaluated in follow-up this morning with multiple medical consultations following. Patient continues in the ICU and was status post suc cessful extubation yesterday post incisional hernia repair. Patient currently maintained on 4 to 5 L via nasal cannula and reports does not wear oxygen outpatient. Cardiology following as well as patient had elevated troponins and is undergoing cardiac catheterization in the a.m. on 06/12/2024. Patient will continue on IV heparin for now and will await cardiology report. Patient is afebrile with no reports of chest pain or worsening shortness of breath. Patient is tolerating diet and slowly advance per surgery. Patient reports not much of an appetite and continues with some mild abdominal discomfort although improved from yesterday. Patient attempted to get up to the bedside and reports did not do very well. Will have PT/OT therapy work with the patient and also discussed with case management/social work in the event patient may need ECF for continued strength and mobility. We will continue to follow with general surgery during hospitalization. Review of systems: Constitutional: No reports of fatigue, fever, or chills Cardiovascular: No reports of chest pain or palpitations Respiratory: No reports of worsening shortness of breath or cough GI: No reports of nausea, vomiting, or diarrhea, reports passing gas, reports not much of an appetite : No reports of dysuria or retention Neurovascular: reports of generalized weakness and difficulty ambulating All medications have been reviewed PHYSICAL EXAMINATION: Patient is a 69-year-old female who is awake, alert and oriented x 3, well- developed, well-nourished, morbidly obese, elderly appearing HEENT: Normocephalic. Neck is supple. Pupils reactive. Nostrils clear. Oral cavity is moist. Neck reveals no JVD, carotid bruits, or thyromegaly. CHEST EXAMINATION: Trachea is central. Symmetrical expansion. Bibasilar d iminished sounds. Lung cruz clear to auscultation and percussion. CARDIAC: S1, S2 are muffled ABDOMEN: Soft. Morbidly obese, bowel sounds normal. No organomegaly. No abdominal bruits. Tenderness noted on palpation Extremities: reveal no edema. No clubbing or cyanosis bilateral upper and lower extremity swelling as well as neck region swelling and facial Neurologically awake, alert and oriented, cooperative No gross focal deficits noted, diffusely weak Skin: No rash or skin lesions. Musculoskeletal: No joint swelling or deformity. Assessment: Acute hypoxic and hypercapnic respiratory failure secondary to pulmonary edema. Postextubation. Currently reintubated requiring mechanical ventilator. FiO2 is 50% with a PEEP of 10, status post extubation on 06/10/2024. Currently on 4L Suspect flash pulm edema due to negative pressure after extubation Status post recurrent open incisional hernia repair postoperative day 3 Acute NSTEMI status post hernia repair, currently maintained on IV heparin and will be undergoing cardiac catheterization on 06/12/2024 with cardiology History of DVT/PE currently on Eliquis at home. Changed to IV heparin at this time okay per surgery. Anxiety/depression history Prior history of smoking Hepatitis B history Hypothyroidism Hyperglycemia Morbid obesity with a BMI of 43.2 DVT prophylaxis. On IV heparin GI prophylaxis Full code Plan: Patient is currently in the ICU and is a downgrade once a bed is available. Cardiology following as well for NSTEMI and will undergo cardiac catheterization in the a.m. Patient continue on IV heparin and will likely transition back to Eliquis after catheterization. Will await cardiology report. Recommend wean FiO2 as tolerated and currently maintained on 4 L. Patient was successfully extubated yesterday on 06/10/2024. Patient reports does not wear oxygen outpatient Continue to monitor respiratory status. Continue with insulin sliding scale and regimen for tight glycemic control. Will adjust insulins accordingly. Patient has been resumed on diet and reports not much of an appetite. Continue monitoring Accu-Cheks ACHS Continue with pain management and follow-up closely. Discussed with her sister at bedside in detail. Prognosis guarded. Critical care team is on board. Patient attempted to get up to the side of the bed and extremely weak. Will have PT/OT therapy evaluate the patient and discuss further with case management/social work regarding discharge planning. Patient is agreeable to ECF if needed for continued strength and mobility. Further recommendations based on the clinical course. Thank you kindly for your consult. We will continue to follow with general surgery during hospitalization. The impression and plan of care has been dictated by Nuria Gutierrez, Nurse Practitioner as directed. Dr. Kym MD I have performed a history and examination and MDM of this patient, discussed the same with the dictator, and agree with the dictator's assessment and plan as written ,documented as a scribe. Based on total visit time, I have performed more than 50% of the visit. She did not Objective - Vital Signs Vital signs: Vital Signs Temp 97.7 F 06/11/24 04:00 Pulse 80 06/11/24 05:00 Resp 17 06/11/24 05:00 BP 113/59 06/11/24 05:00 Pulse Ox 93 L 06/11/24 05:00 FiO2 5 06/10/24 11:47 Intake & Output 06/10/24 06/10/24 06/11/24 06:59 18:59 06:59 Intake Total 815.836 381.278 275.409 Output Total 580 1290 435 Balance 235.836 -908.722 -159.591 Weight 121.8 kg 117.9 kg Intake: IV 120 180 200 LR KVO 120 80 100 Piperacillin-Tazobactam 3 100 100 .375 gm In Sodium Chloride 0.9% 100 ml @ 25 mls/hr IVPB Q8HR [facility] Rx# :[id number] Intake, IV Titration 425.836 111.278 75.409 Amount Heparin Sod,Pork in 0.45% 75.409 NaCl 25,000 unit In 0.45 % NaCl 1 250ml.bag @ 8.2 UNITS/KG/HR 9.988 mls/hr IV .Q24H [facility] Rx#: [id number] propofoL 1,000 mg In 425.836 111.278 Empty Bag 1 bag @ 10 MCG/ KG/MIN 7.086 mls/hr IV . Q14H7M [facility] Rx#:[id number] Tube Feeding 210 60 Other 60 30 Output: Drainage 55 90 90 Left Lower Abdomen 55 90 90 Urine 525 1200 345 ABP, PAP, CO, CI - Last Documented Arterial Blood Pressure 84/64 - Labs CBC & Chem 7: 06/11/24 04:12 06/11/24 10:17 Labs: Abnormal Lab Results - Last 24 Hours (Table) 06/10/24 06/10/24 06/10/24 Range/Units 05:22 06:00 11:45 Hgb (11.4-16.0) gm/dL APTT (22.0-30.0) sec ABG pH 7.46 H (7.35-7.45) ABG HCO3 26 H (21-25) mmol/L ABG Total CO2 27 H (19-24) mmol/L ABG O2 Saturation 97.2 H (94-97) % BUN (7-17) mg/dL Glucose (74-99) mg/dL POC Glucose (mg/dL) 123 H 131 H (70-110) mg/dL Calcium (8.4-10.2) mg/dL 06/10/24 06/10/24 06/10/24 Range/Units 11:49 17:31 17:49 Hgb (11.4-16.0) gm/dL APTT 21.4 L 37.7 H (22.0-30.0) sec ABG pH (7.35-7.45) ABG HCO3 (21-25) mmol/L ABG Total CO2 (19-24) mmol/L ABG O2 Saturation (94-97) % BUN (7-17) mg/dL Glucose (74-99) mg/dL POC Glucose (mg/dL) 136 H (70-110) mg/dL Calcium (8.4-10.2) mg/dL 06/11/24 06/11/24 06/11/24 Range/Units 01:27 04:12 04:12 Hgb 11.1 L (11.4-16.0) gm/dL APTT 67.0 H 69.4 H (22.0-30.0) sec ABG pH (7.35-7.45) ABG HCO3 (21-25) mmol/L ABG Total CO2 (19-24) mmol/L ABG O2 Saturation (94-97) % BUN (7-17) mg/dL Glucose (74-99) mg/dL POC Glucose (mg/dL) (70-110) mg/dL Calcium (8.4-10.2) mg/dL 06/11/24 Range/Units 04:12 Hgb (11.4-16.0) gm/dL APTT (22.0-30.0) sec ABG pH (7.35-7.45) ABG HCO3 (21-25) mmol/L ABG Total CO2 (19-24) mmol/L ABG O2 Saturation (94-97) % BUN 20 H (7-17) mg/dL Glucose 105 H (74-99) mg/dL POC Glucose (mg/dL) (70-110) mg/dL Calcium 8.2 L (8.4-10.2) mg/dL Microbiology - Last 24 Hours (Table) 06/09/24 04:08 Gram Stain - Preliminary Sputum Sputum Culture - Preliminary
--- NOTE | 2024-06-11 15:41 | P.PN ---
Subjective Progress Note Date: 06/11/24 CHIEF COMPLAINT: Recurrent incisional hernia HISTORY OF PRESENT ILLNESS: Patient is postop day #3 status post open repair of recurrent incisional hernia. Patient is in the ICU. Patient extubated yesterda y. Patient scheduled for heart catheterization tomorrow. Patient is awake and alert she tolerated a regular diet. MARY drain 110 mL sanguinous output. Patient is having flatus. Afebrile. WBC 10.1 Hgb 11.1 platelets 170 PHYSICAL EXAM: VITAL SIGNS: Reviewed. GENERAL: no acute distress. HEENT: No sclera icterus. Extraocular movements grossly intact. Moist buccal mucosa. Head is atraumatic, normocephalic. ABDOMEN: Soft. Nondistended. Prevena wound VAC clean dry and intact. MARY drain with sanguinous output ASSESSMENT: 1. Recurrent incisional hernia 2. Severe negative pressure pulmonary edema 3. Non-ST elevated [place] 4. History of PE PLAN: -Continue regular diet -Cardiology has patient scheduled for heart catheterization tomorrow -Continue pain management -Continue supportive care -Patient is on IV heparin for anticoagulation due to non-ST elevated AL Physician Roving Inspector note has been reviewed by physician. Signing provider agrees with the documented findings, assessment, and plan of care. I have personally seen and examined the patient, reviewed the ICE SKATING COACH /PAs history, exam and MDM and agree with the assessment and plan as written. Based on total visit time, I have performed more than 50% of the visit. As above: Patient feels well today. No abdominal pain currently. Plans for cardiac catheterization tomorrow. Continue diet as tolerated. Increase activity. Objective - Vital Signs Vital signs: Vital Signs Temp 98.4 F 06/11/24 12:00 Pulse 81 06/11/24 12:00 Resp 16 06/11/24 12:00 BP 109/65 06/11/24 12:00 Pulse Ox 93 L 06/11/24 12:00 FiO2 5 06/10/24 11:47 Intake & Output 06/10/24 06/11/24 06/11/24 18:59 06:59 18:59 Intake Total 381.278 437.457 150 Output Total 3428 368 7477 Balance -908.722 -62.543 -1545 Weight 117.9 kg Intake: IV 180 220 150 LR KVO 80 120 50 Piperacillin-Tazobactam 3 100 100 100 .375 gm In Sodium Chloride 0.9% 100 ml @ 25 mls/hr IVPB Q8HR [facility] Rx# :[id number] Intake, IV Titration 111.278 217.457 Amount Heparin Sod,Pork in 0.45% 217.457 NaCl 25,000 unit In 0.45 % NaCl 1 250ml.bag @ 8.2 UNITS/KG/HR 9.988 mls/hr IV .Q24H [facility] Rx#: [id number] propofoL 1,000 mg In 111.278 Empty Bag 1 bag @ 10 MCG/ KG/MIN 7.086 mls/hr IV . Q14H7M [facility] Rx#:[id number] Tube Feeding 60 Other 30 Output: Drainage 90 90 150 Left Lower Abdomen 90 90 150 Urine 4719 386 6433 Other: Voiding Method Indwelling Catheter ABP, PAP, CO, CI - Last Documented Arterial Blood Pressure 84/64 - Labs CBC & Chem 7: 06/11/24 04:12 06/11/24 10:17 Labs: Abnormal Lab Results - Last 24 Hours (Table) 06/10/24 06/10/24 06/11/24 Range/Units 17:31 17:49 01:27 Hgb (11.4-16.0) gm/dL APTT 37.7 H 67.0 H (22.0-30.0) sec BUN (7-17) mg/dL Glucose (74-99) mg/dL POC Glucose (mg/dL) 136 H (70-110) mg/dL Calcium (8.4-10.2) mg/dL 06/11/24 06/11/24 06/11/24 Range/Units 04:12 04:12 04:12 Hgb 11.1 L (11.4-16.0) gm/dL APTT 69.4 H (22.0-30.0) sec BUN 20 H (7-17) mg/dL Glucose 105 H (74-99) mg/dL POC Glucose (mg/dL) (70-110) mg/dL Calcium 8.2 L (8.4-10.2) mg/dL 06/11/24 Range/Units 11:38 Hgb (11.4-16.0) gm/dL APTT (22.0-30.0) sec BUN (7-17) mg/dL Glucose (74-99) mg/dL POC Glucose (mg/dL) 136 H (70-110) mg/dL Calcium (8.4-10.2) mg/dL Microbiology - Last 24 Hours (Table) 06/09/24 04:08 Gram Stain - Preliminary Sputum Sputum Culture - Preliminary Trish albicans
[2024-06-11 17:04] LABS: Glucose,Whole Blood 113 mg/dL (70-110)
[2024-06-11 20:05] LABS: Glucose,Whole Blood 120 mg/dL (70-110)
[2024-06-11] MEDS: INSULIN ASPART (NovoLOG) 100 UNIT/ML VIAL SQ SCH (20:53)
[2024-06-11] MEDS: CALCIUM CARBONATE 500 MG CHEWABLE PO PRN (21:33)
--- NOTE | 2024-06-11 21:42 | PN ---
PROGRESS NOTE SUBJECTIVE: Colten is a 69-year-old lady, who is admitted to hospital for incisional hernia repair and in the postop recovery phase developed sudden onset acute pulmonary edema. She was intubated and just got extubated yesterday. The exact etiology for her symptomatology was unclear. Her troponins were slightly elevated at 0.2, 0.3, and 0.1. EKG did not reveal any acute ischemic changes and echocardiogram was normal. Given the unexplained pulmonary edema in the perioperative setting, I advised her to undergo cardiac catheterization. Understanding risks and benefits, she wishes to proceed with it. She has a history of pulmonary embolism and is currently on anticoagulation for the same. I am going to schedule this tomorrow. She is otherwise free of cardiac symptoms. PHYSICAL EXAMINATION: GENERAL: She is comfortable at rest. VITAL SIGNS: Stable. CHEST: Reveals good air entry bilaterally. HEART: Reveals first and second heart sounds. No gallop. No murmur. ABDOMEN: Soft, nontender. EXTREMITIES: Did not reveal any edema. Peripheral pulses are palpable. LABORATORY DATA: Show that the creatinine is 0.68. Hemoglobin is 11.1, platelet count is 170. ASSESSMENT: 1. Non ST-segment elevation myocardial infarction. 2. Vent requiring respiratory failure secondary to pulmonary edema, status post incisional hernia repair. 3. History of pulmonary embolism. PLAN: I am going to schedule the patient for cardiac cath tomorrow. I am going to cut back on the dose of Lasix 40 IV daily to 40 p.o. daily. LUIS ENRIQUE / MARV: [id number] /
[2024-06-12] MEDS: ASPIRIN 325 MG TAB PO ONE (04:59)
[2024-06-12] MEDS: SODIUM CHLORIDE 0.9% 1,000 ML in EMPTY BAG 1 BAG IV SCH (04:59)
[2024-06-12] MEDS: ATORVASTATIN 80 MG TAB PO ONE (04:59)
[2024-06-12 05:42] LABS: African American GFR (CKD) >90 (>60 ml/min/1.73 sqM); Anion Gap 2 mmol/L; Blood Urea Nitrogen 20 mg/dL (7-17); Calcium 8.5 mg/dL (8.4-10.2); Carbon Dioxide 27 mmol/L (22-30); Chloride 107 mmol/L (98-107); Glucose 122 mg/dL (74-99); Non-African American GFR(CKD) 79 (>60 ml/min/1.73 sqM); Potassium 4.1 mmol/L (3.5-5.1); Sodium 136 mmol/L (137-145)
[2024-06-12 05:46] LABS: Basophils % (A) 0 %; Eosinophils # (A) 0.4 k/uL (0-0.7); Eosinophils % (A) 4 %; HCT 30.5 % (34.0-46.0); HGB 9.9 gm/dL (11.4-16.0); Lymphocytes # (A) 2.1 k/uL (1.0-4.8); Lymphocytes % (A) 23 %; MCH 30.6 pg (25.0-35.0); MCHC 32.4 g/dL (31.0-37.0); MCV 94.5 fL (80.0-100.0); Mean Platelet Volume 8.5; Monocytes # (A) 0.6 k/uL (0-1.0); Monocytes % (A) 7 %; Neutrophils # (A) 5.9 k/uL (1.3-7.7); Neutrophils % (A) 64 %; Platelet Count 199 k/uL (150-450); RBC 3.23 m/uL (3.80-5.40); RDW 13.7 % (11.5-15.5); WBC 9.3 k/uL (3.8-10.6)
[2024-06-12 06:45] LABS: Glucose,Whole Blood 138 mg/dL (70-110)
[2024-06-12] MEDS ORDERED: HEPARIN SODIUM,PORCINE (1 ML) 2,500 UNIT in SODIUM CHLORIDE 0.9% 250 ML IRRIGATION PRN (07:00)
[2024-06-12] MEDS ORDERED: HEPARIN SODIUM,PORCINE 10,000 UNIT in SODIUM CHLORIDE 0.9% 1,000 ML IRRIGATION PRN (07:00)
[2024-06-12] MEDS: FUROSEMIDE 40 MG TAB PO SCH (09:07)
[2024-06-12] MEDS: HYDROcodone/APAP 5-325MG 1 EACH TAB PO PRN (09:57)
--- NOTE | 2024-06-12 11:06 | P.PN ---
Subjective Progress Note Date: 06/12/24 CHIEF COMPLAINT: Recurrent incisional hernia HISTORY OF PRESENT ILLNESS: Patient is postop day #4 status post open repair of recurrent incisional hernia. Patient is in overflow in the ICU. Her heart cath eterization for today was canceled due to the patient having increased sanguinous output through the MARY drain. The IV heparin was discontinued. Patient had 430 sanguinous output yesterday 50 through the night and then 30 mL output this morning. Patient had increased left lower abdominal pain with ambulating. Otherwise pain is controlled. She denies any nausea or vomiting. She is having flatus. No bowel movement. Afebrile. WBC 9.3 HGB 11.1 to 9.9 PHYSICAL EXAM: VITAL SIGNS: Reviewed. GENERAL: no acute distress. ABDOMEN: Soft. Nondistended. Mild tenderness left lower abdomen. Prevena wound VAC clean dry and intact. MARY drain with sanguinous output ASSESSMENT: 1. Recurrent incisional hernia 2. Severe negative pressure pulmonary edema 3. Non-ST elevated [place] 4. History of PE PLAN: -Continue regular diet -Continue to monitor MARY drain output -Continue pain management -Continue supportive care -Encourage patient to increase activity level -Consult placed for physical therapy -Discontinue Silverman catheter Physician Customer Relations Assistant note has been reviewed by physician. Signing provider agrees with the documented findings, assessment, and plan of care. I have personally seen and examined the patient, reviewed the BAND LEADER /PAs history, exam and MDM and agree with the assessment and plan as written. Based on total visit time, I have performed more than 50% of the visit. As above: Patient had bleeding through the MARY drain overnight. Hemoglobin did drop. MARY drain output has decreased significantly. No syncopal episodes or lightheadedness. Mild soreness at the MARY site. Continue regular diet. Increase activity. Hold anticoagulation. Objective - Vital Signs Vital signs: Vital Signs Temp 98.2 F 06/12/24 08:30 Pulse 96 06/12/24 08:30 Resp 19 06/12/24 08:30 BP 114/66 06/12/24 08:30 Pulse Ox 95 06/12/24 08:30 FiO2 5 06/10/24 11:47 Intake & Output 06/11/24 06/12/24 06/12/24 18:59 06:59 18:59 Intake Total 300 90 217 Output Total 2250 475 100 Balance -1950 -385 117 Intake: IV 300 90 217 LR KVO 100 90 Piperacillin-Tazobactam 3 200 100 .375 gm In Sodium Chloride 0.9% 100 ml @ 25 mls/hr IVPB Q8HR [facility] Rx# :[id number] Sodium Chloride 0.9% 1, 117 000 ml In Empty Bag 1 bag @ 1 ML/KG/HR 117.9 mls/ hr IV .Q8H29M [facility] Rx#: [id number] Output: Drainage 480 150 Left Lower Abdomen 480 150 Urine 1770 325 100 Other: Voiding Method Indwelling Catheter Indwelling Catheter ABP, PAP, CO, CI - Last Documented Arterial Blood Pressure 84/64 - Labs CBC & Chem 7: 06/12/24 05:07 06/12/24 05:07 Labs: Abnormal Lab Results - Last 24 Hours (Table) 06/11/24 06/11/24 06/11/24 Range/Units 11:38 17:02 20:04 RBC (3.80-5.40) m/uL Hgb (11.4-16.0) gm/dL Hct (34.0-46.0) % APTT (22.0-30.0) sec Sodium (137-145) mmol/L BUN (7-17) mg/dL Glucose (74-99) mg/dL POC Glucose (mg/dL) 136 H 113 H 120 H (70-110) mg/dL 06/12/24 06/12/24 06/12/24 Range/Units 05:07 05:07 05:07 RBC 3.23 L (3.80-5.40) m/uL Hgb 9.9 L (11.4-16.0) gm/dL Hct 30.5 L (34.0-46.0) % APTT 21.4 L (22.0-30.0) sec Sodium 136 L (137-145) mmol/L BUN 20 H (7-17) mg/dL Glucose 122 H (74-99) mg/dL POC Glucose (mg/dL) (70-110) mg/dL 06/12/24 Range/Units 06:43 RBC (3.80-5.40) m/uL Hgb (11.4-16.0) gm/dL Hct (34.0-46.0) % APTT (22.0-30.0) sec Sodium (137-145) mmol/L BUN (7-17) mg/dL Glucose (74-99) mg/dL POC Glucose (mg/dL) 138 H (70-110) mg/dL Microbiology - Last 24 Hours (Table) 06/09/24 04:08 Gram Stain - Final Sputum Sputum Culture - Final Trish albicans
[2024-06-12 11:32] LABS: Glucose,Whole Blood 143 mg/dL (70-110)
--- NOTE | 2024-06-12 12:19 | P.PN ---
Subjective Progress Note Date: 06/12/24 Principal diagnosis: Acute hypoxic and hypercapnic respiratory failure secondary to negative pressure pulmonary edema This is a 69-year-old female with history of multiple medical problems, patient underwent today open repair of recurrent incisional hernia. This was done under general endotracheal anesthesia, postoperatively, patient was sent to recovery room, extubated, however after extubation the patient developed significant shortness of breath, tachycardia, hypotension, and chest x-ray showed evidence of interstitial pulmonary edema. Patient had to be reintubated, admitted to the ICU, and this consult was initiated. In retrospect, I believe the patient may have developed negative pressure pulmonary edema requiring reintubation and mechanical ventilation. Patient did receive a 40 mg of Lasix postintubation, with some improvement. Her ABG before transfer to the ICU showed a pO2 of 104 pCO2 57 pH of 7.17 however after stabilizing the patient in the ICU and repeat ABG on 80% FiO2 while mechanically ventilated showed a pO2 of 82 pCO2 40 and pH of 7.35.WBC count 11 hemoglobin 12.5. Troponin came back at 0.231 and BNP level of 539 Patient was read today on 06/09/2024, patient remains intubated and mechanically ventilated, patient was admitted to the ICU yesterday after surgery on repair of incisional hernia. Patient is on mechanical ventilation, assist-control rate of 18 tidal volume 500 FiO2 50% and PEEP of 10 ABG is marginal with a pO2 of 73 pCO2 33 pH of 7.48. Patient remains on propofol, not requiring any norepinephrine for hemodynamic support. She did receive Lasix 40 mg IV push earlier, chest x-ray is showing improvement however her blood gases remain marginal and the chest x-ray continues to show evidence of interstitial edema. Troponin level is elevated at 0.345, follow-up troponin is pending, cardiology consultation is pending, echocardiogram was performed, results of pending. Looking back at the Lovenox dose, has been changed by surgery on the case from 80 mg SQ twice daily to 40 mg twice daily, however considering the patient's risk for DVT and pulmonary embolism is rather high, I am recommending now a CT angiogram of the chest to rule out pulmonary embolism. She will also have a venous Doppler. Patient is clearly not quite ready for extubation at this point considering her ABG is marginal, and nurse taking care of the patient noted that the patient desaturated easily upon cutting down the propofol from 45-40 hence was updated on her condition at bedside, and the patient will remain on present supportive care measures, remains on diuretics, and will arrange for CT angiogram of the chest and venous Dopplers today Patient was evaluated today on 06/10/2024, remains in the ICU intubated and mechanically ventilated. She is on assist-control rate of 18 tidal volume 500 FiO2 50% and PEEP of 10 ABG showed a pO2 of 84 pCO2 [address] angiogram of the chest yesterday was negative for pulmonary embolism but showed mostly atelectasis and possibly consolidation in the lower lobes. Chest x-ray today is showing definite improvement in her interstitial edema, patient remains on Lasix 40 mg IV push daily, she is also on Zosyn empirically for presumptive pneumonia involving lower lobes, patient is on propofol at 45 mcg/kg/min she is also on vital AF 20/20. WBC count today is 12.3 hemoglobin 13.0 PTT is 21.4 INR is 0.9 patient will be transitioned to IV heparin, it seems surgery on the case is agreeable to start the patient on heparin specially with her history of DVT and pulmonary embolism. Evaluated today on 06/11/2024, patient remains in the ICU, extubated yesterday, tolerated the extubation well, she is now on 2 L nasal cannula. Patient is not in any distress, remains on heparin, she is relatively asymptomatic, hence I plan to transfer the patient out of the ICU to a cardiac floor. Cardiology is recommending cardiac catheterization on this patient, and this is scheduled to be done tomorrow. WBC count today is 10.1 hemoglobin 11.1 PTT is 69 basic metabolic profile is normal and renal profile is normal Patient was today on 06/12/2024, patient remains in the ICU as an overflow, she is supposed to go to 3 S., doing well, on 2 L nasal cannula, apparently her cardiac catheterization was canceled by cardiology. Pulmonary cosme no pulmonary issues, hardly any pulmonary symptoms, patient is doing great, and she is still being followed by surgery because of her recent incisional hernia repair WBC count is 9.3 hemoglobin 9.9 basic metabolic profile is normal and renal profile is normal Objective - Vital Signs Vital signs: Vital Signs Temp 98.2 F 06/12/24 08:30 Pulse 87 06/12/24 10:00 Resp 12 06/12/24 10:00 BP 114/66 06/12/24 08:30 Pulse Ox 95 06/12/24 08:30 FiO2 5 06/10/24 11:47 Intake & Output 06/11/24 06/12/24 06/12/24 18:59 06:59 18:59 Intake Total 300 90 451 Output Total 2250 475 265 Balance -1950 -385 186 Intake: IV 300 90 451 LR KVO 100 90 Piperacillin-Tazobactam 3 200 100 .375 gm In Sodium Chloride 0.9% 100 ml @ 25 mls/hr IVPB Q8HR [facility] Rx# :[id number] Sodium Chloride 0.9% 1, 351 000 ml In Empty Bag 1 bag @ 1 ML/KG/HR 117.9 mls/ hr IV .Q8H29M [facility]O Rx#: [id number] Output: Drainage 480 150 40 Left Lower Abdomen 480 150 40 Urine 1770 325 225 Other: Voiding Method Indwelling Catheter Indwelling Catheter Indwelling Catheter ABP, PAP, CO, CI - Last Documented Arterial Blood Pressure 84/64 - Exam General: Reveals 69-year-old female obese on 2 L nasal cannula, not in distress. Head: Atraumatic, normocephalic Skin: Skin is warm and dry and no rashes or lesions are noted. Eye: Pupils are pinpoint, extra-ocular movements are intact; there is normal conjunctiva bilaterally. Ears, nose, mouth and throat: There are moist mucous membranes and no oral lesions. Neck: The neck is supple, there is no tenderness or JVD. Cardiovascular: Distant S1-S2, no S3 gallop, no murmur. Respiratory: Clear bilaterally no rhonchi no wheezes Gastrointestinal: Postsurgical abdomen soft, non-distended, non-tender abdomen and wound VAC is noted. MARY drain is noted Musculoskeletal: No deformities noted. Neurological: Alert and oriented x 3 no gross focal deficit Psychiatric: Normal mood and affect abnormal mental status examination - Labs CBC & Chem 7: 06/12/24 05:07 06/12/24 05:07 Labs: Abnormal Lab Results - Last 24 Hours (Table) 06/11/24 06/11/24 06/12/24 Range/Units 17:02 20:04 05:07 RBC (3.80-5.40) m/uL Hgb (11.4-16.0) gm/dL Hct (34.0-46.0) % APTT 21.4 L (22.0-30.0) sec Sodium (137-145) mmol/L BUN (7-17) mg/dL Glucose (74-99) mg/dL POC Glucose (mg/dL) 113 H 120 H (70-110) mg/dL 06/12/24 06/12/24 06/12/24 Range/Units 05:07 05:07 06:43 RBC 3.23 L (3.80-5.40) m/uL Hgb 9.9 L (11.4-16.0) gm/dL Hct 30.5 L (34.0-46.0) % APTT (22.0-30.0) sec Sodium 136 L (137-145) mmol/L BUN 20 H (7-17) mg/dL Glucose 122 H (74-99) mg/dL POC Glucose (mg/dL) 138 H (70-110) mg/dL 06/12/24 Range/Units 11:31 RBC (3.80-5.40) m/uL Hgb (11.4-16.0) gm/dL Hct (34.0-46.0) % APTT (22.0-30.0) sec Sodium (137-145) mmol/L BUN (7-17) mg/dL Glucose (74-99) mg/dL POC Glucose (mg/dL) 143 H (70-110) mg/dL Microbiology - Last 24 Hours (Table) 06/09/24 04:08 Gram Stain - Final Sputum Sputum Culture - Final Trish albicans Assessment and Plan Assessment: Impression: Acute hypoxic and hypercapnic respiratory failure post incisional hernia repair, required intubation mechanical ventilation, patient was extubated on 06/10/2024 Strongly suspect negative pressure pulmonary edema, rule out acute non-ST e levation myocardial infarction troponin is elevated, being considered for possible cardiac catheterization Bibasilar atelectasis, possible consolidation, cannot rule out pneumonia Moderate coronary artery calcification based on previous CT scan History of DVT and pulmonary embolism, 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 History of depression Recommendation: Transfer patient to a monitored bed and selective once a bed is available Continue incentive spirometry Continue empiric antibiotics Still being considered for cardiac catheterization by cardiology Continue bronchodilators Ambulate Will transfer out of ICU to 3 S./cardiac floor Will continue to follow Time with Patient: Less than 30
--- NOTE | 2024-06-12 13:16 | PN ---
PROGRESS NOTE SUBJECTIVE: A 69-year-old lady, who developed acute pulmonary edema in the perioperative setting and has history of pulmonary embolism. We were going to do a cardiac catheterization on her. While on heparin, the patient developed significant bleeding from the surgical site, hence the heparin had been stopped and I am cancelling the cardiac cath this morning. The patient needs anticoagulation because of history of pulmonary embolism. She is free of symptoms. OBJECTIVE: GENERAL: Comfortable at rest. VITAL SIGNS: Stable. CHEST: Reveals good air entry bilaterally. HEART: Reveals first and second heart sounds. No gallop. EXTREMITIES: Did not reveal any edema. Peripheral pulses are felt. The patient is currently on Lasix, aspirin which I am holding, insulin, was on metoprolol which we had because of hypotension. ASSESSMENT: 1. Non ST-segment elevation myocardial infarction. 2. History of pulmonary embolism. 3. Status post incisional hernia repair. PLAN: Continue with supportive care and whenever the bleeding issues resolve, we will consider further evaluation of the patient's underlying ischemic heart disease. The plan is to do it probably as outpatient. MMODL / IJN: [id number] /
[2024-06-12 16:40] LABS: Glucose,Whole Blood 117 mg/dL (70-110)
--- NOTE | 2024-06-12 19:30 | P.PN ---
Subjective Progress Note Date: 06/12/24 - Reason for Consult Consult date: 06/08/24 Medical management - Chief Complaint Respiratory failure - History of Present Illness Patient is a 69-year-old female with a past medical history of hypertension, history of DVT/PE currently on Eliquis, COPD, hypothyroidism, Raynaud's disease, hepatitis B, IBS, history of bowel resection and prior history of smoking presented to the hospital for elective incisional hernia repair. Patient is status post open repair of recurrent incisional hernia. Patient had general anesthesia during surgery and was sent to recovery room. After extubation patient started having severe shortness of breath and was also hypotensive and tachycardic. Chest x-ray showed clinical correlation recommended for CHF. Patient was intubated again and was transferred to MICU. Patient was also requiring pressor support. Patient was given a dose of 40 mg IV Lasix postintubation. ABG showed 7.17, pCO2 57 pO2 104 and bicarb is 20 Other laboratory data showed sodium 136 potassium 4.3 chloride 108 bicarb is 20 BUN 15 creatinine 0.77 Blood sugar 286 and calcium 8.4. proBNP 539 and troponin 0.231 Patient is chronically hypotensive as per her at bedside. 06/09/2024 patient is seen and evaluated in follow-up status post recurrent open incisional hernia repair with general surgery continues to be on mechanical ventilation, FiO2 is 50% with a PEEP of 10. Venous Doppler along with CTA of the chest is ordered and pending at this time to assess for blood clots. Chest x-ray was done today showing some overload and was given a dose of IV Lasix. Assessing mentation with sedation holidays although not quite ready for extubation at this point. Patient is afebrile and continues on propofol and is currently off pressor support. Sister at the bedside with questions and concerns that were answered. We will continue to follow along with general surgery during hospitalization. Overall prognosis is guarded at this time. 06/10/2024 Patient is seen in follow-up today continues to be in the ICU with multiple consultations following. Patient is status post incisional hernia repair currently just extubated 20 minutes prior to exam. Patient is on nasal cannula at 5 L maintaining oxygen saturations above 90%. Patient is awake, alert and oriented and following commands. Patient is whispering currently reporting her throat is tender. Patient being started on antibiotics empirically and will follow-up with lab work and cultures. Diet to be resumed and started per surger y. Patient is being started on IV heparin with cardiology on consult as patient did have elevated troponins. Awaiting evaluation. 06/11/2024 Patient is seen and evaluated in follow-up this morning with multiple medical consultations following. Patient continues in the ICU and was status post suc cessful extubation yesterday post incisional hernia repair. Patient currently maintained on 4 to 5 L via nasal cannula and reports does not wear oxygen outpatient. Cardiology following as well as patient had elevated troponins and is undergoing cardiac catheterization in the a.m. on 06/12/2024. Patient will continue on IV heparin for now and will await cardiology report. Patient is afebrile with no reports of chest pain or worsening shortness of breath. Patient is tolerating diet and slowly advance per surgery. Patient reports not much of an appetite and continues with some mild abdominal discomfort although improved from yesterday. Patient attempted to get up to the bedside and reports did not do very well. Will have PT/OT therapy work with the patient and also discussed with case management/social work in the event patient may need ECF for continued strength and mobility. We will continue to follow with general surgery during hospitalization. 06/12/2024 Patient is seen and evaluated today currently in ICU although is a downgrade to 3 S. once a bed becomes available. Patient is afebrile with no reports of chest pain or shortness of breath. Patient currently on room air sitting up and nursing staff reports she was up and to the commode today. Patient continues with MARY drain and had increased serous output overnight and IV heparin has been discontinued. Patient was initially scheduled from cardiology to undergo cardiac catheterization due to elevated troponins although is being canceled for now and cardiology along with surgery recommending outpatient follow-up for outpatient testing once patient has recovered from her incisional hernia repair. Hemoglobin is stable and will be monitored closely. Recommend follow-up labs. Patient to continue increasing activity as tolerated and will await PT/OT therapy evaluation to discuss possible ECF. Review of systems: Constitutional: No reports of fatigue, fever, or chills Cardiovascular: No reports of chest pain or palpitations Respiratory: No reports of worsening shortness of breath or cough GI: No reports of nausea, vomiting, or diarrhea, reports passing gas, reports not much of an appetite, no bowel movement as of yet : No reports of dysuria or retention Neurovascular: reports of generalized weakness although feeling slightly more improved than yesterday All medications have been reviewed PHYSICAL EXAMINATION: Patient is a 69-year-old female who is awake, alert and oriented x 3, well-developed, well-nourished, morbidly obese, elderly appearing, currently room air HEENT: Normocephalic. Neck is supple. Pupils reactive. Nostrils clear. Oral cavity is moist. Neck reveals no JVD, carotid bruits, or thyromegaly. CHEST EXAMINATION: Trachea is central. Symmetrical expansion. Bibasilar dimin ished sounds. Lung cruz clear to auscultation and percussion. CARDIAC: S1, S2 are muffled ABDOMEN: Soft. Morbidly obese, bowel sounds normal. No organomegaly. No abdominal bruits. Tenderness noted on palpation Extremities: reveal no edema. No clubbing or cyanosis, bilateral upper and lower extremity swelling, appears chronic Neurologically awake, alert and oriented, cooperative No gross focal deficits noted, diffusely weak Skin: No rash or skin lesions. Musculoskeletal: No joint swelling or deformity. Assessment: Acute hypoxic and hypercapnic respiratory failure secondary to pulmonary edema. Postextubation. Currently reintubated requiring mechanical ventilator. FiO2 is 50% with a PEEP of 10, status post extubation on 06/10/2024. Currently on room air Suspect flash pulm edema due to negative pressure after extubation Status post recurrent open incisional hernia repair postoperative day 4 Acute NSTEMI status post hernia repair, currently maintained on IV heparin although having increased output in the MARY drains, heparin being discontinued and patient will have outpatient cardiology follow-up to discuss possible cardiac catheterization once recovered History of DVT/PE currently on Eliquis at home. Anticoagulation currently on hold due to slight drop in hemoglobin and increased output noted in the MARY drain Anxiety/depression history Prior history of smoking Hepatitis B history Hypothyroidism Hyperglycemia Morbid obesity with a BMI of 43.2 DVT prophylaxis. SCDs GI prophylaxis Full code Plan: Patient is currently in the ICU and is a downgrade once a bed is available. Cardiology following as well for NSTEMI and initially was scheduled to undergo cardiac catheterization today although there was a slight drop in hemoglobin and increased output noted in the MARY. Catheterization was canceled for today and cardiology recommending outpatient follow-up. Continue holding anticoagulation for now. Patient has been weaning FiO2 as tolerated and currently room air to 2 L on exam.. Patient was successfully extubated on 06/10/2024. Patient reports does not wear oxygen outpatient Continue with insulin sliding scale and regimen for tight glycemic control. W ill adjust insulins accordingly. Patient has been resumed on diet and reports not much of an appetite. Continue monitoring Accu-Cheks ACHS Patient to continue working with PT/OT therapy. Will discuss further with case management/social work regarding discharge planning. Patient is agreeable to E CF if needed for continued strength and mobility. Further recommendations based on the clinical course. Recommend follow-up labs in the a.m. to monitor hemoglobin closely and also electrolytes. Replace electrolytes per protocol Thank you kindly for your consult. We will continue to follow with general surgery during hospitalization. The impression and plan of care has been dictated by Nuria Gutierrez, Nurse Practitioner as directed. Dr. Kym MD I have performed a history and examination and MDM of this patient, discussed the same with the dictator, and agree with the dictator's assessment and plan as written ,documented as a scribe. Based on total visit time, I have performed more than 50% of the visit. She did not Objective - Vital Signs Vital signs: Vital Signs Temp 98.2 F 06/12/24 08:30 Pulse 96 06/12/24 08:30 Resp 19 06/12/24 08:30 BP 114/66 06/12/24 08:30 Pulse Ox 95 06/12/24 08:30 FiO2 5 06/10/24 11:47 Intake & Output 06/11/24 06/12/24 06/12/24 18:59 06:59 18:59 Intake Total 300 90 217 Output Total 2250 475 100 Balance -1950 -385 117 Intake: IV 300 90 217 LR KVO 100 90 Piperacillin-Tazobactam 3 200 100 .375 gm In Sodium Chloride 0.9% 100 ml @ 25 mls/hr IVPB Q8HR [facility] Rx# :[id number] Sodium Chloride 0.9% 1, 117 000 ml In Empty Bag 1 bag @ 1 ML/KG/HR 117.9 mls/ hr IV .Q8H29M [facility] Rx#: [id number] Output: Drainage 480 150 Left Lower Abdomen 480 150 Urine 1770 325 100 Other: Voiding Method Indwelling Catheter Indwelling Catheter ABP, PAP, CO, CI - Last Documented Arterial Blood Pressure 84/64 - Labs CBC & Chem 7: 06/12/24 05:07 06/12/24 05:07 Labs: Abnormal Lab Results - Last 24 Hours (Table) 06/11/24 06/11/24 06/11/24 Range/Units 11:38 17:02 20:04 RBC (3.80-5.40) m/uL Hgb (11.4-16.0) gm/dL Hct (34.0-46.0) % APTT (22.0-30.0) sec Sodium (137-145) mmol/L BUN (7-17) mg/dL Glucose (74-99) mg/dL POC Glucose (mg/dL) 136 H 113 H 120 H (70-110) mg/dL 06/12/24 06/12/24 06/12/24 Range/Units 05:07 05:07 05:07 RBC 3.23 L (3.80-5.40) m/uL Hgb 9.9 L (11.4-16.0) gm/dL Hct 30.5 L (34.0-46.0) % APTT 21.4 L (22.0-30.0) sec Sodium 136 L (137-145) mmol/L BUN 20 H (7-17) mg/dL Glucose 122 H (74-99) mg/dL POC Glucose (mg/dL) (70-110) mg/dL 06/12/24 Range/Units 06:43 RBC (3.80-5.40) m/uL Hgb (11.4-16.0) gm/dL Hct (34.0-46.0) % APTT (22.0-30.0) sec Sodium (137-145) mmol/L BUN (7-17) mg/dL Glucose (74-99) mg/dL POC Glucose (mg/dL) 138 H (70-110) mg/dL Microbiology - Last 24 Hours (Table) 06/09/24 04:08 Gram Stain - Final Sputum Sputum Culture - Final Trish albicans
[2024-06-12 20:00] LABS: Glucose,Whole Blood 141 mg/dL (70-110)
[2024-06-13 05:54] LABS: Glucose,Whole Blood 174 mg/dL (70-110)
[2024-06-13 07:14] LABS: African American GFR (CKD) 88 (>60 ml/min/1.73 sqM); Anion Gap 4 mmol/L; Blood Urea Nitrogen 22 mg/dL (7-17); Calcium 8.6 mg/dL (8.4-10.2); Carbon Dioxide 28 mmol/L (22-30); Chloride 106 mmol/L (98-107); Glucose 142 mg/dL (74-99); Non-African American GFR(CKD) 77 (>60 ml/min/1.73 sqM); Potassium 3.6 mmol/L (3.5-5.1); Sodium 138 mmol/L (137-145)
[2024-06-13 07:16] LABS: Basophils # (A) 0.1 k/uL (0-0.2); Basophils % (A) 1 %; Eosinophils # (A) 0.6 k/uL (0-0.7); Eosinophils % (A) 6 %; HCT 29.5 % (34.0-46.0); HGB 9.3 gm/dL (11.4-16.0); Lymphocytes # (A) 1.7 k/uL (1.0-4.8); Lymphocytes % (A) 17 %; MCH 29.7 pg (25.0-35.0); MCHC 31.6 g/dL (31.0-37.0); Mean Platelet Volume 8.8; Monocytes # (A) 0.6 k/uL (0-1.0); Monocytes % (A) 6 %; Neutrophils # (A) 7.3 k/uL (1.3-7.7); Neutrophils % (A) 70 %; Platelet Count 198 k/uL (150-450); RBC 3.14 m/uL (3.80-5.40); WBC 10.4 k/uL (3.8-10.6)
--- NOTE | 2024-06-13 11:18 | P.PN ---
Subjective HISTORY OF PRESENT ILLNESS: Patient has been transferred out of the intensive care unit to [facility]. Patient examined this morning the bedside. Patient currently denies chest pain or pressure. She denies shortness of breath. Patient continues to have serosanguineous drainage from MARY drain. Anticoagulation remains on hold per general surgery request. Echocardiogram completed revealing ejection fraction 55 to 60% with trace MR PHYSICAL EXAM: VITAL SIGNS: Reviewed. GENERAL: Well-developed in no acute distress. NECK: Supple. No JVD or thyromegaly LUNGS: Respirations even and unlabored. Lungs essentially clear to auscultation bilaterally. HEART: Regular rate and rhythm. S1 and S2 heard. EXTREMITIES: Normal range of motion. No clubbing or cyanosis. Peripheral pulses intact. No lower extremity edema ASSESSMENT: Recurrent incisional hernia, status post surgical repair Acute hypoxic and hypercapnic respiratory failure requiring mechanical ventilation Acute pulmonary edema, improved Non-STEMI History of DVT and PE, on Eliquis outpatient History of COPD Occasional marijuana use PLAN: Continue current cardiac medications Resume Eliquis when cleared by general surgery When patient's acute issues have resolved and she is stable she will require further ischemic workup; likely to be done on an outpatient basis Further recommendations pending patient course Nurse practitioner note has been reviewed by physician. Signing provider agrees with the documented findings, assessment, and plan of care documented by HOUSETRAILER SERVICER as a scribe. Objective - Vital Signs Vital signs: Vital Signs Temp 98.3 F 06/13/24 09:22 Pulse 87 06/13/24 09:22 Resp 18 06/13/24 09:22 BP 106/73 06/13/24 09:22 Pulse Ox 96 06/13/24 09:22 FiO2 5 06/10/24 11:47 Intake & Output 06/12/24 06/13/24 06/13/24 18:59 06:59 18:59 Intake Total 569 120 10 Output Total 450 195 80 Balance 119 -75 -70 Weight 117.9 kg 115.1 kg Intake: IV 451 10 Invasive Line 1 10 Piperacillin-Tazobactam 3 100 .375 gm In Sodium Chloride 0.9% 100 ml @ 25 mls/hr IVPB Q8HR [facility] Rx# :[id number] Sodium Chloride 0.9% 1, 351 000 ml In Empty Bag 1 bag @ 1 ML/KG/HR 117.9 mls/ hr IV .Q8H29M [facility] Rx#: [id number] Oral 118 120 Output: Drainage 50 95 80 Left Lower Abdomen 50 95 80 Urine 400 100 Other: Voiding Method Toilet Toilet # Voids 1 # Bowel Movements 1 ABP, PAP, CO, CI - Last Documented Arterial Blood Pressure 84/64 - Labs CBC & Chem 7: 06/13/24 06:26 06/13/24 06:26 Labs: Abnormal Lab Results - Last 24 Hours (Table) 06/12/24 06/12/24 06/12/24 Range/Units 11:31 16:39 19:59 RBC (3.80-5.40) m/uL Hgb (11.4-16.0) gm/dL Hct (34.0-46.0) % BUN (7-17) mg/dL Glucose (74-99) mg/dL POC Glucose (mg/dL) 143 H 117 H 141 H (70-110) mg/dL 06/13/24 06/13/24 06/13/24 Range/Units 05:52 06:26 06:26 RBC 3.14 L (3.80-5.40) m/uL Hgb 9.3 L (11.4-16.0) gm/dL Hct 29.5 L (34.0-46.0) % BUN 22 H (7-17) mg/dL Glucose 142 H (74-99) mg/dL POC Glucose (mg/dL) 174 H (70-110) mg/dL Microbiology - Last 24 Hours (Table) 06/09/24 04:08 Gram Stain - Final Sputum Sputum Culture - Final Trish albicans
[2024-06-13 11:29] LABS: Glucose,Whole Blood 160 mg/dL (70-110)
--- NOTE | 2024-06-13 11:30 | P.PN ---
Subjective Progress Note Date: 06/13/24 Principal diagnosis: Acute hypoxic and hypercapnic respiratory failure secondary to negative pressure pulmonary edema This is a 69-year-old female with history of multiple medical problems, patient underwent today open repair of recurrent incisional hernia. This was done under general endotracheal anesthesia, postoperatively, patient was sent to recovery room, extubated, however after extubation the patient developed significant shortness of breath, tachycardia, hypotension, and chest x-ray showed evidence of interstitial pulmonary edema. Patient had to be reintubated, admitted to the ICU, and this consult was initiated. In retrospect, I believe the patient may have developed negative pressure pulmonary edema requiring reintubation and mechanical ventilation. Patient did receive a 40 mg of Lasix postintubation, with some improvement. Her ABG before transfer to the ICU showed a pO2 of 104 pCO2 57 pH of 7.17 however after stabilizing the patient in the ICU and repeat ABG on 80% FiO2 while mechanically ventilated showed a pO2 of 82 pCO2 40 and pH of 7.35.WBC count 11 hemoglobin 12.5. Troponin came back at 0.231 and BNP level of 539 Patient was read today on 06/09/2024, patient remains intubated and mechanically ventilated, patient was admitted to the ICU yesterday after surgery on repair of incisional hernia. Patient is on mechanical ventilation, assist-control rate of 18 tidal volume 500 FiO2 50% and PEEP of 10 ABG is marginal with a pO2 of 73 pCO2 33 pH of 7.48. Patient remains on propofol, not requiring any norepinephrine for hemodynamic support. She did receive Lasix 40 mg IV push earlier, chest x-ray is showing improvement however her blood gases remain marginal and the chest x-ray continues to show evidence of interstitial edema. Troponin level is elevated at 0.345, follow-up troponin is pending, cardiology consultation is pending, echocardiogram was performed, results of pending. Looking back at the Lovenox dose, has been changed by surgery on the case from 80 mg SQ twice daily to 40 mg twice daily, however considering the patient's risk for DVT and pulmonary embolism is rather high, I am recommending now a CT angiogram of the chest to rule out pulmonary embolism. She will also have a venous Doppler. Patient is clearly not quite ready for extubation at this point considering her ABG is marginal, and nurse taking care of the patient noted that the patient desaturated easily upon cutting down the propofol from 45-40 hence was updated on her condition at bedside, and the patient will remain on present supportive care measures, remains on diuretics, and will arrange for CT angiogram of the chest and venous Dopplers today Patient was evaluated today on 06/10/2024, remains in the ICU intubated and mechanically ventilated. She is on assist-control rate of 18 tidal volume 500 FiO2 50% and PEEP of 10 ABG showed a pO2 of 84 pCO2 [address] angiogram of the chest yesterday was negative for pulmonary embolism but showed mostly atelectasis and possibly consolidation in the lower lobes. Chest x-ray today is showing definite improvement in her interstitial edema, patient remains on Lasix 40 mg IV push daily, she is also on Zosyn empirically for presumptive pneumonia involving lower lobes, patient is on propofol at 45 mcg/kg/min she is also on vital AF 20/20. WBC count today is 12.3 hemoglobin 13.0 PTT is 21.4 INR is 0.9 patient will be transitioned to IV heparin, it seems surgery on the case is agreeable to start the patient on heparin specially with her history of DVT and pulmonary embolism. Evaluated today on 06/11/2024, patient remains in the ICU, extubated yesterday, tolerated the extubation well, she is now on 2 L nasal cannula. Patient is not in any distress, remains on heparin, she is relatively asymptomatic, hence I plan to transfer the patient out of the ICU to a cardiac floor. Cardiology is recommending cardiac catheterization on this patient, and this is scheduled to be done tomorrow. WBC count today is 10.1 hemoglobin 11.1 PTT is 69 basic metabolic profile is normal and renal profile is normal Patient was today on 06/12/2024, patient remains in the ICU as an overflow, she is supposed to go to 3 S., doing well, on 2 L nasal cannula, apparently her cardiac catheterization was canceled by cardiology. Pulmonary cosme no pulmonary issues, hardly any pulmonary symptoms, patient is doing great, and she is still being followed by surgery because of her recent incisional hernia repair WBC count is 9.3 hemoglobin 9.9 basic metabolic profile is normal and renal profile is normal Patient was evaluated today on 06/13/2024, patient is now on the cardiac floor, doing well, asymptomatic. On 2 L nasal cannula with O2 sats of 96%, patient denies any cough wheezing or shortness of breath. WBC count is 10.4 hemoglobin 9.3 basic metabolic profile is normal and renal profile is normal Objective - Vital Signs Vital signs: Vital Signs Temp 98.3 F 06/13/24 09:22 Pulse 87 06/13/24 09:22 Resp 18 06/13/24 09:22 BP 106/73 06/13/24 09:22 Pulse Ox 96 06/13/24 09:22 FiO2 5 06/10/24 11:47 Intake & Output 06/12/24 06/13/24 06/13/24 18:59 06:59 18:59 Intake Total 569 120 10 Output Total 450 195 160 Balance 119 -75 -150 Weight 117.9 kg 115.1 kg Intake: IV 451 10 Invasive Line 1 10 Piperacillin-Tazobactam 3 100 .375 gm In Sodium Chloride 0.9% 100 ml @ 25 mls/hr IVPB Q8HR MARCELO Rx# :[id number] Sodium Chloride 0.9% 1, 351 000 ml In Empty Bag 1 bag @ 1 ML/KG/HR 117.9 mls/ hr IV .[id number] MARCELO Rx#: [id number] Oral 118 120 Output: Drainage 50 95 160 Left Lower Abdomen 50 95 160 Urine 400 100 Other: Voiding Method Toilet Toilet Toilet # Voids 1 # Bowel Movements 1 ABP, PAP, CO, CI - Last Documented Arterial Blood Pressure 84/64 - Exam General: Reveals 69-year-old female obese on 2 L nasal cannula, not in distress. Head: Atraumatic, normocephalic Skin: Skin is warm and dry and no rashes or lesions are noted. Eye: Pupils are pinpoint, extra-ocular movements are intact; there is normal conjunctiva bilaterally. Ears, nose, mouth and throat: There are moist mucous membranes and no oral lesions. Neck: The neck is supple, there is no tenderness or JVD. Cardiovascular: Distant S1-S2, no S3 gallop, no murmur. Respiratory: Clear bilaterally no rhonchi no wheezes Gastrointestinal: Postsurgical abdomen soft, non-distended, non-tender abdomen and wound VAC is noted. MARY drain is noted Musculoskeletal: No deformities noted. Neurological: Alert and oriented x 3 no gross focal deficit Psychiatric: Normal mood and affect abnormal mental status examination - Labs CBC & Chem 7: 06/13/24 06:26 06/13/24 06:26 Labs: Abnormal Lab Results - Last 24 Hours (Table) 06/12/24 06/12/24 06/12/24 Range/Units 11:31 16:39 19:59 RBC (3.80-5.40) m/uL Hgb (11.4-16.0) gm/dL Hct (34.0-46.0) % BUN (7-17) mg/dL Glucose (74-99) mg/dL POC Glucose (mg/dL) 143 H 117 H 141 H (70-110) mg/dL 06/13/24 06/13/24 06/13/24 Range/Units 05:52 06:26 06:26 RBC 3.14 L (3.80-5.40) m/uL Hgb 9.3 L (11.4-16.0) gm/dL Hct 29.5 L (34.0-46.0) % BUN 22 H (7-17) mg/dL Glucose 142 H (74-99) mg/dL POC Glucose (mg/dL) 174 H (70-110) mg/dL Microbiology - Last 24 Hours (Table) 06/09/24 04:08 Gram Stain - Final Sputum Sputum Culture - Final Trish albicans Assessment and Plan Assessment: Impression: Acute hypoxic and hypercapnic respiratory failure post incisional hernia repair, required intubation mechanical ventilation, patient was extubated on 06/10/2024 Strongly suspect negative pressure pulmonary edema, possible acute non-ST elevation myocardial infarction troponin was elevated Bibasilar atelectasis Moderate coronary artery calcification based on previous CT scan History of DVT and pulmonary embolism, 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 History of depression Recommendation: Continue present supportive care measures Titrate and possibly discontinue oxygen Continue incentive spirometry Continue empiric antibiotics, repeat chest x-ray in a.m. and consider stopping antibiotics if cleared Cardiac catheterization has been canceled and supposed to be done on outpatient basis. Continue bronchodilators Ambulate Will continue to follow Time with Patient: Less than 30
[2024-06-13] MEDS: POTASSIUM CHLORIDE ER 20 MEQ TAB.ER PO STA (11:50)
--- NOTE | 2024-06-13 14:10 | P.PN ---
Progress Note - Text Progress Note Date: 06/13/24 CHIEF COMPLAINT: Recurrent incisional hernia HISTORY OF PRESENT ILLNESS: Patient is postop day #5 status post open repair of recurrent incisional hernia. NAEO PHYSICAL EXAM: VITAL SIGNS: Reviewed. GENERAL: no acute distress. ABDOMEN: Soft. Nondistended. Mild tenderness left lower abdomen. Prevena wound VAC clean dry and intact. MARY drain with sanguinous output ASSESSMENT: 1. Recurrent incisional hernia 2. Severe negative pressure pulmonary edema 3. Non-ST elevated MO 4. History of PE PLAN: -Continue regular diet -Continue to monitor MARY drain output -Continue pain management -Continue supportive care -Encourage patient to increase activity level -Consult placed for physical therapy
[2024-06-13 16:22] LABS: Glucose,Whole Blood 113 mg/dL (70-110)
[2024-06-13 20:37] LABS: Glucose,Whole Blood 130 mg/dL (70-110)
--- NOTE | 2024-06-13 22:54 | P.PN ---
Subjective Progress Note Date: 06/13/24 Patient is a 69-year-old female with a past medical history of hypertension, history of DVT/PE currently on Eliquis, COPD, hypothyroidism, Raynaud's disease, hepatitis B, IBS, history of bowel resection and prior history of smoking presented to the hospital for elective incisional hernia repair. Patient is status post open repair of recurrent incisional hernia. Patient had general anesthesia during surgery and was sent to recovery room. After extubation patient started having severe shortness of breath and was also hypotensive and tachycardic. Chest x-ray showed clinical correlation recommended for CHF. Patient was intubated again and was transferred to MICU. Patient was also requiring pressor support. Patient was given a dose of 40 mg IV Lasix postintubation. ABG showed 7.17, pCO2 57 pO2 104 and bicarb is 20 Other laboratory data showed sodium 136 potassium 4.3 chloride 108 bicarb is 20 BUN 15 creatinine 0.77 Blood sugar 286 and calcium 8.4. proBNP 539 and troponin 0.231 Patient is chronically hypotensive as per her at bedside. 06/09/2024 patient is seen and evaluated in follow-up status post recurrent open incisional hernia repair with general surgery continues to be on mechanical ventilation, FiO2 is 50% with a PEEP of 10. Venous Doppler along with CTA of the chest is ordered and pending at this time to assess for blood clots. Chest x-ray was done today showing some overload and was given a dose of IV Lasix. Assessing mentation with sedation holidays although not quite ready for extubation at this point. Patient is afebrile and continues on propofol and is currently off pressor support. Sister at the bedside with questions and concerns that were answered. We will continue to follow along with general surgery during hospitalization. Overall prognosis is guarded at this time. 06/10/2024 Patient is seen in follow-up today continues to be in the ICU with multiple consultations following. Patient is status post incisional hernia repair currently just extubated 20 minutes prior to exam. Patient is on nasal cannula at 5 L maintaining oxygen saturations above 90%. Patient is awake, alert and oriented and following commands. Patient is whispering currently reporting her throat is tender. Patient being started on antibiotics empirically and will f ollow-up with lab work and cultures. Diet to be resumed and started per surgery. Patient is being started on IV heparin with cardiology on consult as patient did have elevated troponins. Awaiting evaluation. 06/11/2024 Patient is seen and evaluated in follow-up this morning with multiple medical consultations following. Patient continues in the ICU and was status post successful extubation yesterday post incisional hernia repair. Patient currently maintained on 4 to 5 L via nasal cannula and reports does not wear oxygen outpatient. Cardiology following as well as patient had elevated tr oponins and is undergoing cardiac catheterization in the a.m. on 06/12/2024. Patient will continue on IV heparin for now and will await cardiology report. Patient is afebrile with no reports of chest pain or worsening shortness of breath. Patient is tolerating diet and slowly advance per surgery. Patient reports not much of an appetite and continues with some mild abdominal discomfort although improved from yesterday. Patient attempted to get up to the bedside and reports did not do very well. Will have PT/OT therapy work with the patient and also discussed with case management/social work in the event patient may need ECF for continued strength and mobility. We will continue to follow with general surgery during hospitalization. 06/12/2024 Patient is seen and evaluated today currently in ICU although is a downgrade to 3 S. once a bed becomes available. Patient is afebrile with no reports of chest pain or shortness of breath. Patient currently on room air sitting up and nursing staff reports she was up and to the commode today. Patient continues with MARY drain and had increased serous output overnight and IV heparin has been discontinued. Patient was initially scheduled from cardiology to undergo cardiac catheterization due to elevated troponins although is being canceled for now and cardiology along with surgery recommending outpatient follow-up for outpatient testing once patient has recovered from her incisional hernia repair. Hemoglobin is stable and will be monitored closely. Recommend follow-up labs. Patient to continue increasing activity as tolerated and will await PT/OT therapy evaluation to discuss possible ECF. 06/13/2024 Patient is resting in the bed. Awake alert and oriented x 3. No complaints of chest pain or shortness of breath. Currently on 2 L oxygen via nasal cannula. Patient has been afebrile. Abdominal pain is controlled. No nausea or vomiting. No diarrhea. Laboratory data showed WBC 10.4 hemoglobin 9.3 and platelets 198 BUN 2020 creatinine 0.8 and blood sugar is 142 and magnesium 2.0. Patient is being continued on Lasix 40 mg p.o. daily and is also on antibiotics, Zosyn. Current medications reviewed. Review of systems: Constitutional: No reports of fatigue, fever, or chills Cardiovascular: No reports of chest pain or palpitations Respiratory: No reports of worsening shortness of breath or cough GI: No reports of nausea, vomiting, or diarrhea, reports passing gas, reports not much of an appetite, no bowel movement as of yet : No reports of dysuria or retention Neurovascular: reports of generalized weakness although feeling slightly more improved than yesterday All medications have been reviewed PHYSICAL EXAMINATION: Patient is a 69-year-old female who is awake, alert and oriented x 3, well-developed, well-nourished, morbidly obese, elderly appearing, currently room air HEENT: Normocephalic. Neck is supple. Pupils reactive. Nostrils clear. Oral cavity is moist. Neck reveals no JVD, carotid bruits, or thyromegaly. CHEST EXAMINATION: Trachea is central. Symmetrical expansion. Bibasilar diminished sounds. Lung cruz clear to auscultation and percussion. CARDIAC: S1, S2 are muffled ABDOMEN: Soft. Morbidly obese, bowel sounds normal. No organomegaly. No abdominal bruits. Tenderness noted on palpation Extremities: reveal no edema. No clubbing or cyanosis, bilateral upper and lower extremity swelling, appears chronic Neurologically awake, alert and oriented, cooperative No gross focal deficits noted, diffusely weak Skin: No rash or skin lesions. Musculoskeletal: No joint swelling or deformity. Assessment: Acute hypoxic and hypercapnic respiratory failure secondary to pulmonary edema. Postextubation. was reintubated requiring mechanical ventilator. FiO2 is 50% with a PEEP of 10, status post extubation on 06/10/2024. Currently on 2 L oxygen via nasal cannula. Suspect flash pulm edema due to negative pressure after extubation Status post recurrent open incisional hernia repair postoperative day 5 Acute NSTEMI status post hernia repair, currently maintained on IV heparin although having increased output in the MARY drains, heparin being discontinued and patient will have outpatient cardiology follow-up to discuss possible cardiac catheterization once recovered History of DVT/PE currently on Eliquis at home. Anticoagulation currently on hold due to slight drop in hemoglobin and increased output noted in the MARY drain Anxiety/depression history Prior history of smoking Hepatitis B history Hypothyroidism Hyperglycemia Morbid obesity with a BMI of 43.2 DVT prophylaxis. SCDs GI prophylaxis Full code Plan: Patient currently on the medical floor. Cardiology following as well for NSTEMI and initially was scheduled to undergo cardiac catheterization today although there was a slight drop in hemoglobin and increased output noted in the MARY. Catheterization was canceled for and cardiology recommending outpatient follow-up. Continue holding anticoagulation for now. Patient has been weaning FiO2 as tolerated and currently room air to 2 L on exam.. Patient was successfully extubated on 06/10/2024. Patient reports does not wear oxygen outpatient Continue with insulin sliding scale and regimen for tight glycemic control. Will adjust insulins accordingly. Patient has been resumed on diet and reports not much of an appetite. Continue monitoring Accu-Cheks ACHS Patient to continue working with PT/OT therapy. Will discuss further with case management/social work regarding discharge planning. Patient is agreeable to ECF if needed for continued strength and mobility. Further recommendations based on the clinical course. Recommend follow-up labs in the a.m. to monitor hemoglobin closely and also electrolytes. Replace electrolytes per protocol We will continue to follow with general surgery during hospitalization. Objective - Vital Signs Vital signs: Vital Signs Temp 97.4 F L 06/13/24 20:00 Pulse 95 06/13/24 20:00 Resp 16 06/13/24 20:00 BP 126/80 06/13/24 20:00 Pulse Ox 97 06/13/24 20:00 FiO2 5 06/10/24 11:47 Intake & Output 06/13/24 06/13/24 06/14/24 06:59 18:59 06:59 Intake Total 120 138 Output Total 195 290 30 Balance -75 -152 -30 Weight 115.1 kg Intake: IV 20 Invasive Line 1 10 Invasive Line 5 10 Oral 120 118 Output: Drainage 95 290 30 Left Lower Abdomen 95 290 30 Urine 100 Other: Voiding Method Toilet Toilet Toilet # Voids 2 ABP, PAP, CO, CI - Last Documented Arterial Blood Pressure 84/64 - Labs CBC & Chem 7: 06/13/24 06:26 06/13/24 06:26 Labs: Abnormal Lab Results - Last 24 Hours (Table) 06/13/24 06/13/24 06/13/24 Range/Units 05:52 06:26 06:26 RBC 3.14 L (3.80-5.40) m/uL Hgb 9.3 L (11.4-16.0) gm/dL Hct 29.5 L (34.0-46.0) % BUN 22 H (7-17) mg/dL Glucose 142 H (74-99) mg/dL POC Glucose (mg/dL) 174 H (70-110) mg/dL 06/13/24 06/13/24 06/13/24 Range/Units 11:27 16:20 20:36 RBC (3.80-5.40) m/uL Hgb (11.4-16.0) gm/dL Hct (34.0-46.0) % BUN (7-17) mg/dL Glucose (74-99) mg/dL POC Glucose (mg/dL) 160 H 113 H 130 H (70-110) mg/dL
[2024-06-14 06:05] LABS: Glucose,Whole Blood 117 mg/dL (70-110)
--- NOTE | 2024-06-14 08:25 | XR ---
EXAMINATION TYPE: XR chest 1V portable DATE OF EXAM: 06/14/2024 HISTORY: Shortness of breath. COMPARISON: 06/10/2024 TECHNIQUE: Single view of the chest is submitted. FINDINGS: Demonstrated are scattered senescent parenchymal change. Endotracheal and NG tubes have been removed . There is no evidence for focal infiltrate. The heart is stable. Hilar and mediastinal structures are within normal limits. Degenerative changes are seen of the dorsal spine. IMPRESSION: 1. Chronic changes without evidence for acute pulmonary disease.
[2024-06-14 09:44] LABS: Basophils # (A) 0.05 X 10*3/uL (0.00-0.10); Basophils % (A) 0.6 %; Eosinophils # (A) 0.72 X 10*3/uL (0.04-0.35); Eosinophils % (A) 8.2 %; HGB 8.6 g/dL (12.0-15.0); Lymphocytes # (A) 1.82 X 10*3/uL (0.90-5.00); Lymphocytes % (A) 20.8 %; MCH 29.7 pg (27.0-32.0); MCHC 31.9 g/dL (32.0-37.0); MCV 93.1 FL (80.0-97.0); Mean Platelet Volume 10.9 FL (9.5-12.2); Monocytes # (A) 0.78 X 10*3/uL (0.20-1.00); Monocytes % (A) 8.9 %; NRBC Per 100 WBC 0.02 X 10*3/uL (0.00-0.01); Neutrophils # (A) 5.32 X 10*3/uL (1.80-7.70); Neutrophils % (A) 60.7 %; Platelet Count 214 X 10*3/uL (140-440); RDW 13.9 % (11.5-14.5); WBC 8.76 X 10*3/uL (4.50-10.00)
[2024-06-14 10:30] LABS: BUN/Creat Ratio 29.57 Ratio (12.00-20.00); Blood Urea Nitrogen 20.7 mg/dL (9.0-27.0); Chloride 104 mmol/L (96-109); Glucose 114 mg/dL (70-110); Potassium 3.8 mmol/L (3.5-5.5); Sodium 139 mmol/L (135-145)
[2024-06-14 10:31] LABS: Calcium 8.3 mg/dL (8.7-10.3); Carbon Dioxide 24.7 mmol/L (21.6-31.8)
--- NOTE | 2024-06-14 11:02 | P.PN ---
Subjective Progress Note Date: 06/14/24 HISTORY OF PRESENT ILLNESS: Patient has been transferred out of the intensive care unit to [facility]. Patient examined this morning the bedside. Patient currently denies chest pain or pressure. She denies shortness of breath. Patient continues to have serosanguineous drainage from MARY drain. Anticoagulation remains on hold per general surgery request. Echocardiogram completed revealing ejection fraction 55 to 60% with trace MR. 7 Patient has been transferred to the [facility] floor. Blood pressure 104/66, heart rate 84, pulse ox 95% on 2 L nasal cannula, patient is afebrile. Patient denies having any chest pain or chest pressure. No shortness of breath. Patient continues to have serosanguineous drainage from the MARY drain. Eliquis remains on hold until cleared by general surgery. PHYSICAL EXAM: VITAL SIGNS: Reviewed. GENERAL: Well-developed in no acute distress. NECK: Supple. No JVD or thyromegaly LUNGS: Respirations even and unlabored. Lungs essentially clear to auscultation bilaterally. HEART: Regular rate and rhythm. S1 and S2 heard. EXTREMITIES: Normal range of motion. No clubbing or cyanosis. Peripheral pulses intact. No lower extremity edema ASSESSMENT: Recurrent incisional hernia, status post surgical repair Acute hypoxic and hypercapnic respiratory failure requiring mechanical ventilation Acute pulmonary edema, improved Non-STEMI History of DVT and PE, on Eliquis outpatient History of COPD Occasional marijuana use PLAN: Continue current cardiac medications Resume Eliquis when cleared by general surgery When patient's acute issues have resolved and she is stable she will require further ischemic workup; likely to be done on an outpatient basis. Patient will follow-up in the office with Dr. Keith Chappell in 2 weeks following discharge. Further recommendations pending patient course Nurse practitioner note has been reviewed by physician. Signing provider agrees with the documented findings, assessment, and plan of care documented by SKATE HOP as a scribe. Objective - Vital Signs Vital signs: Vital Signs Temp 98.3 F 06/14/24 08:00 Pulse 84 06/14/24 08:00 Resp 17 06/14/24 08:00 BP 104/66 06/14/24 08:00 Pulse Ox 95 06/14/24 08:00 FiO2 5 06/10/24 11:47 Intake & Output 07/13/24 07/14/24 07/14/24 18:59 06:59 18:59 Intake Total 138 Output Total 290 90 Balance -152 -90 Weight 115.4 kg Intake: IV 20 Invasive Line 1 10 Invasive Line 5 10 Oral 118 Output: Drainage 290 90 Left Lower Abdomen 290 90 Other: Voiding Method Toilet Toilet # Voids 2 ABP, PAP, CO, CI - Last Documented Arterial Blood Pressure 84/64 - Labs CBC & Chem 7: 06/14/24 03:19 06/14/24 03:19 Labs: Abnormal Lab Results - Last 24 Hours (Table) 06/13/24 06/13/24 06/13/24 Range/Units 11:27 16:20 20:36 POC Glucose (mg/dL) 160 H 113 H 130 H (70-110) mg/dL 06/14/24 Range/Units 06:04 POC Glucose (mg/dL) 117 H (70-110) mg/dL
[2024-06-14 11:41] LABS: Glucose,Whole Blood 129 mg/dL (70-110)
--- NOTE | 2024-06-14 12:24 | P.PN ---
Subjective Progress Note Date: 06/14/24 This is a 69-year-old female with history of multiple medical problems, patient underwent today open repair of recurrent incisional hernia. This was done under general endotracheal anesthesia, postoperatively, patient was sent to recovery room, extubated, however after extubation the patient developed significant shortness of breath, tachycardia, hypotension, and chest x-ray showed evidence of interstitial pulmonary edema. Patient had to be reintubated, admitted to the ICU, and this consult was initiated. In retrospect, I believe the patient may have developed negative pressure pulmonary edema requiring reintubation and mechanical ventilation. Patient did receive a 40 mg of Lasix postintubation, with some improvement. Her ABG before transfer to the ICU showed a pO2 of 104 pCO2 57 pH of 7.17 however after stabilizing the patient in the ICU and repeat ABG on 80% FiO2 while mechanically ventilated showed a pO2 of 82 pCO2 40 and pH of 7.35.WBC count 11 hemoglobin 12.5. Troponin came back at 0.231 and BNP level of 539 Patient was read today on 06/09/2024, patient remains intubated and mechanically ventilated, patient was admitted to the ICU yesterday after surgery on repair of incisional hernia. Patient is on mechanical ventilation, assist-control rate of 18 tidal volume 500 FiO2 50% and PEEP of 10 ABG is marginal with a pO2 of 73 pCO2 33 pH of 7.48. Patient remains on propofol, not requiring any norepinephrine for hemodynamic support. She did receive Lasix 40 mg IV push earlier, chest x-ray is showing improvement however her blood gases remain marginal and the chest x-ray continues to show evidence of interstitial edema. Troponin level is elevated at 0.345, follow-up troponin is pending, cardiology consultation is pending, echocardiogram was performed, results of pending. Looking back at the Lovenox dose, has been changed by surgery on the case from 80 mg SQ twice daily to 40 mg twice daily, however considering the patient's risk for DVT and pulmonary embolism is rather high, I am recommending now a CT angiogram of the chest to rule out pulmonary embolism. She will also have a venous Doppler. Patient is clearly not quite ready for extubation at this point considering her ABG is marginal, and nurse taking care of the patient noted that the patient desaturated easily upon cutting down the propofol from 45-40 hence was updated on her condition at bedside, and the patient will remain on present supportive care measures, remains on diuretics, and will arrange for CT angiogram of the chest and venous Dopplers today Patient was evaluated today on 06/10/2024, remains in the ICU intubated and mechanically ventilated. She is on assist-control rate of 18 tidal volume 500 FiO2 50% and PEEP of 10 ABG showed a pO2 of 84 pCO2 [address] angiogram of the chest yesterday was negative for pulmonary embolism but showed mostly atelectasis and possibly consolidation in the lower lobes. Chest x-ray today is showing definite improvement in her interstitial edema, patient remains on Lasix 40 mg IV push daily, she is also on Zosyn empirically for presumptive pneumonia involving lower lobes, patient is on propofol at 45 mcg/kg/min she is also on vi glenn AF . WBC count today is 12.3 hemoglobin 13.0 PTT is 21.4 INR is 0.9 patient will be transitioned to IV heparin, it seems surgery on the case is agreeable to start the patient on heparin specially with her history of DVT and pulmonary embolism. Evaluated today on 06/11/2024, patient remains in the ICU, extubated yesterday, tolerated the extubation well, she is now on 2 L nasal cannula. Patient is not in any distress, remains on heparin, she is relatively asymptomatic, hence I plan to transfer the patient out of the ICU to a cardiac floor. Cardiology is recommending cardiac catheterization on this patient, and this is scheduled to be done tomorrow. WBC count today is 10.1 hemoglobin 11.1 PTT is 69 basic metabolic profile is normal and renal profile is normal Patient was today on 06/12/2024, patient remains in the ICU as an overflow, she is supposed to go to 3 S., doing well, on 2 L nasal cannula, apparently her cardiac catheterization was canceled by cardiology. Pulmonary cosme no pulmonary issues, hardly any pulmonary symptoms, patient is doing great, and she is still being followed by surgery because of her recent incisional hernia repair WBC count is 9.3 hemoglobin 9.9 basic metabolic profile is normal and renal profile is normal Patient was evaluated today on 06/13/2024, patient is now on the cardiac floor, doing well, asymptomatic. On 2 L nasal cannula with O2 sats of 96%, patient denies any cough wheezing or shortness of breath. WBC count is 10.4 hemoglobin 9.3 basic metabolic profile is normal and renal profile is normal The patient is seen today June 14, 2024 in follow-up on the regular medical floor. She is currently sitting up in a chair. Awake and alert in no acute distress. Maintaining good O2 saturations in the 90s on 2 L/min per nasal jos torri. Chest x-ray shows no acute pulmonary process. She is working well with her incentive spirometer. White count 8.7. Hemoglobin 8.6. Platelets 214. Sodium 139. Potassium 3.8. Bicarb 25. BUN 21. Creatinine 0.7. Glucose 114. She remains on Zosyn. Anticoagulated with Eliquis. Objective - Vital Signs Vital signs: Vital Signs Temp 98.3 F 06/14/24 08:00 Pulse 84 06/14/24 08:00 Resp 17 06/14/24 08:00 BP 104/66 06/14/24 08:00 Pulse Ox 95 06/14/24 08:00 FiO2 5 06/10/24 11:47 Intake & Output 06/13/24 06/14/24 06/14/24 18:59 06:59 18:59 Intake Total 138 Output Total 290 90 Balance -152 -90 Weight 115.4 kg Intake: IV 20 Invasive Line 1 10 Invasive Line 5 10 Oral 118 Output: Drainage 290 90 Left Lower Abdomen 290 90 Other: Voiding Method Toilet Toilet # Voids 2 1 ABP, PAP, CO, CI - Last Documented Arterial Blood Pressure 84/64 - Exam General: Reveals a very pleasant 69-year-old female obese on 2 L nasal cannula, not in distress. Head: Atraumatic, normocephalic Skin: Skin is warm and dry and no rashes or lesions are noted. Eye: Pupils are pinpoint, extra-ocular movements are intact; there is normal conjunctiva bilaterally. Ears, nose, mouth and throat: There are moist mucous membranes and no oral lesions. Neck: The neck is supple, there is no tenderness or JVD. Cardiovascular: Distant S1-S2, no S3 gallop, no murmur. Respiratory: Clear bilaterally no rhonchi no wheezes Gastrointestinal: Postsurgical abdomen soft, non-distended, non-tender and wound VAC is noted. MARY drain is noted Musculoskeletal: No deformities noted. Neurological: Alert and oriented x 3 no gross focal deficit Psychiatric: Normal mood and affect abnormal mental status examination - Labs CBC & Chem 7: 06/14/24 03:19 06/14/24 03:19 Labs: Abnormal Lab Results - Last 24 Hours (Table) 06/13/24 06/13/24 06/14/24 Range/Units 16:20 20:36 03:19 RBC 2.90 L (4.10-5.20) X 10*6/uL Hgb 8.6 L (12.0-15.0) g/dL Hct 27.0 L (37.2-46.3) % MCHC 31.9 L (32.0-37.0) g/dL Immature Gran # 0.07 H (0.00-0.04) X 10*3/uL Eosinophils # 0.72 H (0.04-0.35) X 10*3/uL NRBC/100 WBC Diff 0.02 H (0.00-0.01) X 10*3/uL BUN/Creatinine Ratio (12.00-20.00) Ratio Glucose (70-110) mg/dL POC Glucose (mg/dL) 113 H 130 H (70-110) mg/dL Calcium (8.7-10.3) mg/dL 06/14/24 06/14/24 06/14/24 Range/Units 03:19 06:04 11:40 RBC (4.10-5.20) X 10*6/uL Hgb (12.0-15.0) g/dL Hct (37.2-46.3) % MCHC (32.0-37.0) g/dL Immature Gran # (0.00-0.04) X 10*3/uL Eosinophils # (0.04-0.35) X 10*3/uL NRBC/100 WBC Diff (0.00-0.01) X 10*3/uL BUN/Creatinine Ratio 29.57 H (12.00-20.00) Ratio Glucose 114 H (70-110) mg/dL POC Glucose (mg/dL) 117 H 129 H (70-110) mg/dL Calcium 8.3 L (8.7-10.3) mg/dL Assessment and Plan Assessment: Acute hypoxic and hypercapnic respiratory failure post incisional hernia repair, required intubation mechanical ventilation, patient was extubated on 06/10/2024 Strongly suspect negative pressure pulmonary edema, possible acute non-ST elevation myocardial infarction troponin was elevated Bibasilar atelectasis Moderate coronary artery calcification based on previous CT scan History of DVT and pulmonary embolism, 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 History of depression Plan: The patient was seen and evaluated Labs and medications reviewed Stable and on 2 L nasal cannula Chest x-ray shows clear lung cruz Titrate down the FiO2 as tolerated Increase her activity as tolerated Increase her use of the incentive spirometer Home once cleared by surgery I have personally seen and examined the patient, performed the documentation and the assessment and plan as written. Number of minutes spent on the visit: 10.
--- NOTE | 2024-06-14 12:45 | P.PN ---
Subjective Progress Note Date: 06/14/24 Principal diagnosis: Incisional hernia Patient sitting up at the bedside. Doing well. Denies pain. Hemoglobin today 8.6 from 9.3. Minimal serosanguineous output from the MARY drain. Objective - Vital Signs Vital signs: Vital Signs Temp 98.3 F 06/14/24 08:00 Pulse 84 06/14/24 08:00 Resp 17 06/14/24 08:00 BP 104/66 06/14/24 08:00 Pulse Ox 95 06/14/24 08:00 FiO2 5 06/10/24 11:47 Intake & Output 06/13/24 06/14/24 06/14/24 18:59 06:59 18:59 Intake Total 138 Output Total 290 90 Balance -152 -90 Weight 115.4 kg Intake: IV 20 Invasive Line 1 10 Invasive Line 5 10 Oral 118 Output: Drainage 290 90 Left Lower Abdomen 290 90 Other: Voiding Method Toilet Toilet # Voids 2 1 ABP, PAP, CO, CI - Last Documented Arterial Blood Pressure 84/64 - Exam Abdomen: Soft, nondistended, dressing clean and dry - Labs CBC & Chem 7: 06/14/24 03:19 06/14/24 03:19 Labs: Abnormal Lab Results - Last 24 Hours (Table) 06/13/24 06/13/24 06/14/24 Range/Units 16:20 20:36 03:19 RBC 2.90 L (4.10-5.20) X 10*6/uL Hgb 8.6 L (12.0-15.0) g/dL Hct 27.0 L (37.2-46.3) % MCHC 31.9 L (32.0-37.0) g/dL Immature Gran # 0.07 H (0.00-0.04) X 10*3/uL Eosinophils # 0.72 H (0.04-0.35) X 10*3/uL NRBC/100 WBC Diff 0.02 H (0.00-0.01) X 10*3/uL BUN/Creatinine Ratio (12.00-20.00) Ratio Glucose (70-110) mg/dL POC Glucose (mg/dL) 113 H 130 H (70-110) mg/dL Calcium (8.7-10.3) mg/dL 06/14/24 06/14/2406/14/24 Range/Units 03:19 06:04 11:40 RBC (4.10-5.20) X 10*6/uL Hgb (12.0-15.0) g/dL Hct (37.2-46.3) % MCHC (32.0-37.0) g/dL Immature Gran # (0.00-0.04) X 10*3/uL Eosinophils # (0.04-0.35) X 10*3/uL NRBC/100 WBC Diff (0.00-0.01) X 10*3/uL BUN/Creatinine Ratio 29.57 H (12.00-20.00) Ratio Glucose 114 H (70-110) mg/dL POC Glucose (mg/dL) 117 H 129 H (70-110) mg/dL Calcium 8.3 L (8.7-10.3) mg/dL Assessment and Plan (1) Incarcerated hernia Narrative/Plan: 69-year-old female with incarcerated hernia. May resume Eliquis at this time. Continue regular diet. Ambulate. Possible discharge tomorrow if doing well. Current Visit: No Status: Acute Code(s): K46.0 - UNSP ABDOMINAL HERNIA WITH OBSTRUCTION, WITHOUT GANGRENE SNOMED Code(s): 24651084
[2024-06-14 16:36] LABS: Glucose,Whole Blood 98 mg/dL (70-110)
[2024-06-14] MEDS: APIXABAN 5 MG TAB PO SCH (20:53)
[2024-06-14 21:39] LABS: Glucose,Whole Blood 111 mg/dL (70-110)
[2024-06-15 06:01] LABS: Glucose,Whole Blood 129 mg/dL (70-110)
[2024-06-15 11:41] LABS: Glucose,Whole Blood 137 mg/dL (70-110)
[2024-06-15 12:59] LABS: HCT 29.5 % (34.0-46.0); HGB 9.5 gm/dL (11.4-16.0); Hypochromasia Slight; MCH 30.7 pg (25.0-35.0); MCHC 32.3 g/dL (31.0-37.0); MCV 95.1 fL (80.0-100.0); Mean Platelet Volume 8.4; Platelet Count 287 k/uL (150-450); WBC 9.3 k/uL (3.8-10.6)
--- NOTE | 2024-06-15 14:25 | P.DS ---
Providers Date of admission: 06/08/24 13:50 Expected date of discharge: 06/15/24 Attending physician: Teo Brannon Consults: 06/08/24 12:49 Consult Physician Routine Consulting Provider: Julio Cesar Huddleston Consult Reason/Comments: medical management Do you want consulting provider notified?: Yes 06/08/24 14:01 Consult Physician Stat Consulting Provider: Lisa Randle Consult Reason/Comments: REINTUBATION PACU. Do you want consulting provider notified?: Already Contacted 06/08/24 17:46 Consult Physician Routine Consulting Provider: Alexx Chappell Consult Reason/Comments: elevated trop Do you want consulting provider notified?: Yes Primary care physician: [facility] Course: Discharge diagnosis 1. Recurrent incisional hernia 2. Severe negative pressure pulmonary edema 3. Non-ST elevated CO 4. History of PE Hospital course This is a 69-year-old female with a recurrent incisional hernia she is status post open repair of recurrent incisional hernia. Patient had severe negative pressure pulmonary edema and possible non-ST elevated CO. Patient followed by both pulmonary and cardiology services. They have cleared her for discharge. Patient is tolerating diet. She is having bowel movements. Her pain is controlled. She has been up and ambulating. She is afebrile. Patient is stable for discharge. Please refer to chart for any further details. Physician Body Specialist note has been reviewed by physician. Signing provider agrees with the documented findings, assessment, and plan of care. Patient Condition at Discharge: Stable Plan - Discharge Summary Discharge Rx Participant: Yes New Discharge Prescriptions: New HYDROcodone/APAP 5-325MG [[place] 5-325] 1 tab PO Q6HR PRN 2 Days #6 tab PRN Reason: Pain Continue buPROPion XL [Wellbutrin XL] 300 mg PO DAILY Apixaban [Eliquis] 5 mg PO BID Cholecalciferol [Vitamin D3 (25 Mcg = 1000 Iu)] 25 mcg PO DAILY Metoprolol Tartrate [Lopressor] 50 mg PO BID Psyllium Husk (with Sugar) [Metamucil Powder] 0 gm PO DAILY #575 gm Multivitamins, Thera [Multivitamin (formulary)] 1 tab PO DAILY Calcium Carbonate [Calcium] 600 mg PO DAILY Discharge Medication List buPROPion XL [Wellbutrin XL] 300 mg PO DAILY 02/04/20 [History] Apixaban [Eliquis] 5 mg PO BID 12/21/20 [History] Cholecalciferol [Vitamin D3 (25 Mcg = 1000 Iu)] 25 mcg PO DAILY 12/21/20 [History] Calcium Carbonate [Calcium] 600 mg PO DAILY 05/13/24 [History] Metoprolol Tartrate [Lopressor] 50 mg PO BID 05/13/24 [History] Multivitamins, Thera [Multivitamin (formulary)] 1 tab PO DAILY 05/13/24 [History] Psyllium Husk (with Sugar) [Metamucil Powder] 0 gm PO DAILY #575 gm 05/15/24 [Rx] HYDROcodone/APAP 5-325MG [[place] 5-325] 1 tab PO Q6HR PRN 2 Days #6 tab 06/15/24 [Rx] Follow up Appointment(s)/Referral(s): Alexx Chappell MD [STAFF PHYSICIAN] - 1 Week Teo Brannon MD [STAFF PHYSICIAN] - 1 Week Activity/Diet/Wound Care/Special Instructions: No driving while taking [place] No lifting over 10 pounds Shower daily. No soaking or tub baths for 2 weeks Very light activity until you are reevaluated at your follow up appointment with your surgeon Keep a log of MARY drain output and bring with you to your follow-up appointment Milk/strip drains 2-3 times a day Discharge Disposition: HOME SELF-CARE
--- NOTE | 2024-06-15 15:40 | P.PN ---
Subjective Progress Note Date: 06/15/24 CHIEF COMPLAINT: Recurrent incisional hernia HISTORY OF PRESENT ILLNESS: Patient is postop day #7 status post open repair of recurrent incisional hernia. Patient is feeling well. Her pain is controlled. She is having bowel movements she is tolerating diet. She has been up and ambulating. She is afebrile. Initially the plan was to discharge home today. However, patient's blood pressure has been low at 90/60. Discussed with both Dr. Vo and Dr. Mejía. Lasix will be discontinued. Patient is asymptomatic with her hypotension. Denies any dizziness or lightheadedness. PHYSICAL EXAM: VITAL SIGNS: Reviewed. GENERAL: no acute distress. ABDOMEN: Soft. Nondistended. Prevena wound VAC intact. MARY drain serosanguineous output 50 mL ASSESSMENT: 1. Recurrent incisional hernia 2. Severe negative pressure pulmonary edema 3. Non-ST elevated ND 4. History of PE PLAN: -Discontinue Lasix due to hypotension -Cancel discharge due to hypotension -Continue to monitor blood pressure -Anticipate possible discharge tomorrow if blood pressure improved Physician Tool Maker Apprentice note has been reviewed by physician. Signing provider agrees with the documented findings, assessment, and plan of care. Objective - Vital Signs Vital signs: Vital Signs Temp 97.6 F 06/15/24 12:10 Pulse 88 06/15/24 12:10 Resp 20 06/15/24 12:10 BP 93/53 06/15/24 12:10 Pulse Ox 90 L 06/15/24 12:10 FiO2 5 06/10/24 11:47 Intake & Output 06/14/24 06/15/24 06/15/24 18:59 06:59 18:59 Intake Total 300 Output Total 40 70 Balance -40 -70 300 Weight 116.7 kg Intake: Oral 300 Output: Drainage 40 70 Left Lower Abdomen 40 70 Other: Voiding Method Toilet # Voids 1 3 4 # Bowel Movements 2 ABP, PAP, CO, CI - Last Documented Arterial Blood Pressure 84/64 - Labs CBC & Chem 7: 06/15/24 12:38 06/14/24 03:19 Labs: Abnormal Lab Results - Last 24 Hours (Table) 06/14/24 06/15/24 06/15/24 Range/Units 21:37 05:57 11:35 RBC (3.80-5.40) m/uL Hgb (11.4-16.0) gm/dL Hct (34.0-46.0) % POC Glucose (mg/dL) 111 H 129 H 137 H (70-110) mg/dL 06/15/24 Range/Units 12:38 RBC 3.10 L (3.80-5.40) m/uL Hgb 9.5 L (11.4-16.0) gm/dL Hct 29.5 L (34.0-46.0) % POC Glucose (mg/dL) (70-110) mg/dL
--- NOTE | 2024-06-15 16:06 | P.PN ---
Subjective HISTORY OF PRESENT ILLNESS: Patient has been transferred out of the intensive care unit to [facility]. Patient examined this morning the bedside. Patient currently denies chest pain or pressure. She denies shortness of breath. Patient continues to have serosanguineous drainage from MARY drain. Anticoagulation remains on hold per general surgery request. Echocardiogram completed revealing ejection fraction 55 to 60% with trace MR. 06/14 Patient has been transferred to the [facility] floor. Blood pressure 104/66, heart rate 84, pulse ox 95% on 2 L nasal cannula, patient is afebrile. Patient denies having any chest pain or chest pressure. No shortness of breath. Patient continues to have serosanguineous drainage from the MARY drain. Eliquis remains on hold until cleared by general surgery. 06/15 patient seen and examined. Patient denies any chest pain or pressure. No significant shortness breath. PHYSICAL EXAM: VITAL SIGNS: Reviewed. GENERAL: Well-developed in no acute distress. NECK: Supple. No JVD or thyromegaly LUNGS: Respirations even and unlabored. Lungs essentially clear to auscultation bilaterally. HEART: Regular rate and rhythm. S1 and S2 heard. EXTREMITIES: Normal range of motion. No clubbing or cyanosis. Peripheral pulses intact. No lower extremity edema ASSESSMENT: Recurrent incisional hernia, status post surgical repair Acute hypoxic and hypercapnic respiratory failure requiring mechanical ventilation Acute pulmonary edema, improved Non-STEMI History of DVT and PE, on Eliquis outpatient History of COPD Occasional marijuana use PLAN: Continue current cardiac medications Resume Eliquis when cleared by general surgery When patient's acute issues have resolved and she is stable she will require further ischemic workup, OK to perform on an outpatient basis. Patient will follow-up in the office with Dr. Keith Chappell in 2 weeks following discharge. Further recommendations pending patient course Objective - Vital Signs Vital signs: Vital Signs Temp 97.6 F 06/15/24 12:10 Pulse 88 06/15/24 12:10 Resp 20 06/15/24 12:10 BP 93/53 06/15/24 12:10 Pulse Ox 90 L 06/15/24 12:10 FiO2 5 06/10/24 11:47 Intake & Output 06/14/24 06/15/24 06/15/24 18:59 06:59 18:59 Intake Total 300 Output Total 40 70 Balance -40 -70 300 Weight 116.7 kg Intake: Oral 300 Output: Drainage 40 70 Left Lower Abdomen 40 70 Other: Voiding Method Toilet # Voids 1 3 4 # Bowel Movements 2 ABP, PAP, CO, CI - Last Documented Arterial Blood Pressure 84/64 - Labs CBC & Chem 7: 06/15/24 12:38 06/14/24 03:19 Labs: Abnormal Lab Results - Last 24 Hours (Table) 06/14/24 06/15/24 06/15/24 Range/Units 21:37 05:57 11:35 RBC (3.80-5.40) m/uL Hgb (11.4-16.0) gm/dL Hct (34.0-46.0) % POC Glucose (mg/dL) 111 H 129 H 137 H (70-110) mg/dL 06/15/24 Range/Units 12:38 RBC 3.10 L (3.80-5.40) m/uL Hgb 9.5 L (11.4-16.0) gm/dL Hct 29.5 L (34.0-46.0) % POC Glucose (mg/dL) (70-110) mg/dL
[2024-06-15 16:42] LABS: Glucose,Whole Blood 118 mg/dL (70-110)
[2024-06-15 20:58] LABS: Glucose,Whole Blood 108 mg/dL (70-110)
[2024-06-16 02:47] VITALS: RESP 18
[2024-06-16 06:01] LABS: Glucose,Whole Blood 117 mg/dL (70-110)
[2024-06-16 11:20] LABS: Glucose,Whole Blood 114 mg/dL (70-110)
--- NOTE | 2024-06-16 12:47 | P.DS ---
Providers Date of admission: 06/08/24 13:50 Expected date of discharge: 06/16/24 Attending physician: Teo Brannon Consults: 06/08/24 12:49 Consult Physician Routine Consulting Provider: Julio Cesar Huddleston Consult Reason/Comments: medical management Do you want consulting provider notified?: Yes 06/08/24 14:01 Consult Physician Stat Consulting Provider: Lisa Randle Consult Reason/Comments: REINTUBATION PACU. Do you want consulting provider notified?: Already Contacted 06/08/24 17:46 Consult Physician Routine Consulting Provider: Alexx Chappell Consult Reason/Comments: elevated trop Do you want consulting provider notified?: Yes Primary care physician: [facility] Course: Discharge diagnosis 1. Recurrent incisional hernia 2. Severe negative pressure pulmonary edema 3. History of PE Hospital course This is a 69-year-old female with a recurrent incisional hernia she is status post open repair of recurrent incisional hernia. Patient had severe negative pressure pulmonary edema. Treated with IV Lasix. Patient followed by both pulmonary and cardiology services. They have cleared her for discharge. Patient is tolerating diet. She is having bowel movements. Her pain is controlled. She has been up and ambulating. She is afebrile. Yesterday's discharge was held due to hypotension. The oral Lasix was held. Blood pressure is improved. Medicine service has changed the Lasix to as needed for shortness of breath. And have cleared her for discharge. Patient is stable for discharge. Please refer to chart for any further details. Also, note that Dr. Brannon discussed case with Dr. Lindsey on afternoon rounds and per Dr. Lindsey patient did not have an acute CA. Physician Oil Expeller Operator note has been reviewed by physician. Signing provider agrees with the documented findings, assessment, and plan of care. Patient Condition at Discharge: Stable Plan - Discharge Summary Discharge Rx Participant: Yes New Discharge Prescriptions: New HYDROcodone/APAP 5-325MG [[place] 5-325] 1 tab PO Q6HR PRN 2 Days #6 tab PRN Reason: Pain Furosemide [Lasix] 40 mg PO DAILY PRN #7 tablet PRN Reason: Shortness Of Breath Continue buPROPion XL [Wellbutrin XL] 300 mg PO DAILY Apixaban [Eliquis] 5 mg PO BID Cholecalciferol [Vitamin D3 (25 Mcg = 1000 Iu)] 25 mcg PO DAILY Metoprolol Tartrate [Lopressor] 50 mg PO BID Psyllium Husk (with Sugar) [Metamucil Powder] 0 gm PO DAILY #575 gm Multivitamins, Thera [Multivitamin (formulary)] 1 tab PO DAILY Calcium Carbonate [Calcium] 600 mg PO DAILY Discharge Medication List buPROPion XL [Wellbutrin XL] 300 mg PO DAILY 01/05/20 [History] Apixaban [Eliquis] 5 mg PO BID 12/21/20 [History] Cholecalciferol [Vitamin D3 (25 Mcg = 1000 Iu)] 25 mcg PO DAILY 12/21/20 [History] Calcium Carbonate [Calcium] 600 mg PO DAILY 05/13/24 [History] Metoprolol Tartrate [Lopressor] 50 mg PO BID 05/13/24 [History] Multivitamins, Thera [Multivitamin (formulary)] 1 tab PO DAILY 05/13/24 [History] Psyllium Husk (with Sugar) [Metamucil Powder] 0 gm PO DAILY #575 gm 05/15/24 [Rx] HYDROcodone/APAP 5-325MG [[place] 5-325] 1 tab PO Q6HR PRN 2 Days #6 tab 06/15/24 [Rx] Furosemide [Lasix] 40 mg PO DAILY PRN #7 tablet 06/16/24 [Rx] Follow up Appointment(s)/Referral(s): [facility] [NON-STAFF] - 1 Week ([facility] will call you to arrange a visit) Alexx Chappell MD [STAFF PHYSICIAN] - 1 Week (Office is not answering at time of discharge. Please call for follow-up appointment.) Teo Brannon MD [STAFF PHYSICIAN] - 06/23/24 2:10 pm Activity/Diet/Wound Care/Special Instructions: No driving while taking [place] No lifting over 10 pounds Shower daily. No soaking or tub baths for 2 weeks Very light activity until you are reevaluated at your follow up appointment with your surgeon Keep a log of MARY drain output and bring with you to your follow-up appointment Milk/strip drains 2-3 times a day Discharge Disposition: HOME SELF-CARE
[2024-06-16 14:29] VITALS: BMI 41.0
[2024-06-16 14:40] VITALS: BP 100/67; PULSE 57; TEMP 98.9
--- NOTE | 2024-06-16 15:12 | P.PN ---
Subjective Patient has been transferred out of the intensive care unit to [facility]. Patient examined this morning the bedside. Patient currently denies chest pain or pressure. She denies shortness of breath. Patient continues to have serosanguineous drainage from MARY drain. Anticoagulation remains on hold per general surgery request. Echocardiogram completed revealing ejection fraction 55 to 60% with trace MR. 06/14 Patient has been transferred to the [facility] floor. Blood pressure 104/66, heart rate 84, pulse ox 95% on 2 L nasal cannula, patient is afebrile. Patient denies having any chest pain or chest pressure. No shortness of breath. Patient c ontinues to have serosanguineous drainage from the MARY drain. Eliquis remains on hold until cleared by general surgery. 06/15 patient seen and examined. Patient denies any chest pain or pressure. No significant shortness breath. 06/16 patient seen and examined. Patient denies any chest pain or pressure. Still mild lower extremity edema however if she is walking around is improved and mainly if she is sitting in her chair we will be worse. PHYSICAL EXAM: VITAL SIGNS: Reviewed. GENERAL: Well-developed in no acute distress. NECK: Supple. No JVD or thyromegaly LUNGS: Respirations even and unlabored. Lungs essentially clear to auscultation bilaterally. HEART: Regular rate and rhythm. S1 and S2 heard. EXTREMITIES: Normal range of motion. No clubbing or cyanosis. Peripheral pulses intact. No lower extremity edema ASSESSMENT: Recurrent incisional hernia, status post surgical repair Acute hypoxic and hypercapnic respiratory failure requiring mechanical ventilation Acute pulmonary edema, improved Non-STEMI History of DVT and PE, on Eliquis outpatient History of COPD Occasional marijuana use PLAN: Continue current cardiac medications When patient's acute issues have resolved and she is stable she will require further ischemic workup, OK to perform on an outpatient basis. Patient will follow-up in the office with Dr. Keith Chappell in 2 weeks following discharge. stable for discharge home today Objective - Vital Signs Vital signs: Vital Signs Temp 98.9 F 06/16/24 13:22 Pulse 57 L 06/16/24 13:22 Resp 18 06/16/24 13:22 BP 100/67 06/16/24 13:22 Pulse Ox 92 L 06/16/24 13:22 FiO2 5 06/10/24 11:47 Intake & Output 0706/16/24 06/16/24 18:59 06:59 18:59 Intake Total 300 Output Total 20 60 Balance 300 -20 -60 Weight 115.3 kg 115.3 kg Intake: Oral 300 Output: Drainage 20 60 Left Lower Abdomen 20 60 Other: Voiding Method Toilet # Voids 4 2 5 # Bowel Movements 2 3 ABP, PAP, CO, CI - Last Documented Arterial Blood Pressure 84/64 - Labs CBC & Chem 7: 06/15/24 12:38 06/14/24 03:19 Labs: Abnormal Lab Results - Last 24 Hours (Table) 06/15/24 06/16/24 06/16/24 Range/Units 16:30 05:59 11:15 POC Glucose (mg/dL) 118 H 117 H 114 H (70-110) mg/dL
--- NOTE | 2024-06-17 10:36 | P.PN ---
Subjective Progress Note Date: 06/17/24 - Reason for Consult Consult date: 06/08/24 Medical management - Chief Complaint Respiratory failure - History of Present Illness Patient is a 69-year-old female with a past medical history of hypertension, history of DVT/PE currently on Eliquis, COPD, hypothyroidism, Raynaud's disease, hepatitis B, IBS, history of bowel resection and prior history of smoking presented to the hospital for elective incisional hernia repair. Patient is status post open repair of recurrent incisional hernia. Patient had general anesthesia during surgery and was sent to recovery room. After extubation patient started having severe shortness of breath and was also hypotensive and tachycardic. Chest x-ray showed clinical correlation recommended for CHF. Patient was intubated again and was transferred to MICU. Patient was also requiring pressor support. Patient was given a dose of 40 mg IV Lasix postintubation. ABG showed 7.17, pCO2 57 pO2 104 and bicarb is 20 Other laboratory data showed sodium 136 potassium 4.3 chloride 108 bicarb is 20 BUN 15 creatinine 0.77 Blood sugar 286 and calcium 8.4. proBNP 539 and troponin 0.231 Patient is chronically hypotensive as per her at bedside. 06/09/2024 patient is seen and evaluated in follow-up status post recurrent open incisional hernia repair with general surgery continues to be on mechanical ventilation, FiO2 is 50% with a PEEP of 10. Venous Doppler along with CTA of the chest is ordered and pending at this time to assess for blood clots. Chest x-ray was done today showing some overload and was given a dose of IV Lasix. Assessing mentation with sedation holidays although not quite ready for extubation at this point. Patient is afebrile and continues on propofol and is currently off pressor support. Sister at the bedside with questions and concerns that were answered. We will continue to follow along with general surgery during hospitalization. Overall prognosis is guarded at this time. 06/10/2024 Patient is seen in follow-up today continues to be in the ICU with multiple consultations following. Patient is status post incisional hernia repair currently just extubated 20 minutes prior to exam. Patient is on nasal cannula at 5 L maintaining oxygen saturations above 90%. Patient is awake, alert and oriented and following commands. Patient is whispering currently reporting her throat is tender. Patient being started on antibiotics empirically and will follow-up with lab work and cultures. Diet to be resumed and started per surger y. Patient is being started on IV heparin with cardiology on consult as patient did have elevated troponins. Awaiting evaluation. 06/11/2024 Patient is seen and evaluated in follow-up this morning with multiple medical consultations following. Patient continues in the ICU and was status post suc cessful extubation yesterday post incisional hernia repair. Patient currently maintained on 4 to 5 L via nasal cannula and reports does not wear oxygen outpatient. Cardiology following as well as patient had elevated troponins and is undergoing cardiac catheterization in the a.m. on 06/12/2024. Patient will continue on IV heparin for now and will await cardiology report. Patient is afebrile with no reports of chest pain or worsening shortness of breath. Patient is tolerating diet and slowly advance per surgery. Patient reports not much of an appetite and continues with some mild abdominal discomfort although improved from yesterday. Patient attempted to get up to the bedside and reports did not do very well. Will have PT/OT therapy work with the patient and also discussed with case management/social work in the event patient may need ECF for continued strength and mobility. We will continue to follow with general surgery during hospitalization. 06/12/2024 Patient is seen and evaluated today currently in ICU although is a downgrade to 3 S. once a bed becomes available. Patient is afebrile with no reports of chest pain or shortness of breath. Patient currently on room air sitting up and nursing staff reports she was up and to the commode today. Patient continues with MARY drain and had increased serous output overnight and IV heparin has been discontinued. Patient was initially scheduled from cardiology to undergo cardiac catheterization due to elevated troponins although is being canceled for now and cardiology along with surgery recommending outpatient follow-up for outpatient testing once patient has recovered from her incisional hernia repair. Hemoglobin is stable and will be monitored closely. Recommend follow-up labs. Patient to continue increasing activity as tolerated and will await PT/OT therapy evaluation to discuss possible ECF. 06/13/2024 Patient is resting in the bed. Awake alert and oriented x 3. No complaints of chest pain or shortness of breath. Currently on 2 L oxygen via nasal cannula. Patient has been afebrile. Abdominal pain is controlled. No nausea or vomiting. No diarrhea. Laboratory data showed WBC 10.4 hemoglobin 9.3 and platelets 198 BUN 2020 creatinine 0.8 and blood sugar is 142 and magnesium 2.0. Patient is being continued on Lasix 40 mg p.o. daily and is also on antibiotics, Zosyn. 06/16/2024 Patient seen and evaluated in follow-up this morning currently sitting up in the chair doing extremely well reports she is working on discharging home. Patient is medically stable once cleared by general surgery. Patient has been instructed and reminded to follow-up with cardiology outpatient for possible outpatient stress testing and cardiac catheterization. Patient is afebrile with no reports of chest pain or shortness of breath. Patient is tolerating diet with no reported nausea or vomiting. Patient is having bowel movements and passing gas. Current medications reviewed. Review of systems: Constitutional: No reports of fatigue, fever, or chills Cardiovascular: No reports of chest pain or palpitations Respiratory: No reports of worsening shortness of breath or cough GI: No reports of nausea, vomiting, or diarrhea, reports passing gas, reports not much of an appetite, no bowel movement as of yet : No reports of dysuria or retention Neurovascular: reports of generalized weakness although feeling slightly more improved than yesterday All medications have been reviewed PHYSICAL EXAMINATION: Patient is a 69-year-old female who is awake, alert and oriented x 3, well- developed, well-nourished, morbidly obese, elderly appearing, currently room air HEENT: Normocephalic. Neck is supple. Pupils reactive. Nostrils clear. Oral cavity is moist. Neck reveals no JVD, carotid bruits, or thyromegaly. CHEST EXAMINATION: Trachea is central. Symmetrical expansion. Bibasilar diminished sounds. Lung cruz clear to auscultation and percussion. CARDIAC: S1, S2 are muffled ABDOMEN: Soft. Morbidly obese, bowel sounds normal. No organomegaly. No abdominal bruits. Tenderness noted on palpation Extremities: reveal no edema. No clubbing or cyanosis, bilateral upper and lower extremity swelling, appears chronic Neurologically awake, alert and oriented, cooperative No gross focal deficits noted, diffusely weak Skin: No rash or skin lesions. Musculoskeletal: No joint swelling or deformity. Assessment: Acute hypoxic and hypercapnic respiratory failure secondary to pulmonary edema. Postextubation. was reintubated requiring mechanical ventilator. FiO2 is 50% with a PEEP of 10, status post extubation on 06/10/2024. Currently on room air Suspect flash pulm edema due to negative pressure after extubation Status post recurrent open incisional hernia repair Acute NSTEMI status post hernia repair, currently maintained on IV heparin although having increased output in the MARY drains, heparin being discontinued and patient will have outpatient cardiology follow-up to discuss possible cardiac catheterization once recovered History of DVT/PE currently on Eliquis at home. Anticoagulation being resumed per surgery Anxiety/depression history Prior history of smoking Hepatitis B history Hypothyroidism Hyperglycemia Morbid obesity with a BMI of 43.2 DVT prophylaxis. SCDs GI prophylaxis Full code Plan: Patient currently on the medical floor. Cardiology has evaluated the patient for NSTEMI and will follow-up in the outpatient setting once healed from recent surgery Anticoagulation to be resumed per surgery Patient has been weaning FiO2 as tolerated and currently room air. Patient was successfully extubated on 06/10/2024. Patient reports does not wear oxygen outpatient Continue with insulin sliding scale and regimen for tight glycemic control. Will adjust insulins accordingly. Patient has been resumed on diet and reports not much of an appetite. Continue monitoring Accu-Cheks ACHS Patient to continue working with PT/OT therapy. Patient doing extremely well a nd plans on going home and has support in the home with her and sister Patient is medically stable for discharge once cleared by surgery Thank you kindly for this consultation We will continue to follow with general surgery during hospitalization. The impression and plan of care has been dictated by Nuria Gutierrez, Nurse Practitioner as directed. Dr. Kym MD I have performed a history and examination and MDM of this patient, discussed the same with the dictator, and agree with the dictator's assessment and plan as written ,documented as a scribe. Based on total visit time, I have performed more than 50% of the visit. She did not Objective - Vital Signs Vital signs: Vital Signs Temp 98.1 F 06/16/24 07:05 Pulse 84 06/16/24 07:05 Resp 18 06/16/24 07:05 BP 101/68 06/16/24 07:05 Pulse Ox 94 L 06/16/24 07:05 FiO2 5 06/10/24 11:47 Intake & Output 06/15/24 06/16/24 06/16/24 18:59 06:59 18:59 Intake Total 300 Output Total 20 Balance 300 -20 Weight 115.3 kg Intake: Oral 300 Output: Drainage 20 Left Lower Abdomen 20 Other: Voiding Method Toilet # Voids 4 2 # Bowel Movements 2 ABP, PAP, CO, CI - Last Documented Arterial Blood Pressure 84/64 - Labs CBC & Chem 7: 06/15/24 12:38 06/14/24 03:19 Labs: Abnormal Lab Results - Last 24 Hours (Table) 06/15/24 06/15/24 06/15/24 Range/Units 11:35 12:38 16:30 RBC 3.10 L (3.80-5.40) m/uL Hgb 9.5 L (11.4-16.0) gm/dL Hct 29.5 L (34.0-46.0) % POC Glucose (mg/dL) 137 H 118 H (70-110) mg/dL 06/16/24 Range/Units 05:59 RBC (3.80-5.40) m/uL Hgb (11.4-16.0) gm/dL Hct (34.0-46.0) % POC Glucose (mg/dL) 117 H (70-110) mg/dL
== END 2024-06-16 15:38 | disposition home health service (06) | DRG 353 ==
LOC: OR 07:34 → 2SICU 13:49 → OR 13:50 → 3SCARD 06-12 14:41 → 4SSUR 06-13 17:47
PROVIDERS: ADMIT Surgery; ATTEND Surgery
PROC: 3E0T3BZ Introduction of Anesthetic Agent into Peripheral Nerves and Plexi, Percutaneous Approach (ICD-10-PCS; 2024-06-08)
PROC: 3E0T33Z Introduction of Anti-inflammatory into Peripheral Nerves and Plexi, Percutaneous Approach (ICD-10-PCS; 2024-06-08)
PROC: 3E033XZ Introduction of Vasopressor into Peripheral Vein, Percutaneous Approach (ICD-10-PCS; 2024-06-08)
PROC: 5A1945Z Respiratory Ventilation, 24-96 Consecutive Hours (ICD-10-PCS; 2024-06-08)
PROC: 0BH18EZ Insertion of Endotracheal Airway into Trachea, Via Natural or Artificial Opening Endoscopic (ICD-10-PCS; 2024-06-08)
PROC: 0WUF0JZ Supplement Abdominal Wall with Synthetic Substitute, Open Approach (ICD-10-PCS; principal; 2024-06-08 10:00)
DX: K43.2 Incisional hernia without obstruction or gangrene (principal); J81.0 Acute pulmonary edema; J96.01 Acute respiratory failure with hypoxia; J96.02 Acute respiratory failure with hypercapnia; Z68.41 Body mass index [BMI] 40.0-44.9, adult; E66.01 Morbid (severe) obesity due to excess calories; J44.9 Chronic obstructive pulmonary disease, unspecified; I34.0 Nonrheumatic mitral (valve) insufficiency; I10 Essential (primary) hypertension; F32.A Depression, unspecified; E89.0 Postprocedural hypothyroidism; I73.00 Raynaud's syndrome without gangrene; I25.10 Atherosclerotic heart disease of native coronary artery without angina pectoris; R79.89 Other specified abnormal findings of blood chemistry; I95.9 Hypotension, unspecified; F41.9 Anxiety disorder, unspecified; R00.0 Tachycardia, unspecified; Z87.891 Personal history of nicotine dependence; Z86.711 Personal history of pulmonary embolism; Z85.9 Personal history of malignant neoplasm, unspecified; Z79.01 Long term (current) use of anticoagulants; Z79.899 Other long term (current) drug therapy; Z86.718 Personal history of other venous thrombosis and embolism; Z90.49 Acquired absence of other specified parts of digestive tract; Z90.89 Acquired absence of other organs; Z88.2 Allergy status to sulfonamides; Z91.040 Latex allergy status; Z91.018 Allergy to other foods; Z88.1 Allergy status to other antibiotic agents
CPT/HCPCS: 64999; 71045; 71275; 80048; 82805; 83036; 83735; 83880; 84132; 84484; 85025; 85027; 85610; 85730; 87070; 87205; 93306; 93970; 94002; 94003; 94660; 94760

== ENCOUNTER 2024-10-07 02:24 | Inpatient (IN) | payer MEDICARE ==
[2024-10-07 03:32] LABS: ALT 25 U/L (4-34); AST 30 U/L (14-36); African American GFR (CKD) 88 (>60 ml/min/1.73 sqM); Albumin 3.8 g/dL (3.5-5.0); Alkaline Phosphatase 109 U/L (38-126); Amylase 43 U/L (30-110); Anion Gap 8 mmol/L; Blood Urea Nitrogen 13 mg/dL (7-17); Calcium 9.7 mg/dL (8.4-10.2); Carbon Dioxide 22 mmol/L (22-30); Chloride 107 mmol/L (98-107); Glucose 112 mg/dL (74-99); Lipase 102 U/L (23-300); Non-African American GFR(CKD) 76 (>60 ml/min/1.73 sqM); Potassium 4.1 mmol/L (3.5-5.1); Sodium 137 mmol/L (137-145); Total Bilirubin 0.6 mg/dL (0.2-1.3); Total Protein 7.2 g/dL (6.3-8.2)
[2024-10-07 03:43] LABS: Basophils % (A) 0 %; Eosinophils # (A) 0.1 k/uL (0-0.7); Eosinophils % (A) 1 %; HCT 36.8 % (34.0-46.0); HGB 11.6 gm/dL (11.4-16.0); Lymphocytes # (A) 1.8 k/uL (1.0-4.8); Lymphocytes % (A) 18 %; MCH 26.6 pg (25.0-35.0); MCHC 31.6 g/dL (31.0-37.0); MCV 84.2 fL (80.0-100.0); Monocytes # (A) 0.5 k/uL (0-1.0); Monocytes % (A) 4 %; Neutrophils # (A) 7.7 k/uL (1.3-7.7); Neutrophils % (A) 75 %; Platelet Count 363 k/uL (150-450); RBC 4.37 m/uL (3.80-5.40); RDW 14.5 % (11.5-15.5); WBC 10.2 k/uL (3.8-10.6)
[2024-10-07] MEDS: KETOROLAC 15 MG/ML 1 ML VIAL IVP STA (03:48)
[2024-10-07] MEDS: SODIUM CHLORIDE 0.9% 1,000 ML IV STA (03:51)
--- NOTE | 2024-10-07 05:07 | ED ---
Abdominal Pain HPI - General Source: patient Mode of arrival: ambulatory <Nia Forrester - Last Filed: 10/07/24 05:07> <Herminia Falcon - Last Filed: 10/07/24 16:48> - General Chief Complaint: Abdominal Pain Stated Complaint: abd pain Time Seen by Provider: 10/07/24 02:33 - History of Present Illness Initial Comments: 69-year-old female with past medical history of COPD, DVT, PE who presents emergency department with left lower quadrant abdominal pain. Patient states that the pain started earlier today. She has been having some discolored bowel movements which are ship surveyor in color. She does admit to recent surgery on June 08 where she had hernia surgery. She states she has had several hernia surgeries by Dr. Roachania had postop seroma. She denies fevers. No nausea or vomiting. Denies any changes in her bladder habits to include dysuria, hematuria or difficulty voiding. No black or bloody stools. No other alleviating, precipitating or modifying factors (Herminia Falcon) - Related Data Home Medications Medication Instructions Recorded Confirmed buPROPion XL [Wellbutrin XL] 300 mg PO DAILY 01/05/20 10/07/24 Apixaban [Eliquis] 5 mg PO BID 12/21/20 10/07/24 Cholecalciferol [Vitamin D3 (25 25 mcg PO W/LUNCH 12/21/20 10/07/24 Mcg = 1000 Iu)] Calcium Carbonate [Calcium] 600 mg PO W/LUNCH 05/13/24 10/07/24 Metoprolol Tartrate [Lopressor] 50 mg PO BID 05/13/24 10/07/24 Docusate [Colace] 100 mg PO W/LUNCH 10/07/24 10/07/24 Multivit-Min/Iron/Folic/Lutein 1 tab PO W/LUNCH 10/07/24 10/07/24 [Centrum Silver Women Tablet] Allergies Allergy/AdvReac Type Severity Reaction Status Date / Time Latex, Natural Rubber Allergy Rash/Hives Verified 10/07/24 07:49 Sulfa (Sulfonamide Allergy Dyspnea Verified 10/07/24 07:49 Antibiotics) sulfamethoxazole Allergy Dyspnea Verified 10/07/24 07:49 [From Bactrim] trimethoprim [From Bactrim] Allergy Dyspnea Verified 11/06/24 07:49 banana AdvReac Rash/Hives Verified 10/07/24 07:49 ciprofloxacin [From Cipro] AdvReac Rash/Hives Verified 10/07/24 07:49 [place] And Derivatives AdvReac Rash/Hives Verified 10/07/24 07:49 Review of Systems ROS Other: All systems not noted in ROS Statement are negative. <Nia Forrester - Last Filed: 10/07/24 05:07> ROS Other: All systems not noted in ROS Statement are negative. <Herminia Falcon - Last Filed: 10/07/24 16:48> ROS Statement: Those systems with pertinent positive or pertinent negative responses have been documented in the HPI. Past Medical History Past Medical History: Cancer, COPD, Deep Vein Thrombosis (DVT), Hypertension, Liver Disease, Pulmonary Embolus (PE), Thyroid Disorder Additional Past Medical History / Comment(s): emphysema, hernias, diverticulitis, right lung collapse, currently has "cluster" of pulmonary emboli per pt. takes Eliquis to treat, raynauds disease, arthritis, hepatitis B, IBS, umbilical hernia, thyroid cyst, lung collapse, some type of cancer at age 21, doesn't remember type went through cryo treatments History of Any Multi-Drug Resistant Organisms: None Reported Past Surgical History: Bladder Surgery, Bowel Resection, Cholecystectomy, Hernia Repair Additional Past Surgical History / Comment(s): bowel resection, four hernia repairs, bladder suspension, chest tube placed and removed, previous thyroid biopsy, colonoscopies Past Anesthesia/Blood Transfusion Reactions: Previous Problems w/ Anesthesia, Postoperative Nausea & Vomiting (PONV) Additional Past Anesthesia/Blood Transfusion Reaction / Comment(s): pt. states she has a hard time waking up from surgery Past Psychological History: Depression Smoking Status: Former smoker Past Alcohol Use History: Occasional, Rare Past Drug Use History: Marijuana - Past Family History Sister(s) Family Medical History: Thyroid Disorder Additional Family Medical History / Comment(s): partial thyroidectomy, pt. has an extensive family history of psychiatric disorders, her sister is schizophrenic Daughter(s) Family Medical History: Chest Pain / Angina, Thyroid Disorder Additional Family Medical History / Comment(s): partial thyroidectomy, history of v-tach and ablations Mother Family Medical History: Cancer Additional Family Medical History / Comment(s): liver cancer, pts mom from a bowel perforation and association sepsis, schizophrenia Father Family Medical History: Unable to Obtain Brother(s) Additional Family Medical History / Comment(s): psychiatric issues, schitzophrenic runs in family <UsamaNia - Last Filed: 10/07/24 05:07> General Exam General appearance: alert, in no apparent distress Head exam: Present: atraumatic, normocephalic, normal inspection Eye exam: Present: normal appearance, PERRL, EOMI. Absent: scleral icterus, conjunctival injection, periorbital swelling ENT exam: Present: normal exam, mucous membranes moist Neck exam: Present: normal inspection. Absent: tenderness, meningismus, lymphadenopathy Respiratory exam: Present: normal lung sounds bilaterally. Absent: respiratory distress, wheezes, rales, rhonchi, stridor Cardiovascular Exam: Present: regular rate, normal rhythm, normal heart sounds. Absent: systolic murmur, diastolic murmur, rubs, gallop, clicks GI/Abdominal exam: Present: soft, tenderness (Left lower quadrant), normal bowel sounds. Absent: distended, guarding, rebound, rigid Extremities exam: Present: normal inspection, full ROM, normal capillary refill. Absent: tenderness, pedal edema, joint swelling, calf tenderness Back exam: Present: normal inspection Neurological exam: Present: alert, oriented X3, CN II-XII intact Psychiatric exam: Present: normal affect, normal mood Skin exam: Present: warm, dry, intact, normal color. Absent: rash <Herminia Falcon - Last Filed: 10/07/24 16:48> Course Vital Signs 10/07/24 10/07/24 10/07/24 02:26 04:00 06:45 Temperature 98.1 F Pulse Rate 91 87 81 Pulse Rate [ Pulse Oximetery ] Respiratory 18 16 16 Rate Blood Pressure 151/89 135/78 122/65 Blood Pressure [Right Arm] O2 Sat by Pulse 92 L 96 95 Oximetry 10/07/24 10/07/24 10/07/24 07:10 10:57 14:10 Temperature 98 F Pulse Rate 82 79 Pulse Rate [ 82 Pulse Oximetery ] Respiratory 18 18 18 Rate Blood Pressure 126/74 143/83 Blood Pressure 122/65 [Right Arm] O2 Sat by Pulse 96 98 Oximetry 10/07/24 16:21 Temperature Pulse Rate 83 Pulse Rate [ Pulse Oximetery ] Respiratory 18 Rate Blood Pressure 130/88 Blood Pressure [Right Arm] O2 Sat by Pulse 98 Oximetry Medical Decision Making - Lab Data Result diagrams: 10/07/24 03:03 10/07/24 03:03 <Nia Forrester - Last Filed: 10/07/24 05:07> - Lab Data Result diagrams: 10/07/24 03:03 10/07/24 03:03 <Herminia Falcon - Last Filed: 10/07/24 16:48> - Medical Decision Making Was pt. sent in by a medical professional or institution (, PA, NAIL MAKER, urgent care, hospital, or fci...) When possible be specific @ -No Did you speak to anyone other than the patient for history (EMS, parent, family, police, friend...)? What history was obtained from this source @ -No Did you review nursing and triage notes (agree or disagree)? Why? @ -I reviewed and agree with nursing and triage notes Were old charts reviewed (outside hosp., previous admission, EMS record, old EKG, old radiological studies, urgent care reports/EKG's, fci records)? Report findings @ -No old charts were reviewed Differential Diagnosis (chest pain, altered mental status, abdominal pain women, abdominal pain men, vaginal bleeding, weakness, fever, dyspnea, syncope, headache, dizziness, GI bleed, back pain, seizure, CVA, palpatations, mental health, musculoskeletal)? @ -Differential Abdominal Pain Women: Appendicitis, Cholecystitis, diverticulosis, ischemic bowel, pancreatitis, hepatitis, UTI, gastroenteritis, AAA, incarcerated hernia, bowel obstruction, constipation, inflammatory bowel, hepatitis, peptic ulcer disease, splenic infarction, perforated viscus, vulvitis, ovarian torsion, PID, kidney stone, placenta abruption, this is not meant to be an all-inclusive list EKG interpreted by me (3pts min.). @ -Not done X-rays interpreted by me (1pt min.). @ -None done CT interpreted by me (1pt min.). @ -Yes and demonstrates colitis/diverticulitis with possible seroma versus abscess U/S interpreted by me (1pt. min.). @ -None done What testing was considered but not performed or refused? (CT, X-rays, U/S, labs)? Why? @ -None What meds were considered but not given or refused? Why? @ -None Did you discuss the management of the patient with other professionals (professionals i.e. , PA, NAIL MAKER, lab, RT, psych nurse, social work professor, dry kiln loader, teacher, preventive medicine officer, showcase trimmer)? Give summary @ -Spoke with Dr. Wiggins for admission Was smoking cessation discussed for >3mins.? @ -No Was critical care preformed (if so, how long)? @ -No Were there social determinants of health that impacted care today? How? (Homelessness, low income, unemployed, alcoholism, drug addiction, transportation, low edu. Level, literacy, decrease access to med. care, halfway, rehab)? @ -No Was there de-escalation of care discussed even if they declined (Discuss DNR or withdrawal of care, Hospice)? DNR status @ -No What co-morbidities impacted this encounter? (DM, HTN, Smoking, COPD, CAD, Cancer, CVA, ARF, Chemo, Hep., AIDS, mental health diagnosis, sleep apnea, morbid obesity)? @ -Diverticulosis, recurrent hernia repair Was patient admitted / discharged? Hospital course, mention meds given and route, prescriptions, significant lab abnormalities, going to OR and other pertinent info. @ -Upon arrival patient seen and evaluated in bed 20. She was seen by the midlevel provider. IV was established laboratory studies were conducted. CT was performed and the case was signed out to me pending results. CT does demonstrate diverticulitis/colitis with abdominal wall seroma versus abscess. I discussed these results with the patient. I did recommend hospital observation for surgery consult due to the abdominal wall seroma/abscess. Patient was started on antibiotics for the diverticulitis. She has no signs of sepsis. Patient was agreeable to this plan. Admitted to Dr. Huddleston who accepted the patient I will consult Dr. Brannon as he has previously operated on the patient in the past Undiagnosed new problem with uncertain prognosis? @ -No Drug Therapy requiring intensive monitoring for toxicity (Heparin, Nitro, Insulin, Cardizem)? @ -No Were any procedures done? @ -No Diagnosis/symptom? @ -Acute left lower quadrant pain, acute diverticulitis/colitis, acute abdominal wall seroma/abscess Acute, or Chronic, or Acute on Chronic? @ -Acute Uncomplicated (without systemic symptoms) or Complicated (systemic symptoms)? @ -Complicated Side effects of treatment? @ -No Exacerbation, Progression, or Severe Exacerbation? @ -No Poses a threat to life or bodily function? How? (Chest pain, [place], [place], pneumonia, PE, COPD, DKA, ARF, appy, cholecystitis, CVA, Diverticulitis, Homicidal, Suicidal, threat to staff... and all critical care pts) @ -No (Herminia Falcon) - Lab Data Lab Results 10/07/24 10/07/24 10/07/24 Range/Units 03:03 03:03 03:03 WBC 10.2 (3.8-10.6) k/uL RBC 4.37 (3.80-5.40) m/uL Hgb 11.6 (11.4-16.0) gm/dL Hct 36.8 (34.0-46.0) % MCV 84.2 (80.0-100.0) fL MCH 26.6 (25.0-35.0) pg MCHC 31.6 (31.0-37.0) g/dL RDW 14.5 (11.5-15.5) % Plt Count 363 (150-450) k/uL MPV 8.0 Neutrophils % 75 % Lymphocytes % 18 % Monocytes % 4 % Eosinophils % 1 % Basophils % 0 % Neutrophils # 7.7 (1.3-7.7) k/uL Lymphocytes # 1.8 (1.0-4.8) k/uL Monocytes # 0.5 (0-1.0) k/uL Eosinophils # 0.1 (0-0.7) k/uL Basophils # 0.0 (0-0.2) k/uL Sodium 137 (137-145) mmol/L Potassium 4.1 (3.5-5.1) mmol/L Chloride 107 (98-107) mmol/L Carbon Dioxide 22 (22-30) mmol/L Anion Gap 8 mmol/L BUN 13 (7-17) mg/dL Creatinine 0.81 (0.52-1.04) mg/dL Est GFR (CKD-EPI)AfAm 88 (>60 ml/min/1.73 sqM) Est GFR (CKD-EPI)NonAf 76 (>60 ml/min/1.73 sqM) Glucose 112 H (74-99) mg/dL Plasma Lactic Acid Craig 0.9 (0.7-2.0) mmol/L Calcium 9.7 (8.4-10.2) mg/dL Total Bilirubin 0.6 (0.2-1.3) mg/dL AST 30 (14-36) U/L ALT 25 (4-34) U/L Alkaline Phosphatase 109 (38-126) U/L Total Protein 7.2 (6.3-8.2) g/dL Albumin 3.8 (3.5-5.0) g/dL Amylase 43 (30-110) U/L Lipase 102 (23-300) U/L Urine Color Urine Appearance (Clear) Urine pH (5.0-8.0) Ur Specific [place] (1.001-1.035) Urine Protein (Negative) Urine Glucose (UA) (Negative) Urine Ketones (Negative) Urine Blood (Negative) Urine Nitrite (Negative) Urine Bilirubin (Negative) Urine Urobilinogen (<2.0) mg/dL Ur Leukocyte Esterase (Negative) Urine RBC (0-5) /hpf Urine WBC (0-5) /hpf Ur Squamous Epith Cells (0-4) /hpf Urine Bacteria (None) /hpf Urine Mucus (None) /hpf 10/07/24 Range/Units 05:30 WBC (3.8-10.6) k/uL RBC (3.80-5.40) m/uL Hgb (11.4-16.0) gm/dL Hct (34.0-46.0) % MCV (80.0-100.0) fL MCH (25.0-35.0) pg MCHC (31.0-37.0) g/dL RDW (11.5-15.5) % Plt Count (150-450) k/uL MPV Neutrophils % % Lymphocytes % % Monocytes % % Eosinophils % % Basophils % % Neutrophils # (1.3-7.7) k/uL Lymphocytes # (1.0-4.8) k/uL Monocytes # (0-1.0) k/uL Eosinophils # (0-0.7) k/uL Basophils # (0-0.2) k/uL Sodium (137-145) mmol/L Potassium (3.5-5.1) mmol/L Chloride (98-107) mmol/L Carbon Dioxide (22-30) mmol/L Anion Gap mmol/L BUN (7-17) mg/dL Creatinine (0.52-1.04) mg/dL Est GFR (CKD-EPI)AfAm (>60 ml/min/1.73 sqM) Est GFR (CKD-EPI)NonAf (>60 ml/min/1.73 sqM) Glucose (74-99) mg/dL Plasma Lactic Acid Craig (0.7-2.0) mmol/L Calcium (8.4-10.2) mg/dL Total Bilirubin (0.2-1.3) mg/dL AST (14-36) U/L ALT (4-34) U/L Alkaline Phosphatase (38-126) U/L Total Protein (6.3-8.2) g/dL Albumin (3.5-5.0) g/dL Amylase (30-110) U/L Lipase (23-300) U/L Urine Color Yellow Urine Appearance Clear (Clear) Urine pH 6.0 (5.0-8.0) Ur Specific [place] >1.050 H (1.001-1.035) Urine Protein Trace H (Negative) Urine Glucose (UA) Negative (Negative) Urine Ketones Negative (Negative) Urine Blood Trace H (Negative) Urine Nitrite Positive H (Negative) Urine Bilirubin Negative (Negative) Urine Urobilinogen <2.0 (<2.0) mg/dL Ur Leukocyte Esterase Moderate H (Negative) Urine RBC 5 (0-5) /hpf Urine WBC 55 H (0-5) /hpf Ur Squamous Epith Cells 2 (0-4) /hpf Urine Bacteria Rare H (None) /hpf Urine Mucus Few H (None) /hpf Disposition <Nia Forrester - Last Filed: 10/07/24 05:07> Is patient prescribed a controlled substance at d/c from ED?: No Time of Disposition: 06:22 Decision to Admit Reason: Admit from EC Decision Date: 10/07/24 Decision Time: 06:22 <Herminia Falcon - Last Filed: 10/07/24 16:48> Clinical Impression: Abdominal pain, Colitis Disposition: ADMITTED IP TO THIS HOSP Condition: Stable
--- NOTE | 2024-10-07 05:27 | CT ---
EXAM: CT Abdomen and Pelvis With Intravenous Contrast CLINICAL HISTORY: ITS.REASON CT Reason: L sided abdominal pain TECHNIQUE: Axial computed tomography images of the abdomen and pelvis with intravenous contrast. CTDI is 41.2 mGy and DLP is 1780.3 mGy-cm. This CT exam was performed using one or more of the following dose reduction techniques: automated exposure control, adjustment of the mA and/or kV according to patient size, and/or use of iterative reconstruction technique. COMPARISON: No relevant prior studies available. FINDINGS: Lung bases: Unremarkable. No mass. No consolidation. ABDOMEN: Liver: Unremarkable. No mass. Gallbladder and bile ducts: Unremarkable. No calcified stones. No ductal dilation. Pancreas: Unremarkable. No mass. No ductal dilation. Spleen: Unremarkable. No splenomegaly. Adrenals: Unremarkable. No mass. Kidneys and ureters: Unremarkable. No solid mass. No hydronephrosis. Stomach and bowel: Circumferential wall thickening of the sigmoid colon with moderate surrounding inflammation, consistent with colitis. Rectal wall thickening of the adjacent small bowel. No obstruction. PELVIS: Appendix: No findings to suggest acute appendicitis. Bladder: Unremarkable. No mass. Reproductive: Unremarkable as visualized. ABDOMEN and PELVIS: Intraperitoneal space: Unremarkable. No free air. No significant fluid collection. Bones/joints: No acute fracture. No dislocation. Soft tissues: Fluid collection in the anterior subcutaneous fat, measures approximately 8.1 x 2.1 cm, correlate for postoperative seroma. Abscess not entirely excluded. Vasculature: Unremarkable. No abdominal aortic aneurysm. Lymph nodes: Unremarkable. No enlarged lymph nodes. IMPRESSION: 1. Circumferential wall thickening of the sigmoid colon with moderate surrounding inflammation, consistent with colitis. 2. Fluid collection in the anterior subcutaneous fat, measures approximately 8.1 x 2.1 cm, correlate for postoperative seroma. Abscess not entirely excluded. 3. Rectal wall thickening of the adjacent small bowel.
[2024-10-07 05:54] LABS: Appearance,Urine Clear (Clear); Bacteria,Urine Rare /hpf; Bilirubin,Urine Negative (Negative); Blood,Urine Trace (Negative); Color,Urine Yellow; Glucose,Urine (UA) Negative (Negative); Ketones,Urine Negative (Negative); Leukocyte Esterase,Urine Moderate (Negative); Mucus,Urine Few /hpf; Nitrite,Urine Positive (Negative); Protein,Urine Trace (Negative); RBC,Urine 5 /hpf (0-5); Squamous Epithelial Cell,Urine 2 /hpf (0-4); Urobilinogen,Urine <2.0 mg/dL (<2.0); WBC,Urine 55 /hpf (0-5)
[2024-10-07 05:57] LABS: Specific Gravity,Urine >1.050 (1.001-1.035)
[2024-10-07] MEDS ORDERED: NALOXONE 0.4 MG/ML 1 ML VIAL IV PRN (06:22)
[2024-10-07] MEDS ORDERED: ONDANSETRON 4 MG/2 ML VIAL IVP PRN (06:22)
[2024-10-07] MEDS ORDERED: MORPHINE SULFATE 4 MG/ML SYRINGE IV PRN (06:22)
[2024-10-07] MEDS: PIPERACILLIN-TAZOBACTAM 3.375 GM in SODIUM CHLORIDE 0.9% 100 ML IVPB STA (06:52)
[2024-10-07] MEDS: SODIUM CHLORIDE 0.9% 1,000 ML IV SCH (06:52)
[2024-10-07] MEDS: buPROPion XL 300 MG TAB.ER.24H PO SCH (10:55)
[2024-10-07] MEDS: METOPROLOL TARTRATE 50 MG TAB PO SCH (10:55)
[2024-10-07] MEDS: KETOROLAC 15 MG/ML 1 ML VIAL IVP PRN (12:08)
--- NOTE | 2024-10-07 15:02 | P.HPIM ---
History of Present Illness H&P Date: 10/07/24 Chief Complaint: Syncope This is a pleasant 69-year-old patient, follows with CLINICAL SAFETY SPECIALIST Cindy Fong/Dr. Alvarez. Chronic stable medical conditions include COPD, prior PE on Eliquis, thyroid disorder, Raynaud's disease, arthritis, hepatitis B, IBS, umbilical hernia, previous right-sided chest tube, Wellbutrin. Patient been having left lower quadrant pain for about 2 weeks. Prior to that patient had been taking a laxative regularly. Then she saw her family doctor and was told to try Metamucil. With Metamucil she is only getting a very small amount of BMs. Also had to exert herself. She is also meant to take some enema. Not with much resolved. She had a bowel movement 2 days ago. Had some liquid stool the day before. Patient's pain became rather significant and decided to come in. She is able to keep the food down. No fever no chills. But pain was much worse. Review of systems: GEN.: Tired EYES: None HEENT: None NECK: None RESPIRATORY: None CARDIOVASCULAR: None GASTROINTESTINAL: As above GENITOURINARY: None MUSCULOSKELETAL: [Some joint pains LYMPHATICS: None HEMATOLOGICAL: None PSYCHIATRY: None NEUROLOGICAL: None Social history: smoked a pack a day for close to 35 years. Stopped about 2011. l . Alcohol occasionally. Physical examination: VITAL SIGNS: 98, 82, 18, 126 x 74, 98% room air GENERAL: Sitting up in a chair, not in distress EYES: Pupils equal. Conjunctiva mare l. HEENT: External appearance of nose and ears normal, oral cavity grossly normal. NECK: JVD not raised; masses not palpable. HEART: First and second heart sounds are normal; no edema. LUNGS: Respiratory rate normal; clear to auscultation. ABDOMEN: Soft, left lower abdominal tenderness significant, no guarding rigidity r, liver spleen not palpable, no masses palpable. No distention PSYCH: Alert and oriented x3; mood and affect mare l. MUSCULOSKELETAL:No Clubbing/cyanosis;muscles-grossly intact. Some OA NEUROLOGICAL: Cranial nerves grossly intact; no facial asymmetry, power and sensation grossly intact. LYMPHATICS: No lymph nodes palpable in the axilla and neck INVESTIGATIONS, reviewed in the clinical context: October 07, 2024: White count 10.2 hemoglobin 11.6 platelets 363 sodium 137 potassium 4.1 creatinine 0.81 UA: Nitrite positive leukoesterase moderate WBC 55 CT abdomen pelvis with IV contrast: Circumferential wall thickening of the sigmoid colon with moderate surrounding inflammation consistent with colitis. Rectal wall thickening of the adjacent small bowel. Fluid collection in the anterior subcutaneous fat 8.1 x 2.1 cm. Abscess not ruled out. Assessment plan: -Acute sigmoid colon colitis. And proctitis. IV Zosyn. N.p.o. except meds. IV fluids -History of PVCs Lopressor 25 twice daily -Right thyroid mass with a predominantly cystic appearance. Causing some mass effect with bowing of the trachea towards the left thyroid mass. Patient did follow-up with Dr. Ariel Charles from ENT. Normal TSH. -Raynaud's disease -IBS -Probable UTI with cystitis IV Zosyn -Primary osteoarthritis Tylenol as needed -Essential hypertension Lopressor -Chronic PE Eliquis-to be resumed if okay with surgery -COPD in a prior smoker Albuterol as needed -Depression Wellbutrin XL -Full code Discussed with him. Communicated with CLINICAL SAFETY SPECIALIST Shelbi from surgery. Hold Eliquis for now. Patient significantly tender. NPO. IV antibiotics. Given the complexity and severity of patient's condition expect the patient to be in the hospital at least for 2 overnights Past Medical History Past Medical History: Cancer, COPD, Deep Vein Thrombosis (DVT), Hypertension, Liver Disease, Pulmonary Embolus (PE), Thyroid Disorder Additional Past Medical History / Comment(s): emphysema, hernias, diverticulitis, right lung collapse, currently has "cluster" of pulmonary emboli per pt. takes Eliquis to treat, raynauds disease, arthritis, hepatitis B, IBS, umbilical hernia, thyroid cyst, lung collapse, some type of cancer at age 21, doesn't remember type went through cryo treatments History of Any Multi-Drug Resistant Organisms: None Reported Past Surgical History: Bladder Surgery, Bowel Resection, Cholecystectomy, Hernia Repair Additional Past Surgical History / Comment(s): bowel resection, four hernia repairs, bladder suspension, chest tube placed and removed, previous thyroid biopsy, colonoscopies Past Anesthesia/Blood Transfusion Reactions: Previous Problems w/ Anesthesia, Postoperative Nausea & Vomiting (PONV) Additional Past Anesthesia/Blood Transfusion Reaction / Comment(s): pt. states she has a hard time waking up from surgery Past Psychological History: Depression Smoking Status: Former smoker Past Alcohol Use History: Occasional, Rare Past Drug Use History: Marijuana - Past Family History Sister(s) Family Medical History: Thyroid Disorder Additional Family Medical History / Comment(s): partial thyroidectomy, pt. has an extensive family history of psychiatric disorders, her sister is schizophrenic Daughter(s) Family Medical History: Chest Pain / Angina, Thyroid Disorder Additional Family Medical History / Comment(s): partial thyroidectomy, history of v-tach and ablations Mother Family Medical History: Cancer Additional Family Medical History / Comment(s): liver cancer, pts mom from a bowel perforation and association sepsis, schizophrenia Father Family Medical History: Unable to Obtain Brother(s) Additional Family Medical History / Comment(s): psychiatric issues, schitzophrenic runs in family Medications and Allergies Home Medications Medication Instructions Recorded Confirmed Type buPROPion XL [Wellbutrin XL] 300 mg PO DAILY 01/05/20 10/07/24 History Apixaban [Eliquis] 5 mg PO BID 12/21/20 10/07/24 History Cholecalciferol [Vitamin D3 (25 25 mcg PO W/LUNCH 12/21/20 10/07/24 History Mcg = 1000 Iu)] Calcium Carbonate [Calcium] 600 mg PO W/LUNCH 05/13/24 10/07/24 History Metoprolol Tartrate [Lopressor] 50 mg PO BID 05/13/24 10/07/24 History Docusate [Colace] 100 mg PO W/LUNCH 10/07/24 10/07/24 History Multivit-Min/Iron/Folic/Lutein 1 tab PO W/LUNCH 10/07/24 10/07/24 History [Centrum Silver Women Tablet] Allergies Allergy/AdvReac Type Severity Reaction Status Date / Time Latex, Natural Rubber Allergy Rash/Hives Verified 10/07/24 07:49 Sulfa (Sulfonamide Allergy Dyspnea Verified 10/07/24 07:49 Antibiotics) sulfamethoxazole Allergy Dyspnea Verified 10/07/24 07:49 [From Bactrim] trimethoprim [From Bactrim] Allergy Dyspnea Verified 10/07/24 07:49 banana AdvReac Rash/Hives Verified 10/07/24 07:49 ciprofloxacin [From Cipro] AdvReac Rash/Hives Verified 10/07/24 07:49 [place] And Derivatives AdvReac Rash/Hives Verified 10/07/24 07:49 Physical Exam Vitals: Vital Signs Temp Pulse Pulse Resp BP BP Pulse Ox 10/07/24 07:10 98 F 82 18 122/65 96 10/07/24 06:45 81 16 122/65 95 10/07/24 04:00 87 16 135/78 96 10/07/24 02:26 98.1 F 91 18 151/89 92 L Intake and Output 10/06/24 10/07/24 10/07/24 22:59 06:59 14:59 Other: Weight 107.501 kg Results CBC & Chem 7: 10/07/24 03:03 10/07/24 03:03 Labs: Abnormal Lab Results - Last 24 Hours (Table) 10/07/24 10/07/24 Range/Units 03:03 05:30 Glucose 112 H (74-99) mg/dL Ur Specific [place] >1.050 H (1.001-1.035) Urine Protein Trace H (Negative) Urine Blood Trace H (Negative) Urine Nitrite Positive H (Negative) Ur Leukocyte Esterase Moderate H (Negative) Urine WBC 55 H (0-5) /hpf Urine Bacteria Rare H (None) /hpf Urine Mucus Few H (None) /hpf
--- NOTE | 2024-10-07 15:10 | P.GSCN ---
History of Present Illness Consult date: 10/07/24 History of present illness: CHIEF COMPLAINT: Abdominal pain HISTORY OF PRESENT ILLNESS: This is a 69-year-old female who present to the hospital with complaints of left lower quadrant abdominal pain. Patient has been complaining of constipation. Patient had stopped her stool softener had tried Metamucil but was only having small thin light-colored bowel movements. Stool softener was restarted but continued to have the left lower quadrant pain. Patient denies any blood in her stools. She also reports no drainage from the midline abdominal incision. She had a recent open incisional hernia repair for recurrent incisional hernia in June 2024. Patient does have a history of diverticulitis in which she does report having bowel resection in the past. Her last colonoscopy was over 5 years ago. She reports that she is due for colonoscopy. She had a CT scan abdomen and pelvis that reported circumferential wall thickening of the sigmoid colon with surrounding inflammation consistent with colitis and rectal wall thickening of the adjacent small bowel. Fluid collection in the anterior subcutaneous fat measures approximately 8.1 x 2.1 cm correlate for postoperative seroma abscess not entirely excluded. Patient is currently on antibiotics for possible diverticulitis. Eliquis currently on hold. She has a history of DVT and PE. PAST MEDICAL HISTORY: See below PAST SURGICAL HISTORY: See below MEDICATIONS: See below ALLERGIES: See below SOCIAL HISTORY: No illicit drug use. REVIEW OF SYSTEMS: CONSTITUTIONAL: Denies fever or chills. HEENT: Denies blurred vision, vision changes, or eye pain. Denies hemoptysis CARDIOVASCULAR: Denies chest pain or pressure. RESPIRATORY: No shortness of breath. GASTROINTESTINAL: See HPI for pertinent findings HEMATOLOGIC: Denies bleeding disorders. GENITOURINARY: Denies any blood in urine or increased urinary frequency. SKIN: Denies pruitis. Denies rash. PHYSICAL EXAM: VITAL SIGNS: Reviewed GENERAL: Well-developed in no acute distress. HEENT: No sclera icterus. Extraocular movements grossly intact. Moist buccal mucosa. Head is atraumatic, normocephalic. No nasal drainage. ABDOMEN: Soft. Obese. Nondistended. Tenderness palpation in the left lower quadrant. Midline incision clean dry and intact NEUROLOGIC: Alert and oriented. Cranial nerves II through XII grossly intact. LABORATORY DATA: WBC 10.2 Hgb 11.6 platelets 363 Sodium 137 potassium is 4.1 creatinine 0.81 Lactic acid 0.9 IMAGING: CT scan results as stated above ASSESSMENT: 1. Acute sigmoid diverticulitis. CAT scan reporting circumferential wall thickening of the sigmoid colon with surrounding inflammation and rectal wall thickening 2. Possible postoperative seroma with fluid collection in the anterior subc utaneous fat 3. History of recurrent incisional hernia status post open repair in June 2024 PLAN: -Continue IV antibiotics -Advance diet to clear liquids -Repeat CBC in a.m. -Continue to monitor -Continue to hold Eliquis for now Physician Account Classification Clerk note has been reviewed by physician. Signing provider agrees with the documented findings, assessment, and plan of care. I have personally seen and examined the patient, reviewed the MANAGER UROLOGY /PAs history, exam and MDM and agree with the assessment and plan as written. Based on total visit time, I have performed more than 50% of the visit. As above: Patient with left lower quadrant pain and CAT scan showing diverticulitis involving the distal descending colon/sigmoid colon junction. Fluid collection is related to the previous hernia in the abdominal wall. Continue antibiotics. Begin clear liquid diet. Ambulate. Past Medical History Past Medical History: Cancer, COPD, Deep Vein Thrombosis (DVT), Hypertension, Liver Disease, Pulmonary Embolus (PE), Thyroid Disorder Additional Past Medical History / Comment(s): emphysema, hernias, diverticulitis, right lung collapse, currently has "cluster" of pulmonary emboli per pt. takes Eliquis to treat, raynauds disease, arthritis, hepatitis B, IBS, umbilical hernia, thyroid cyst, lung collapse, some type of cancer at age 21, doesn't remember type went through cryo treatments History of Any Multi-Drug Resistant Organisms: None Reported Past Surgical History: Bladder Surgery, Bowel Resection, Cholecystectomy, Hernia Repair Additional Past Surgical History / Comment(s): bowel resection, four hernia repairs, bladder suspension, chest tube placed and removed, previous thyroid biopsy, colonoscopies Past Anesthesia/Blood Transfusion Reactions: Previous Problems w/ Anesthesia, Postoperative Nausea & Vomiting (PONV) Additional Past Anesthesia/Blood Transfusion Reaction / Comm: pt. states she has a hard time waking up from surgery Past Psychological History: Depression Smoking Status: Former smoker Past Alcohol Use History: Occasional, Rare Past Drug Use History: Marijuana - Past Family History Sister(s) Family Medical History: Thyroid Disorder Additional Family Medical History / Comment(s): partial thyroidectomy, pt. has an extensive family history of psychiatric disorders, her sister is schizophrenic Daughter(s) Family Medical History: Chest Pain / Angina, Thyroid Disorder Additional Family Medical History / Comment(s): partial thyroidectomy, history of v-tach and ablations Mother Family Medical History: Cancer Additional Family Medical History / Comment(s): liver cancer, pts mom from a bowel perforation and association sepsis, schizophrenia Father Family Medical History: Unable to Obtain Brother(s) Additional Family Medical History / Comment(s): psychiatric issues, schitzophrenic runs in family Medications and Allergies Home Medications Medication Instructions Recorded Confirmed Type buPROPion XL [Wellbutrin XL] 300 mg PO DAILY 01/05/20 10/07/24 History Apixaban [Eliquis] 5 mg PO BID 12/21/20 10/07/24 History Cholecalciferol [Vitamin D3 (25 25 mcg PO W/LUNCH 12/21/20 10/07/24 History Mcg = 1000 Iu)] Calcium Carbonate [Calcium] 600 mg PO W/LUNCH 05/13/24 10/07/24 History Metoprolol Tartrate [Lopressor] 50 mg PO BID 05/13/24 10/07/24 History Docusate [Colace] 100 mg PO W/LUNCH 10/07/24 10/07/24 History Multivit-Min/Iron/Folic/Lutein 1 tab PO W/LUNCH 10/07/24 10/07/24 History [Centrum Silver Women Tablet] Allergies Allergy/AdvReac Type Severity Reaction Status Date / Time Latex, Natural Rubber Allergy Rash/Hives Verified 10/07/24 07:49 Sulfa (Sulfonamide Allergy Dyspnea Verified 10/07/24 07:49 Antibiotics) sulfamethoxazole Allergy Dyspnea Verified 10/07/24 07:49 [From Bactrim] trimethoprim [From Bactrim] Allergy Dyspnea Verified 10/07/24 07:49 banana AdvReac Rash/Hives Verified 10/07/24 07:49 ciprofloxacin [From Cipro] AdvReac Rash/Hives Verified 10/07/24 07:49 [place] And Derivatives AdvReac Rash/Hives Verified 10/07/24 07:49 Surgical - Exam Vital Signs Temp Pulse Resp BP Pulse Ox 98.1 F 91 18 151/89 92 L 10/07/24 02:26 10/07/24 02:26 10/07/24 02:26 10/07/24 02:26 10/07/24 02:26 Results - Labs 10/07/24 03:03 10/07/24 03:03 Abnormal Lab Results - Last 24 Hours (Table) 10/07/24 10/07/24 Range/Units 03:03 05:30 Glucose 112 H (74-99) mg/dL Ur Specific [place] >1.050 H (1.001-1.035) Urine Protein Trace H (Negative) Urine Blood Trace H (Negative) Urine Nitrite Positive H (Negative) Ur Leukocyte Esterase Moderate H (Negative) Urine WBC 55 H (0-5) /hpf Urine Bacteria Rare H (None) /hpf Urine Mucus Few H (None) /hpf Diabetes panel 10/07/24 Range/Units 03:03 Sodium 137 (137-145) mmol/L Potassium 4.1 (3.5-5.1) mmol/L Chloride 107 (98-107) mmol/L Carbon Dioxide 22 (22-30) mmol/L BUN 13 (7-17) mg/dL Creatinine 0.81 (0.52-1.04) mg/dL Glucose 112 H (74-99) mg/dL Calcium 9.7 (8.4-10.2) mg/dL AST 30 (14-36) U/L ALT 25 (4-34) U/L Alkaline Phosphatase 109 (38-126) U/L Total Protein 7.2 (6.3-8.2) g/dL Albumin 3.8 (3.5-5.0) g/dL Calcium panel 10/07/24 Range/Units 03:03 Calcium 9.7 (8.4-10.2) mg/dL Albumin 3.8 (3.5-5.0) g/dL Pituitary panel 10/07/24 Range/Units 03:03 Sodium 137 (137-145) mmol/L Potassium 4.1 (3.5-5.1) mmol/L Chloride 107 (98-107) mmol/L Carbon Dioxide 22 (22-30) mmol/L BUN 13 (7-17) mg/dL Creatinine 0.81 (0.52-1.04) mg/dL Glucose 112 H (74-99) mg/dL Calcium 9.7 (8.4-10.2) mg/dL Adrenal panel 10/07/24 Range/Units 03:03 Sodium 137 (137-145) mmol/L Potassium 4.1 (3.5-5.1) mmol/L Chloride 107 (98-107) mmol/L Carbon Dioxide 22 (22-30) mmol/L BUN 13 (7-17) mg/dL Creatinine 0.81 (0.52-1.04) mg/dL Glucose 112 H (74-99) mg/dL Calcium 9.7 (8.4-10.2) mg/dL Total Bilirubin 0.6 (0.2-1.3) mg/dL AST 30 (14-36) U/L ALT 25 (4-34) U/L Alkaline Phosphatase 109 (38-126) U/L Total Protein 7.2 (6.3-8.2) g/dL Albumin 3.8 (3.5-5.0) g/dL
--- NOTE | 2024-10-07 15:15 | XR ---
EXAMINATION TYPE: XR chest 2V DATE OF EXAM: 10/07/2024 3:04 PM COMPARISON: None. CLINICAL INDICATION: Female, 69 years old with history of Ex-smoker, TECHNIQUE: XR chest 2V view(s) obtained. FINDINGS: The heart size is normal. The pulmonary vasculature is normal. The lungs are clear. IMPRESSION: 1. No acute pulmonary process. [facility], , 10/07/2024 3:12 PM
[2024-10-07] MEDS: ENOXAPARIN 40 MG/0.4 ML SYRINGE SQ SCH (15:33)
[2024-10-07] MEDS: PIPERACILLIN-TAZOBACTAM 3.375 GM in SODIUM CHLORIDE 0.9% 100 ML IVPB SCH (15:33)
[2024-10-08 08:37] LABS: Basophils # (A) 0.03 X 10*3/uL (0.00-0.10); Basophils % (A) 0.4 %; Eosinophils # (A) 0.12 X 10*3/uL (0.04-0.35); Eosinophils % (A) 1.6 %; HCT 34.1 % (37.2-46.3); HGB 10.3 g/dL (12.0-15.0); Lymphocytes # (A) 1.87 X 10*3/uL (0.90-5.00); Lymphocytes % (A) 24.2 %; MCH 26.1 pg (27.0-32.0); MCHC 30.2 g/dL (32.0-37.0); MCV 86.5 FL (80.0-97.0); Mean Platelet Volume 10.4 FL (9.5-12.2); Monocytes # (A) 0.58 X 10*3/uL (0.20-1.00); Monocytes % (A) 7.5 %; NRBC Per 100 WBC 0 X 10*3/uL (0.00-0.01); Neutrophils # (A) 5.12 X 10*3/uL (1.80-7.70); Platelet Count 313 X 10*3/uL (140-440); RBC 3.94 X 10*6/uL (4.10-5.20); RDW 14.9 % (11.5-14.5); WBC 7.74 X 10*3/uL (4.50-10.00)
[2024-10-08 09:26] LABS: Blood Urea Nitrogen 9.1 mg/dL (9.0-27.0); Calcium 8.5 mg/dL (8.7-10.3); Carbon Dioxide 19.3 mmol/L (21.6-31.8); Chloride 107 mmol/L (96-109); Glucose 97 mg/dL (70-110); Potassium 4.4 mmol/L (3.5-5.5); Sodium 138 mmol/L (135-145)
--- NOTE | 2024-10-08 14:27 | P.PN ---
Subjective Progress Note Date: 10/08/24 SURGICAL PROGRESS NOTE CHIEF COMPLAINT: Abdominal pain HISTORY OF PRESENT ILLNESS: Patient on antibiotics for diverticulitis. Patient reports improvement in her pain. Denies any nausea or vomiting. She is having flatus. Afebrile. WBC 7.74 Hgb 10.3 PHYSICAL EXAM: VITAL SIGNS: Reviewed. GENERAL: Well-developed in no acute distress. HEENT: No sclera icterus. Extraocular movements grossly intact. Moist buccal mucosa. Head is atraumatic, normocephalic. ABDOMEN: Soft. Nondistended. Mild tenderness epigastric area NEUROLOGIC: Alert and oriented. Cranial nerves II through XII grossly intact. ASSESSMENT: 1. Acute sigmoid diverticulitis. CAT scan reporting circumferential wall thickening of the sigmoid colon with surrounding inflammation and rectal wall thickening 2. Possible postoperative seroma with fluid collection in the anterior subcutaneous fat likely related to previous hernia surgery 3. History of recurrent incisional hernia status post open repair in June 2024 PLAN: -Continue IV antibiotics -Continue liquid diet -Encourage patient increase activity level -Okay to resume Xochitl Physician Autocad Designer note has been reviewed by physician. Signing provider agrees with the documented findings, assessment, and plan of care. I have personally seen and examined the patient, reviewed the COUNTY COMMISSIONER /PAs history, exam and MDM and agree with the assessment and plan as written. Based on total visit time, I have performed more than 50% of the visit. As above: Patient doing better today. Says she has mild upper abdominal discomfort today. Still with some mild lower pain as well. Continue antibiotics for diverticulitis. Ambulate. Will advance diet for tomorrow. Possible discharge tomorrow if doing well. Objective - Vital Signs Vital signs: Vital Signs Temp 98.1 F 10/08/24 07:20 Pulse 83 10/08/24 12:25 Resp 18 10/08/24 12:25 BP 100/67 10/08/24 07:20 Pulse Ox 95 10/08/24 07:20 FiO2 Intake & Output 10/07/24 10/08/24 10/08/24 18:59 06:59 18:59 Intake Total 0 Balance 0 Weight 107.501 kg Intake: Oral 0 Other: # Voids 2 5 # Bowel Movements 1 0 - Labs CBC & Chem 7: 10/08/24 05:02 10/08/24 05:02 Labs: Abnormal Lab Results - Last 24 Hours (Table) 10/08/24 10/08/24 Range/Units 05:02 05:02 RBC 3.94 L (4.10-5.20) X 10*6/uL Hgb 10.3 L (12.0-15.0) g/dL Hct 34.1 L (37.2-46.3) % MCH 26.1 L (27.0-32.0) pg MCHC 30.2 L (32.0-37.0) g/dL RDW 14.9 H (11.5-14.5) % Carbon Dioxide 19.3 L (21.6-31.8) mmol/L Calcium 8.5 L (8.7-10.3) mg/dL
[2024-10-08] MEDS: PANTOPRAZOLE 40 MG TABLET PO SCH (15:48)
--- NOTE | 2024-10-08 16:29 | P.PN ---
Progress Note - Text Progress Note Date: 10/08/24 Chief Complaint: Syncope This is a pleasant 69-year-old patient, follows with INSEMINATION WORKER Cindy Fong/Dr. Alvarez. Chronic stable medical conditions include COPD, prior PE on Eliquis, thyroid disorder, Raynaud's disease, arthritis, hepatitis B, IBS, umbilical hernia, previous right-sided chest tube, Wellbutrin. Patient been having left lower quadrant pain for about 2 weeks. Prior to that patient had been taking a laxative regularly. Then she saw her family doctor and was told to try Metamucil. With Metamucil she is only getting a very small amount of BMs. Also had to exert herself. She is also meant to take some enema. Not with much resolved. She had a bowel movement 2 days ago. Had some liquid stool the day before. Patient's pain became rather significant and decided to come in. She is able to keep the food down. No fever no chills. But pain was much worse. October 08: Sitting up in a chair. at the bedside. Abdominal pain is much better. No nausea vomiting. Has been on clear liquids. Follow-up with surgery. Possible seroma. Per surgical team okay to resume Eliquis. Discussed patient and Active Medications Apixaban (Apixaban 5 Mg Tab) 5 mg PO BID [facility]; Protocol Bupropion HCl (Bupropion Xl 300 Mg Tab.Er.24h) 300 mg PO DAILY [facility] Last Admin: 10/08/24 08:52 Dose: 300 mg Sodium Chloride (Saline 0.9%) 1,000 mls @ 130 mls/hr IV .Q7H42M [facility] Last Admin: 10/08/24 00:36 Dose: 130 mls/hr Piperacillin Sod/Tazobactam (Sod 3.375 gm/ Sodium Chloride) 100 mls @ 25 mls/hr IVPB Q8HR [facility]; Protocol Last Admin: 10/08/24 15:49 Dose: 25 mls/hr Ketorolac Tromethamine (Ketorolac 15 Mg/Ml 1 Ml Vial) 15 mg IVP Q6HR PRN PRN Reason: Moderate Pain (Scale 4 to 6) Stop: 10/10/24 06:23 Last Admin: 10/08/24 06:21 Dose: 15 mg Metoprolol Tartrate (Metoprolol Tartrate 50 Mg Tab) 50 mg PO BID [facility] Last Admin: 10/08/24 08:08 Dose: 50 mg Morphine Sulfate (Morphine Sulfate 4 Mg/Ml Syringe) 4 mg IV Q4HR PRN PRN Reason: Severe Pain (Scale 7 to 10) Naloxone HCl (Naloxone 0.4 Mg/Ml 1 Ml Vial) 0.2 mg IV Q2M PRN PRN Reason: Opioid Reversal Ondansetron HCl (Ondansetron 4 Mg/2 Ml Vial) 4 mg IVP Q8HR PRN PRN Reason: Nausea And Vomiting Pantoprazole Sodium (Pantoprazole 40 Mg Tablet) 40 mg PO AC-[id number] [facility] Last Admin: 10/08/24 15:48 Dose: 40 mg Social history: smoked a pack a day for close to 35 years. Stopped about 2011. l . Alcohol occasionally. Physical examination: VITAL SIGNS: 98.1, 87, 22, 112 x 75, 97% room GENERAL: Sitting up in a chair, not in distress EYES: Pupils equal. Conjunctiva mare l. HEENT: External appearance of nose and ears normal, oral cavity grossly normal. NECK: JVD not raised; masses not palpable. HEART: First and second heart sounds are normal; no edema. LUNGS: Respiratory rate normal; clear to auscultation. ABDOMEN: Soft, left lower abdominal tenderness significant, no guarding rigidity r, liver spleen not palpable, no masses palpable. No distention PSYCH: Alert and oriented x3; mood and affect mare l. MUSCULOSKELETAL:No Clubbing/cyanosis;muscles-grossly intact. Some OA NEUROLOGICAL: Cranial nerves grossly intact; no facial asymmetry, power and sensation grossly intact. LYMPHATICS: No lymph nodes palpable in the axilla and neck INVESTIGATIONS, reviewed in the clinical context: October 07, 2024: White count 10.2 hemoglobin 11.6 platelets 363 sodium 137 potassium 4.1 creatinine 0.81 UA: Nitrite positive leukoesterase moderate WBC 55 CT abdomen pelvis with IV contrast: Circumferential wall thickening of the sigmoid colon with moderate surrounding inflammation consistent with colitis. Rectal wall thickening of the adjacent small bowel. Fluid collection in the anterior subcutaneous fat 8.1 x 2.1 cm. Abscess not ruled out. Assessment plan: -Acute sigmoid colon colitis. And proctitis. Some clinical improvement IV Zosyn. Clear liquid diet IV fluids Being followed by general surgery -History of PVCs Lopressor 25 twice daily -Right thyroid mass with a predominantly cystic appearance. Causing some mass effect with bowing of the trachea towards the left thyroid mass. Patient did follow-up with Dr. Ariel Charles from ENT. Normal TSH. -Raynaud's disease -IBS -Probable UTI with cystitis IV Zosyn -Primary osteoarthritis Tylenol as needed -Essential hypertension Lopressor -Chronic PE Eliquis-to be resumed today as per surgery -COPD in a prior smoker Albuterol as needed -Depression Wellbutrin XL -Full code Discussed with patient . Clear liquids per surgery. Eliquis being resumed. Past Medical History Past Medical History: Cancer, COPD, Deep Vein Thrombosis (DVT), Hypertension, Liver Disease, Pulmonary Embolus (PE), Thyroid Disorder Additional Past Medical History / Comment(s): emphysema, hernias, diverticulitis, right lung collapse, currently has "cluster" of pulmonary emboli per pt. takes Eliquis to treat, raynauds disease, arthritis, hepatitis B, IBS, umbilical hernia, thyroid cyst, lung collapse, some type of cancer at age 21, doesn't remember type went through cryo treatments History of Any Multi-Drug Resistant Organisms: None Reported Past Surgical History: Bladder Surgery, Bowel Resection, Cholecystectomy, Hernia Repair Additional Past Surgical History / Comment(s): bowel resection, four hernia repairs, bladder suspension, chest tube placed and removed, previous thyroid biopsy, colonoscopies Past Anesthesia/Blood Transfusion Reactions: Previous Problems w/ Anesthesia, Postoperative Nausea & Vomiting (PONV) Additional Past Anesthesia/Blood Transfusion Reaction / Comment(s): pt. states she has a hard time waking up from surgery Past Psychological History: Depression Smoking Status: Former smoker Past Alcohol Use History: Occasional, Rare Past Drug Use History: Marijuana
[2024-10-08] MEDS: APIXABAN 5 MG TAB PO SCH (19:56)
[2024-10-09 06:58] LABS: Basophils % (A) 0 %; Eosinophils # (A) 0.1 k/uL (0-0.7); Eosinophils % (A) 2 %; HCT 32.9 % (34.0-46.0); HGB 10.4 gm/dL (11.4-16.0); Hypochromasia Slight; Lymphocytes # (A) 1.5 k/uL (1.0-4.8); Lymphocytes % (A) 27 %; MCH 27.2 pg (25.0-35.0); MCHC 31.6 g/dL (31.0-37.0); MCV 85.9 fL (80.0-100.0); Mean Platelet Volume 7.9; Monocytes # (A) 0.3 k/uL (0-1.0); Monocytes % (A) 6 %; Neutrophils # (A) 3.6 k/uL (1.3-7.7); Neutrophils % (A) 62 %; Platelet Count 327 k/uL (150-450); RBC 3.83 m/uL (3.80-5.40); RDW 14.6 % (11.5-15.5); WBC 5.7 k/uL (3.8-10.6)
--- NOTE | 2024-10-09 13:32 | P.PN ---
Subjective Progress Note Date: 10/09/24 SURGICAL PROGRESS NOTE CHIEF COMPLAINT: Abdominal pain HISTORY OF PRESENT ILLNESS: Patient on antibiotics for diverticulitis. Patient did have a low fiber diet this morning. Patient reports that she tolerated diet. She did have a burning sensation on the left side of the abdomen. Patient reports that she does have relief in the pain after a bowel movement. She is having flatus. She did have a bowel movement yesterday. Denies any nausea or vomiting. Afebrile. WBC 5.7 Hgb 10.4 PHYSICAL EXAM: VITAL SIGNS: Reviewed. GENERAL: Well-developed in no acute distress. HEENT: No sclera icterus. Extraocular movements grossly intact. Moist buccal mucosa. Head is atraumatic, normocephalic. ABDOMEN: Soft. Nondistended. Mild tenderness epigastric area NEUROLOGIC: Alert and oriented. Cranial nerves II through XII grossly intact. ASSESSMENT: 1. Acute sigmoid diverticulitis. CAT scan reporting circumferential wall thickening of the sigmoid colon with surrounding inflammation and rectal wall thickening 2. Possible postoperative seroma with fluid collection in the anterior subcutaneous fat likely related to previous hernia surgery 3. History of recurrent incisional hernia status post open repair in June 2024 PLAN: -Continue IV antibiotics -Continue low fiber diet -Encourage patient increase activity level -Continue to monitor Physician Electrician Third note has been reviewed by physician. Signing provider agrees with the documented findings, assessment, and plan of care. I have personally seen and examined the patient, reviewed the DOCTOR PODIATRIC MEDICINE /PAs history, exam and MDM and agree with the assessment and plan as written. Based on total visit time, I have performed more than 50% of the visit. As above: Patient doing well today. Some mild discomfort. Continue antibiotics. Anticipate discharge tomorrow. Objective - Vital Signs Vital signs: Vital Signs Temp 97.9 F 10/09/24 12:31 Pulse 78 10/09/24 12:31 Resp 22 10/09/24 12:31 BP 125/67 10/09/24 12:31 Pulse Ox 98 10/09/24 12:31 FiO2 Intake & Output 10/08/24 10/09/24 10/09/24 18:59 06:59 18:59 Intake Total 762 473 Balance 762 473 Intake: Oral 762 473 Other: Voiding Method Toilet # Voids 5 2 3 # Bowel Movements 0 1 - Labs CBC & Chem 7: 10/09/24 06:24 10/08/24 05:02 Labs: Abnormal Lab Results - Last 24 Hours (Table) 10/09/24 Range/Units 06:24 Hgb 10.4 L (11.4-16.0) gm/dL Hct 32.9 L (34.0-46.0) %
--- NOTE | 2024-10-09 17:59 | P.PN ---
Progress Note - Text Progress Note Date: 10/09/24 Chief Complaint: Syncope This is a pleasant 69-year-old patient, follows with DISCOVERY MANAGER Cindy Fong/Dr. Alvarez. Chronic stable medical conditions include COPD, prior PE on Eliquis, thyroid disorder, Raynaud's disease, arthritis, hepatitis B, IBS, umbilical hernia, previous right-sided chest tube, Wellbutrin. Patient been having left lower quadrant pain for about 2 weeks. Prior to that patient had been taking a laxative regularly. Then she saw her family doctor and was told to try Metamucil. With Metamucil she is only getting a very small amount of BMs. Also had to exert herself. She is also meant to take some enema. Not with much resolved. She had a bowel movement 2 days ago. Had some liquid stool the day before. Patient's pain became rather significant and decided to come in. She is able to keep the food down. No fever no chills. But pain was much worse. October 08: Sitting up in a chair. at the bedside. Abdominal pain is much better. No nausea vomiting. Has been on clear liquids. Follow-up with surgery. Possible seroma. Per surgical team okay to resume Eliquis. Discussed patient and October 09: Patient had a bout of pain this morning. Did tolerate a low fiber diet. I saw the patient this morning. Did tolerate her breakfast. Had some loose stool. No fever. Has some abdominal tenderness. Discussed with the patient. Will watch for another 24 hours. IV Zosyn to continue. Active Medications Apixaban (Apixaban 5 Mg Tab) 5 mg PO BID [facility]; Protocol Last Admin: 10/09/24 08:16 Dose: 5 mg Bupropion HCl (Bupropion Xl 300 Mg Tab.Er.24h) 300 mg PO DAILY [facility] Last Admin: 10/09/24 08:16 Dose: 300 mg Sodium Chloride (Saline 0.9%) 1,000 mls @ 130 mls/hr IV .Q7H42M [facility] Last Admin: 10/09/24 14:43 Dose: Not Given Piperacillin Sod/Tazobactam (Sod 3.375 gm/ Sodium Chloride) 100 mls @ 25 mls/hr IVPB Q8HR [facility]; Protocol Last Admin: 10/09/24 16:15 Dose: 25 mls/hr Ketorolac Tromethamine (Ketorolac 15 Mg/Ml 1 Ml Vial) 15 mg IVP Q6HR PRN PRN Reason: Moderate Pain (Scale 4 to 6) Stop: 10/10/24 06:23 Last Admin: 10/08/24 06:21 Dose: 15 mg Metoprolol Tartrate (Metoprolol Tartrate 50 Mg Tab) 50 mg PO BID [facility] Last Admin: 10/09/24 08:17 Dose: 50 mg Morphine Sulfate (Morphine Sulfate 4 Mg/Ml Syringe) 4 mg IV Q4HR PRN PRN Reason: Severe Pain (Scale 7 to 10) Naloxone HCl (Naloxone 0.4 Mg/Ml 1 Ml Vial) 0.2 mg IV Q2M PRN PRN Reason: Opioid Reversal Ondansetron HCl (Ondansetron 4 Mg/2 Ml Vial) 4 mg IVP Q8HR PRN PRN Reason: Nausea And Vomiting Pantoprazole Sodium (Pantoprazole 40 Mg Tablet) 40 mg PO AC-BRKFST [facility] Last Admin: 10/09/24 06:04 Dose: 40 mg Social history: smoked a pack a day for close to 35 years. Stopped about 2011. l . Alcohol occasionally. Physical examination: VITAL SIGNS: 98, 74, 16, 119 x 65, 96% room air GENERAL: Sitting up in a chair, comfortable EYES: Pupils equal. Conjunctiva mare l. HEENT: External appearance of nose and ears normal, oral cavity grossly normal. NECK: JVD not raised; masses not palpable. HEART: First and second heart sounds are normal; no edema. LUNGS: Respiratory rate normal; clear to auscultation. ABDOMEN: Soft, decreased left lower abdominal tenderness significant, no guard ing rigidity r, liver spleen not palpable, no masses palpable. No distention PSYCH: Alert and oriented x3; mood and affect mare l. MUSCULOSKELETAL:No Clubbing/cyanosis;muscles-grossly intact. Some OA INVESTIGATIONS, reviewed in the clinical context: October 09: White count 5.7 hemoglobin 10.4 October 07, 2024: White count 10.2 hemoglobin 11.6 platelets 363 sodium 137 potassium 4.1 creatinine 0.81 UA: Nitrite positive leukoesterase moderate WBC 55 CT abdomen pelvis with IV contrast: Circumferential wall thickening of the sigmoid colon with moderate surrounding inflammation consistent with colitis. Rectal wall thickening of the adjacent small bowel. Fluid collection in the anterior subcutaneous fat 8.1 x 2.1 cm. Abscess not ruled out. Assessment plan: -Acute sigmoid colon colitis. And proctitis. Improving IV Zosyn. Tolerating low-fiber diet Being followed by general surgery -History of PVCs Lopressor 25 twice daily -Right thyroid mass with a predominantly cystic appearance. Causing some mass effect with bowing of the trachea towards the left thyroid mass. Patient did follow-up with Dr. Ariel Charles from ENT. Normal TSH. -Raynaud's disease -IBS -Probable UTI with cystitis IV Zosyn -Primary osteoarthritis Tylenol as needed -Essential hypertension Lopressor -Chronic PE Eliquis-to be resumed today as per surgery -COPD in a prior smoker Albuterol as needed -Depression Wellbutrin XL -Full code See how the patient does today. Increase activity. Hopefully discharge tomorrow Past Medical History Past Medical History: Cancer, COPD, Deep Vein Thrombosis (DVT), Hypertension, Liver Disease, Pulmonary Embolus (PE), Thyroid Disorder Additional Past Medical History / Comment(s): emphysema, hernias, diverticulitis, right lung collapse, currently has "cluster" of pulmonary emboli per pt. takes Eliquis to treat, raynauds disease, arthritis, hepatitis B, IBS, umbilical hernia, thyroid cyst, lung collapse, some type of cancer at age 21, doesn't remember type went through cryo treatments History of Any Multi-Drug Resistant Organisms: None Reported Past Surgical History: Bladder Surgery, Bowel Resection, Cholecystectomy, Hernia Repair Additional Past Surgical History / Comment(s): bowel resection, four hernia repairs, bladder suspension, chest tube placed and removed, previous thyroid biopsy, colonoscopies Past Anesthesia/Blood Transfusion Reactions: Previous Problems w/ Anesthesia, Postoperative Nausea & Vomiting (PONV) Additional Past Anesthesia/Blood Transfusion Reaction / Comment(s): pt. states she has a hard time waking up from surgery Past Psychological History: Depression Smoking Status: Former smoker Past Alcohol Use History: Occasional, Rare Past Drug Use History: Marijuana
[2024-10-10 02:21] VITALS: TEMP 97.5
[2024-10-10 08:45] VITALS: BP 146/88; PULSE 73; RESP 17
--- NOTE | 2024-10-10 09:31 | P.PN ---
Subjective Progress Note Date: 10/10/24 Principal diagnosis: Diverticulitis Patient doing well today. No pain. Tolerating diet. Had another bowel movement. Objective - Vital Signs Vital signs: Vital Signs Temp 97.5 F L 10/10/24 07:00 Pulse 73 10/10/24 07:00 Resp 17 10/10/24 07:00 BP 146/88 10/10/24 07:00 Pulse Ox 95 10/10/24 07:00 FiO2 Intake & Output 10/09/24 10/10/24 10/10/24 18:59 06:59 18:59 Intake Total 893 Balance 893 Intake: Oral 893 Other: Voiding Method Toilet Toilet # Voids 3 1 # Bowel Movements 1 - Exam Abdomen: Soft, nondistended, nontender - Labs CBC & Chem 7: 10/09/24 06:24 10/08/24 05:02 Assessment and Plan (1) Diverticulitis Narrative/Plan: Patient doing well today. Continue antibiotics. Continue low fiber diet. May discharge. Current Visit: Yes Status: Acute Code(s): K57.92 - DVTRCLI OF INTEST, PART UNSP, W/O PERF OR ABSCESS W/O BLEED SNOMED Code(s): 938916573
[2024-10-10] MEDS: LEVOFLOXACIN 750 MG TAB PO SCH (11:03)
--- NOTE | 2024-10-11 12:58 | P.DS ---
Providers Date of admission: 10/07/24 15:00 Expected date of discharge: 10/10/24 Attending physician: Julio Cesar Huddleston Consults: 10/07/24 06:22 Consult Physician Urgent Consulting Provider: Teo Brannon Consult Reason/Comments: abd pain, colitis Do you want consulting provider notified?: Yes Primary care physician: Jhon Alvarez Procedures: Chief Complaint: Syncope This is a pleasant 69-year-old patient, follows with CYBER SECURITY CONSULTANT Cindy Fong/Dr. Alvarez. Chronic stable medical conditions include COPD, prior PE on Eliquis, thyroid disorder, Raynaud's disease, arthritis, hepatitis B, IBS, umbilical hernia, previous right-sided chest tube, Wellbutrin. Patient been having left lower quadrant pain for about 2 weeks. Prior to that patient had been taking a laxative regularly. Then she saw her family doctor and was told to try Metamucil. With Metamucil she is only getting a very small amount of BMs. Also had to exert herself. She is also meant to take some enema. Not with much resolved. She had a bowel movement 2 days ago. Had some liquid stool the day before. Patient's pain became rather significant and decided to come in. She is able to keep the food down. No fever no chills. But pain was much worse. October 08: Sitting up in a chair. at the bedside. Abdominal pain is much better. No nausea vomiting. Has been on clear liquids. Follow-up with surgery. Possible seroma. Per surgical team okay to resume Eliquis. Discussed patient and October 09: Patient had a bout of pain this morning. Did tolerate a low fiber diet. I saw the patient this morning. Did tolerate her breakfast. Had some loose stool. No fever. Has some abdominal tenderness. Discussed with the patient. Will watch for another 24 hours. IV Zosyn to continue. October 10: Patient doing much better. Mild tenderness. Diet was discussed in detail. Patient is multiple allergies. Was given a dose of Levaquin and watched for any side effect reaction. None. Will be discharged on Levaquin and Flagyl. Patient does follow with Dr. Brannon who she will follow-up next week in the office. Soft bland diet. Discussion and discharge planning more than 35 minutes Social history: smoked a pack a day for close to 35 years. Stopped about 2011. l . Alcohol occasionally. Physical examination: VITAL SIGNS: 97.5, 73, 17, 146 x 88, 95% room air GENERAL: Calm for the Nino EYES: Pupils equal. Conjunctiva mare l. HEENT: External appearance of nose and ears normal, oral cavity grossly normal. NECK: JVD not raised; masses not palpable. HEART: First and second heart sounds are normal; no edema. LUNGS: Respiratory rate normal; clear to auscultation. ABDOMEN: Soft, mild left lower abdominal tenderness significant, no guarding rigidity r, liver spleen not palpable, no masses palpable. No distention PSYCH: Alert and oriented x3; mood and affect mare l. MUSCULOSKELETAL:No Clubbing/cyanosis;muscles-grossly intact. Some OA INVESTIGATIONS, reviewed in the clinical context: October 09: White count 5.7 hemoglobin 10.4 October 07, 2024: White count 10.2 hemoglobin 11.6 platelets 363 sodium 137 potassium 4.1 creatinine 0.81 UA: Nitrite positive leukoesterase moderate WBC 55 CT abdomen pelvis with IV contrast: Circumferential wall thickening of the sigmoid colon with moderate surrounding inflammation consistent with colitis. Rectal wall thickening of the adjacent small bowel. Fluid collection in the anterior subcutaneous fat 8.1 x 2.1 cm. Abscess not ruled out. Assessment plan: -Acute sigmoid colon colitis. And proctitis. Clinically much better IV Zosyn. Tolerating low-fiber diet Seen by Dr. Church Discharged on Levaquin 750 mg daily and Flagyl 5 mg 4 times daily for 10 days -History of PVCs Lopressor 25 twice daily -Right thyroid mass with a predominantly cystic appearance. Causing some mass effect with bowing of the trachea towards the left thyroid mass. Patient did follow-up with Dr. Ariel Charles from ENT. Normal TSH. -Raynaud's disease -IBS -Probable UTI with cystitis IV Zosyn -Primary osteoarthritis Tylenol as needed -Essential hypertension Lopressor -Chronic PE Eliquis-to be resumed today as per surgery -COPD in a prior smoker Albuterol as needed -Depression Wellbutrin XL -Full code Disposition: Home Past Medical History Past Medical History: Cancer, COPD, Deep Vein Thrombosis (DVT), Hypertension, Liver Disease, Pulmonary Embolus (PE), Thyroid Disorder Additional Past Medical History / Comment(s): emphysema, hernias, diverticulitis, right lung collapse, currently has "cluster" of pulmonary emboli per pt. takes Eliquis to treat, raynauds disease, arthritis, hepatitis B, IBS, umbilical hernia, thyroid cyst, lung collapse, some type of cancer at age 21, doesn't remember type went through cryo treatments History of Any Multi-Drug Resistant Organisms: None Reported Past Surgical History: Bladder Surgery, Bowel Resection, Cholecystectomy, Hernia Repair Additional Past Surgical History / Comment(s): bowel resection, four hernia repairs, bladder suspension, chest tube placed and removed, previous thyroid biopsy, colonoscopies Past Anesthesia/Blood Transfusion Reactions: Previous Problems w/ Anesthesia, Postoperative Nausea & Vomiting (PONV) Additional Past Anesthesia/Blood Transfusion Reaction / Comment(s): pt. states she has a hard time waking up from surgery Past Psychological History: Depression Smoking Status: Former smoker Past Alcohol Use History: Occasional, Rare Past Drug Use History: Marijuana Patient Condition at Discharge: Stable Plan - Discharge Summary Discharge Rx Participant: Yes New Discharge Prescriptions: New metroNIDAZOLE [Flagyl] 500 mg PO QID #40 tab Levofloxacin [Levaquin] 750 mg PO DAILY #10 tab Continue buPROPion XL [Wellbutrin XL] 300 mg PO DAILY Apixaban [Eliquis] 5 mg PO BID Cholecalciferol [Vitamin D3 (25 Mcg = 1000 Iu)] 25 mcg PO W/LUNCH Metoprolol Tartrate [Lopressor] 50 mg PO BID Calcium Carbonate [Calcium] 600 mg PO W/LUNCH Multivit-Min/Iron/Folic/Lutein [Centrum Silver Women Tablet] 1 tab PO W/LUNCH Discontinued Docusate [Colace] 100 mg PO W/LUNCH Discharge Medication List buPROPion XL [Wellbutrin XL] 300 mg PO DAILY 01/05/20 [History] Apixaban [Eliquis] 5 mg PO BID 12/21/20 [History] Cholecalciferol [Vitamin D3 (25 Mcg = 1000 Iu)] 25 mcg PO W/LUNCH 12/21/20 [History] Calcium Carbonate [Calcium] 600 mg PO W/LUNCH 05/13/24 [History] Metoprolol Tartrate [Lopressor] 50 mg PO BID 05/13/24 [History] Multivit-Min/Iron/Folic/Lutein [Centrum Silver Women Tablet] 1 tab PO W/LUNCH 10/07/24 [History] Levofloxacin [Levaquin] 750 mg PO DAILY #10 tab 11/09/24 [Rx] metroNIDAZOLE [Flagyl] 500 mg PO QID #40 tab 10/10/24 [Rx] Follow up Appointment(s)/Referral(s): Jhon Alvarez MD [Primary Care Provider] - 1-2 days Teo Brannon MD [STAFF PHYSICIAN] - 1 Week Patient Instructions/Handouts: Diverticulitis (DC) Activity/Diet/Wound Care/Special Instructions: soft bland diet
== END 2024-10-10 14:50 | disposition home or self-care (01) | DRG 392 ==
LOC: EC 02:24 → 6NMEDSUR 06:22 → OBSVTOIN 15:00 → 6NMEDSUR 16:16
PROVIDERS: ADMIT Hospitalist; ATTEND Hospitalist
DX: K52.9 Noninfective gastroenteritis and colitis, unspecified (principal); K57.32 Diverticulitis of large intestine without perforation or abscess without bleeding; K42.9 Umbilical hernia without obstruction or gangrene; N30.90 Cystitis, unspecified without hematuria; J44.9 Chronic obstructive pulmonary disease, unspecified; M19.91 Primary osteoarthritis, unspecified site; E89.0 Postprocedural hypothyroidism; I49.3 Ventricular premature depolarization; I73.00 Raynaud's syndrome without gangrene; K62.89 Other specified diseases of anus and rectum; I10 Essential (primary) hypertension; F32.A Depression, unspecified; J43.9 Emphysema, unspecified; K59.00 Constipation, unspecified; Z79.01 Long term (current) use of anticoagulants; Z79.899 Other long term (current) drug therapy; Z86.711 Personal history of pulmonary embolism; Z86.718 Personal history of other venous thrombosis and embolism; Z90.49 Acquired absence of other specified parts of digestive tract; Z79.2 Long term (current) use of antibiotics; Z86.19 Personal history of other infectious and parasitic diseases; Z88.2 Allergy status to sulfonamides; Z87.891 Personal history of nicotine dependence
CPT/HCPCS: 36415; 71046; 74177; 80048; 80053; 81001; 82150; 83605; 83690; 85025; 93005; 96361; 96365; 96366; 96372; 96375; 96376; 99285

== ENCOUNTER 2024-11-12 06:48 | Day surgery (SDC) | payer MEDICARE ==
[2024-11-10 13:33] VITALS: BMI 38.5
[2024-11-12] MEDS: IV FLUID CONTINUATION 1,000 ML IV ONE ×2 (07:09→08:07)
[2024-11-12 07:18] VITALS: TEMP 97.6
[2024-11-12] MEDS: LACTATED RINGERS 1,000 ML IV SCH (07:31)
[2024-11-12] MEDS: ONDANSETRON 4 MG/2 ML VIAL IVP STA (07:32)
[2024-11-12] MEDS ORDERED: LIDOCAINE 1% INJ 10MG/ML (20 ML MDV) ONE (08:08)
[2024-11-12] MEDS ORDERED: PROPOFOL 10 MG/ML 20 ML VIAL IV ONE (08:08)
--- NOTE | 2024-11-12 08:24 | P.OP ---
Date of Procedure: 11/12/24 Preoperative Diagnosis: Diverticulitis Postoperative Diagnosis: Diverticulosis Procedure(s) Performed: Colonoscopy Anesthesia: MAC Surgeon: Teo Brannon Pathology: none sent Condition: stable Disposition: PACU Description of Procedure: The patient was placed on the endoscopy table in the lateral position. She received IV sedation. Digital rectal exam was performed. This revealed no abnormalities. Flexible colonoscope was then placed patient anus and passed throughout the entire colon. The ileocecal valve was visualized. The cecum, ascending and transverse colon appeared normal. The descending and sigmoid colon had moderate diverticulosis. The scope was then brought back into the rectum this appeared normal. Scope withdrawn for the patient.
[2024-11-12 08:49] VITALS: PULSE 71; RESP 16
[2024-11-12 08:56] VITALS: BP 120/86
== END 2024-11-12 09:28 | disposition home or self-care (01) ==
LOC: ORWHC2ENDO 06:48
PROVIDERS: ATTEND Surgery
DX: K57.30 Diverticulosis of large intestine without perforation or abscess without bleeding (principal); I10 Essential (primary) hypertension; J44.9 Chronic obstructive pulmonary disease, unspecified; F32.A Depression, unspecified; Z91.89 Other specified personal risk factors, not elsewhere classified; Z79.01 Long term (current) use of anticoagulants; Z79.899 Other long term (current) drug therapy; Z87.891 Personal history of nicotine dependence; Z86.711 Personal history of pulmonary embolism; Z86.718 Personal history of other venous thrombosis and embolism
CPT/HCPCS: 45378; J2405; J2003; J2704